=== PATIENT | female | born 1945 | race American Indian/Alaskan Native ===

== ENCOUNTER → 2017-10-12 13:51 | Outpatient (CLI) | payer OTHER, MEDICAID, SELFPAY ==
[2017-10-12 14:59] LABS: Hemoglobin A1C% w Est Avg Glu 7.5 % (4.0-6.0)
[2017-10-12 15:01] LABS: Alanine Aminotransferase 41 IU/L (9-52); Albumin 4.1 g/dL (3.5-5.0); Albumin Globulin Ratio 1.6 (1.0-2.8); Alkaline Phosphatase 74 U/L (38-126); Aspartate Aminotransferase 21 IU/L (14-36); BUN Creatinine Ratio 16.7 (6-22); Bilirubin Total 1.7 mg/dL (0.2-1.3); Blood Urea Nitrogen 15 mg/dL (7-17); Carbon Dioxide 27 mmol/L (22-32); Chloride 103 mmol/L (98-107); Cholesterol 140 mg/dL (140-199); Estimated Glomerular Filt Rate > 60.0 mL/min (>60); Globulin 2.5 g/dL (1.7-4.1); Glucose 146 mg/dL (80-110); HDL Cholesterol 29 mg/dL (40-60); HEMOLYSIS < 15 (0-50); LDL Cholesterol Calculated 69 mg/dL (<100); Potassium 4.4 mmol/L (3.4-5.1); Sodium 141 mmol/L (137-145); Total Protein 6.6 g/dL (6.3-8.2); Triglycerides 212 mg/dL (35-150)
== END ==
PROVIDERS: Family Provider Family Medicine; PCP Family Medicine; Visit Provider Family Medicine
DX: E78.5 Hyperlipidemia, unspecified (principal); E11.9 Type 2 diabetes mellitus without complications; I10 Essential (primary) hypertension
CPT/HCPCS: 36415; 80053; 80061; 83036

== ENCOUNTER → 2017-11-01 18:20 | Outpatient (CLI) | payer OTHER, MEDICAID, SELFPAY | PROVIDERS: Family Provider Family Medicine; PCP Family Medicine; Visit Provider Physician Assistant | DX: N30.00 Acute cystitis without hematuria (principal) | CPT/HCPCS: 87086 ==

== ENCOUNTER 2017-11-30 07:50 | Day surgery (SDC) | payer OTHER, SELFPAY ==
[2017-11-30] VITALS (8 sets, daily range): BP systolic 98–149; BP diastolic 55–91; PULSE 60–64; RESP 15–20; TEMP 36.1–36.4; O2SAT 90–96; BMI 30.7
--- NOTE | 2017-11-30 08:17 | PM.PREOP ---
Pre-operative Note Interval Note Pre-op Check: Yes History & Physical Reviewed by Physician Changes: No
--- NOTE | 2017-11-30 08:18 | PM.PROC.1 ---
Procedures Date/Time Date of procedure: 11/30/17 Time of procedure: 08:18
--- NOTE | 2017-11-30 08:18 | PM.OP.1 ---
Procedure & Clinicians Procedure: Date of service: December 01, 2007 Preoperative diagnoses: 1. Right nuclear sclerotic and cortical cataract. 2. Astigmatism which she corrects elects to correct with a toric intra-ocular lens. 3. Fip-anynzkk-qxzeopoux diabetes mellitus. 4. Hypertension 5. 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 Postoperative diagnoses: 1. Cataract status post cataract surgery with intraocular lens placement . Procedure: Phacoemulsification with posterior chamber intraocular lens implant Surgeon: Arleth Padgett MD Complications:none Specimen: None Implant:ZCT 600+14.5 Blood loss: None Anesthesia: Retrobulbar with monitored standby Anesthesiologist: Brenden Flower M.D. Description of procedure: Patient is a female year old with decreased vision due to cataract which is affecting activities of daily living. She wants surgery to improve vision. She was taken to the operating room and given IV sedation. Topical proparacaine drops were placed in indelible ink wilkerson were placed at the 90 and 180 degree meridian. Due to her status of one eye with useful vision only a general anesthetic was chosen. A laryngeal mask airway was was given without difficulty. The eye is manually massaged for 30 sec, prepped using Betadine solution, and draped in the usual sterile fashion. Temporal approach was made, a 1 mm side-port incision was made at the 7:30 position. Phenylephrine 1.5% mixed with 1% xylocaine 0.2 cc was placed into the anterior chamber. Viscoat followed by Healon was then placed. A 2.6 mm clear incision with a 2.6 mm blade was placed at the 170 degree meridian. A 360 degree capsulorrhexis style capsulotomy was then performed with a cystitome needle on a Healon. Hydrodelineation and hydrodissection were performed. The phacoemulsification unit is introduced, and sculpting mode was used to groove the central lens. It is then removed in chopping mode. Epi nucleus is removed with epinuclear mode and irrigation aspiration was used to remove the peripheral cortex. The posterior capsule is polished. Permanent ink wilkerson are placed at the 18 degree meridian The intraocular lens is selected, inspected, power confirmed, and placed in the posterior chamber in the desired position confirmed with multiple markers. The pupil was constricted. The wound was stromally hydrated and tested for leaks, there was none and it was left sutureless. Vigamox 0.1 cc was placed into the anterior chamber. Kenalog 0.2 cc was placed in the superior subconjunctival space. A drop of antibiotic and was placed and the eye was patched and shielded. The patient was stable and returned to the recovery room in excellent condition. Dictated by: Arleth Padgett MD Copy to: [facility]
[2017-11-30] MEDS: PROPARACAINE 0.5% OPHTH SOL 2 DROPS EYE-OP (08:22)
[2017-11-30] MEDS: CATARACT EYE COMPOUND (10 DROPS/SYRINGE) 3 DROPS EYE-OP (08:26)
[2017-11-30] MEDS: APREPITANT 40 MG CAPSULE PO (08:41)
[2017-11-30] MEDS: PROPARACAINE 0.5% OPHTH SOL 2 DROPS EYE-RIGHT (08:51)
[2017-11-30] MEDS: LACTATED RINGERS 1,000 ML 42 ML IV (08:55)
[2017-11-30] MEDS: HYALURONATE SODIUM 10 MG/ML SYRINGE INJ (09:20)
[2017-11-30] MEDS: MOXIFLOXACIN OPHTH DROPS 3 ML BOTTLE 2 DROPS INJ (09:20)
[2017-11-30] MEDS: CHONDROIDTIN/SOD HYALURONATE 1.05 ML SYRINGE INTRAOCULA (09:20)
[2017-11-30] MEDS: PHENYLEPHRINE/LIDOCAINE VIAL (OR) 0.2 ML EYE-OP (09:21)
[2017-11-30] MEDS: BALANCED SALT IRRIG SOLN NO.2 500 ML, EPINEPHrine 1 MG IRR (09:22)
[2017-11-30] MEDS: TRIAMCINOLONE 50 MG/5 ML VIAL INJ (09:22)
[2017-11-30] MEDS: OFLOXACIN 0.3% OPHTH 5 ML 2 DROPS EYE-RIGHT (09:26)
--- NOTE | 2017-11-30 11:02 | SUR.PHASEII ---
pt steady on feet, dressed ready to go, no questions
== END 2017-11-30 11:03 | disposition home or self-care (01) ==
PROVIDERS: PCP Family Medicine; Visit Provider Ophthalmology
DX: H25.11 Age-related nuclear cataract, right eye (principal); E11.9 Type 2 diabetes mellitus without complications; I10 Essential (primary) hypertension; H52.201 Unspecified astigmatism, right eye
CPT/HCPCS: J0171; J2405; J2704; J3301; J8501; V2787

== ENCOUNTER → 2017-12-31 11:51 | Outpatient (CLI) | payer OTHER, MEDICAID, SELFPAY ==
--- NOTE | 2017-12-31 11:54 | DI.RAD.S_ITS ---
PROCEDURE: XR ANKLE RT MIN 3V INDICATIONS: R leg contusion, swelling, fall TECHNIQUE: 3 views of the ankle were acquired. COMPARISON: None. FINDINGS: Bones: No fractures or dislocations. Ankle mortise is normally aligned. No suspicious bony lesions. Soft tissues: There is periarticular soft tissue swelling. No tibiotalar joint effusion. Achilles tendon appears normal. IMPRESSION: 1. No fracture or dislocation. Dictated by: Ivan Quiroz M.D. on 12/31/2017 at 12:23 Approved by: Ivan Quiroz M.D. on 12/31/2017 at 12:24
--- NOTE | 2017-12-31 11:54 | DI.RAD.S_ITS ---
PROCEDURE: XR KNEE RT 3V INDICATIONS: R leg contusion, swelling, fall TECHNIQUE: 3 views of the knee were acquired. COMPARISON: None. FINDINGS: Bones: No fractures or dislocations. No suspicious bony lesions. Soft tissues: No joint effusion. No suspicious soft tissue calcifications. IMPRESSION: 1. No fracture or dislocation. Dictated by: Ivan Quiroz M.D. on 12/31/2017 at 12:24 Approved by: Ivan Quiroz M.D. on 12/31/2017 at 12:25
--- NOTE | 2017-12-31 11:54 | DI.RAD.S_ITS ---
PROCEDURE: XR FOOT RT MIN 3V INDICATIONS: R leg contusion, swelling, fall TECHNIQUE: 3 views of the foot were acquired. COMPARISON: None. FINDINGS: Bones: No fractures or dislocations. No suspicious bony lesions. Soft tissues: No tibiotalar joint effusion. Achilles tendon appears normal. IMPRESSION: 1. No fracture or dislocation. Dictated by: Ivan Quiroz M.D. on 12/31/2017 at 12:20 Approved by: Ivan Quiroz M.D. on 12/31/2017 at 12:23
--- NOTE | 2017-12-31 11:54 | DI.RAD.S_ITS ---
PROCEDURE: XR TIBIA FUBULA RT 2V INDICATIONS: R leg contusion, swelling, fall TECHNIQUE: 2 views of the tibia and fibula were acquired. COMPARISON: None. FINDINGS: Bones: No fractures or dislocations. No suspicious bony lesions. Soft tissues: No suspicious soft tissue calcifications or masses. IMPRESSION: 1. No fracture or dislocation. Dictated by: Ivan Quiroz M.D. on 12/31/2017 at 12:24 Approved by: Ivan Quiroz M.D. on 12/31/2017 at 12:24
== END ==
PROVIDERS: PCP Family Medicine; Visit Provider Physician Assistant
DX: S80.11XA Contusion of right lower leg, initial encounter (principal); M79.89 Other specified soft tissue disorders; W19.XXXA Unspecified fall, initial encounter
CPT/HCPCS: 73562; 73590; 73610; 73630

== ENCOUNTER → 2018-03-24 13:15 | Outpatient (CLI) | payer OTHER, MEDICAID, SELFPAY ==
[2018-03-24 13:49] LABS: Add Manual Diff / Slide Review NO; Basophils Percent Auto 0.8 % (0-2); Eosinophils Percent Auto 2.2 % (2-4); Hematocrit 42.6 % (36-46); Hemoglobin 14.7 g/dL (12.0-16.0); Lymphocytes Percent Auto 14.6 % (25-40); Mean Corpuscular HGB Conc 34.6 % (30-36); Mean Corpuscular Volume 89.5 fL (80-100); Neutrophils Absolute Auto 5700 /uL (1500-7000); Neutrophils Percent Auto 75.4 % (50-75); Platelet Count 187 X10^3/uL (150-400); Red Blood Cell Count 4.76 X10^6/uL (4.0-5.2); Red Cell Distribution Width 13.2 % (11.6-14.8); White Blood Cell Count 7.5 X10^3/uL (4.5-11.0)
[2018-03-24 13:57] LABS: Alanine Aminotransferase 35 IU/L (9-52); Albumin 4.2 g/dL (3.5-5.0); Albumin Globulin Ratio 1.8 (1.0-2.8); Alkaline Phosphatase 63 U/L (38-126); Aspartate Aminotransferase 20 IU/L (14-36); BUN Creatinine Ratio 12.2 (6-22); Bilirubin Total 1.2 mg/dL (0.2-1.3); Blood Urea Nitrogen 11 mg/dL (7-17); Calcium 9.5 mg/dL (8.4-10.2); Carbon Dioxide 24 mmol/L (22-32); Chloride 105 mmol/L (98-107); Cholesterol 128 mg/dL (140-199); Estimated Glomerular Filt Rate > 60.0 mL/min (>60); Globulin 2.4 g/dL (1.7-4.1); Glucose 138 mg/dL (80-110); HDL Cholesterol 30 mg/dL (40-60); HEMOLYSIS < 15 (0-50); LDL Cholesterol Calculated 67 mg/dL (<100); Potassium 4.1 mmol/L (3.4-5.1); Sodium 144 mmol/L (137-145); Total Protein 6.6 g/dL (6.3-8.2); Triglycerides 157 mg/dL (35-150)
== END ==
PROVIDERS: PCP Family Medicine; Visit Provider Family Medicine
DX: E78.5 Hyperlipidemia, unspecified (principal); I10 Essential (primary) hypertension
CPT/HCPCS: 36415; 80053; 80061; 85025

== ENCOUNTER → 2018-04-17 12:21 | Outpatient (CLI) | payer OTHER, MEDICAID, SELFPAY ==
--- NOTE | 2018-04-17 12:24 | DI.RAD.S_ITS ---
PROCEDURE: XR LUMBAR SPINE 2-3V INDICATIONS: lumbar strain TECHNIQUE: 3 views of the lumbar spine were acquired. COMPARISON: [facility], , L-SPINE 2-3 VIEWS, 05/02/2012, 12:30. FINDINGS: Bones: 5 gys-bls-qcynafn vertebrae are present. There is mildly levoscoliotic bony alignment. No vertebral body compression fractures. No suspicious bony lesions. Note is made of interval worsening of degenerative disc disease with near ykwv-hy-vfqi articulation at L2-L3 between the adjacent disc spaces, and further worsening of degenerative disc height reduction at that level and also at L5-S1. Facet osteoarthritis is greater on the left than the right, and most prominent from L3 inferiorly. Soft tissues: Overlying bowel gas pattern is normal. No suspicious soft tissue calcifications. IMPRESSION: Degenerative disc disease and facet osteoarthritis along the lumbosacral spine has appreciably worsened from the comparison study in April 2012. Slight retrolisthesis, grade 1, of L2 on L3 has developed associated with disc height reduction and ligamentous laxity. No trauma found. Slight convex leftward scoliosis. Dictated by: Dillon Diaz M.D. on 04/17/2018 at 13:35 Approved by: Dillon Diaz M.D. on 04/17/2018 at 13:36
--- NOTE | 2018-04-17 13:00 | DI.US.S_ITS ---
PROCEDURE: US THYROID INDICATIONS: FOLLOW UP TECHNIQUE: Real-time scanning was performed of the thyroid gland, with image documentation. COMPARISON: [facility], [place], THYROID, 03/24/2017, 13:30. FINDINGS: Right: Thyroid lobe measures 4.7 x 2.1 x 1.7 cm, and is homogeneous in echotexture. Left: Thyroid lobe measures 5.0 x 2.2 x 2.0 cm, and is homogenous in echotexture. Isthmus: 3.0 mm thick. Nodule number: 1 Location: Right mid to superior Size: 1.0 0.6 x 0.9 cm. Composition: Solid Echogenicity: Hypoechoic Shape: wider than tall. Margins: Smooth Echogenic foci: None Total points: 4 ACR TI-RADS category: Moderately suspicious. Nodule number: 2 Location: Right mid medially Size: Unchanged at 0.8 x 0.6 x 0.7 cm. Composition: Solid Echogenicity: Hypoechoic Shape: wider than tall. Margins: Smooth Echogenic foci: None Total points: 4 ACR TI-RADS category: Moderately suspicious Nodule number: Moderately suspicious Location: Right mid inferior Size: Unchanged at 1.8 x 1.6 x 1.4 cm. Composition: Solid Echogenicity: Hypoechoic Shape: wider than tall. Margins: Smooth Echogenic foci: None Total points: 4 ACR TI-RADS category: Moderately suspicious Nodule number: 5 Location: Left mid Size: Enlarged at 2.8 x 1.9 x 1.6 cm. Composition: Predominantly solid Echogenicity: Hypoechoic Shape: wider than tall. Margins: Ill-defined Echogenic foci: None Total points: 5 ACR TI-RADS category: Moderately suspicious IMPRESSION: Bilateral thyroid nodules as above. Recommend sonographically directed fine needle aspiration involving the ## 4 left mid nodule and continued sonographic surveillance of the additional nodules as below. ACR TI-RADS definitions and recommendations: TI-RADS 1 (benign): 0 points. FNA not needed. TI-RADS 2 (not suspicious): 2 points. FNA not needed. TI-RADS 3 (mildly suspicious): 3 points. * FNA if 2.5 cm or larger, follow up if 1.5 cm or larger (at 1, 3, and 5 years). TI-RADS 4 (moderately suspicious): 4-6 points. * FNA if 1.5 cm or larger, follow up if 1 cm or larger (at 1, 2, 3, and 5 years). TI-RADS 5 (highly suspicious): 7 points or more. * FNA if 1 cm or larger, follow up if 0.5 cm or larger (every year for 5 years). Dictated by: Jeronimo MERCHANT Interpreted: Jerardo Bolton MD on 04/17/2018 at 13:59 Approved by: Jerardo Bolton M.D. on 04/17/2018 at 16:55
== END ==
PROVIDERS: PCP Family Medicine; Visit Provider Family Medicine
DX: E04.2 Nontoxic multinodular goiter (principal); S39.012A Strain of muscle, fascia and tendon of lower back, initial encounter; M51.36 Other intervertebral disc degeneration, lumbar region; M51.37 Other intervertebral disc degeneration, lumbosacral region; M47.816 Spondylosis without myelopathy or radiculopathy, lumbar region; M47.817 Spondylosis without myelopathy or radiculopathy, lumbosacral region
CPT/HCPCS: 72100; 76536

== ENCOUNTER → 2018-07-14 13:43 | Outpatient (CLI) | payer OTHER, MEDICAID, SELFPAY ==
--- NOTE | 2018-07-14 13:45 | DI.MRI.S_ITS ---
PROCEDURE: MR LUMBAR SPINE WO CON INDICATIONS: Lumbar disc disease TECHNIQUE: Noncontrast sagittal T1 spin echo and T2 fast echo, sagittal STIR, axial T1 and T2 fast spin echo through the lumbar spine. In cases with scoliosis, additional coronal T2 fast spin echo may be performed. COMPARISON: [facility], MR, L-SPINE W&WO CONTRAST, 06/15/2012, 11:59. [facility], CR, XR LUMBAR SPINE 2-3V, 04/17/2018, 13:00. FINDINGS: Image quality: Excellent. Alignment and Curvature: 5 lumbar type vertebral bodies are present by plain film. There is mild grade 1 retrolisthesis of L1 on L2, L2 on L3, and L3 on L4. Bone Marrow: Marrow is of normal overall signal. No acute vertebral body compression fractures. There is mild reactive signal within the endplates adjacent to the L1-L2 at L2-L3 intervertebral discs. L2 laminectomy has been performed. Spinal Cord: Conus medullaris terminates at the mid L2 level. Visualized cord demonstrates normal signal and size. Paraspinous Soft Tissues: No paravertebral masses. There is a 16mm diameter high T2 intensity focus within the right kidney, which demonstrates a low T2 intensity mural nodule measuring roughly 6 mm. L1-L2: Mild disc height loss and desiccation. Mild diffuse disc bulge. Mild facet and ligament flavum hypertrophy. Mild epidural lipomatosis. Mild canal stenosis. Mild bilateral foraminal stenosis. No change. L2-L3: Severe disc height loss and desiccation. Moderate diffuse disc bulge. Increased, mild canal stenosis. Increased, mild bilateral foraminal stenosis. L3-L4: Mild disc height loss. Moderate disc desiccation. Mild diffuse disc bulge. Mild facet and ligament flavum hypertrophy. Mild epidural lipomatosis. Increased, mild canal stenosis. Increased, mild bilateral foraminal stenosis. L4-L5: Mild disc height loss and desiccation. Mild diffuse disc bulge. Mild bilateral facet hypertrophy. Mild canal stenosis is unchanged. There is no change in moderate bilateral foraminal stenosis. L5-S1: Moderate disc height loss and desiccation. Mild diffuse disc bulge with superimposed broad-based left far lateral protrusion. Moderate bilateral facet hypertrophy. Mild canal stenosis. Severe left and moderate right foraminal stenosis. Compression of the left L5 nerve root within the neural foramen. No significant change. IMPRESSION: 1. Indeterminate right renal lesion; renal protocol CT with and without intravenous contrast is recommended to evaluate for malignancy. 2. Multilevel degenerative disc and facet disease, as well as ligamentum flavum hypertrophy and epidural lipomatosis. 3. Mild multilevel canal stenoses. 4. Multilevel foraminal stenoses, worst on the left at L5-S1, where there is associated intraforaminal nerve root compression. Recommend correlation with clinical symptoms to ascertain relevance of this finding. Dictated by: Thuan Jones M.D. on 07/14/2018 at 16:14 Approved by: Thuan Jones M.D. on 07/14/2018 at 16:20
== END ==
PROVIDERS: PCP Family Medicine; Visit Provider Family Medicine
DX: M51.36 Other intervertebral disc degeneration, lumbar region (principal); M51.37 Other intervertebral disc degeneration, lumbosacral region; M48.061 Spinal stenosis, lumbar region without neurogenic claudication; M48.07 Spinal stenosis, lumbosacral region; N28.9 Disorder of kidney and ureter, unspecified; E88.2 Lipomatosis, not elsewhere classified
CPT/HCPCS: 72148

== ENCOUNTER → 2018-08-22 12:38 | Outpatient (CLI) | payer OTHER, MEDICAID, SELFPAY ==
--- NOTE | 2018-08-22 12:40 | DI.CT.S_ITS ---
PROCEDURE: CT ABDOMEN WO/W CON INDICATIONS: Renal mass TECHNIQUE: Optional 5 mm thick noncontrast images acquired from the diaphragm to the iliac crests. After the administration of intravenous contrast, 5 mm thick images again acquired from the diaphragm to the iliac crests in the arterial and urographic phases. 5 mm thick coronal and sagittal reformats were then acquired. For radiation dose reduction, the following was used: automated exposure control, adjustment of mA and/or kV according to patient size. COMPARISON: [facility], CT, THORAX WITH CONTRAST, 01/28/2017, 10:20. [facility], CT, ABDOMEN/PELVIS WITH CONTRAST, 06/24/2008, 15:36. [facility], MR, MR LUMBAR SPINE WO CON, 07/14/2018, 14:19. FINDINGS: Image quality: Excellent. Lung bases: Lung bases are clear. Heart size is normal. Genitourinary: Prior MRI from 07/14/18 is reviewed which identified a minimally complex right mid renal cortex cystic structure. The radiodensity in that area on precontrast imaging is 3 Hounsfield units and on the arterial phase of enhancement is 11 Hounsfield units. The delayed imaging is 12 Hounsfield units. Other solid organs: Liver is normal in size and enhancement. Gallbladder appears normal. Biliary system is non dilated. Pancreas enhances normally. Spleen is normal in size and enhancement. No adrenal nodules. Peritoneum and bowel: Unenhanced bowel loops are normal in wall thickness and caliber. No free fluid or air. Nodes and vessels: No retroperitoneal or mesenteric adenopathy by size criteria. Aorta and inferior vena cava are normal in caliber. Bones: No suspicious bony lesions. No vertebral body compression fractures. Miscellaneous: No ventral hernias. IMPRESSION: No significant internal enhancement or enhancing nodule is seen associated with the water density cyst by CT criteria evaluated before, during, and after contrast enhancement optimized for renal cortical evaluation. A malignant appearing mass is not found. This structure also can be seen on a prior CT scan from 06/24/08, also without internal enhancing nodule. No followup is recommended. Dictated by: Dillon Diaz M.D. on 08/22/2018 at 15:33 Approved by: Dillon Diaz M.D. on 08/22/2018 at 15:40
[2018-08-22 13:19] LABS: Hemoglobin A1C% w Est Avg Glu 6.7 % (4.0-6.0)
[2018-08-22 13:34] LABS: Alanine Aminotransferase 24 IU/L (9-52); Albumin 4.4 g/dL (3.5-5.0); Albumin Globulin Ratio 1.6 (1.0-2.8); Alkaline Phosphatase 67 U/L (38-126); Aspartate Aminotransferase 20 IU/L (14-36); Bilirubin Total 1.3 mg/dL (0.2-1.3); Blood Urea Nitrogen 17 mg/dL (7-17); Calcium 10.1 mg/dL (8.4-10.2); Carbon Dioxide 26 mmol/L (22-32); Chloride 103 mmol/L (98-107); Estimated Glomerular Filt Rate 54.1 mL/min (>60); Globulin 2.8 g/dL (1.7-4.1); Glucose 172 mg/dL (80-110); HEMOLYSIS < 15 (0-50); Potassium 3.9 mmol/L (3.4-5.1); Sodium 139 mmol/L (137-145); Total Protein 7.2 g/dL (6.3-8.2)
== END ==
PROVIDERS: PCP Family Medicine; Visit Provider Family Medicine
DX: N28.89 Other specified disorders of kidney and ureter (principal); E11.9 Type 2 diabetes mellitus without complications; I10 Essential (primary) hypertension
CPT/HCPCS: 36415; 74170; 80053; 83036; Q9967

== ENCOUNTER → 2018-11-24 13:01 | Outpatient (CLI) | payer OTHER, MEDICAID, SELFPAY ==
[2018-11-24 13:17] LABS: Add Manual Diff / Slide Review NO; Basophils Absolute Auto 100 /uL (0-100); Basophils Percent Auto 1.1 % (0-2); Eosinophils Absolute Auto 300 /uL (0-450); Eosinophils Percent Auto 3.3 % (2-4); Hematocrit 43.5 % (36-46); Hemoglobin 14.7 g/dL (12.0-16.0); Lymphocytes Absolute Auto 1400 /uL (1100-4500); Mean Corpuscular HGB Conc 33.8 % (30-36); Mean Corpuscular Hemoglobin 30.4 PG (26-34); Mean Corpuscular Volume 89.7 fL (80-100); Monocytes Absolute Auto 600 /uL (0-900); Monocytes Percent Auto 6.8 % (3-14); Neutrophils Absolute Auto 6200 /uL (1500-7000); Neutrophils Percent Auto 72.8 % (50-75); Platelet Count 172 X10^3/uL (150-400); Red Blood Cell Count 4.85 X10^6/uL (4.0-5.2); Red Cell Distribution Width 13.3 % (11.6-14.8); White Blood Cell Count 8.5 X10^3/uL (4.5-11.0)
[2018-11-24 13:30] LABS: Alanine Aminotransferase 51 IU/L (9-52); Albumin 4.1 g/dL (3.5-5.0); Albumin Globulin Ratio 1.5 (1.0-2.8); Alkaline Phosphatase 64 U/L (38-126); Aspartate Aminotransferase 37 IU/L (14-36); BUN Creatinine Ratio 12.2 (6-22); Bilirubin Total 0.7 mg/dL (0.2-1.3); Blood Urea Nitrogen 11 mg/dL (7-17); Calcium 9.9 mg/dL (8.4-10.2); Carbon Dioxide 26 mmol/L (22-32); Chloride 107 mmol/L (98-107); Cholesterol 112 mg/dL (140-199); Estimated Glomerular Filt Rate > 60.0 mL/min (>60); Globulin 2.7 g/dL (1.7-4.1); Glucose 168 mg/dL (80-110); HDL Cholesterol 31 mg/dL (40-60); HEMOLYSIS < 15 (0-50); LDL Cholesterol Calculated 59 mg/dL (<100); Potassium 4.3 mmol/L (3.4-5.1); Sodium 142 mmol/L (137-145); Total Protein 6.8 g/dL (6.3-8.2); Triglycerides 108 mg/dL (35-150)
[2018-11-24 13:31] LABS: Hemoglobin A1C% w Est Avg Glu 6.8 % (4.0-6.0)
[2018-11-24 14:13] LABS: Thyroid Stimulating Hormone 1.18 uIU/mL (0.47-4.68)
== END ==
PROVIDERS: PCP Family Medicine; Visit Provider Family Medicine
DX: E11.9 Type 2 diabetes mellitus without complications (principal); E78.5 Hyperlipidemia, unspecified; I10 Essential (primary) hypertension
CPT/HCPCS: 36415; 80053; 80061; 83036; 84443; 85025

== ENCOUNTER → 2019-04-18 12:16 | Outpatient (CLI) | payer MEDICARE, MEDICAID, SELFPAY ==
[2019-04-18 13:41] LABS: Alanine Aminotransferase 17 IU/L (<35); Albumin Globulin Ratio 1.5 (1.0-2.8); Alkaline Phosphatase 59 U/L (38-126); Aspartate Aminotransferase 18 IU/L (14-36); BUN Creatinine Ratio 11.1 (6-22); Bilirubin Total 1.3 mg/dL (0.2-1.3); Blood Urea Nitrogen 10 mg/dL (7-17); Calcium 9.4 mg/dL (8.4-10.2); Carbon Dioxide 27 mmol/L (22-32); Chloride 105 mmol/L (98-107); Cholesterol 95 mg/dL (140-199); Estimated Glomerular Filt Rate > 60.0 mL/min (>60); Globulin 2.7 g/dL (1.7-4.1); Glucose 156 mg/dL (80-110); HDL Cholesterol 26 mg/dL (40-60); HEMOLYSIS < 15 (0-50); LDL Cholesterol Calculated 42 mg/dL (<100); Potassium 3.8 mmol/L (3.4-5.1); Sodium 141 mmol/L (137-145); Total Protein 6.7 g/dL (6.3-8.2); Triglycerides 136 mg/dL (35-150)
[2019-04-18 13:43] LABS: Hemoglobin A1C% w Est Avg Glu 6.6 % (4.0-6.0)
== END ==
PROVIDERS: PCP Family Medicine; Visit Provider Family Medicine
DX: E11.9 Type 2 diabetes mellitus without complications (principal); I10 Essential (primary) hypertension
CPT/HCPCS: 36415; 80053; 80061; 83036

== ENCOUNTER → 2019-11-05 09:27 | Outpatient (CLI) | payer MEDICARE, MEDICAID, SELFPAY ==
[2019-11-05 10:20] LABS: Add Manual Diff / Slide Review NO; Basophils Absolute Auto 100 /uL (0-100); Basophils Percent Auto 0.7 % (0-2); Eosinophils Absolute Auto 400 /uL (0-450); Eosinophils Percent Auto 3.9 % (2-4); Hematocrit 40.1 % (36-46); Hemoglobin 13.7 g/dL (12.0-16.0); Lymphocytes Absolute Auto 1700 /uL (1100-4500); Mean Corpuscular HGB Conc 34.1 % (30-36); Mean Corpuscular Hemoglobin 31.3 PG (26-34); Mean Corpuscular Volume 91.6 fL (80-100); Monocytes Absolute Auto 700 /uL (0-900); Monocytes Percent Auto 7.6 % (3-14); Neutrophils Absolute Auto 6800 /uL (1500-7000); Neutrophils Percent Auto 69.8 % (50-75); Platelet Count 175 X10^3/uL (150-400); Red Blood Cell Count 4.37 X10^6/uL (4.0-5.2); Red Cell Distribution Width 13.1 % (11.6-14.8); White Blood Cell Count 9.7 X10^3/uL (4.5-11.0)
[2019-11-05 10:33] LABS: Hemoglobin A1C% w Est Avg Glu 7.4 % (4.0-6.0)
[2019-11-05 10:42] LABS: Alanine Aminotransferase 19 IU/L (<35); Albumin Globulin Ratio 1.5 (1.0-2.8); Alkaline Phosphatase 78 U/L (38-126); Aspartate Aminotransferase 20 IU/L (14-36); BUN Creatinine Ratio 13.5 (6-22); Bilirubin Total 0.5 mg/dL (0.2-1.3); Blood Urea Nitrogen 17 mg/dL (7-17); Calcium 9.8 mg/dL (8.4-10.2); Carbon Dioxide 23 mmol/L (22-32); Chloride 107 mmol/L (98-107); Cholesterol 108 mg/dL (140-199); Estimated Glomerular Filt Rate 41.3 mL/min (>60); Globulin 2.6 g/dL (1.7-4.1); Glucose 184 mg/dL (80-110); HDL Cholesterol 26 mg/dL (40-60); HEMOLYSIS < 15 (0-50); LDL Cholesterol Calculated 51 mg/dL (<100); Potassium 4.5 mmol/L (3.4-5.1); Sodium 138 mmol/L (137-145); Total Protein 6.6 g/dL (6.3-8.2); Triglycerides 157 mg/dL (35-150)
[2019-11-05 15:00] LABS: Microalbumin Urine Random 1.7 mg/dL (0-1.6)
== END ==
PROVIDERS: PCP Family Medicine; Referring Provider Family Medicine; Visit Provider Family Medicine
DX: E11.9 Type 2 diabetes mellitus without complications (principal); E78.5 Hyperlipidemia, unspecified; I10 Essential (primary) hypertension
CPT/HCPCS: 36415; 80053; 80061; 82043; 82570; 83036; 85025

== ENCOUNTER 2019-12-27 19:41 | Emergency (ER) | payer MEDICARE, MEDICAID, SELFPAY ==
[2019-12-27 19:45] VITALS: BP 180/79; PULSE 74; RESP 18; TEMP 36.4; O2SAT 96
--- NOTE | 2019-12-27 20:06 | DI.RAD.S_ITS ---
PROCEDURE: XR HIP W PEL IF DONE RT 2V INDICATIONS: fell and has pain and swelling at hip. TECHNIQUE: AP pelvis with lateral view(s) of the right hip(s). COMPARISON: None. FINDINGS: Bones: No fractures or dislocations. Pelvic ring appears intact. No suspicious bony lesions. Mild bilateral hip osteoarthritis. Soft tissues: The visualized bowel gas pattern is normal. No suspicious soft tissue calcifications. Surgical clips project over the lower pelvis. IMPRESSION: No fracture. No acute osseous lesion. If symptoms and/or clinical suspicion for pathology persists, further assessment with repeat radiographs (7-10 days) or advanced imaging (e.g. CT, MRI or bone scan) may be helpful. Dictated by: Tisha Garcias MD, PhD on 12/27/2019 at 20:28 Approved by: Tisha Garcias MD, PhD on 12/27/2019 at 20:39
--- NOTE | 2019-12-27 20:50 | ED_ITS ---
HPI - Extremity Injury (Lower) General Chief Complaint: Extremity Injury, Lower Stated Complaint: fall, right hip lump Time Seen by Provider: 12/27/19 20:00 Source: patient Mode of arrival: Ambulatory Limitations: no limitations History of Present Illness HPI Narrative: 74F never smoker with history of HTN, DM and breast CA presents with pain and swelling of her right hip after a fall this evening. She was in her normal state of health until she misjudged her footing and she fell onto her hip. She denies prodromal symptoms such as dizziness, weakness, chest pain or shortness of breath. She has swelling, but very little pain on ambulation. She denies numbness, tingling, or weakness. She does not take blood thinners. She is otherwise well and free of complaint MD complaint: hip injury Type of Injury: blunt Place: home Severity: moderate Relieving factors: immobilization Exacerbating factors: palpation Context: fall and direct blow Associated symptoms: swelling and ambulatory Other symptoms: none Treatments prior to arrival: cold therapy Related Data Home Medications Medication Instructions Recorded Confirmed timolol maleate [Timoptic] 1 drp OPHTH DAILY #0 01/12/17 05/02/19 [calcium ] 1,200 mg PO QDAY #0 03/09/17 05/02/19 omega 4-iyb-hnn-fish oil 1,200 mg cap PO 11/23/19 11/23/19 (144 mg-216 mg) capsule Previous Rx's Medication Instructions Recorded Disabled Parking Permit #1 ea 01/04/18 clotrimazole-betamethasone 1 1 applictn TOP ONCE PRN #15 gram 12/12/18 %-0.05 % topical cream One touch Verio test strips #100 each 06/06/19 propranolol 80 mg tablet 80 mg PO BID #180 tab 09/26/19 tizanidine 4 mg tablet 4 mg PO BEDTIME #30 tab 10/09/19 atorvastatin 10 mg tablet 10 mg PO BEDTIME #90 tab 11/02/19 metformin 500 mg tablet,extended 1,000 mg PO DAILY #180 tab 12/07/19 release 24 hr spironolactone 25 mg tablet 25 mg PO DAILY #30 tab 12/07/19 duloxetine 20 mg capsule,delayed 20 mg PO BID #180 cap 12/11/19 release losartan 100 mg tablet 100 mg PO QDAY #90 tab 12/11/19 Allergies Allergy/AdvReac Type Severity Reaction Status Date / Time lisinopril [LISINOPRIL] Allergy Severe Cough, Verified 11/23/19 08:23 tremors codeine [CODEINE] Allergy Intermediate itching Verified 11/23/19 08:23 and rash Horse/Equine Containing Allergy Unknown Patient Verified 11/23/19 08:23 Products can't remember I was 1 or 2 when that happened. Review of Systems Constitutional Constitutional: Denies chills, Denies fatigue, Denies fever(s), Denies frequent falls, Denies lethargy and Denies weakness Eyes Eyes: Denies change in vision, Denies eye discharge, Denies irritation and Denies loss of vision ENT Ears, Nose, Mouth, and Throat: Denies change in voice, Denies dizziness, Denies neck pain, Denies sore throat and Denies throat swelling Cardiovascular Cardiovascular: Denies chest pain, Denies irregular heart rhythm, Denies lightheadedness, Denies palpitations, Denies dyspnea, Denies dyspnea on exertion and Denies orthopnea Respiratory Respiratory: Denies cough, Denies dyspnea, Denies dyspnea on exertion and Denies wheezing Gastrointestinal Gastrointestinal: Denies abdominal pain, Denies change in bowel habits, Denies diarrhea, Denies nausea and Denies vomiting Musculoskeletal Musculoskeletal: Reports joint swelling, Denies neck pain and Denies numbness Integumentary/Breasts Skin/Breast: Denies pruritus, Denies erythema, Denies rash and Denies wounds Neurologic Neurologic: Denies behavioral changes, Denies confusion, Denies dizziness, Denies frequent falls, Denies loss of vision, Denies numbness and Denies weakness Psychiatric Psychiatric: Denies anxiety, Denies behavioral changes, Denies confusion, Denies depression, Denies homicidal ideation and Denies suicidal ideation Endocrine Endocrine: Denies fatigue, Denies flushing and Denies palpitations Hematologic/Lymphatic Hematologic/Lymphatic: Denies easy bruising Allergic/Immunologic Allergic/Immunologic: Denies urticaria, Denies throat swelling and Denies wheezing Patient History Medical History Anxiety (Chronic Unknown) Blindness (Chronic 1949) Breast CA (Resolved 1998) Chickenpox (Resolved 1955) Chronic back pain (Chronic 1998) CKD (chronic kidney disease) (Chronic Unknown) Depression (Chronic 1965) Diabetes (Chronic Unknown) Diabetes insipidus (Resolved 1999) GERD (gastroesophageal reflux disease) (Chronic Unknown) GI bleed (Resolved 2016) Hearing loss (Chronic 2014) History of head injury (Acute) Hx of drug overdose (Resolved Unknown) Hyperlipemia (Chronic Unknown) Hypertension (Chronic Unknown) Low HDL (under 40) (Acute) Lower extremity edema (Acute) Measles (Resolved 1948) Memory loss (Acute) Mumps (Resolved 194) Obstructive sleep apnea (Chronic Unknown) Tension headache (Acute) Urinary incontinence (Chronic 2010) Surgical History History of total abdominal hysterectomy (Resolved 1998) S/P breast lumpectomy (Resolved ~1999) Family History Father Cancer Diabetes mellitus Mother Hypertension Social History Smoking Status: Never smoker second hand exposure: Yes (I was when I was young.) alcohol intake: former substance use type: does not use Smoking Status: Never smoker Substance Use Type: does not use Exam Narrative Exam Narrative: GEN: AOx3 and in mild distress EYES: Pupils are equal, round, and reactive to light and accommodation. Extraoccular muscles are intact bilaterally. There is no subconjunctival hemorrhage or exudate. CHEST: Lungs are clear to auscultation bilaterally and free of wheezes, rales, or rhonchi. Heart rate is regular rhythm, there are no murmurs, clicks, rubs, or gallops. There is no chest wall tenderness. ABD: Abdomen is soft and nontender. There is no guarding or rebound. Bowel sounds are normal in all 4 quadrants. There is no mass or organomegaly. EXT: Large hematoma on right lateral hip. Skin remains soft, no ecchymosis. Full painless ROM of all extremities with no loss of sensation or strength. No pain on axial loading, no pain with passive or active internal/external rotation. SKIN: Warm, pink, and dry. No erythema or rash Initial Vital Signs Initial Vital Signs: Vital Signs Temperature 97.5 F L 12/27/19 19:45 Pulse Rate 74 12/27/19 19:45 Respiratory Rate 18 12/27/19 19:45 Blood Pressure 180/79 H 12/27/19 19:45 Pulse Oximetry 96 12/27/19 19:45 Course Course Course Narrative: patient able to ambulate through the department without difficulty. Xray shows no fracture. No evidence of expanding hematoma. Return precautions given. questions answered to her satisfaction. Orders Ordered: ED Orders 12/27/19 20:06 XR hip w pel if done RT 2V Stat Vital Signs Vital signs: Vital Signs - 8 hr 12/27/19 19:45 Temperature 97.5 F L Pulse Rate 74 Respiratory Rate 18 Blood Pressure 180/79 H Pulse Oximetry 96 MDM - Extremity Injury (Lower) Imaging Data Extremity x-ray #1: Radiologist's Impression: [address] [id number] XRay Report Signed Patient: Pau Rivera MMR#: [id number] : 4Acct:[id number] Age/Sex: 74 / FDate of Service: 12/27/19 Loc: ED Accession Number: [id number] Procedure: XR hip w pel if done RT 2V Ordering Provider: Basil Mota D.O. PROCEDURE: XR HIP W PEL IF DONE RT 2V INDICATIONS: fell and has pain and swelling at hip. TECHNIQUE: AP pelvis with lateral view(s) of the right hip(s). COMPARISON: None. FINDINGS: Bones: No fractures or dislocations. Pelvic ring appears intact. No suspicious bony lesions. Mild bilateral hip osteoarthritis. Soft tissues: The visualized bowel gas pattern is normal. No suspicious soft tissue calcifications. Surgical clips project over the lower pelvis. IMPRESSION: No fracture. No acute osseous lesion. If symptoms and/or clinical s uspicion for pathology persists, further assessment with repeat radiographs (7-10 days) or advanced imaging (e.g. CT, MRI or bone scan) may be helpful. Dictated by: Tisha Garcias MD, PhD on 12/27/2019 at 20:28 Approved by: Tisha Garcias MD, PhD on 12/27/2019 at 20:39 Discharge Plan Departure Patient Disposition: Home Clinical Impression: Hematoma of right hip Qualifiers: Encounter type: initial encounter Qualified Code(s): S70.01XA - Contusion of right hip, initial encounter Discharge Date/Time: 12/27/19 21:28 Instructions: DI for Hematoma (Bruise) Activity Restrictions/Additional Instructions: *You have been diagnosed with [right hip hematoma, no fracture based on x-ray or your exam.] *What to do: *Take medications as directed *Follow up with your primary care provider in 2-3 days, call for an appointment. Let them know you were seen in the Emergency Department and that we ask that you be seen in follow up *Return to ER if you should have any new, worsening or concerning symptoms Prescriptions: No Action (DME) Disabled Parking Permit Qty: 1 RF: 0 timolol maleate [Timoptic] 0.25 % drops 1 drp OPHTH DAILY Qty: 0 RF: 0 [calcium ] 1,200 mg PO QDAY Qty: 0 RF: 0 (DME) One touch Verio test strips Qty: 100 RF: 5 propranolol 80 mg tablet 80 mg PO BID Qty: 180 RF: 1 tizanidine 4 mg tablet 4 mg PO BEDTIME Qty: 30 RF: 2 atorvastatin 10 mg tablet 10 mg PO BEDTIME Qty: 90 RF: 1 metformin 500 mg tablet extended release 24 hr 1,000 mg PO DAILY Qty: 180 RF: 1 spironolactone 25 mg tablet 25 mg PO DAILY Qty: 30 RF: 5 duloxetine 20 mg capsule,delayed release(DR/EC) 20 mg PO BID Qty: 180 RF: 1 losartan 100 mg tablet 100 mg PO QDAY Qty: 90 RF: 1 clotrimazole-betamethasone [Lotrisone] 1-0.05 % cream 1 applictn TOP ONCE PRN (Reason: rash) Qty: 15 RF: 2 omega 3-raj-xdr-fish oil [Fish Oil] 1,200 (144-216) mg capsule PO RF: 0 Referrals: Bebeto Pham DO [Primary Care Provider] -
--- NOTE | 2019-12-27 21:25 | PC.NURSE ---
R hip wrapped with compression dressing. Ambulating well.
== END 2019-12-27 21:28 | disposition home or self-care (01) ==
PROVIDERS: Emergency Provider Emergency Medicine; PCP Family Medicine
DX: S70.01XA Contusion of right hip, initial encounter (principal); W19.XXXA Unspecified fall, initial encounter
CPT/HCPCS: 73502; 99283

== ENCOUNTER 2020-01-07 12:09 | Observation (INO) | payer MEDICARE, MEDICAID, SELFPAY ==
[2020-01-07] VITALS (65 sets, daily range): BP systolic 68–159; BP diastolic 40–72; PULSE 52–68; RESP 16–26; TEMP 35.3–36.1; O2SAT 90–99; BMI 27.4
[2020-01-07 12:34] LABS: Add Manual Diff / Slide Review NO; Basophils Absolute Auto 100 /uL (0-100); Basophils Percent Auto 0.5 % (0-2); Eosinophils Absolute Auto 200 /uL (0-450); Eosinophils Percent Auto 2.2 % (2-4); Hematocrit 39.2 % (36-46); Hemoglobin 13.1 g/dL (12.0-16.0); Lymphocytes Absolute Auto 1000 /uL (1100-4500); Lymphocytes Percent Auto 9.9 % (25-40); Mean Corpuscular HGB Conc 33.3 % (30-36); Mean Corpuscular Hemoglobin 31.1 PG (26-34); Mean Corpuscular Volume 93.2 fL (80-100); Monocytes Absolute Auto 400 /uL (0-900); Monocytes Percent Auto 4.1 % (3-14); Neutrophils Absolute Auto 8700 /uL (1500-7000); Neutrophils Percent Auto 83.3 % (50-75); Platelet Count 207 X10^3/uL (150-400); Red Blood Cell Count 4.21 X10^6/uL (4.0-5.2); Red Cell Distribution Width 13.2 % (11.6-14.8); White Blood Cell Count 10.4 X10^3/uL (4.5-11.0)
[2020-01-07 12:41] LABS: INR 1.1 (0.9-1.3); Prothrombin Time 12.4 SECONDS (10.1-12.7)
[2020-01-07 12:43] LABS: PTT Partial Thromboplastin Tim 32 SECONDS (26.4-36.2)
[2020-01-07 12:45] LABS: Alanine Aminotransferase 22 IU/L (<35); Albumin 4.1 g/dL (3.5-5.0); Albumin Globulin Ratio 1.6 (1.0-2.8); Alkaline Phosphatase 57 U/L (38-126); Aspartate Aminotransferase 18 IU/L (14-36); BUN Creatinine Ratio 14.5 (6-22); Bilirubin Total 1.5 mg/dL (0.2-1.3); Blood Urea Nitrogen 21 mg/dL (7-17); Carbon Dioxide 22 mmol/L (22-32); Chloride 105 mmol/L (98-107); Creatine Kinase 24 U/L (30-135); Estimated Glomerular Filt Rate 35.1 mL/min (>60); Globulin 2.5 g/dL (1.7-4.1); Glucose 308 mg/dL (80-110); HEMOLYSIS < 15 (0-50); Potassium 4.8 mmol/L (3.4-5.1); Sodium 137 mmol/L (137-145); Total Protein 6.6 g/dL (6.3-8.2)
[2020-01-07] MEDS: SODIUM CHLORIDE 0.9% 1,000 ML 1000 ML IV ×3 (12:45→15:26)
--- NOTE | 2020-01-07 12:53 | DI.CT.S_ITS ---
PROCEDURE: CT HEAD/BRAIN WO CON INDICATIONS: confusion TECHNIQUE: Noncontrast 4.5 mm thick angled axial sections acquired from the foramen magnum to the vertex, with coronal and sagittal reformats. For radiation dose reduction, the following was used: automated exposure control, adjustment of mA and/or kV according to patient size. COMPARISON: [facility], RG, CT HEAD W/O CONTRAST, 01/04/2001, 8:48. [facility], MR, BRAIN WITHOUT CONTRAST, 04/12/2008, 10:30. FINDINGS: Image quality: Excellent. CSF spaces: Basal cisterns are patent. No extra-axial fluid collections. The ventricles are symmetric in size and shape. Brain: No intracranial bleeds or masses. There is mild cerebral volume loss for age, with resultant ventricular and sulcal prominence. There are mild periventricular and deep white matter chronic small vessel ischemic changes. There is intracranial internal carotid artery atherosclerosis. Skull and face: Hyperostosis frontalis. Calvarium and visualized facial bones appear intact, without suspicious lesions. Sinuses: Visualized sinuses and mastoids are clear. IMPRESSION: 1. No acute intracranial abnormalities. 2. Cerebral volume loss and chronic microvascular ischemic changes. Dictated by: Valery Vazquez M.D. on 01/07/2020 at 13:45 Approved by: Valery Vazquez M.D. on 01/07/2020 at 13:48
[2020-01-07 12:56] LABS: Troponin I < 0.012 ng/mL (0.01-0.034)
--- NOTE | 2020-01-07 12:56 | ED.WEAKNESS ---
HPI - Weakness General Chief complaint: Weakness Stated complaint: Disorientation, Dizzy, Can't Walk or Get Dressed Time Seen by Provider: 01/07/20 12:23 Source: patient Mode of arrival: Family Vehicle History of Present Illness HPI Narrative: Patient here with friend/smudger. She states they have been lifelong friends. Patient lives alone. Patient brought here for confusion weakness and dizziness. Denies any nausea vomiting diarrhea black stools blood in stools, has had changes in urination, urinating more than usual. No fever chills no cough cold or congestion. No sick contacts. No recent antibiotics. pcp dr pham. Recent office visit for wellness check within last 3 weeks. Denies any headache chest pain palpitations. Has chronic lower back pain. No abdominal pain. No changes in diet. Has been maintaining oral intake has usual. [place] weak the other day at home and fell onto her right side bruising her right hip and thigh at home, she was trying to get items from her freezer. Denies hitting her head or any loss of consciousness. Denies any neck pain. At this time patient is awake alert oriented x4. 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 Her vision in the right eye felt blurry this morning. Feels very weak generalized, no lateralized weakness numbness tingling. No slurred speech or facial droop. Care provider/friend at bedside confirms. Accu-Chek 214. No headache. No slurred speech or facial droop. MD Complaint: generalized weakness and lack of energy Related Data Home Medications Medication Instructions Recorded Confirmed timolol maleate [Timoptic] 1 drp OPHTH DAILY #0 01/12/17 01/08/20 [calcium ] 1,200 mg PO QDAY #0 03/09/17 05/02/19 omega 9-lub-vpk-fish oil 1,200 mg cap PO 11/23/19 11/23/19 (144 mg-216 mg) capsule Previous Rx's Medication Instructions Recorded Disabled Parking Permit #1 ea 01/04/18 clotrimazole-betamethasone 1 1 applictn TOP ONCE PRN #15 gram 12/12/18 %-0.05 % topical cream One touch Verio test strips #100 each 06/06/19 atorvastatin 10 mg tablet 10 mg PO BEDTIME #90 tab 11/02/19 metformin 500 mg tablet,extended 1,000 mg PO DAILY #180 tab 12/07/19 release 24 hr duloxetine 20 mg capsule,delayed 20 mg PO BID #180 cap 12/11/19 release losartan 100 mg tablet 100 mg PO QDAY #90 tab 12/11/19 tizanidine 4 mg tablet 4 mg PO BEDTIME #30 tab 01/04/20 propranolol 40 mg PO BID #60 tab 01/08/20 propranolol 40 mg PO BID #60 tab 01/08/20 Allergies Allergy/AdvReac Type Severity Reaction Status Date / Time lisinopril [LISINOPRIL] Allergy Severe Cough, Verified 11/23/19 08:23 tremors codeine [CODEINE] Allergy Intermediate itching Verified 11/23/19 08:23 and rash Horse/Equine Containing Allergy Unknown Patient Verified 11/23/19 08:23 Products can't remember I was 1 or 2 when that happened. Review of Systems Review of Systems Narrative: GENERAL: Denies chills, complains of fatigue, malaise, denies fever, sweats. HEENT: Denies sinus pain, ear pain, sore throat, difficulty swallowing RESPIRATORY: Denies dyspnea, cough CARDIOVASCULAR: Denies chest pain, palpitations, edema, GASTROINTESTINAL: Denies nausea, vomiting, abdominal pain, diarrhea, constipation, melena. : Complains dysuria, frequency, denies hematuria MUSCULOSKELETAL: denies muscle or bony pain SKIN: Denies rash, skin lesions NEUROLOGIC: Denies weakness, headache, numbness, change in speech, confusion PSYCHIATRIC: No SI or HI or hallucinations ROS Unobtainable: All systems reviewed & are unremarkable except as noted in HPI and below Patient History Medical History Anxiety (Chronic Unknown) Blindness (Chronic 1949) Breast CA (Resolved 1998) Chickenpox (Resolved 1955) Chronic back pain (Chronic 1998) CKD (chronic kidney disease) (Chronic Unknown) Depression (Chronic 1964) Diabetes (Chronic Unknown) Diabetes insipidus (Resolved 1999) GERD (gastroesophageal reflux disease) (Chronic Unknown) GI bleed (Resolved 2015) Hearing loss (Chronic 2013) History of head injury (Acute) Hx of drug overdose (Resolved Unknown) Hyperlipemia (Chronic Unknown) Hypertension (Chronic Unknown) Low HDL (under 40) (Acute) Lower extremity edema (Acute) Measles (Resolved 1947) Memory loss (Acute) Mumps (Resolved 1949) Obstructive sleep apnea (Chronic Unknown) Tension headache (Acute) Urinary incontinence (Chronic 2009) Surgical History (Updated 01/08/20 @ 03:06 by MYRNA Hairston) History of bladder suspension procedure (Acute) History of hernia repair (Acute) History of total abdominal hysterectomy (Resolved 1998) S/P breast lumpectomy (Resolved ~1999) Family History Father Cancer Diabetes mellitus Mother Hypertension Social History household members: other Smoking Status: Never smoker second hand exposure: Yes (I was when I was young.) alcohol intake: former substance use type: does not use Smoking Status: Never smoker Substance Use Type: does not use Exam Narrative Exam Narrative: GENERAL: patient appears stated age. Well-nourished, well-developed patient, in no distress, not toxic not dyspneic HEAD: Normocephalic. Atraumatic EYES: Pupils equal round and reactive. No scleral icterus. No injection no discharge, pink conjunctiva, able to identify individual fingers on my hand with her right eye. Has blindness that is chronic on the left. ENT: Mucous membranes moist. No drooling no tongue elevation no trismus no malocclusion NECK: Trachea midline. Non tender CARDIOVASCULAR: Regular rate and rhythm without murmurs, gallops, or rubs. RESPIRATORY: Clear to auscultation. Breath sounds equal bilaterally. No wheezes, rales, or rhonchi. GASTROINTESTINAL: Abdomen soft, non-tender, nondistended. EXTREMITIES: No gross deformities. Nontender bilateral shoulders elbows pelvis knees and ankles. Mild tenderness to the right hip with overlying bruise with skin intact. No shortening or rotation of the right leg. Legs are warm soft and pink BACK: Nontender without deformity or crepitance. No flank tenderness. NEURO: AOx4. Clear speech no facial droop light touch intact to bilateral face hands and legs. Strong equal truck driver rubbish collector. Negative pronator drift. SKIN: Warm and dry PSYCH: Not anxious, is cooperative Initial Vital Signs Initial Vital Signs: Vital Signs Pulse Rate 64 01/07/20 12:20 Respiratory Rate 20 01/07/20 12:20 Scores NIH Stroke Scale Level of Conciousness: Alert, keenly responsive Ask month/age: Answers both questions correctly. Open/close eyes, close hand: Performs both tasks correctly Best gaze horizontal: Normal Visual delaney: No visual loss Facial palsy: Normal symetrical movement Left arm drift: No drift for full 10 sec Right arm drift: No drift for full 10 sec Left leg drift: No drift for full 5 sec Right leg drift: No drift for full 5 sec Limb ataxia: Absent Sensory on face/arms/legs: Normal, no sensory loss Best language: No aphasia, normal Dysarthria: Normal Extinction or inattention: No abnormality Total NIH Stroke scale score: 0 Course Course Course Narrative: Patient remains awake alert oriented x4 not toxic no altered mental status during course of stay. Decision to Admit Date: 01/07/20 Decision to Admit time: 15:20 Orders Ordered: Discontinued Medications Acetaminophen (Tylenol) 650 mg PO Q4HR PRN PRN Reason: Fever/Mild Pain (1-3) Al Hydrox/Mg Hydrox/Simethicone (Maalox Plus) 30 ml PO Q6HR PRN PRN Reason: Dyspepsia Atorvastatin Calcium (Lipitor) 10 mg PO BEDTIME MARISOL Bisacodyl (Dulcolax) 10 mg RI DAILY PRN PRN Reason: Constipation Calcium Carbonate (Tums) 1,000 mg PO Q4HR PRN PRN Reason: Dyspepsia Dextrose (D50w) 25 gm IV PRN PRN; Protocol PRN Reason: Hypoglycemia Docusate Sodium (Colace) 100 mg PO BID PRN PRN Reason: Constipation Duloxetine HCl (Cymbalta) 20 mg PO BID [facility] Last Admin: 01/08/20 08:53 Dose: 20 mg Documented by: STEPAN Heparin Sodium (Porcine) (Heparin) 5,000 unit SUBCUT BID [facility] Last Admin: 01/08/20 08:53 Dose: 5,000 unit Documented by: Admin: 01/07/20 20:51 Dose: 5,000 unit Documented by: MEAGHANQUE Sodium Chloride (Normal Saline 0.9%) 1,000 mls @ 1,000 mls/hr IV BOLUS ONE Stop: 01/07/20 13:55 Last Infusion: 01/07/20 13:45 Dose: 0 mls/hr Documented by: Admin: 01/07/20 12:45 Dose: 1,000 mls/hr Documented by: JESSICA Sodium Chloride (Normal Saline 0.9%) 1,000 mls @ 1,000 mls/hr IV BOLUS ONE Stop: 01/07/20 13:55 Last Infusion: 01/07/20 14:43 Dose: 0 mls/hr Documented by: Admin: 01/07/20 13:45 Dose: 1,000 mls/hr Documented by: JESSICA Sodium Chloride (Normal Saline 0.9%) 1,000 mls @ 1,000 mls/hr IV BOLUS ONE Stop: 01/07/20 16:18 Last Infusion: 01/07/20 16:28 Dose: 0 mls/hr Documented by: Admin: 01/07/20 15:26 Dose: 1,000 mls/hr Documented by: JESSICA Sodium Chloride (Normal Saline 0.9%) 1,000 mls @ 75 mls/hr IV CONT [facility] Last Admin: 01/07/20 20:51 Dose: 75 mls/hr Documented by: DRE Insulin Aspart (Novolog Flexpen) 0 unit SUBCUT ACHS [facility]; Protocol Last Admin: 01/08/20 08:46 Dose: 1 unit Documented by: STEPAN Cosigned by: AMI Admin: 01/07/20 20:51 Dose: 1 unit Documented by: DRE Cosigned by: MELODIE Losartan Potassium (Cozaar) 100 mg PO DAILY [facility] Last Admin: 01/08/20 08:53 Dose: 100 mg Documented by: STEPAN Magnesium Oxide (Mag Ox) 400 mg PO DAILY [facility] Last Admin: 01/08/20 11:07 Dose: 400 mg Documented by: STEPAN Naloxone HCl (Narcan) 0.2 mg IV Q2MIN PRN PRN Reason: Opiate Reversal Ondansetron HCl (Zofran) 4 mg IV Q8HR PRN PRN Reason: Nausea And Vomiting Timolol Maleate (Timoptic 0.25% [facility]) 1 drops EYE-RIGHT DAILY [facility] Last Admin: 01/08/20 10:01 Dose: 1 drop Documented by: STEPAN Tizanidine HCl (Zanaflex) 4 mg PO BEDTIME [facility] Reevaluation(s) Reevaluation #1: No changes with mental status. Blood pressure stable 94/54 rate 59 Time: 15:21 Consultations Consultation #1: Spoke with hospitalist, Dr. hannah, will admit Time: 15:31 Vital Signs Vital signs: Vital Signs - 8 hr 01/07/20 12:20 01/07/20 12:25 01/07/20 12:30 Temperature 95.5 F L Pulse Rate 64 64 63 Respiratory Rate 20 22 23 Blood Pressure 84/51 L Pulse Oximetry 95 92 01/07/20 12:34 01/07/20 12:35 01/07/20 12:40 Temperature Pulse Rate 63 62 61 Respiratory Rate 23 21 21 Blood Pressure 68/49 L Pulse Oximetry 92 91 91 01/07/20 12:42 01/07/20 12:45 01/07/20 12:50 Temperature Pulse Rate 61 60 62 Respiratory Rate 20 22 20 Blood Pressure 74/45 L 77/50 L Pulse Oximetry 90 L 94 92 01/07/20 12:55 01/07/20 13:00 01/07/20 13:05 Temperature Pulse Rate 60 60 60 Respiratory Rate 21 22 20 Blood Pressure 78/50 L Pulse Oximetry 93 93 92 01/07/20 13:10 01/07/20 13:15 01/07/20 13:16 Temperature Pulse Rate 59 L 62 61 Respiratory Rate 24 24 25 H Blood Pressure 93/53 L Pulse Oximetry 01/07/20 13:20 01/07/20 13:37 01/07/20 13:38 Temperature Pulse Rate 59 L 57 L 56 L Respiratory Rate 23 19 Blood Pressure 79/46 L Pulse Oximetry 96 97 97 01/07/20 13:40 01/07/20 13:45 01/07/20 13:50 Temperature Pulse Rate 57 L 57 L 61 Respiratory Rate 21 18 23 Blood Pressure 80/47 L 80/50 L 76/40 L Pulse Oximetry 96 96 96 MDM - Weakness Differential Diagnosis Differential diagnosis: Likely acute myocardial infarction, hypoglycemia, sepsis and dehydration Medical Records Attestation: I reviewed the patient's medical records. Lab Data Attestation: I reviewed the patient's lab results. Result diagrams: 01/08/20 04:45 01/08/20 04:45 Labs: Lab Results 01/07/20 01/07/20 01/07/20 Range/Units 12:25 12:25 12:25 WBC 10.4 (4.5-11.0) X10^3/uL RBC 4.21 (4.0-5.2) X10^6/uL Hgb 13.1 (12.0-16.0) g/dL Hct 39.2 (36-46) % MCV 93.2 (80-100) fL MCH 31.1 (26-34) PG MCHC 33.3 (30-36) % RDW 13.2 (11.6-14.8) % Plt Count 207 (150-400) X10^3/uL Neut % (Auto) 83.3 H (50-75) % Lymph % (Auto) 9.9 L (25-40) % [place] % (Auto) 4.1 (3-14) % Eos % (Auto) 2.2 (2-4) % Baso % (Auto) 0.5 (0-2) % Neut # (Auto) 8700 H (9478-7400) /uL Lymph # (Auto) 1000 L (6982-1765) /uL [place] # (Auto) 400 (0-900) /uL Eos # (Auto) 200 (0-450) /uL Baso # (Auto) 100 (0-100) /uL PT 12.4 (10.1-12.7) SECONDS INR 1.1 (0.9-1.3) APTT 32 (26.4-36.2) SECONDS Sodium 137 (137-145) mmol/L Potassium 4.8 (3.4-5.1) mmol/L Chloride 105 (98-107) mmol/L Carbon Dioxide 22 (22-32) mmol/L BUN 21 H (7-17) mg/dL Creatinine 1.45 H (0.52-1.04) mg/dL Estimated GFR 35.1 L (>60) mL/min BUN/Creatinine Ratio 14.5 (6-22) Glucose 308 H (80-110) mg/dL Hemoglobin A1c (4.0-6.0) % Calcium 10.0 (8.4-10.2) mg/dL Magnesium (1.6-2.3) mg/dL Total Bilirubin 1.5 H (0.2-1.3) mg/dL AST 18 (14-36) IU/L ALT 22 (<35) IU/L Alkaline Phosphatase 57 (38-126) U/L Total Creatine Kinase 24 L (30-135) U/L CK-MB (CK-2) TNP CK-MB (CK-2) Rel Index TNP Troponin I < 0.012 (0.01-0.034) ng/mL Total Protein 6.6 (6.3-8.2) g/dL Albumin 4.1 (3.5-5.0) g/dL Globulin 2.5 (1.7-4.1) g/dL Albumin/Globulin Ratio 1.6 (1.0-2.8) Urine Color Urine Appearance Urine pH (4.5-8.0) Ur Specific [place] (1.000-1.035) Urine Protein (Negative) Urine Glucose (UA) (Negative) g/dL Urine Ketones (NEGATIVE) Urine Occult Blood (Negative) Urine Nitrate (Negative) Urine Bilirubin (NEGATIVE) Urine Urobilinogen (0.2) E.U./dL Ur Leukocyte Esterase (NEGATIVE) Urine RBC (0-5/HPF) Urine WBC (0-5/HPF) Ur Squamous Epith Cells (0-5/HPF) Urine Bacteria (None) Ur Culture Indicated? U Opiates 300ng/mL cut (Negative) Ur Oxycodone Screen (Negative) Urine Methadone Screen (Negative) Ur Barbiturates Screen (Negative) U Tricyclic Antidepress (Negative) Ur Phencyclidine Scrn (Negative) Ur Amphetamines Screen (Negative) U Methamphetamines Scrn (Negative) Ur MDMA Scrn (Ecstasy) (Negative) U Benzodiazepines Scrn (Negative) Urine Cocaine Screen (Negative) U Marijuana (THC) Screen (Negative) COVID-19 PCR (Negative) 01/07/20 01/07/20 01/07/20 Range/Units 12:25 12:25 12:53 WBC (4.5-11.0) X10^3/uL RBC (4.0-5.2) X10^6/uL Hgb (12.0-16.0) g/dL Hct (36-46) % MCV (80-100) fL MCH (26-34) PG MCHC (30-36) % RDW (11.6-14.8) % Plt Count (150-400) X10^3/uL Neut % (Auto) (50-75) % Lymph % (Auto) (25-40) % [place] % (Auto) (3-14) % Eos % (Auto) (2-4) % Baso % (Auto) (0-2) % Neut # (Auto) (5566-6080) /uL Lymph # (Auto) (8058-0838) /uL [place] # (Auto) (0-900) /uL Eos # (Auto) (0-450) /uL Baso # (Auto) (0-100) /uL PT (10.1-12.7) SECONDS INR (0.9-1.3) APTT (26.4-36.2) SECONDS Sodium (137-145) mmol/L Potassium (3.4-5.1) mmol/L Chloride (98-107) mmol/L Carbon Dioxide (22-32) mmol/L BUN (7-17) mg/dL Creatinine (0.52-1.04) mg/dL Estimated GFR (>60) mL/min BUN/Creatinine Ratio (6-22) Glucose (80-110) mg/dL Hemoglobin A1c 7.3 H (4.0-6.0) % Calcium (8.4-10.2) mg/dL Magnesium 1.5 L (1.6-2.3) mg/dL Total Bilirubin (0.2-1.3) mg/dL AST (14-36) IU/L ALT (<35) IU/L Alkaline Phosphatase (38-126) U/L Total Creatine Kinase (30-135) U/L CK-MB (CK-2) CK-MB (CK-2) Rel Index Troponin I (0.01-0.034) ng/mL Total Protein (6.3-8.2) g/dL Albumin (3.5-5.0) g/dL Globulin (1.7-4.1) g/dL Albumin/Globulin Ratio (1.0-2.8) Urine Color Urine Appearance Urine pH (4.5-8.0) Ur Specific [place] (1.000-1.035) Urine Protein (Negative) Urine Glucose (UA) (Negative) g/dL Urine Ketones (NEGATIVE) Urine Occult Blood (Negative) Urine Nitrate (Negative) Urine Bilirubin (NEGATIVE) Urine Urobilinogen (0.2) E.U./dL Ur Leukocyte Esterase (NEGATIVE) Urine RBC (0-5/HPF) Urine WBC (0-5/HPF) Ur Squamous Epith Cells (0-5/HPF) Urine Bacteria (None) Ur Culture Indicated? U Opiates 300ng/mL cut (Negative) Ur Oxycodone Screen (Negative) Urine Methadone Screen (Negative) Ur Barbiturates Screen (Negative) U Tricyclic Antidepress (Negative) Ur Phencyclidine Scrn (Negative) Ur Amphetamines Screen (Negative) U Methamphetamines Scrn (Negative) Ur MDMA Scrn (Ecstasy) (Negative) U Benzodiazepines Scrn (Negative) Urine Cocaine Screen (Negative) U Marijuana (THC) Screen (Negative) COVID-19 PCR Negative (Negative) 01/07/20 01/07/20 Range/Units 13:25 13:25 WBC (4.5-11.0) X10^3/uL RBC (4.0-5.2) X10^6/uL Hgb (12.0-16.0) g/dL Hct (36-46) % MCV (80-100) fL MCH (26-34) PG MCHC (30-36) % RDW (11.6-14.8) % Plt Count (150-400) X10^3/uL Neut % (Auto) (50-75) % Lymph % (Auto) (25-40) % [place] % (Auto) (3-14) % Eos % (Auto) (2-4) % Baso % (Auto) (0-2) % Neut # (Auto) (4134-3637) /uL Lymph # (Auto) (8389-3318) /uL [place] # (Auto) (0-900) /uL Eos # (Auto) (0-450) /uL Baso # (Auto) (0-100) /uL PT (10.1-12.7) SECONDS INR (0.9-1.3) APTT (26.4-36.2) SECONDS Sodium (137-145) mmol/L Potassium (3.4-5.1) mmol/L Chloride (98-107) mmol/L Carbon Dioxide (22-32) mmol/L BUN (7-17) mg/dL Creatinine (0.52-1.04) mg/dL Estimated GFR (>60) mL/min BUN/Creatinine Ratio (6-22) Glucose (80-110) mg/dL Hemoglobin A1c (4.0-6.0) % Calcium (8.4-10.2) mg/dL Magnesium (1.6-2.3) mg/dL Total Bilirubin (0.2-1.3) mg/dL AST (14-36) IU/L ALT (<35) IU/L Alkaline Phosphatase (38-126) U/L Total Creatine Kinase (30-135) U/L CK-MB (CK-2) CK-MB (CK-2) Rel Index Troponin I (0.01-0.034) ng/mL Total Protein (6.3-8.2) g/dL Albumin (3.5-5.0) g/dL Globulin (1.7-4.1) g/dL Albumin/Globulin Ratio (1.0-2.8) Urine Color Yellow Urine Appearance Clear Urine pH 5.5 (4.5-8.0) Ur Specific [place] 1.015 (1.000-1.035) Urine Protein Negative (Negative) Urine Glucose (UA) Negative (Negative) g/dL Urine Ketones Negative (NEGATIVE) Urine Occult Blood Negative (Negative) Urine Nitrate Negative (Negative) Urine Bilirubin Negative (NEGATIVE) Urine Urobilinogen 0.2 (0.2) E.U./dL Ur Leukocyte Esterase Negative (NEGATIVE) Urine RBC None seen (0-5/HPF) Urine WBC 0-1/hpf (0-5/HPF) Ur Squamous Epith Cells 1-5 /hpf (0-5/HPF) Urine Bacteria Occasional (0-1) (None) Ur Culture Indicated? Cult not indicated U Opiates 300ng/mL cut Negative (Negative) Ur Oxycodone Screen Negative (Negative) Urine Methadone Screen Negative (Negative) Ur Barbiturates Screen Negative (Negative) U Tricyclic Antidepress Negative (Negative) Ur Phencyclidine Scrn Negative (Negative) Ur Amphetamines Screen Negative (Negative) U Methamphetamines Scrn Negative (Negative) Ur MDMA Scrn (Ecstasy) Negative (Negative) U Benzodiazepines Scrn Negative (Negative) Urine Cocaine Screen Negative (Negative) U Marijuana (THC) Screen Negative (Negative) COVID-19 PCR (Negative) Point of Care Testing Glucose POC [address] scan - head: Radiologist Impression: [address] [address] [address] Scan Report Signed Patient: Pau Rivera [facility]#: [id number] : 4Acct:[id number] Age/Sex: 74 / FDate of Service: 01/07/20 Loc: ED Accession Number: [id number] Procedure: CT head/brain wo con Ordering Provider: Lev John MD PROCEDURE: CT HEAD/BRAIN WO CON INDICATIONS: confusion TECHNIQUE: Noncontrast 4.5 mm thick angled axial sections acquired from the foramen magnum to the vertex, with coronal and sagittal reformats. For radiation dose reduction, the following was used: automated exposure control, adjustment of mA and/or kV according to patient size. COMPARISON: [facility], RG, CT HEAD W/O CONTRAST, 01/04/2001, 8:48. [facility], MR, BRAIN WITHOUT CONTRAST, 04/12/2008, 10:30. FINDINGS: Image quality: Excellent. CSF spaces: Basal cisterns are patent. No extra-axial fluid collections. The ventricles are symmetric in size and shape. Brain: No intracranial bleeds or masses. There is mild cerebral volume loss for age, with resultant ventricular and sulcal prominence. There are mild periventricular and deep white matter chronic small vessel ischemic changes. There is intracranial internal carotid artery atherosclerosis. Skull and face: Hyperostosis frontalis. Calvarium and visualized facial bones appear intact, without suspicious lesions. Sinuses: Visualized sinuses and mastoids are clear. IMPRESSION: 1. No acute intracranial abnormalities. 2. Cerebral volume loss and chronic microvascular ischemic changes. Dictated by: Valery Vazquez M.D. on 01/07/2020 at 13:45 Approved by: Valery Vazquez M.D. on 01/07/2020 at 13:48 CT scan - abdomen/pelvis: Radiologist Impression: [place] [address] CT Scan Report Signed Patient: Pau Rivera [facility]#: [id number] : 4Acct:[id number] Age/Sex: 74 / FDate of Service: 01/07/20 Loc: ED Accession Number: [id number] Procedure: CT chest abd pel wo con Ordering Provider: Lev John MD PROCEDURE: CT CHEST ABD PEL WO CON INDICATIONS: abd pain TECHNIQUE: After the administration of oral contrast, 5 mm thick sections acquired from the lung apices to the symphysis pubis. 5 mm thick coronal and sagittal reformats acquired, with additional 7 mm coronal MIP reformats through the lungs. For radiation dose reduction, the following was used: automated exposure control, adjustment of mA and/or kV according to patient size. COMPARISON: [facility], CT, THORAX WITH CONTRAST, 01/28/2017, 10:20. [facility], MR, MR LUMBAR SPINE WO CON, 07/14/2018, 14:19. [facility], CT, CT ABDOMEN WO/W CON, 08/22/2018, 13:39. FINDINGS: Image quality: Excellent. CHEST: Lungs and pleura: There are multiple right lung nodules. Nodule 1: 8 mm nodule; RML (series 3, image 171). Nodule 2: 3 mm nodule; RML (series 3, image 171). Nodule 3: 3 mm nodule; RML (series 3, image 181). Nodule 4: 4 mm nodule; RML (series 3, image 173). Nodule 5: 6 mm nodule; RUL (series 3, image 153). The largest nodule (nodule 1) appears unchanged since 01/28/2017. The right upper lobe nodule (nodule 5) was not present on the previous CT. There is discoid atelectasis in right upper lobe. No acute pulmonary opacities. No pleural effusions or pneumothorax. Central and peripheral airways are patent are normal in caliber. Mediastinum: Heart size is normal. No pericardial effusion. Mild coronary artery atherosclerosis. No mediastinal adenopathy by CT size criteria. Thoracic aorta and central pulmonary arteries are normal in size. Esophagus is normal in caliber. No hiatal hernia. Chest wall: No axillary or supraclavicular adenopathy by size criteria. Thyroid gland is heterogeneous. ABDOMEN: Solid organs: There is a calcified subcapsular nodule in the right hepatic lobe, likely an old granuloma. Liver is normal in size. Gallbladder is normal . Pancreas is normal in contours. Spleen is normal in size. No adrenal nodules. Both kidneys are normal in size, without hydronephrosis. There are nonobstructive right renal stones. The complex cystic cortical nodule in seen on the prior MRI and CT are not well seen on this nonenhanced CT exam. Peritoneum and bowel: There are scattered colonic diverticula. No CT findings to suggest acute diverticulitis. Small and large bowel loops are normal in caliber and wall thickness. There is a moderate amount of stool in colon. No free fluid or air. Nodes and vessels: No retroperitoneal or mesenteric adenopathy by size criteria. Aorta and inferior vena cava are normal in size. Mild to moderate aortic calcifications. Miscellaneous: There is a small ventral hernia in the lower anterior abdominal wall. A tiny fat containing umbilical hernia is noted. PELVIS: Genitourinary: Bladder is contracted with a Lynn catheter. Miscellaneous: No inguinal hernias or adenopathy. Bones: No suspicious bony lesions. No vertebral body compression fractures. Moderate to severe degenerative changes in lumbar spine. IMPRESSION: 1. There are multiple right lung nodules in the right middle lobe as described. Some nodules are stable. Others are new. Nodules are most likely infectious or inflammatory etiology but a short-term follow-up CT suggested in 3 months given presence of new nodules. 2. Right upper lobe atelectasis. 3. Diverticulosis without acute diverticulitis. 4. Nonobstructive right renal calcifications. 5. A calcified granuloma in the liver. 6. Heterogeneous appearance of thyroid gland. Recommend thyroid ultrasound for follow-up evaluation. 6. A small lower anterior abdominal wall ventral hernia. Fleischner Society criteria for SOLID lung nodule followup. Nodule size (mm)Low-risk patientHigh-risk patient?4No follow-up neededFollow-up at 12 mo; if no change, no further follow-up>[id number] CT at 12 mo; if no change, no further follow-up needed.Initial follow-up CT at 6-12 mo, then 18-24 mo if no change. >6-8Initial follow-up CT at 6-12 mo, then 18-24 mo if no change. Initial follow-up CT at 3-6 mo, then 9-12 mo and 24 mo if no change. >8Follow-up CT at 3, 9, 24 mo. Or PET and/or biopsy.Same as for low-risk pts. Fleischner Society criteria for SUB-SOLID lung nodule followup. Solitary pure ground-glass nodules5 mm or lessNo followup needed. >5 mm3 mo follow-up CT to confirm persistence. Then annual CT for 3 years. Part-solid nodules3 mo follow-up CT to confirm persistence. If persistent with solid component <5 mm, annual CT for at least 3 years. If solid component is 5 mm or more, biopsy or surgical resection. Consider PET-CT for lesions > 10 mm. Multiple sub-solid nodulesPure ground glass nodules [address] at 2 and 4 years. Pure ground glass nodules >5 mm without dominant lesion. [address] to confirm persistence, then annual followup CT for at least 3 years. Dominant nodule(s) with part-solid or solid component. [address] to confirm persistence. If persistent, consider biopsy or surgical resection, vonda if lesions have >5 mm solid component. Dictated by: Valery Vazquez M.D. on 01/07/2020 at 13:48 Approved by: Valery Vazquez M.D. on 01/07/2020 at 14:25 ECG Data Attestation: I personally reviewed and interpreted this ECG as follows: Interpretation: Normal sinus rhythm, rate 62, no ST elevation or depression MDM Narrative Medical decision making narrative: Appropriate for admission. Likely not a stroke event. Possibly took too much blood pressure medication? Admitting for hypotension. Reviewed past blood pressure and patient usually is hypertensive. Discharge Plan Departure Patient Disposition: Admitted as Observation Clinical Impression: Acute hypotension Discharge Date/Time: 01/07/20 17:17 Referrals: Bebeto Pham DO [Primary Care Provider] - Admit Date/Time: 01/07/20 15:32 Admit Provider: Sophy Hannah
[2020-01-07 13:16] LABS: COVID19 -Nasal RAPID Negative (Negative)
[2020-01-07 13:42] LABS: RBC Urine None Seen (0-5/HPF)
[2020-01-07 13:45] LABS: Appearance Urine UA CLEAR; Bilirubin Urine UA NEGATIVE (NEGATIVE); Color Urine UA YELLOW; Glucose Urine UA NEGATIVE (Negative); Ketones Urine UA NEGATIVE (NEGATIVE); Leukocyte Esterase Urine UA NEGATIVE (NEGATIVE); Nitrite Urine UA NEGATIVE (Negative); Occult Blood Urine UA NEGATIVE (Negative); Protein Urine UA NEGATIVE (Negative); Specific Gravity Urine UA 1.015 (1.000-1.035); Urobilinogen Urine UA 0.2 E.U./dL (0.2)
[2020-01-07 13:49] LABS: UR Morphine/Opiate cutoff 300 Negative (Negative); Ur Creatinine Normal (Normal); Ur Specific Gravity Normal (Normal); Urine Amphetamines Negative (Negative); Urine Barbiturates Negative (Negative); Urine Benzodiazepines Negative (Negative); Urine Cocaine Negative (Negative); Urine MDMA Negative (Negative); Urine Methadone Negative (Negative); Urine Methamphetamines Negative (Negative); Urine Oxycodone Negative (Negative); Urine Phencyclidine Negative (Negative); Urine Tetrahydrocannabinol Negative (Negative); Urine Tricyclic Antidepressant Negative (Negative); Urine pH Normal (Normal)
[2020-01-07 13:55] LABS: Bacteria Urine Occasional (0-1); Culture Indicated Urine Cult Not Indicated; Squamous Epithelial Cell Urine 1-5 /HPF (0-5/HPF); WBC Urine 0-1/HPF (0-5/HPF); pH Urine UA 5.5 (4.5-8.0)
--- NOTE | 2020-01-07 13:58 | PC.NURSE ---
Pt arrived POV in . 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 NIH 0. Temp 95.5 temporal on arrival, hypotensive with BP in 70's, SPO2 91-92%. Placed on cardiac monitoring, EKG obtained. Placed on 2L O2. IV placed x 2 with BC and type and screen. Temp gooden placed with Urometer with minimal initial output. Specimen obtained and sent to lab. Temp reading 97.7. Pt AAOx3 drowsy, blood sugar 280's, NSR 58-60, Lungs clear, large purple yellow bruising noted on R lateral thigh. Pt states she fell last week and was evaluated at that time. Warmed fluids infusing x 2 into each IV site. Warm blankets given. Boyfriend at bedside. VS q5. Pt taken to and from CT with RN. Dr John made aware of continued hypotension despite the completion of 1.5L fluid bolus. BP currently 88/47 with MAP 65. No new orders at this time.
--- NOTE | 2020-01-07 15:32 | PC.NURSE ---
Pt noted to have 150ml output s/p 2L NS. Dr John made aware. order for additional liter bolus of NS. infusing at this time. repeat BP 102/58. Mentation normal for patient. awaiting on bed for admission.
--- NOTE | 2020-01-07 16:31 | PC.NURSE ---
pt received 3L NS total. total output 170mL. aware. pt BP improved and currently 116/80, HR 61 NSR. Friend Patricia at bedside. NAD. Made aware awaiting acute care admission.
[2020-01-07] MEDS: INSULIN ASPART 100 UNIT/ML INSULN PEN SUBCUT (20:51)
[2020-01-07] MEDS: SODIUM CHLORIDE 0.9% 1,000 ML 75 ML IV (20:51)
[2020-01-07] MEDS: HEPARIN 5,000 UNIT/ML VIAL 5000 UNIT SUBCUT (20:51)
[2020-01-07 20:54] LABS: Magnesium 1.5 mg/dL (1.6-2.3)
[2020-01-07 20:55] LABS: Hemoglobin A1C% w Est Avg Glu 7.3 % (4.0-6.0)
--- NOTE | 2020-01-07 22:16 | PM.HP.1 ---
History of Present Illness History of Present Illness Date Patient Seen: 01/07/20 Time Patient Seen: 21:10 Chief complaint: Disorientation, Dizzy, Can't Walk or Get Dressed Narrative: Ms. Nanette Rivera is a 74-year-old female with a past medical history significant for non insulin-dependent diabetes mellitus, diabetes insipidus, hypertension, chronic kidney disease, bilateral lower extremity edema, chronic low back pain, breast cancer, depression and anxiety who presents to the emergency room brought in by a syrup mixer friend for confusion, weakness and dizziness. The patient reports that at 10:30 a.m. the world dropped out with her becoming suddenly weak and dizzy and difficulty concentrating. She states the same thing happened to her 4 weeks ago and lasted for about 6 hours but did not seek attention at that time. She was also seen in the ER for a fall on 12/27/2019 for she is stained large hematoma on the right hip related to a mechanical ground level fall. At that time she had no prodrome will symptoms of dizziness, weakness, chest pain or shortness of breath. The patient has associated symptoms increased frequency of urination but describes her urine flow as slower. She reports no nausea vomiting and has had no hematochezia or melena. this morning she woke in her usual state health and had no complaints of fevers or chills, has had no recent cold or flu symptoms. She denies nasal congestion or sore throat. She has had no chest pain or palpitations and denies shortness of breath cough or wheezing. She reports no abdominal pain and has had no nausea vomiting. She denies changes in bowel habits. Upon arrival to the ER the patient is hypothermic with a temperature of 95.5?, heart rate of 62, blood pressure 84/51, respirations 16 saturating 90 D 7% on room air. CT of the head is obtained finding no acute pathology, cerebral volume loss with chronic microvascular ischemic changes. CT of the chest abdomen and pelvis finds multiple lung nodules the largest of which is not changed since 2017 with finding of new nodules., discoid atelectasis, heart size is normal, scattered colonic diverticula without diverticulitis, small ventral hernia. Twelve lead EKG reveals sinus rhythm with a ventricular rate of 62, left axis shift and inferior infarct. On laboratory analysis the patient has a white count of 10.4 with increased neutrophils at 83.3%, hemoglobin of 13.1, hematocrit 39.2 and platelets of 207. She has a PT of 12.4, INR 1.1 and PTT of 32. Her electrolytes are all within normal range ever has a BUN of 21 and a creatinine of 1.45. Her EGFR is 35.1. Her nonfasting glucose is 308. She has an elevated bilirubin at 1.5 with AST of 18, ALT 22 and alkaline phosphatase of 57. Her albumin is 4.1. Total CK is 24 and troponin is less than 0.012. Covered screening is negative. Urinalysis reveals a specific gravity of 1.015 and no infection, urine tox screen is negative. In the ER the patient received 3 L of IV fluid with improvement of blood pressure. The patient is admitted to the medicine service for weakness and dizziness of unclear etiology. Patient History Medical History Anxiety (Chronic Unknown) Blindness (Chronic 1949) Breast CA (Resolved 1998) Chickenpox (Resolved 1955) Chronic back pain (Chronic 1998) CKD (chronic kidney disease) (Chronic Unknown) Depression (Chronic 1965) Diabetes (Chronic Unknown) Diabetes insipidus (Resolved 1999) GERD (gastroesophageal reflux disease) (Chronic Unknown) GI bleed (Resolved 2015) Hearing loss (Chronic 2013) History of head injury (Acute) Hx of drug overdose (Resolved Unknown) Hyperlipemia (Chronic Unknown) Hypertension (Chronic Unknown) Low HDL (under 40) (Acute) Lower extremity edema (Acute) Measles (Resolved 194) Memory loss (Acute) Mumps (Resolved 194) Obstructive sleep apnea (Chronic Unknown) Tension headache (Acute) Urinary incontinence (Chronic 2009) Surgical History (Updated 01/08/20 @ 03:06 by MYRNA Hairston) History of bladder suspension procedure (Acute) History of hernia repair (Acute) History of total abdominal hysterectomy (Resolved 1998) S/P breast lumpectomy (Resolved ~1999) Family & Social History Family History Father Cancer Diabetes mellitus Mother Hypertension Social History: household members other Prior Living Arrangements House Safety & Behavioral: Feels Safe in Current Yes Environment Been Physically Hurt or No Threatened By a Person Suicidal Ideation Description None Suicide Plan Description No Plan Tobacco & Substance use: Smoking Status Never smoker alcohol intake former Substance Use Type does not use Meds Home Medications and Allergies Home Medications Medication Instructions Recorded Confirmed Type timolol maleate [Timoptic] 1 drp OPHTH DAILY #0 01/12/17 01/08/20 History [calcium ] 1,200 mg PO QDAY #0 03/09/17 05/02/19 History Disabled Parking Permit #1 ea 01/04/18 05/02/19 Rx clotrimazole-betamethasone 1 1 applictn TOP ONCE PRN #15 gram 12/12/18 05/02/19 Rx %-0.05 % topical cream One touch Verio test strips #100 each 06/06/19 Rx propranolol 80 mg tablet 80 mg PO BID #180 tab 09/26/19 01/08/20 Rx atorvastatin 10 mg tablet 10 mg PO BEDTIME #90 tab 11/02/19 01/08/20 Rx omega 0-cda-dcw-fish oil 1,200 mg cap PO 11/23/19 11/23/19 History (144 mg-216 mg) capsule metformin 500 mg tablet,extended 1,000 mg PO DAILY #180 tab 12/07/19 01/08/20 Rx release 24 hr spironolactone 25 mg tablet 25 mg PO DAILY #30 tab 12/07/19 01/08/20 Rx duloxetine 20 mg capsule,delayed 20 mg PO BID #180 cap 12/11/19 01/08/20 Rx release losartan 100 mg tablet 100 mg PO QDAY #90 tab 12/11/19 01/08/20 Rx tizanidine 4 mg tablet 4 mg PO BEDTIME #30 tab 01/04/20 01/08/20 Rx Allergies Allergy/AdvReac Type Severity Reaction Status Date / Time lisinopril [LISINOPRIL] Allergy Severe Cough, Verified 11/23/19 08:23 tremors codeine [CODEINE] Allergy Intermediate itching Verified 11/23/19 08:23 and rash Horse/Equine Containing Allergy Unknown Patient Verified 11/23/19 08:23 Products can't remember I was 1 or 2 when that happened. Review of Systems Review of Systems ROS: Yes All systems reviewed with the patient and are negative except as otherwise documented Exam Vital Signs (past 8 hours): - 01/07/20 17:25 01/07/20 20:10 01/08/20 00:00 Temperature 96.7 F L 97.0 F L 97.9 F Pulse Rate 58 L 52 L 60 Respiratory Rate 18 20 18 Blood Pressure 130/69 159/72 H 138/70 Pulse Oximetry 96 97 96 Oxygen Delivery Method Room Air Oxygen Flow Rate 0 Narrative Exam Narrative: GENERAL APPEARANCE: well developed, well nourished, in no acute distress. HEENT: Normocephalic, right eye is reactive to light, blind left eye with irregular pupil, nonreactive, conjunctiva clear, EOMs intact without nystagmus, no sinus tenderness to percussion, no rhinorrhea, mucous membranes are pink and moist. NECK/THYROID: neck supple, no JVD, no carotid bruit, no thyromegaly, trachea midline. LYMPH NODES: no cervical or supraclavicular lymphadenopathy. SKIN: Arma, warm and dry, no visible lesions, rashes, ulcerations or petechiae. HEART: regular rate and rhythm, S1-S2, no murmur, no rubs or gallops, brisk capillary refill, no peripheral edema LUNGS: clear to auscultation bilaterally, no coarseness crackles or wheezing, no cough present CHEST: Symmetrical movement, no accessory muscle use, good tidal volume. ABDOMEN: Soft, no distention, no abdominal tenderness, no guarding or peritoneal signs, no organomegaly, no flank or suprapubic tenderness, active bowel tones. BACK: Normal curvature, nontender to palpation, no CVA tenderness on percussion EXTREMITIES: moves all extremities, strength is 5/5 and symmetrical, no deformities or joint effusions. NEUROLOGIC: AAO x4, no focal or lateralizing neurologic deficits, cranial nerves II-XII grossly intact, sensation intact to light touch, hearing grossly normal to speech. PSYCH: Good eye contact, flat affect, cooperative, stable behavior. Objective Labs Result Diagrams: 01/07/20 12:25 01/07/20 12:25 Labs: Laboratory Results - last 24 hr 01/07/20 01/07/20 01/07/20 12:25 12:25 12:25 WBC 10.4 RBC 4.21 Hgb 13.1 Hct 39.2 MCV 93.2 MCH 31.1 MCHC 33.3 RDW 13.2 Plt Count 207 Neut % (Auto) 83.3 H Lymph % (Auto) 9.9 L [place] % (Auto) 4.1 Eos % (Auto) 2.2 Baso % (Auto) 0.5 Neut # (Auto) 8700 H Lymph # (Auto) 1000 L [place] # (Auto) 400 Eos # (Auto) 200 Baso # (Auto) 100 PT 12.4 INR 1.1 APTT 32 Sodium 137 Potassium 4.8 Chloride 105 Carbon Dioxide 22 BUN 21 H Creatinine 1.45 H Estimated GFR 35.1 L BUN/Creatinine Ratio 14.5 Glucose 308 H Hemoglobin A1c Calcium 10.0 Magnesium Total Bilirubin 1.5 H AST 18 ALT 22 Alkaline Phosphatase 57 Total Creatine Kinase 24 L CK-MB (CK-2) TNP CK-MB (CK-2) Rel Index TNP Troponin I < 0.012 Total Protein 6.6 Albumin 4.1 Globulin 2.5 Albumin/Globulin Ratio 1.6 Urine Color Urine Appearance Urine pH Ur Specific [place] Urine Protein Urine Glucose (UA) Urine Ketones Urine Occult Blood Urine Nitrate Urine Bilirubin Urine Urobilinogen Ur Leukocyte Esterase Urine RBC Urine WBC Ur Squamous Epith Cells Urine Bacteria Ur Culture Indicated? Ur Random Sodium U Opiates 300ng/mL cut Ur Oxycodone Screen Urine Methadone Screen Ur Barbiturates Screen U Tricyclic Antidepress Ur Phencyclidine Scrn Ur Amphetamines Screen U Methamphetamines Scrn Ur MDMA Scrn (Ecstasy) U Benzodiazepines Scrn Urine Cocaine Screen U Marijuana (THC) Screen COVID-19 PCR 01/07/20 01/07/20 01/07/20 12:25 12:25 12:53 WBC RBC Hgb Hct MCV MCH MCHC RDW Plt Count Neut % (Auto) Lymph % (Auto) [place] % (Auto) Eos % (Auto) Baso % (Auto) Neut # (Auto) Lymph # (Auto) [place] # (Auto) Eos # (Auto) Baso # (Auto) PT INR APTT Sodium Potassium Chloride Carbon Dioxide BUN Creatinine Estimated GFR BUN/Creatinine Ratio Glucose Hemoglobin A1c 7.3 H Calcium Magnesium 1.5 L Total Bilirubin AST ALT Alkaline Phosphatase Total Creatine Kinase CK-MB (CK-2) CK-MB (CK-2) Rel Index Troponin I Total Protein Albumin Globulin Albumin/Globulin Ratio Urine Color Urine Appearance Urine pH Ur Specific [place] Urine Protein Urine Glucose (UA) Urine Ketones Urine Occult Blood Urine Nitrate Urine Bilirubin Urine Urobilinogen Ur Leukocyte Esterase Urine RBC Urine WBC Ur Squamous Epith Cells Urine Bacteria Ur Culture Indicated? Ur Random Sodium U Opiates 300ng/mL cut Ur Oxycodone Screen Urine Methadone Screen Ur Barbiturates Screen U Tricyclic Antidepress Ur Phencyclidine Scrn Ur Amphetamines Screen U Methamphetamines Scrn Ur MDMA Scrn (Ecstasy) U Benzodiazepines Scrn Urine Cocaine Screen U Marijuana (THC) Screen COVID-19 PCR Negative 01/07/20 01/07/20 01/07/20 13:25 13:25 21:35 WBC RBC Hgb Hct MCV MCH MCHC RDW Plt Count Neut % (Auto) Lymph % (Auto) [place] % (Auto) Eos % (Auto) Baso % (Auto) Neut # (Auto) Lymph # (Auto) [place] # (Auto) Eos # (Auto) Baso # (Auto) PT INR APTT Sodium Potassium Chloride Carbon Dioxide BUN Creatinine Estimated GFR BUN/Creatinine Ratio Glucose Hemoglobin A1c Calcium Magnesium Total Bilirubin AST ALT Alkaline Phosphatase Total Creatine Kinase CK-MB (CK-2) CK-MB (CK-2) Rel Index Troponin I Total Protein Albumin Globulin Albumin/Globulin Ratio Urine Color Yellow Urine Appearance Clear Urine pH 5.5 Ur Specific [place] 1.015 Urine Protein Negative Urine Glucose (UA) Negative Urine Ketones Negative Urine Occult Blood Negative Urine Nitrate Negative Urine Bilirubin Negative Urine Urobilinogen 0.2 Ur Leukocyte Esterase Negative Urine RBC None seen Urine WBC 0-1/hpf Ur Squamous Epith Cells 1-5 /hpf Urine Bacteria Occasional (0-1) Ur Culture Indicated? Cult not indicated Ur Random Sodium 69 U Opiates 300ng/mL cut Negative Ur Oxycodone Screen Negative Urine Methadone Screen Negative Ur Barbiturates Screen Negative U Tricyclic Antidepress Negative Ur Phencyclidine Scrn Negative Ur Amphetamines Screen Negative U Methamphetamines Scrn Negative Ur MDMA Scrn (Ecstasy) Negative U Benzodiazepines Scrn Negative Urine Cocaine Screen Negative U Marijuana (THC) Screen Negative COVID-19 PCR Assessment & Plan Assessment & Plan narrative: Tis a 74-year-old female with a past medical history significant for non insulin-dependent diabetes mellitus, diabetes insipidus, hypertension, chronic kidney disease, bilateral lower extremity edema, chronic low back pain, breast cancer, depression and anxiety who presents to the ER for acute onset weakness dizziness and confusion. 1. Dehydration with hypotension, present on admission, active -the patient's symptoms do not appear to be postural in nature, on review of medications the patient had a recent addition of spironolactone 25 mg daily 1 month ago. -the patient reports weakness confusion and dizziness all attributable to significant dehydration. She has also had increasing frequency urination with slower flow as well as describes her vision becoming more blurry. -the patient received 3 L of normal saline with normalization of blood pressure, will continue normal saline 75 cc/hour for continued rehydration. -the patient's symptoms have resolved, will check orthostatic vital signs. -will recheck electrolytes. 2. Hypertension, chronic, stable -patient routinely takes losartan 100 mg daily and propranolol 80 mg twice daily. She had spirolactone 25 mg added on 12/07/2019. -patient presents hypotensive to the ER with initial pressure of 84/51. -she received IV fluid resuscitation with 3 L of normal saline with normalization of pressure in the 110s to 120s. -will continue losartan 100 mg daily but will hold propranolol to allow for compensatory increase in heart rate. 3. Type 2 Diabetes, non-insulin dependent with hyperglycemia, chronic, stable -blood sugar on admission was 308. Patient states she has been taking her metformin extended release 1000 mg once daily. She is making dietary modifications to try and reduce her blood sugar. -her last hemoglobin A1c was 7.4. -ordered fingerstick blood sugars AC & HS, coverage with correctional insulin low range. -request dietitian consult. 4. Chronic kidney disease stage III, chronic. -patient has elevated serum creatinine at 1.45, her present her creatinine clearance level is 37.81. Two months ago her creatinine is 1.26 however prior to that she had a baseline creatinine 0.9. -the patient had been started on spirolactone 25 mg daily on December 07, 2019. -elevated creatinine bleed related to over dehydration and renal stress. -discontinue spirolactone, avoid renal toxic agents and renally dose medications indicated. 5. Bilateral lower extremity edema, chronic, stable -no edema evident however the patient is significantly dehydrated but no emergence of edema following rehydration. 6. Depression and anxiety, chronic, stable -will continue duloxetine 20 mg twice daily. 7. Thyroid nodule, chronic, stable -finding of heterogeneous appearing thyroid nodule on CT scan. -thyroid ultrasound completed on 04/17/2018. Further diagnostics can be followed up on outpatient basis. -will obtain TSH with reflex to T4. VTE prophylaxis: Heparin IV fluid: Normal saline 75 cc/hour. Diet: Heart healthy low-sodium. Code status: Full code, the patient designates her daughter Caitlyn to be her surrogate decision maker. The patient is admitted to the hospital for further evaluation monitoring and evaluation and the risk for complications ordered adverse events. The patient is admitted as observation with expected length of stay to be less than 2 midnights. COVID-19 COVID-19 status: Negative Result date/Date tested (Pos, Neg/Pending): 01/07/20
[2020-01-07 22:33] LABS: Sodium Urine Random 69 mmol/L (30-90)
[2020-01-08] VITALS: BP 138/70; PULSE 60; RESP 18; TEMP 36.6; O2SAT 96
--- NOTE | 2020-01-08 03:31 | PC.NURSE ---
Pt completely alert and oriented on this shift. No c/o of dizziness or pain. Up several times to toilet after Lynn DC'ed.
[2020-01-08 03:47] VITALS: BP 134/65; PULSE 56; RESP 18; TEMP 36.7; O2SAT 94
[2020-01-08 05:27] LABS: Add Manual Diff / Slide Review NO; Basophils Absolute Auto 100 /uL (0-100); Basophils Percent Auto 0.6 % (0-2); Eosinophils Absolute Auto 400 /uL (0-450); Eosinophils Percent Auto 3.7 % (2-4); Hematocrit 37.1 % (36-46); Hemoglobin 12.3 g/dL (12.0-16.0); Lymphocytes Absolute Auto 1600 /uL (1100-4500); Lymphocytes Percent Auto 16.9 % (25-40); Mean Corpuscular HGB Conc 33.3 % (30-36); Mean Corpuscular Hemoglobin 30.9 PG (26-34); Monocytes Absolute Auto 800 /uL (0-900); Monocytes Percent Auto 8.3 % (3-14); Neutrophils Absolute Auto 6800 /uL (1500-7000); Neutrophils Percent Auto 70.5 % (50-75); Platelet Count 161 X10^3/uL (150-400); Red Blood Cell Count 3.99 X10^6/uL (4.0-5.2); Red Cell Distribution Width 13.2 % (11.6-14.8); White Blood Cell Count 9.7 X10^3/uL (4.5-11.0)
[2020-01-08 05:28] LABS: BUN Creatinine Ratio 13.1 (6-22); Blood Urea Nitrogen 13 mg/dL (7-17); Carbon Dioxide 23 mmol/L (22-32); Chloride 114 mmol/L (98-107); Estimated Glomerular Filt Rate 54.5 mL/min (>60); Glucose 115 mg/dL (80-110); HEMOLYSIS < 15 (0-50); Potassium 4.4 mmol/L (3.4-5.1); Sodium 140 mmol/L (137-145)
[2020-01-08 05:45] LABS: Procalcitonin < 0.05 ng/mL (<0.5)
[2020-01-08 06:16] VITALS: BP 139/82; BP 139/92; BP 152/81
[2020-01-08 07:00] VITALS: BP 137/78; BP 177/94; BP 178/86; PULSE 55; PULSE 61; PULSE 62
[2020-01-08 08:00] VITALS: BP 177/94; PULSE 61; RESP 15; TEMP 36.4; O2SAT 97
[2020-01-08 08:37] VITALS: PULSE 61; RESP 16; O2SAT 95
[2020-01-08] MEDS: INSULIN ASPART 100 UNIT/ML INSULN PEN SUBCUT (08:46)
[2020-01-08] MEDS: HEPARIN 5,000 UNIT/ML VIAL 5000 UNIT SUBCUT (08:53)
[2020-01-08] MEDS: DULOXETINE 20 MG CAPSULE PO (08:53)
[2020-01-08] MEDS: LOSARTAN 50 MG TABLET 100 MG PO (08:53)
--- NOTE | 2020-01-08 09:13 | P.DS_ITS ---
History of Present Illness History of Present Illness Date Patient Seen: 01/08/20 Chief complaint: Disorientation, Dizzy, Can't Walk or Get Dressed Narrative: Ms. Nanette Rivera is a 74-year-old female with a past medical history significant for non insulin-dependent diabetes mellitus, diabetes insipidus, hypertension, chronic kidney disease, bilateral lower extremity edema, chronic low back pain, breast cancer, depression and anxiety who presents to the emergency room brought in by a dba manager friend for confusion, weakness and dizziness. The patient reports that at 10:30 a.m. the world dropped out with her becoming suddenly weak and dizzy and difficulty concentrating. She states the same thing happened to her 4 weeks ago and lasted for about 6 hours but did not seek attention at that time. She was also seen in the ER for a fall on 12/27/2019 for she is stained large hematoma on the right hip related to a mechanical ground level fall. At that time she had no prodrome will symptoms of dizziness, weakness, chest pain or shortness of breath. The patient has associated symptoms increased frequency of urination but describes her urine flow as slower. She reports no nausea vomiting and has had no hematochezia or melena. this morning she woke in her usual state health and had no complaints of fevers or chills, has had no recent cold or flu symptoms. She denies nasal congestion or sore throat. She has had no chest pain or palpitations and denies shortness of breath cough or wheezing. She reports no abdominal pain and has had no nausea vomiting. She denies changes in bowel habits. Upon arrival to the ER the patient is hypothermic with a temperature of 95.5?, heart rate of 62, blood pressure 84/51, respirations 16 saturating 90 D 7% on room air. CT of the head is obtained finding no acute pathology, cerebral volume loss with chronic microvascular ischemic changes. CT of the chest abdomen and pelvis finds multiple lung nodules the largest of which is not changed since 2017 with finding of new nodules., discoid atelectasis, heart size is normal, scattered colonic diverticula without diverticulitis, small ventral hernia. Twelve lead EKG reveals sinus rhythm with a ventricular rate of 62, left axis shift and inferior infarct. On laboratory analysis the patient has a white count of 10.4 with increased neutrophils at 83.3%, hemoglobin of 13.1, hematocrit 39.2 and platelets of 207. She has a PT of 12.4, INR 1.1 and PTT of 32. Her electrolytes are all within normal range ever has a BUN of 21 and a creatinine of 1.45. Her EGFR is 35.1. Her nonfasting glucose is 308. She has an elevated bilirubin at 1.5 with AST of 18, ALT 22 and alkaline phosphatase of 57. Her albumin is 4.1. Total CK is 24 and troponin is less than 0.012. Cover ed screening is negative. Urinalysis reveals a specific gravity of 1.015 and no infection, urine tox screen is negative. In the ER the patient received 3 L of IV fluid with improvement of blood pressure. The patient is admitted to the medicine service for weakness and dizziness of unclear etiology. Discharge Providers Provider Date of admission: 01/07/20 15:32 Discharge Date: 01/08/20 Primary care physician: Bebeto Pham DO Consults: 01/07/20 20:18 Consult to Occupational Therapy Evaluate & Treat Comment: Falls, weakness Physician Instructions: Evaluate and treat Consult to Physical Therapy Evaluate & Treat Comment: Fall, Physician Instructions: Evaluate and Treat Discharge provider: Sophy Hannah MD Summary Hospital Course Discharge Diagnosis: 1. Hypotension likely secondary to medication 2. Hypertension 3. Type 2 diabetes 4. Hyperlipidemia 5. Chronic kidney disease Hospital Course: Patient was admitted to the hospital for weakness dizziness and hypotension. Review of her medical records review reveals that her blood pressure medications have been adjusted. She had had a month. Of feeling ?lightheaded. During her hospital stay her propanolol was held. She had improvement of her blood pressure. She had no further weakness or dizziness. Patient was deemed appropriate for discharge and arrangements were made to discharge her home. Status at Discharge Cognitive/behavioral status at discharge: at baseline, oriented Functional status at discharge: independent ambulation Overall status at discharge: patient is back to baseline Time Spent with Patient Time spent: Less than 30 minutes Exam Vital Signs (past 8 hours): - 01/08/20 03:47 01/08/20 06:16 01/08/20 07:00 Temperature 98.0 F Pulse Rate 56 L Pulse Rate [Orthostatic Lying] 55 L Pulse Rate [Orthostatic Sitting] 61 Pulse Rate [Orthostatic Standing] 62 Respiratory Rate 18 Blood Pressure 134/65 Blood Pressure [Orthostatic Lying] 152/81 H 178/86 H Blood Pressure [Orthostatic Sitting] 139/92 H 177/94 H Blood Pressure [Orthostatic Standing] 139/82 137/78 Pulse Oximetry 94 01/08/20 08:00 01/08/20 08:37 Temperature 97.6 F Pulse Rate 61 61 Pulse Rate [Orthostatic Lying] Pulse Rate [Orthostatic Sitting] Pulse Rate [Orthostatic Standing] Respiratory Rate 15 16 Blood Pressure 177/94 H Blood Pressure [Orthostatic Lying] Blood Pressure [Orthostatic Sitting] Blood Pressure [Orthostatic Standing] Pulse Oximetry 97 95 Oxygen Delivery Method Room Air Oxygen Flow Rate 0 Narrative Exam Narrative: Pleasant female in no acute distress Lungs: Clear to auscultation Cardiac exam: Regular rate rhythm normal S1-S2 Abdomen: Soft and nontender Extremities: No edema Objective Labs Result Diagrams: 01/08/20 04:45 01/08/20 04:45 Labs: Laboratory Results - last 24 hr 01/07/20 01/07/20 01/07/20 12:25 12:25 12:25 WBC 10.4 RBC 4.21 Hgb 13.1 Hct 39.2 MCV 93.2 MCH 31.1 MCHC 33.3 RDW 13.2 Plt Count 207 Neut % (Auto) 83.3 H Lymph % (Auto) 9.9 L [place] % (Auto) 4.1 Eos % (Auto) 2.2 Baso % (Auto) 0.5 Neut # (Auto) 8700 H Lymph # (Auto) 1000 L [place] # (Auto) 400 Eos # (Auto) 200 Baso # (Auto) 100 PT 12.4 INR 1.1 APTT 32 Sodium 137 Potassium 4.8 Chloride 105 Carbon Dioxide 22 BUN 21 H Creatinine 1.45 H Estimated GFR 35.1 L BUN/Creatinine Ratio 14.5 Glucose 308 H Hemoglobin A1c Calcium 10.0 Magnesium Total Bilirubin 1.5 H AST 18 ALT 22 Alkaline Phosphatase 57 Total Creatine Kinase 24 L CK-MB (CK-2) TNP CK-MB (CK-2) Rel Index TNP Troponin I < 0.012 Total Protein 6.6 Albumin 4.1 Globulin 2.5 Albumin/Globulin Ratio 1.6 Procalcitonin TSH Urine Color Urine Appearance Urine pH Ur Specific [place] Urine Protein Urine Glucose (UA) Urine Ketones Urine Occult Blood Urine Nitrate Urine Bilirubin Urine Urobilinogen Ur Leukocyte Esterase Urine RBC Urine WBC Ur Squamous Epith Cells Urine Bacteria Ur Culture Indicated? Ur Random Sodium U Opiates 300ng/mL cut Ur Oxycodone Screen Urine Methadone Screen Ur Barbiturates Screen U Tricyclic Antidepress Ur Phencyclidine Scrn Ur Amphetamines Screen U Methamphetamines Scrn Ur MDMA Scrn (Ecstasy) U Benzodiazepines Scrn Urine Cocaine Screen U Marijuana (THC) Screen COVID-19 PCR 01/07/20 01/07/20 01/07/20 12:25 12:25 12:53 WBC RBC Hgb Hct MCV MCH MCHC RDW Plt Count Neut % (Auto) Lymph % (Auto) [place] % (Auto) Eos % (Auto) Baso % (Auto) Neut # (Auto) Lymph # (Auto) [place] # (Auto) Eos # (Auto) Baso # (Auto) PT INR APTT Sodium Potassium Chloride Carbon Dioxide BUN Creatinine Estimated GFR BUN/Creatinine Ratio Glucose Hemoglobin A1c 7.3 H Calcium Magnesium 1.5 L Total Bilirubin AST ALT Alkaline Phosphatase Total Creatine Kinase CK-MB (CK-2) CK-MB (CK-2) Rel Index Troponin I Total Protein Albumin Globulin Albumin/Globulin Ratio Procalcitonin TSH Urine Color Urine Appearance Urine pH Ur Specific [place] Urine Protein Urine Glucose (UA) Urine Ketones Urine Occult Blood Urine Nitrate Urine Bilirubin Urine Urobilinogen Ur Leukocyte Esterase Urine RBC Urine WBC Ur Squamous Epith Cells Urine Bacteria Ur Culture Indicated? Ur Random Sodium U Opiates 300ng/mL cut Ur Oxycodone Screen Urine Methadone Screen Ur Barbiturates Screen U Tricyclic Antidepress Ur Phencyclidine Scrn Ur Amphetamines Screen U Methamphetamines Scrn Ur MDMA Scrn (Ecstasy) U Benzodiazepines Scrn Urine Cocaine Screen U Marijuana (THC) Screen COVID-19 PCR Negative 01/07/20 01/07/20 01/07/20 13:25 13:25 21:35 WBC RBC Hgb Hct MCV MCH MCHC RDW Plt Count Neut % (Auto) Lymph % (Auto) [place] % (Auto) Eos % (Auto) Baso % (Auto) Neut # (Auto) Lymph # (Auto) [place] # (Auto) Eos # (Auto) Baso # (Auto) PT INR APTT Sodium Potassium Chloride Carbon Dioxide BUN Creatinine Estimated GFR BUN/Creatinine Ratio Glucose Hemoglobin A1c Calcium Magnesium Total Bilirubin AST ALT Alkaline Phosphatase Total Creatine Kinase CK-MB (CK-2) CK-MB (CK-2) Rel Index Troponin I Total Protein Albumin Globulin Albumin/Globulin Ratio Procalcitonin TSH Urine Color Yellow Urine Appearance Clear Urine pH 5.5 Ur Specific [place] 1.015 Urine Protein Negative Urine Glucose (UA) Negative Urine Ketones Negative Urine Occult Blood Negative Urine Nitrate Negative Urine Bilirubin Negative Urine Urobilinogen 0.2 Ur Leukocyte Esterase Negative Urine RBC None seen Urine WBC 0-1/hpf Ur Squamous Epith Cells 1-5 /hpf Urine Bacteria Occasional (0-1) Ur Culture Indicated? Cult not indicated Ur Random Sodium 69 U Opiates 300ng/mL cut Negative Ur Oxycodone Screen Negative Urine Methadone Screen Negative Ur Barbiturates Screen Negative U Tricyclic Antidepress Negative Ur Phencyclidine Scrn Negative Ur Amphetamines Screen Negative U Methamphetamines Scrn Negative Ur MDMA Scrn (Ecstasy) Negative U Benzodiazepines Scrn Negative Urine Cocaine Screen Negative U Marijuana (THC) Screen Negative COVID-19 PCR 01/08/20 01/08/20 01/08/20 04:45 04:45 04:45 WBC 9.7 RBC 3.99 L Hgb 12.3 Hct 37.1 MCV 93.0 MCH 30.9 MCHC 33.3 RDW 13.2 Plt Count 161 Neut % (Auto) 70.5 Lymph % (Auto) 16.9 L [place] % (Auto) 8.3 Eos % (Auto) 3.7 Baso % (Auto) 0.6 Neut # (Auto) 6800 Lymph # (Auto) 1600 [place] # (Auto) 800 Eos # (Auto) 400 Baso # (Auto) 100 PT INR APTT Sodium 140 Potassium 4.4 Chloride 114 H Carbon Dioxide 23 BUN 13 Creatinine 0.99 Estimated GFR 54.5 L BUN/Creatinine Ratio 13.1 Glucose 115 H D Hemoglobin A1c Calcium 9.0 Magnesium Total Bilirubin AST ALT Alkaline Phosphatase Total Creatine Kinase CK-MB (CK-2) CK-MB (CK-2) Rel Index Troponin I Total Protein Albumin Globulin Albumin/Globulin Ratio Procalcitonin TSH 2.40 Urine Color Urine Appearance Urine pH Ur Specific [place] Urine Protein Urine Glucose (UA) Urine Ketones Urine Occult Blood Urine Nitrate Urine Bilirubin Urine Urobilinogen Ur Leukocyte Esterase Urine RBC Urine WBC Ur Squamous Epith Cells Urine Bacteria Ur Culture Indicated? Ur Random Sodium U Opiates 300ng/mL cut Ur Oxycodone Screen Urine Methadone Screen Ur Barbiturates Screen U Tricyclic Antidepress Ur Phencyclidine Scrn Ur Amphetamines Screen U Methamphetamines Scrn Ur MDMA Scrn (Ecstasy) U Benzodiazepines Scrn Urine Cocaine Screen U Marijuana (THC) Screen COVID-19 PCR 01/08/20 04:45 WBC RBC Hgb Hct MCV MCH MCHC RDW Plt Count Neut % (Auto) Lymph % (Auto) [place] % (Auto) Eos % (Auto) Baso % (Auto) Neut # (Auto) Lymph # (Auto) [place] # (Auto) Eos # (Auto) Baso # (Auto) PT INR APTT Sodium Potassium Chloride Carbon Dioxide BUN Creatinine Estimated GFR BUN/Creatinine Ratio Glucose Hemoglobin A1c Calcium Magnesium Total Bilirubin AST ALT Alkaline Phosphatase Total Creatine Kinase CK-MB (CK-2) CK-MB (CK-2) Rel Index Troponin I Total Protein Albumin Globulin Albumin/Globulin Ratio Procalcitonin < 0.05 TSH Urine Color Urine Appearance Urine pH Ur Specific [place] Urine Protein Urine Glucose (UA) Urine Ketones Urine Occult Blood Urine Nitrate Urine Bilirubin Urine Urobilinogen Ur Leukocyte Esterase Urine RBC Urine WBC Ur Squamous Epith Cells Urine Bacteria Ur Culture Indicated? Ur Random Sodium U Opiates 300ng/mL cut Ur Oxycodone Screen Urine Methadone Screen Ur Barbiturates Screen U Tricyclic Antidepress Ur Phencyclidine Scrn Ur Amphetamines Screen U Methamphetamines Scrn Ur MDMA Scrn (Ecstasy) U Benzodiazepines Scrn Urine Cocaine Screen U Marijuana (THC) Screen COVID-19 PCR Discharge Assessment & Plan Assessment and Plan Assessment: 1. Hypotension, likely secondary to medications 2. Type 2 diabetes 3. Hyperlipidemia 4. Chronic kidney disease Plan of Treatment: Medications as prescribed Follow-up with Dr. Sheriff next Discharge Plan Discharge Plan Discharge Problem: Acute hypotension Patient Disposition: Home Discharge orders & Medications Prescriptions: New propranolol 40 mg tablet 40 mg PO BID Qty: 60 RF: 0 Continued timolol maleate [Timoptic] 0.25 % drops 1 drp OPHTH DAILY Qty: 0 RF: 0 [calcium ] 1,200 mg PO QDAY Qty: 0 RF: 0 atorvastatin 10 mg tablet 10 mg PO BEDTIME Qty: 90 RF: 1 metformin 500 mg tablet extended release 24 hr 1,000 mg PO DAILY Qty: 180 RF: 1 duloxetine 20 mg capsule,delayed release(DR/EC) 20 mg PO BID Qty: 180 RF: 1 losartan 100 mg tablet 100 mg PO QDAY Qty: 90 RF: 1 tizanidine 4 mg tablet 4 mg PO BEDTIME Qty: 30 RF: 2 clotrimazole-betamethasone [Lotrisone] 1-0.05 % cream 1 applictn TOP ONCE PRN (Reason: rash) Qty: 15 RF: 2 omega 4-cav-mpk-fish oil [Fish Oil] 1,200 (144-216) mg capsule PO RF: 0 Discontinued propranolol 80 mg tablet 80 mg PO BID Qty: 180 RF: 1 spironolactone 25 mg tablet 25 mg PO DAILY Qty: 30 RF: 5 No Action (DME) Disabled Parking Permit Qty: 1 RF: 0 (DME) One touch Verio test strips Qty: 100 RF: 5 Follow up/Referrals: Bebeto Pham DO [Primary Care Provider] - Discharge Health Status Multidrug resistant organism: No MDRO Diet/Activity/Treatments Diet: Carb-consistent/Diabetic, Low-fat and Low-sodium Activity: as tolerated Discharge Data Primary Care Provider: Bebeto Pham Attending Provider: Sophy Hannah Admsandi Date/Time: 01/07/20 15:32
--- NOTE | 2020-01-08 09:23 | CM.DANOTE ---
Addendum entered by Flakita Arteaga LPN 01/08/20 11:36: Met with pt during Team Rounds as planned. Dr. Hannah explained that she was ok for d/c today. Several medication changes were made. Pt confirmed that she does live aone but is on the [facility] program with caregiver Joellen Bradshaw at 3x week. Care if primarily buffet server as pt is functional within her home. She does not drive. Friend Adarsh will be taking her home and he is today at bedside. OT/PT saw pt and recommend HH OT/PT. RN will be added. Pt agreeable to same. Has HH many years ago, vendor unknown. Agency list discussed: [facility] now has the referral base on vendor list: pt's preference. [facility] accepts referral. Dr. Hannah has signed the Face/Face. DC information is faxed to him now as well as orders and F/F. Home today, HH. Original Note: Discharge Planning/Care Management DCP: assessment: case received, EMR reviewed. Pt is a 74 yaere old femalel who admitted yesterday late afternoon to care of hospitalist team. PCP: Dr. Pham/[facility] Payer: [employer] Medicare and Medicaid Per night hospitalist SHIELD CLEANER pt is admitted for mental status changes and dizziness impeding functional abilities in setting of non insulin dependent diabetes. Etiology unknown. P: will check in with pt during Team Bedside Rounds and follow accordingly. CM Discharge Assessment Start: 01/08/20 09:21 Freq: Status: Active Protocol: Document 01/08/20 09:22 ITV (Rec: 01/08/20 09:23 ITV [id number]) Discharge Planning Assessment Advance Directives? Yes History Provided By Medical Record Has Patient been admitted in last 30 No days? Prior Living Arrangements House Household Members other Is patient alert and oriented? Yes Whiteboard Updated in Patient Room with Yes name and ext. # of Personnel Coordinator Review Status In Process
[2020-01-08] MEDS: TIMOLOL 0.25% OPHTH 1 DROPS EYE-RIGHT (10:01)
--- NOTE | 2020-01-08 10:26 | OT.IP.EVAL ---
Past Medical History (Last Reviewed 01/08/20 @ 03:06 by MYRNA Hairston) Anxiety (Chronic Unknown) Blindness (Chronic 1949) Breast CA (Resolved 1998) Chickenpox (Resolved 1955) Chronic back pain (Chronic 1998) CKD (chronic kidney disease) (Chronic Unknown) Depression (Chronic 1965) Diabetes (Chronic Unknown) Diabetes insipidus (Resolved 1999) GERD (gastroesophageal reflux disease) (Chronic Unknown) GI bleed (Resolved 2016) Hearing loss (Chronic 2014) History of head injury (Acute) Hx of drug overdose (Resolved Unknown) Hyperlipemia (Chronic Unknown) Hypertension (Chronic Unknown) Low HDL (under 40) (Acute) Lower extremity edema (Acute) Measles (Resolved 1947) Memory loss (Acute) Mumps (Resolved 1948) Obstructive sleep apnea (Chronic Unknown) Tension headache (Acute) Urinary incontinence (Chronic 2009) Surgical History (Last Updated 01/08/20 @ 03:06 by MYRNA Hairston) History of bladder suspension procedure (Acute) History of hernia repair (Acute) History of total abdominal hysterectomy (Resolved 1998) S/P breast lumpectomy (Resolved ~1999) Occupational Therapy Inpatient Evaluation/Re-Eval M1 PT/OT-IP Prior Functional Status Start: 01/08/20 10:28 Freq: NEEDED Status: Active Protocol: Document 01/08/20 10:56 [facility] (Rec: 01/08/20 10:57 [facility] [id number]) Medical Review Prior Functional Status Medical History Reviewed Yes Communication Indendent. Mobility and Gait Pt states does not use a device for needs. Activities of Daily Living and IADL's Pt states has [employer] caregiver to assist for needs for IADl needs. Pt states able to do all ADl needs on her own. Prior Functional Level (Other details) Pt states that her nephew lives in the on her property and able to assist as needed. Social History Household Members other Living Arrangements House Number of Floors (Floors) One Floor Number of Stairs To Enter/Railing? One step to enter. Home Environment Standard Height Toilet,Walk in Shower Home Equipment Grab Bars Near Toilet,Grab Bars In Shower Additional Social History Comment Pt gets out on the right side of the bed. M2 OT-IP Current Condition Start: 01/08/20 10:28 Freq: Status: Active Protocol: Document 01/08/20 10:28 [facility] (Rec: 01/08/20 10:40 [facility] [id number]) Occupational Therapy Current Condition Current Condition Evaluation Date 01/08/20 Treatment Diagnosis Dehydration with hypotension Diagnosis Onset Date 01/07/20 M3 OT- IP Subjective and Pain Start: 01/08/20 10:28 Freq: Status: Active Protocol: Document 01/08/20 10:28 [facility] (Rec: 01/08/20 10:40 [facility] [id number]) OT- Subjective Occupational Therapy Visit Type Type Initial Evaluation Visit Start Time 10:05 Visit Stop Time 10:26 Total Visit Minutes 21 Occupational Therapy Visit Comments Patient Comments Pt's friend present as brought pt clothing. Pt agreed to do OT eval, pt already having discharge orders this morning. Patient/Caregiver Goals To go home. OT Pain Assessment Pain When Pain Assessed At Rest Pain Present Pain Present Denied Pain M4 OT- IP ADL's Start: 01/08/20 10:28 Freq: Status: Active Protocol: Document 01/08/20 10:28 [facility] (Rec: 01/08/20 10:40 [facility] [id number]) OT [id number] Comments OT Self-Feeding Comments NOt at meal time. OT ADL-Grooming Comments OT Grooming Comments Pt states already performed on her own this morning. OT ADL-Dressing General Eval Upper Body Dressing Ability Independent Lower Body Dressing Ability Independent Comments OT Dressing Comments Completely independent for all dressing needs. OT ADL-Toileting Comments OT Toileting Comments Pt states already used the bathroom. OT ADL-Bathing Comments OT Bathing Comments Pt states already cleaned off this morning. M5 OT- IP IADL's Start: 01/08/20 10:28 Freq: Status: Active Protocol: Document 01/08/20 10:28 [facility] (Rec: 01/08/20 10:40 [facility] [id number]) OT-Instrumental Activities of Daily Living Home Safety Awareness Ability to Problem Solve Emergency Able to Problem Solve Situations Home Safety Comments Pt able to states home safety but needing increased time to states to call 911 in case of emergency, able to identify to turn off the water in case of toilet flooding after time passed, and actually had a phone call come in asking her to sign up for more services for her TV and pt able to states not interested. Medication Management Medication Management Comments Pt states use of pill organizer. Money Management Money Management Comments Pt states pays her own bills. Hydraulic Riveter Hydraulic Riveter Caregiver Provides Assist M6 OT- IP Functional Cognition Start: 01/08/20 10:28 Freq: Status: Active Protocol: Document 01/08/20 10:28 [facility] (Rec: 01/08/20 10:40 [facility] [id number]) Cognitive Factors Limiting Selfcare Function Cognitive Ability Level of Alertness Alert Patient Orientation Name,Place,Situation Attention Span Ability Capable of Focused Attention, Capable of Sustained Attention Ability to Follow Commands Able to Follow One Step Commands Cognitive Comments Cognitive Assessment Comments Pt able to follow commands for getting dressing this morning . Pt a little slow to respond to safety questions. OT- Vision and Hearing OT- Hearing Assessment OT- Hearing Assessment WFL OT- Vision Assessment Vision History Blindness Visual Acuity Glasses All The Time Vision Assessment Comments Left eye blind since age 2. M7 OT- IP Mobility and Balance Start: 01/08/20 10:28 Freq: Status: Active Protocol: Document 01/08/20 10:28 [facility] (Rec: 01/08/20 10:40 [facility] [id number]) OT- Bed Mobility Assessment Rolling Type of Rolling Roll to Right Level of Assistance Independent Supine to Sit Supine to Sit Assist Independent Scooting Scooting to Edge of Bed Independent OT-Transfer Assessment Sit to and From Stand Sit to and from Stand Independent Transfers Transfer Ability Standby Assistance Technique Transfer Destination Bed Devices Transfer Assistive Devices None Comments Mobility Comments Pt distant SBA in the room for mobility. OT- Balance Assessment Sitting Balance and Reactions Static Sitting Balance Ability Normal Dynamic Sitting Balance Ability Normal Standing Balance and Reactions Static Standing Balance Ability Good Comments Other Balance Tests/Deviations/Treatment Due to pt's history of falls : able to give pt information regarding factors that may influences a fall, things to look out for in her environment and how to make smart decisions. M8 OT- IP Objective Assessments Start: 01/08/20 10:28 Freq: Status: Active Protocol: Document 01/08/20 10:28 [facility] (Rec: 01/08/20 10:40 [facility] [id number]) OT Gross Range of Motion Upper Extremity Range of Motion Assessment Within Functional Limits OT Strength Comments Strength Comments Right shoulder not tested do to arthritis but able to give suggestions of trying not to sleep directly on her right shoulder would be helpful. OT- Coordination Assessment Upper Extremity Finger to Nose Test Within Functional Limits OT-Muscle Tone Assessment Muscle Tone WNL Yes M9 OT- IP Assessment and Plan Start: 01/08/20 10:28 Freq: Status: Active Protocol: Document 01/08/20 10:28 [facility] (Rec: 01/08/20 10:40 [facility] [id number]) OT Summary Assessment and Plan Potential Rehabilitation Potential Good Analytic Complexity at Evaluation Low Summary OT Impairments Functional Mobility,Bathing, Activity Tolerance Progress Towards Goals Progressing Toward Goals Assessment Summary Pt here due to dehydration with hypotension who can to the ER due to dizzy, weakness, and difficulty to concentrate . Pt feels that she is close to baseline, however may benefit from home health to take a closer look at her environment as pt has had multiple falls in the past. Pt looking to go home today. Pt has a nephew who lives on the property to assist as needed , in addition pt has [employer] to assist with IADl needs. Goals Self-Feeding Goal Independent Grooming Goal Independent Dressing Goal Independent Toileting Goal Independent Bathing Goal Independent Toilet Transfer Goal Independent Shower Transfer Goal Independent Days to Meet Goals 2 Frequency of Treatment Frequency Of Treatment Once a Day Treatment Plan OT Treatment Plan Patient/Family Education, Discharge Planning Discharge Recommendations OT Discharge Recommendations Home with Assistance,Home Health Transportation Needs at Discharge Private Vehicle
--- NOTE | 2020-01-08 10:35 | PT.IIE ---
Surgical History (Last Updated 01/08/20 @ 03:06 by MYRNA Hairston) History of bladder suspension procedure (Acute) History of hernia repair (Acute) History of total abdominal hysterectomy (Resolved 1998) S/P breast lumpectomy (Resolved ~1999) Medical History (Last Reviewed 01/08/20 @ 03:06 by MYRNA Hairston) Anxiety (Chronic Unknown) Blindness (Chronic 1949) Breast CA (Resolved 1998) Chickenpox (Resolved 1955) Chronic back pain (Chronic 1998) CKD (chronic kidney disease) (Chronic Unknown) Depression (Chronic 1965) Diabetes (Chronic Unknown) Diabetes insipidus (Resolved 1999) GERD (gastroesophageal reflux disease) (Chronic Unknown) GI bleed (Resolved 2015) Hearing loss (Chronic 2013) History of head injury (Acute) Hx of drug overdose (Resolved Unknown) Hyperlipemia (Chronic Unknown) Hypertension (Chronic Unknown) Low HDL (under 40) (Acute) Lower extremity edema (Acute) Measles (Resolved 1947) Memory loss (Acute) Mumps (Resolved 1948) Obstructive sleep apnea (Chronic Unknown) Tension headache (Acute) Urinary incontinence (Chronic 2009) Physical Therapy Inpatient Evaluation/Re-Eval M1 PT/OT-IP Prior Functional Status Start: 01/08/20 08:42 Freq: NEEDED Status: Active Protocol: Document 01/08/20 10:35 AB (Rec: 01/08/20 12:48 [id number]) Medical Review Prior Functional Status Medical History Reviewed Yes Communication able to make needs known Mobility and Gait pt stated that she is independent with all mobilities and ambulation without AD Activities of Daily Living and IADL's per OT's note: Pt states has IMMANUEL caregiver to assist for needs for IADl needs. Pt states able to do all ADl needs on her own. Social History Household Members spouse Living Arrangements House Number of Floors (Floors) One Floor Number of Stairs To Enter/Railing? One step to enter Home Environment Standard Height Toilet,Walk in Shower Home Equipment Front Wheel Walker,Straight Cane,Shower Seat with Backrest ,Shower Seat without Backrest, Grab Bars Near Toilet,Grab Bars In Shower M1 PT/OT-IP Prior Functional Status Start: 01/08/20 10:28 Freq: NEEDED Status: Active Protocol: Document 01/08/20 10:56 CCC (Rec: 01/08/20 10:57 [facility] [id number]) Medical Review Prior Functional Status Medical History Reviewed Yes Communication Indendent. Mobility and Gait Pt states does not use a device for needs. Activities of Daily Living and IADL's Pt states has IMMANUEL caregiver to assist for needs for IADl needs. Pt states able to do all ADl needs on her own. Prior Functional Level (Other details) Pt states that her nephew lives in the on her property and able to assist as needed. Social History Household Members other Living Arrangements House Number of Floors (Floors) One Floor Number of Stairs To Enter/Railing? One step to enter. Home Environment Standard Height Toilet,Walk in Shower Home Equipment Grab Bars Near Toilet,Grab Bars In Shower Additional Social History Comment Pt gets out on the rigth side of the bed. M2 PT-IP Current Condition Start: 01/08/20 08:42 Freq: NEEDED Status: Active Protocol: Document 01/08/20 10:35 AB (Rec: 01/08/20 12:48 AB [email or web address]) Physical Therapy Current Condition Current Condition Evaluation Date 01/08/20 Treatment Diagnosis hypotension; difficulty in walking Onset Date 01/07/20 M3 PT-IP Subjective Start: 01/08/20 08:42 Freq: NEEDED Status: Active Protocol: Document 01/08/20 10:35 AB (Rec: 01/08/20 12:48 AB [email or web address]) Subjective Physical Therapy Visit Type Type Initial Evaluation Visit Start Time 10:35 Visit Stop Time 11:03 Total Visit Minutes 33 Number of SOFTWARE QUALITY TEST ENGINEER Visits 0 Physical Therapy Visit Comments Patient Comments pt is agreeable to do PT Therapy Pain Assessment Pain Present Pain Present Denied Pain M4 PT-IP Mobility and Gait Start: 01/08/20 08:42 Freq: NEEDED Status: Active Protocol: Document 01/08/20 10:35 AB (Rec: 01/08/20 12:48 AB [email or web address]) PT-Bed Mobility Assessment Supine to Sit Supine to Sit Standby Assistance Sit to Supine Sit to Supine Standby Assistance PT-Transfer Assessment Sit to and From Stand Sit to and from Stand Standby Assistance Equipment Transfer Assistive Device None,Gait Belt Orthotic/Prosthetic Devices or Brace: No Comments Mobility Comments pt completed supine to sit SBA . completed sit to stand SBA and ambulated in room without AD . pt with (+) LOB with recovery. increase lateral R sided LOB. pt stated that she has balance issues and has fallen 3 x for the last 3 months. educated pt on increasing COG awareness, weight shifting and balance control during ambulation. also taking deep breaths with tasks due to 93% O2 sat at rest. pt ambulated more in room without AD ~ 40 ft. cued for increase balance awareness and pt seems steadier and not LOB afterwards. completed tinetti balance assessment. educated pt on safety and use of FWW for outdoor/long distance ambulation and pt agreed. pt agreed to has homehealth PT as well. pt completed up/down step stool holding on edge of door for support simulating home environment requiring SBA to CGA. pt requested to go back to bed. completed sit to supine SBA. call light and table placed within reach. informed housing case manager and Dr. youssef regarding homehealth PT needs on d/c. Gait Assessment Gait Gait Assistance Required: Standby Assistance Distance (Feet) 40 Able to Maintain Weight Bearing Status Yes During Gait Assistive Devices Assistive Device None,Gait Belt Orthotic/Prosthetic Devices or Brace: No Gait Deviations General Gait Pattern Antalgic Factors Limiting Gait Function Factors Limiting Gait Function Decreased Activity Tolerance, Decreased Strength,Poor Balance,Poor Safety Awareness Stair Climbing Assessment Evaluation Level of Assist On Stairs Standby Assistance,Contact Guard Assistance Technique/Endurance Stair Climbing Direction Ascend and Descend Stair Climbing Technique Step to Step Number of Steps Climbed 1 Query Text: Stair Climbing Set # Repetitions (reps) 2 Comments Stair Climbing Comments pt hold on to L side door/wall for support PT-Balance Assessment Sitting Balance and Reactions Static Sitting Balance Ability Good Dynamic Sitting Balance Ability Good Standing Balance and Reactions Static Standing Balance Ability Good Dynamic Standing Balance Ability Fair Device Used without AD Functional Assessments Functional Tests Tinetti Balance and Gait Assessment bal score 14/16 gait score 11 /12 total score : 28 Other Functional Tests Performed tinetti balance assessment: which relates to low fall risk. M5 PT-IP Objective Assessments Start: 01/08/20 08:42 Freq: NEEDED Status: Active Protocol: Document 01/08/20 10:35 AB (Rec: 01/08/20 12:48 AB [email or web address]) Orientation Orientation/Cognition Level of Alertness Alert Orientation Name,Place,Situation Language Function Ability Hard of Hearing Safety Awareness Decreased Safety Awareness Gross Range of Motion Lower Extremity ROM Assessment Within Functional Limits Strength Lower Extremity Strength Assessment Right Impaired Hip 3+/5 Knee 3+/5 Coordination Assessment Gross Coordination Gross Coordination WNL Muscle Tone Muscle Tone WNL Yes M6 PT-IP Treatment Start: 01/08/20 08:42 Freq: NEEDED Status: Active Protocol: Document 01/08/20 10:35 AB (Rec: 01/08/20 12:48 AB [email or web address]) Physical Therapy Treatment Education Education Provided Safety M7 PT-IP Assessment and Plan Start: 01/08/20 08:42 Freq: NEEDED Status: Active Protocol: Document 01/08/20 10:35 AB (Rec: 01/08/20 12:48 AB [email or web address]) PT Summary Assessment and Plan Potential Rehabilitation Potential Good Status of Condition at Evaluation Stable Summary Impairments Pain,ROM,Strength,Balance,Bed Mobility,Transfers,Gait, Activity Tolerance Assessment Summary pt requiring SBA with mobility but with balance issues and has a few LOB during PT session but with recovery. pt stated that she had balance problems and had fallen 3x for the last 3 month already. pt plans to go home and spouse to assist her as needed. pt will benefit from homehealth PT. Goals Bed Mobility Goal Independent Transfer Goal Independent Gait Goal Independent Gait Distance 200 Other Goals up/down 1 step mod I Days to Meet Goals 3 Frequency of Treatment Frequency Of Treatment Once a Day Treatment Plan Physical Therapy Treatment Plan Bed Mobility Training,Transfer Training,Gait Training, Therapeutic Exercise,Balance Retraining,Discharge Planning, Hot or Cold Pack,Neuromuscular Re-ed,Coordination Retraining Recommendations To Nursing Amount of Assist Needed 1 Person Assist Discharge Recommendations PT Discharge Recommendations Home with Assistance,Home Health Transportation Needs at Discharge Private Vehicle
[2020-01-08] MEDS: MAGNESIUM OXIDE 400 MG TABLET PO (11:07)
--- NOTE | 2020-01-08 11:39 | PC.NURSE ---
Pt denies dizziness while standing; ambulates to bathroom with SBA; PT referred patient to home health for further gait/balance work; VSS; tele Sinus Kirill Pt's , Tamy present in room for d/c instructions; instructions include extensive review of fall risk reduction; changes in dose for Rx medications, and d/c of spironolactone; f/u appt to be scheduled by patient with Dr Pham; pt escorted via wheelchair @ 1140 to private vehicle with personal belongings in hand
[2020-01-09 16:12] LABS: Osmolality Urine 261 mOsmol/kg (.)
--- NOTE | 2020-01-14 19:08 | PC.NURSE ---
Late Entry: NS infusion initiated 01/06 at 20:51, stopped per d/c order, 01/07 at 0550.
== END 2020-01-08 11:42 | disposition home or self-care (01) ==
LOC: ED 15:05 → AC 15:33
PROVIDERS: Nurse Practitioner Adult Health; Admitting Provider Internal Medicine; Emergency Provider Emergency Medicine; PCP Family Medicine; Referring Provider Emergency Medicine; Visit Provider Internal Medicine
DX: I95.9 Hypotension, unspecified (principal); R53.1 Weakness; E86.0 Dehydration; E11.9 Type 2 diabetes mellitus without complications; E78.5 Hyperlipidemia, unspecified; Z79.84 Long term (current) use of oral hypoglycemic drugs; N18.30 Chronic kidney disease, stage 3 unspecified; F32.9 Major depressive disorder, single episode, unspecified; F41.9 Anxiety disorder, unspecified; R60.0 Localized edema; E04.1 Nontoxic single thyroid nodule; Z11.59 Encounter for screening for other viral diseases
CPT/HCPCS: 36415; 51701; 70450; 71250; 74176; 80048; 80053; 80305; 81001; 82550; 82962; 83036; 83735; 83935; 84145; 84300; 84443; 84484; 85025; 85610; 85730; 87635; 93005; 94762; 96360; 96361; 96372; 97161; 97165; 99285; G0378; J1644

== ENCOUNTER → 2020-02-23 09:53 | Outpatient (CLI) | payer MEDICARE, MEDICAID, SELFPAY ==
[2020-01-07 17:10] VITALS: BMI 27.4
[2020-02-23 10:44] LABS: Hemoglobin A1C% w Est Avg Glu 7.2 % (4.0-6.0)
[2020-02-23 11:02] LABS: Alanine Aminotransferase 38 IU/L (<35); Albumin 4.1 g/dL (3.5-5.0); Albumin Globulin Ratio 1.5 (1.0-2.8); Alkaline Phosphatase 64 U/L (38-126); Aspartate Aminotransferase 23 IU/L (14-36); BUN Creatinine Ratio 15.8 (6-22); Bilirubin Total 0.9 mg/dL (0.2-1.3); Blood Urea Nitrogen 16 mg/dL (7-17); Calcium 10.3 mg/dL (8.4-10.2); Carbon Dioxide 30 mmol/L (22-32); Chloride 105 mmol/L (98-107); Cholesterol 119 mg/dL (140-199); Estimated Glomerular Filt Rate 53.3 mL/min (>60); Globulin 2.8 g/dL (1.7-4.1); Glucose 149 mg/dL (80-110); HDL Cholesterol 32 mg/dL (40-60); HEMOLYSIS < 15 (0-50); LDL Cholesterol Calculated 56 mg/dL (<100); Potassium 4.4 mmol/L (3.4-5.1); Sodium 138 mmol/L (137-145); Total Protein 6.9 g/dL (6.3-8.2); Triglycerides 156 mg/dL (35-150)
== END ==
PROVIDERS: PCP Family Medicine; Referring Provider Family Medicine; Visit Provider Family Medicine
DX: E11.9 Type 2 diabetes mellitus without complications (principal); E78.5 Hyperlipidemia, unspecified; I10 Essential (primary) hypertension
CPT/HCPCS: 36415; 80053; 80061; 83036

== ENCOUNTER → 2020-04-29 14:25 | Outpatient (CLI) | payer MEDICARE, MEDICAID, SELFPAY ==
[2020-01-07 17:10] VITALS: BMI 27.4
[2020-04-29 15:21] LABS: Hemoglobin A1C% w Est Avg Glu 7.3 % (4.0-6.0)
[2020-04-29 15:32] LABS: Alanine Aminotransferase 37 IU/L (<35); Albumin Globulin Ratio 1.7 (1.0-2.8); Alkaline Phosphatase 76 U/L (38-126); Aspartate Aminotransferase 25 IU/L (14-36); BUN Creatinine Ratio 14.3 (6-22); Bilirubin Total 0.7 mg/dL (0.2-1.3); Blood Urea Nitrogen 13 mg/dL (7-17); Calcium 9.9 mg/dL (8.4-10.2); Carbon Dioxide 29 mmol/L (22-32); Chloride 104 mmol/L (98-107); Estimated Glomerular Filt Rate > 60.0 mL/min (>60); Globulin 2.3 g/dL (1.7-4.1); Glucose 239 mg/dL (80-110); HEMOLYSIS < 15 (0-50); Potassium 3.9 mmol/L (3.4-5.1); Sodium 139 mmol/L (137-145); Total Protein 6.3 g/dL (6.3-8.2)
== END ==
PROVIDERS: PCP Family Medicine; Referring Provider Family Medicine; Visit Provider Family Medicine
DX: E11.9 Type 2 diabetes mellitus without complications (principal)
CPT/HCPCS: 36415; 80053; 83036

== ENCOUNTER 2020-07-12 19:23 | Emergency (ER) | payer MEDICARE, MEDICAID, SELFPAY ==
[2020-04-29 16:03] VITALS: BMI 27.4
[2020-07-12 19:40] VITALS: BP 230/109; PULSE 63; RESP 18; TEMP 36.9; O2SAT 95; BMI 28.3
[2020-07-12 19:47] VITALS: BP 199/100; PULSE 60; RESP 18; O2SAT 95
--- NOTE | 2020-07-12 19:54 | ED.ABDPAIN ---
HPI - Abdominal Pain General Chief Complaint: Abdominal Pain Stated Complaint: lower right abdominal pain x3 hours Time Seen by Provider: 07/12/20 19:25 Source: patient Mode of arrival: Ambulatory Limitations: no limitations History of Present Illness HPI narrative: 75F nonsmoker with history of diabetes, hypertension and breast cancer presents with her in the chief complaint of a sudden onset right lower quadrant pain 3 hours ago. She denies any obvious provocation, palliation or radiation. She states it is a stabbing and aching pain unlike anything she has ever experienced. She denies any nausea, vomiting or diarrhea. She denies any fever, chills. She has had no dysuria, frequency or urgency and denies any vaginal bleeding or discharge. She had been in her normal state of health prior to the onset of her pain MD complaint: abdominal pain Onset (ago): hour(s) Pain Consistency: constant Location: RLQ Severity: moderate Quality: cramping, stabbing and aching Radiation: none Relieving factors: nothing Exacerbating factors: nothing Associated symptoms: denies other symptoms Related Data Home Medications Medication Instructions Recorded Confirmed timolol maleate [Timoptic] 1 drp OPHTH DAILY #0 01/12/17 04/29/20 [calcium ] 1,200 mg PO QDAY #0 03/09/17 04/29/20 omega 7-axs-xpm-fish oil 1,200 mg cap PO 11/23/19 04/29/20 (144 mg-216 mg) capsule Previous Rx's Medication Instructions Recorded Disabled Parking Permit #1 ea 01/04/18 clotrimazole-betamethasone 1 1 applictn TOP ONCE PRN #15 gram 12/12/18 %-0.05 % topical cream One touch Verio test strips #100 each 06/06/19 losartan 100 mg tablet 100 mg PO QDAY #90 tab 12/11/19 tizanidine 4 mg tablet 4 mg PO BEDTIME #30 tab 04/11/20 atorvastatin 10 mg tablet 5 mg PO DAILY #45 tab 04/29/20 empagliflozin 25 mg tablet 25 mg PO DAILY #90 tab 06/07/20 duloxetine 20 mg capsule,delayed 20 mg PO BID #180 cap 06/09/20 release metformin 500 mg tablet,extended 1,000 mg PO DAILY #180 tab 06/09/20 release 24 hr propranolol 40 mg tablet 40 mg PO BID #60 tab 06/09/20 hydrocodone-acetaminophen 1 tab PO Q4-6H PRN #10 tab 07/12/20 ketorolac 10 mg PO Q6H PRN #10 tab 07/12/20 ondansetron 4 mg PO TID-QID PRN #10 tab 07/12/20 Allergies Allergy/AdvReac Type Severity Reaction Status Date / Time lisinopril [LISINOPRIL] Allergy Severe Cough, Verified 07/12/20 19:40 tremors codeine [CODEINE] Allergy Intermediate itching Verified 07/12/20 19:40 and rash Horse/Equine Containing Allergy Unknown Patient Verified 07/12/20 19:40 Products can't remember I was 1 or 2 when that happened. Review of Systems Constitutional Constitutional: Denies chills, Denies fatigue, Denies fever(s), Denies frequent falls, Denies lethargy and Denies weakness Eyes Eyes: Denies change in vision, Denies eye discharge, Denies irritation and Denies loss of vision ENT Ears, Nose, Mouth, and Throat: Denies change in voice, Denies dizziness, Denies neck pain, Denies sore throat and Denies throat swelling Cardiovascular Cardiovascular: Denies chest pain, Denies irregular heart rhythm, Denies lightheadedness, Denies palpitations, Denies dyspnea, Denies dyspnea on exertion and Denies orthopnea Respiratory Respiratory: Denies cough, Denies dyspnea, Denies dyspnea on exertion and Denies wheezing Gastrointestinal Gastrointestinal: Reports abdominal pain, Denies change in bowel habits, Denies diarrhea, Denies nausea and Denies vomiting Musculoskeletal Musculoskeletal: Denies neck pain and Denies numbness Integumentary/Breasts Skin/Breast: Denies pruritus, Denies erythema, Denies rash and Denies wounds Neurologic Neurologic: Denies behavioral changes, Denies confusion, Denies dizziness, Denies frequent falls, Denies loss of vision, Denies numbness and Denies weakness Psychiatric Psychiatric: Denies anxiety, Denies behavioral changes, Denies confusion, Denies depression, Denies homicidal ideation and Denies suicidal ideation Endocrine Endocrine: Denies fatigue, Denies flushing and Denies palpitations Hematologic/Lymphatic Hematologic/Lymphatic: Denies easy bruising Allergic/Immunologic Allergic/Immunologic: Denies urticaria, Denies throat swelling and Denies wheezing Patient History Medical History Anxiety (Unknown) Blindness (1950) Breast CA (1998) Chickenpox (1956) Chronic back pain (1998) CKD (chronic kidney disease) (Unknown) Depression (1965) Diabetes (Unknown) Diabetes insipidus (2000) GERD (gastroesophageal reflux disease) (Unknown) GI bleed (2016) Hearing loss (2014) History of head injury Hx of drug overdose (Unknown) Hyperlipemia (Unknown) Hypertension (Unknown) Low HDL (under 40) Lower extremity edema Measles (1948) Memory loss Mumps (194) Obstructive sleep apnea (Unknown) Primary osteoarthritis, left shoulder Tension headache Urinary incontinence (2009) Surgical History History of bladder suspension procedure History of hernia repair History of total abdominal hysterectomy (1998) S/P breast lumpectomy (~1999) Family History Father Cancer Diabetes mellitus Mother Hypertension Social History household members: other Smoking Status: Never smoker second hand exposure: Yes (I was when I was young.) alcohol intake: former substance use type: does not use Smoking Status: Never smoker Substance Use Type: does not use Exam Narrative Exam Narrative: GENERAL: [75] year old patient appears stated age. Well-nourished, well-developed patient, in mild distress. Rubbing her lower abdomen HEAD: Atraumatic. Normocephalic. EYES: Pupils equal round and reactive. Extraocular motions intact. No scleral icterus. No injection or drainage. ENT: Nose without bleeding, purulent drainage. Throat without erythema, tonsillar hypertrophy or exudate. Airway patent. NECK: Trachea midline. Non tender CARDIOVASCULAR: Regular rate and rhythm without murmurs, gallops, or rubs. RESPIRATORY: Clear to auscultation. Breath sounds equal bilaterally. No wheezes, rales, or rhonchi. GASTROINTESTINAL: Abdomen soft, tender to palpate right lower quadrant, nondistended. Bowel sounds present in all 4 quadrants EXTREMITIES: No edema or joint tenderness. BACK: Nontender without deformity or crepitance. No flank tenderness. NEURO: AOx3. SKIN: No rash or erythema of visible areas Initial Vital Signs Initial Vital Signs: Vital Signs Temperature 98.4 F 07/12/20 19:40 Pulse Rate 63 07/12/20 19:40 Respiratory Rate 18 07/12/20 19:40 Blood Pressure 230/109 H 07/12/20 19:40 Pulse Oximetry 95 07/12/20 19:40 Course Orders Ordered: ED Orders 07/12/20 19:49 Complete Blood Count AUTO DIFF Stat Comprehensive Metabolic Panel Stat 07/12/20 20:21 CT abdomen pelvis w con Stat Discontinued Medications Hydrocodone Bitart/Acetaminophen (Hydrocodone/Acet 5/325 Prepack) 1 bottle MISC SEEINSTR ONE Stop: 07/12/20 21:22 Last Admin: 07/12/20 21:26 Dose: 1 bottle Documented by: ISSA Sodium Chloride (Normal Saline 0.9%) 1,000 mls @ 125 mls/hr IV CONT MARISOL Last Infusion: 07/12/20 21:36 Dose: 0 mls/hr Documented by: Admin: 07/12/20 19:58 Dose: 125 mls/hr Documented by: ISSA Lidocaine HCl 5.4 ml/ Sodium (Chloride) 55.4 mls @ 332.4 mls/hr IV NOW ONE Stop: 07/12/20 21:02 Last Admin: 07/12/20 21:29 Dose: Not Given Documented by: ISSA Ketorolac Tromethamine (Ketorolac 60 Mg/2 Ml Vial) 10 mg IV NOW ONE Stop: 07/12/20 21:02 Last Admin: 07/12/20 21:04 Dose: 10 mg Documented by: ISSA Ondansetron HCl (Ondansetron 4 Mg Odt Prepack) 1 bottle MISC SEEINSTR ONE Stop: 07/12/20 21:22 Last Admin: 07/12/20 21:26 Dose: 1 bottle Documented by: ISSA Reevaluation(s) Reevaluation #1: Patient has a near complete resolution of symptoms after above-stated therapies, particularly the ketorolac Vital Signs Vital signs: Vital Signs - 8 hr 07/12/20 19:40 07/12/20 19:47 07/12/20 20:00 Temperature 98.4 F Pulse Rate 63 60 61 Respiratory Rate 18 18 16 Blood Pressure 230/109 H 199/100 H 198/107 H Pulse Oximetry 95 95 93 07/12/20 20:09 07/12/20 20:41 07/12/20 21:30 Temperature Pulse Rate 60 68 63 Respiratory Rate 18 18 16 Blood Pressure 218/95 H 220/97 H 179/92 H Pulse Oximetry 94 94 92 MDM - Abdominal Pain Lab Data Result diagrams: 07/12/20 19:49 07/12/20 19:49 Labs: Lab Results 07/12/20 07/12/20 Range/Units 19:49 19:49 WBC 11.8 H (4.5-11.0) X10^3/uL RBC 5.34 H (4.0-5.2) X10^6/uL Hgb 16.0 (12.0-16.0) g/dL Hct 48.6 H (36-46) % MCV 91.0 (80-100) fL MCH 30.0 (26-34) PG MCHC 33.0 (30-36) % RDW 13.7 (11.6-14.8) % Plt Count 177 (150-400) X10^3/uL Neut % (Auto) 80.3 H (50-75) % Lymph % (Auto) 8.6 L (25-40) % [place] % (Auto) 7.5 (3-14) % Eos % (Auto) 2.9 (2-4) % Baso % (Auto) 0.7 (0-2) % Neut # (Auto) 9500 H (7908-9018) /uL Lymph # (Auto) 1000 L (0379-9770) /uL [place] # (Auto) 900 (0-900) /uL Eos # (Auto) 300 (0-450) /uL Baso # (Auto) 100 (0-100) /uL Sodium 141 (137-145) mmol/L Potassium 3.9 (3.4-5.1) mmol/L Chloride 108 H (98-107) mmol/L Carbon Dioxide 20 L (22-32) mmol/L BUN 11 (7-17) mg/dL Creatinine 0.89 (0.52-1.04) mg/dL Estimated GFR > 60.0 (>60) mL/min BUN/Creatinine Ratio 12.4 (6-22) Glucose 193 H (80-110) mg/dL Calcium 10.2 (8.4-10.2) mg/dL Total Bilirubin 0.6 (0.2-1.3) mg/dL AST 33 (14-36) IU/L ALT 44 H (<35) IU/L Alkaline Phosphatase 72 (38-126) U/L Total Protein 7.3 (6.3-8.2) g/dL Albumin 4.6 (3.5-5.0) g/dL Globulin 2.7 (1.7-4.1) g/dL Albumin/Globulin Ratio 1.7 (1.0-2.8) Point of care testing: Urine Dip Bedside Urine Glucose 1000 mg/dl Bedside Urine Bilirubin - Negative Bedside Urine Ketone - Negative Urine Specific [place] 1.015 Bedside Urine Occult Blood - Negative Bedside Urine pH 6.5 Bedside Urine Protein - Negative Bedside Urine Urobilinogen - Negative Bedside Urine Nitrite - Negative Bedside Urine Leukocytes - Negative Esterase Imaging Data CT scan - abdomen/pelvis: Radiologist's Impression: Pau Rivera 75 F [address] Scan ReportSigned Patient: Pau Rivera MMR#: [id number]: [id number]:[id number]/Sex: 75 / FDate of Service: 07/12/20Loc: EDAccession Number: [id number] Procedure: CT abdomen pelvis w con Ordering Provider: Basil Mota D.O. PROCEDURE: CT ABDOMEN PELVIS W CON INDICATIONS: severe RLQ pain TECHNIQUE: After the administration of intravenous contrast, 5 mm thick sections acquired from the diaphragm to the symphysis. 5 mm coronal and sagittal reformats were acquired. For radiation dose reduction, the following was used: automated exposure control, adjustment of mA and/or kV according to patient size. COMPARISON: [facility], CT, CT CHEST ABD PEL WO CON, 01/07/2020, 13:23. FINDINGS: Image quality: Excellent. ABDOMEN: Lung bases: Lung bases are clear. Nodules in the right middle lobe are stable compared to January 07, 2020. Heart is enlarged. Surgical clips in the right breast/axilla are stable where visualized. Solid organs: Liver is normal in size and enhancement. 7 millimeter calcification in the posterior subcapsular right lobe of the liver is stable. Gallbladder is within normal limits. Biliary system is non dilated. Pancreas enhances normally. Spleen is normal in size and enhancement. No adrenal nodules. Kidneys demonstrate normal size and enhancement. 3 millimeter stone noted in the distal right ureter causing moderate right-sided hydronephrosis. Peritoneum and bowel: Bowel loops demonstrate normal wall thickness and caliber. Scattered colonic diverticuli without evidence of diverticulitis. No free fluid or air. Nodes and vessels: No retroperitoneal or mesenteric adenopathy by size criteria. Aorta and inferior vena cava are normal in size. Scattered atherosclerotic calcifications involving the abdominal and pelvic vasculature. Miscellaneous: Small hernia in the anterior lower pelvic wall is stable. Tiny fat containing umbilical hernia is stable. PELVIS: Genitourinary: Bladder wall thickness is normal. Miscellaneous: No inguinal hernias or adenopathy. Bones: No suspicious bony lesions. No vertebral body compression fractures. Spine degenerative disc disease and facet arthropathy. IMPRESSION: 1. 3 millimeter distal right ureteral stone causing moderate right-sided hydronephrosis. 2. Cardiomegaly. 3. Colonic diverticulosis without evidence of diverticulitis. 4. No free fluid or free air. 5. No dilated loops of bowel. 6. Small lower pelvic ventral hernia stable compared to January 07, 2020. Dictated by: Tisha aGrcias MD, PhD on 07/12/2020 at 20:49 Approved by: Tisha Garcias MD, PhD on 07/12/2020 at 20:56 MDM Narrative Medical decision making narrative: Multiple etiologies for patient's symptoms considered including: [Bowel obstruction versus diverticulitis versus kidney stone versus other] Patient's symptoms improved over duration of stay with above-stated therapies. No renal failure for or signs of UTI Findings and discharge diagnosis discussed with patient/family followed by verbalization of understanding Return precautions discussed with patient/family whom verbalize understanding. Discharge Plan Departure Patient Disposition: Home Clinical Impression: Kidney stone on right side Instructions: DI for Kidney Stones Activity Restrictions/Additional Instructions: *You have been diagnosed with [kidney stone in your right lower quadrant] *What to do: *Take medications as directed: prescriptions sent to [facility] at your request *Follow up with your primary care provider in 2-3 days, call for an appointment. Let them know you were seen in the Emergency Department and that we ask that you be seen in follow up *Return to ER if you should have any new, worsening or concerning symptoms, such as [fever, shaking chills, worsening pain, persistent vomiting or other bothersome symptoms] Prescriptions: New hydrocodone-acetaminophen 5-325 mg tablet 1 tab PO Q4-6H PRN (Reason: pain) Qty: 10 RF: 0 ketorolac 10 mg tablet 10 mg PO Q6H PRN (Reason: pain) Qty: 10 RF: 0 ondansetron 4 mg tablet,disintegrating 4 mg PO TID-QID PRN (Reason: nausea and vomiting) Qty: 10 RF: 0 No Action (DME) Disabled Parking Permit Qty: 1 RF: 0 timolol maleate [Timoptic] 0.25 % drops 1 drp OPHTH DAILY Qty: 0 RF: 0 [calcium ] 1,200 mg PO QDAY Qty: 0 RF: 0 (DME) One touch Verio test strips Qty: 100 RF: 5 losartan 100 mg tablet 100 mg PO QDAY Qty: 90 RF: 1 tizanidine 4 mg tablet 4 mg PO BEDTIME Qty: 30 RF: 2 empagliflozin 25 mg tablet 25 mg PO DAILY Qty: 90 RF: 1 propranolol 40 mg tablet 40 mg PO BID Qty: 60 RF: 0 metformin 500 mg tablet extended release 24 hr 1,000 mg PO DAILY Qty: 180 RF: 1 duloxetine 20 mg capsule,delayed release(DR/EC) 20 mg PO BID Qty: 180 RF: 1 atorvastatin 10 mg tablet 5 mg PO DAILY Qty: 45 RF: 1 clotrimazole-betamethasone [Lotrisone] 1-0.05 % cream 1 applictn TOP ONCE PRN (Reason: rash) Qty: 15 RF: 2 omega 8-trj-jra-fish oil [Fish Oil] 1,200 (144-216) mg capsule PO RF: 0 Referrals: Bebeto Pham DO [Primary Care Provider] -
[2020-07-12 19:57] LABS: Add Manual Diff / Slide Review NO; Basophils Absolute Auto 100 /uL (0-100); Basophils Percent Auto 0.7 % (0-2); Eosinophils Absolute Auto 300 /uL (0-450); Eosinophils Percent Auto 2.9 % (2-4); Hematocrit 48.6 % (36-46); Lymphocytes Absolute Auto 1000 /uL (1100-4500); Lymphocytes Percent Auto 8.6 % (25-40); Monocytes Absolute Auto 900 /uL (0-900); Monocytes Percent Auto 7.5 % (3-14); Neutrophils Absolute Auto 9500 /uL (1500-7000); Neutrophils Percent Auto 80.3 % (50-75); Platelet Count 177 X10^3/uL (150-400); Red Blood Cell Count 5.34 X10^6/uL (4.0-5.2); Red Cell Distribution Width 13.7 % (11.6-14.8); White Blood Cell Count 11.8 X10^3/uL (4.5-11.0)
[2020-07-12] MEDS: SODIUM CHLORIDE 0.9% 1,000 ML 125 ML IV (19:58)
[2020-07-12 20:00] VITALS: BP 198/107; PULSE 61; RESP 16; O2SAT 93
[2020-07-12 20:08] LABS: Alanine Aminotransferase 44 IU/L (<35); Albumin 4.6 g/dL (3.5-5.0); Albumin Globulin Ratio 1.7 (1.0-2.8); Alkaline Phosphatase 72 U/L (38-126); Aspartate Aminotransferase 33 IU/L (14-36); BUN Creatinine Ratio 12.4 (6-22); Bilirubin Total 0.6 mg/dL (0.2-1.3); Blood Urea Nitrogen 11 mg/dL (7-17); Calcium 10.2 mg/dL (8.4-10.2); Carbon Dioxide 20 mmol/L (22-32); Chloride 108 mmol/L (98-107); Estimated Glomerular Filt Rate > 60.0 mL/min (>60); Globulin 2.7 g/dL (1.7-4.1); Glucose 193 mg/dL (80-110); HEMOLYSIS < 15 (0-50); Potassium 3.9 mmol/L (3.4-5.1); Sodium 141 mmol/L (137-145); Total Protein 7.3 g/dL (6.3-8.2)
[2020-07-12 20:09] VITALS: BP 218/95; PULSE 60; RESP 18; O2SAT 94
--- NOTE | 2020-07-12 20:21 | DI.CT.S_ITS ---
PROCEDURE: CT ABDOMEN PELVIS W CON INDICATIONS: severe RLQ pain TECHNIQUE: After the administration of intravenous contrast, 5 mm thick sections acquired from the diaphragm to the symphysis. 5 mm coronal and sagittal reformats were acquired. For radiation dose reduction, the following was used: automated exposure control, adjustment of mA and/or kV according to patient size. COMPARISON: [facility], CT, CT CHEST ABD PEL WO CON, 01/07/2020, 13:23. FINDINGS: Image quality: Excellent. ABDOMEN: Lung bases: Lung bases are clear. Nodules in the right middle lobe are stable compared to January 07, 2020. Heart is enlarged. Surgical clips in the right breast/axilla are stable where visualized. Solid organs: Liver is normal in size and enhancement. 7 millimeter calcification in the posterior subcapsular right lobe of the liver is stable. Gallbladder is within normal limits. Biliary system is non dilated. Pancreas enhances normally. Spleen is normal in size and enhancement. No adrenal nodules. Kidneys demonstrate normal size and enhancement. 3 millimeter stone noted in the distal right ureter causing moderate right-sided hydronephrosis. Peritoneum and bowel: Bowel loops demonstrate normal wall thickness and caliber. Scattered colonic diverticuli without evidence of diverticulitis. No free fluid or air. Nodes and vessels: No retroperitoneal or mesenteric adenopathy by size criteria. Aorta and inferior vena cava are normal in size. Scattered atherosclerotic calcifications involving the abdominal and pelvic vasculature. Miscellaneous: Small hernia in the anterior lower pelvic wall is stable. Tiny fat containing umbilical hernia is stable. PELVIS: Genitourinary: Bladder wall thickness is normal. Miscellaneous: No inguinal hernias or adenopathy. Bones: No suspicious bony lesions. No vertebral body compression fractures. Spine degenerative disc disease and facet arthropathy. IMPRESSION: 1. 3 millimeter distal right ureteral stone causing moderate right-sided hydronephrosis. 2. Cardiomegaly. 3. Colonic diverticulosis without evidence of diverticulitis. 4. No free fluid or free air. 5. No dilated loops of bowel. 6. Small lower pelvic ventral hernia stable compared to January 07, 2020. Dictated by: Tisha Garcias MD, PhD on 07/12/2020 at 20:49 Approved by: Tisha Garcias MD, PhD on 07/12/2020 at 20:56
[2020-07-12 20:41] VITALS: BP 220/97; PULSE 68; RESP 18; O2SAT 94
[2020-07-12] MEDS: KETOROLAC 60 MG/2 ML VIAL 10 MG IV (21:04)
[2020-07-12] MEDS: HYDROCODONE/ACET 5/325 PREPACK 1 BOTTLE MISC (21:26)
[2020-07-12] MEDS: ONDANSETRON 4 MG ODT PREPACK 1 BOTTLE MISC (21:26)
[2020-07-12 21:30] VITALS: BP 179/92; PULSE 63; RESP 16; O2SAT 92
== END 2020-07-12 21:38 | disposition home or self-care (01) ==
PROVIDERS: Emergency Provider Emergency Medicine; PCP Family Medicine
DX: N20.0 Calculus of kidney (principal)
CPT/HCPCS: 36415; 74177; 80053; 81003; 85025; 96361; 96374; 99284; J1885; Q9967

== ENCOUNTER → 2020-07-25 11:07 | Outpatient (CLI) | payer MEDICARE, MEDICAID, SELFPAY ==
[2020-04-29 16:03] VITALS: BMI 27.4
[2020-07-25 12:03] LABS: Add Manual Diff / Slide Review NO; Basophils Absolute Auto 0 /uL (0-100); Basophils Percent Auto 0.4 % (0-2); Eosinophils Absolute Auto 200 /uL (0-450); Eosinophils Percent Auto 2.6 % (2-4); Hematocrit 47.9 % (36-46); Hemoglobin 15.7 g/dL (12.0-16.0); Lymphocytes Absolute Auto 900 /uL (1100-4500); Mean Corpuscular HGB Conc 32.7 % (30-36); Mean Corpuscular Hemoglobin 29.7 PG (26-34); Mean Corpuscular Volume 90.7 fL (80-100); Monocytes Absolute Auto 700 /uL (0-900); Monocytes Percent Auto 7.7 % (3-14); Neutrophils Absolute Auto 7500 /uL (1500-7000); Neutrophils Percent Auto 79.3 % (50-75); Platelet Count 239 X10^3/uL (150-400); Red Blood Cell Count 5.28 X10^6/uL (4.0-5.2); Red Cell Distribution Width 13.3 % (11.6-14.8); White Blood Cell Count 9.5 X10^3/uL (4.5-11.0)
[2020-07-25 12:09] LABS: Hemoglobin A1C% w Est Avg Glu 7.5 % (4.0-6.0)
[2020-07-25 12:31] LABS: Alanine Aminotransferase 24 IU/L (<35); Albumin 4.2 g/dL (3.5-5.0); Albumin Globulin Ratio 1.7 (1.0-2.8); Alkaline Phosphatase 70 U/L (38-126); Aspartate Aminotransferase 21 IU/L (14-36); BUN Creatinine Ratio 11.6 (6-22); Bilirubin Total 1.1 mg/dL (0.2-1.3); Blood Urea Nitrogen 11 mg/dL (7-17); Calcium 10.1 mg/dL (8.4-10.2); Carbon Dioxide 26 mmol/L (22-32); Chloride 106 mmol/L (98-107); Cholesterol 149 mg/dL (140-199); Globulin 2.5 g/dL (1.7-4.1); Glucose 150 mg/dL (80-110); HDL Cholesterol 26 mg/dL (40-60); HEMOLYSIS < 15 (0-50); LDL Cholesterol Calculated 79 mg/dL (<100); Potassium 3.9 mmol/L (3.4-5.1); Sodium 141 mmol/L (137-145); Total Protein 6.7 g/dL (6.3-8.2); Triglycerides 222 mg/dL (35-150)
== END ==
PROVIDERS: PCP Family Medicine; Referring Provider Family Medicine; Visit Provider Family Medicine
DX: E11.9 Type 2 diabetes mellitus without complications (principal); E78.5 Hyperlipidemia, unspecified; E78.6 Lipoprotein deficiency
CPT/HCPCS: 36415; 80053; 80061; 83036; 85025

== ENCOUNTER → 2020-10-19 12:35 | Outpatient (CLI) | payer MEDICARE, MEDICAID, SELFPAY ==
[2020-04-29 16:03] VITALS: BMI 27.4
== END ==
PROVIDERS: PCP Family Medicine; Visit Provider Physician Assistant
DX: R30.9 Painful micturition, unspecified (principal)
CPT/HCPCS: 87086

== ENCOUNTER → 2020-11-14 13:57 | Outpatient (CLI) | payer MEDICARE, MEDICAID, SELFPAY ==
[2020-04-29 16:03] VITALS: BMI 27.4
[2020-11-14 14:42] LABS: Hemoglobin A1C% w Est Avg Glu 6.4 % (4.0-6.0)
[2020-11-14 15:32] LABS: Alanine Aminotransferase 31 IU/L (<35); Albumin 4.2 g/dL (3.5-5.0); Albumin Globulin Ratio 1.8 (1.0-2.8); Alkaline Phosphatase 56 U/L (38-126); Aspartate Aminotransferase 28 IU/L (14-36); BUN Creatinine Ratio 13.6 (6-22); Bilirubin Total 1.1 mg/dL (0.2-1.3); Blood Urea Nitrogen 12 mg/dL (7-17); Calcium 10.3 mg/dL (8.4-10.2); Carbon Dioxide 26 mmol/L (22-32); Chloride 109 mmol/L (98-107); Estimated Glomerular Filt Rate > 60.0 mL/min (>60); Globulin 2.4 g/dL (1.7-4.1); Glucose 111 mg/dL (80-110); HEMOLYSIS < 15 (0-50); Sodium 142 mmol/L (137-145); Total Protein 6.6 g/dL (6.3-8.2)
== END ==
PROVIDERS: PCP Family Medicine; Referring Provider Family Medicine; Visit Provider Family Medicine
DX: E11.21 Type 2 diabetes mellitus with diabetic nephropathy (principal)
CPT/HCPCS: 36415; 80053; 83036

== ENCOUNTER → 2021-04-16 12:47 | Outpatient (CLI) | payer MEDICARE, MEDICAID, SELFPAY ==
[2020-04-29 16:03] VITALS: BMI 27.4
[2021-04-16 13:37] LABS: Hemoglobin A1C% w Est Avg Glu 6.6 % (4.0-6.0)
[2021-04-16 13:42] LABS: Alanine Aminotransferase 23 IU/L (<35); Albumin 4.3 g/dL (3.5-5.0); Albumin Globulin Ratio 1.7 (1.0-2.8); Alkaline Phosphatase 68 U/L (38-126); Aspartate Aminotransferase 23 IU/L (14-36); BUN Creatinine Ratio 16.2 (6-22); Bilirubin Total 0.8 mg/dL (0.2-1.3); Blood Urea Nitrogen 12 mg/dL (7-17); Calcium 9.5 mg/dL (8.4-10.2); Carbon Dioxide 26 mmol/L (22-32); Chloride 110 mmol/L (98-107); Cholesterol 150 mg/dL (140-199); Estimated Glomerular Filt Rate > 60.0 mL/min (>60); Globulin 2.6 g/dL (1.7-4.1); Glucose 129 mg/dL (80-110); HDL Cholesterol 27 mg/dL (40-60); HEMOLYSIS < 15 (0-50); LDL Cholesterol Calculated 91 mg/dL (<100); Potassium 3.9 mmol/L (3.4-5.1); Sodium 143 mmol/L (137-145); Total Protein 6.9 g/dL (6.3-8.2); Triglycerides 158 mg/dL (35-150)
== END ==
PROVIDERS: PCP Family Medicine; Referring Provider Family Medicine; Visit Provider Family Medicine
DX: E11.21 Type 2 diabetes mellitus with diabetic nephropathy (principal); E78.6 Lipoprotein deficiency; I10 Essential (primary) hypertension
CPT/HCPCS: 36415; 80053; 80061; 83036

== ENCOUNTER → 2021-06-15 13:23 | Outpatient (CLI) | payer MEDICARE, MEDICAID, SELFPAY ==
[2020-04-29 16:03] VITALS: BMI 27.4
--- NOTE | 2021-06-15 13:33 | DI.MG.S_ITS ---
BILATERAL DIGITAL DIAGNOSTIC MAMMOGRAM 3D/2D: 06/15/2021 CLINICAL: Baseline by default. Breast cancer. Bilateral lumps. Comparison: 05/15/2009, 11/11/2006. There are scattered fibroglandular elements in both breasts. The right breast has post-operative findings. There is a new 1.3 cm irregular high density mass in the right breast at 4 o'clock posterior depth. This correlates as palpated, with area of clinical concern, and skin marker. No other significant masses, calcifications, or other findings are seen in either breast. No focal abnormalities seen in the left breast at area of palpable concern denoted by triangle skin marker in the anterior lower inner left breast. IMPRESSION: INCOMPLETE: NEEDS ADDITIONAL IMAGING EVALUATION The new 1.3 cm irregular high density mass in the right breast is indeterminate. An ultrasound is recommended for further evaluation and is scheduled to immediately follow this examination. There is no abnormality seen in the left breast to correspond with the area of clinical concern and palpable abnormality indicated by triangular marker in the anterior depth in the lower inner quadrant, however, an ultrasound is recommended for further evaluation and is scheduled to immediately follow this examination. This exam was interpreted at Station ID: [id number]. NOTE: For mammograms, a report in lay terms will be sent to the patient. Approximately 15% of breast malignancies will not be visualized mammographically. In the management of a palpable breast mass, a negative mammogram must not discourage biopsy of a clinically suspicious lesion. Electronically Signed By: Franklin Arriaga M.D. aty/:06/15/2021 16:03:58 ACR BI-RADS Category 0: Incomplete [id number]
--- NOTE | 2021-06-15 13:33 | DI.US.S_ITS ---
ULTRASOUND OF LEFT BREAST AND AXILLA: 06/15/2021 CLINICAL: Palpable left breast lump. Comparison is made to exam dated: 06/15/2021 mammogram - [facility]. Color flow and real-time ultrasound of the left breast axilla were performed. Toussaint scale images of the real-time examination were reviewed. No significant abnormalities were seen sonographically in the left breast. IMPRESSION: NEGATIVE There is no sonographic evidence of malignancy. There is no abnormality seen in the left breast to correspond with the area of clinical concern and palpable abnormality in the lower aspect, however, recommend clinical follow up for persistent or worsening symptoms, or development of any clinically suspicious findings. A mammogram in 12 months is recommended. Further imaging recommendations pending pathology results of right breast biopsy that is to be scheduled. Findings and recommendations were conveyed to the patient during today's evaluation. This exam was interpreted at Station ID: [id number]. Electronically Signed By: Franklin Arriaga M.D. aty/:06/15/2021 16:53:41 Entry: [facility] 06/16/2021 09:32:53 Ultrasound BI-RADS: 1 Negative
--- NOTE | 2021-06-15 13:33 | DI.US.S_ITS ---
ULTRASOUND OF RIGHT BREAST AND AXILLA: 06/15/2021 CLINICAL: Palpable right breast lump. Comparison is made to exam dated: 06/15/2021 mammogram - [facility]. Color flow and real-time ultrasound of the right breast axilla were performed. Toussaint scale images of the real-time examination were reviewed. The right breast has post-operative findings. There is a 1.4 cm x 0.7 cm x 1.3 cm irregular mass in the right breast at 4 o'clock posterior depth 6 cm from the nipple. This correlates as palpated, with mammography findings, and area of clinical concern. Color flow imaging demonstrates that there is vascularity present. No significant abnormalities were seen sonographically in the right axilla. IMPRESSION: HIGHLY SUGGESTIVE OF MALIGNANCY The 1.4 cm x 0.7 cm x 1.3 cm irregular mass in the right breast is highly suggestive of malignancy. An ultrasound guided biopsy is recommended. Findings and recommendations were discussed with the patient by Dr. Garcias during today's examination. This exam was interpreted at Station ID: [id number]. Electronically Signed By: Franklin Arriaga M.D. aty/:06/15/2021 16:50:22 letter sent: Biopsy Required Ultrasound BI-RADS: 5 Highly suggestive of malignancy
== END ==
PROVIDERS: PCP Family Medicine; Referring Provider Family Medicine; Visit Provider Family Medicine
DX: R92.8 Other abnormal and inconclusive findings on diagnostic imaging of breast (principal); N63.14 Unspecified lump in the right breast, lower inner quadrant; N63.24 Unspecified lump in the left breast, lower inner quadrant; Z85.3 Personal history of malignant neoplasm of breast; E11.21 Type 2 diabetes mellitus with diabetic nephropathy; E78.6 Lipoprotein deficiency; E78.5 Hyperlipidemia, unspecified; I10 Essential (primary) hypertension
CPT/HCPCS: 76642; 77066; G0279

== ENCOUNTER → 2021-07-21 12:59 | Outpatient (CLI) | payer MEDICARE, MEDICAID, SELFPAY ==
[2020-04-29 16:03] VITALS: BMI 27.4
[2021-07-21 14:28] LABS: COVID19 -Nasal RAPID Negative (Negative)
== END ==
PROVIDERS: PCP Family Medicine; Visit Provider Surgery
DX: Z01.812 Encounter for preprocedural laboratory examination (principal); Z20.822 Contact with and (suspected) exposure to COVID-19
CPT/HCPCS: 87635; C9803

== ENCOUNTER 2021-07-22 07:00 | Day surgery (SDC) | payer MEDICARE, MEDICAID, SELFPAY ==
[2020-04-29 16:03] VITALS: BMI 27.4
[2021-07-22] VITALS (19 sets, daily range): BP systolic 90–161; BP diastolic 57–88; PULSE 60–69; RESP 14–94; TEMP 35.8–36.4; O2SAT 93–95; BMI 28.8
--- NOTE | 2021-07-22 | PATH_ITS ---
[facility] Accession Number: [id number] . 01 Material submitted: . PART A: breast - RIGHT BREAST PART B: lymph node - RIGHT SENTINEL NODE . 01 Clinical history: . A: SHORT STITCH SUPERIOR, LONG STITCH LATERAL . 02 Diagnosis: A. Right Breast, Mastectomy: Invasive ductal carcinoma. Inferior margin involved by invasive carcinoma. Please see CAP Summary Data below. . B. Right Assonet Node, Excision: One sentinel lymph node negative for metastatic carcinoma. Please see CAP Summary Data below. . CAP SUMMARY DATA: Procedure: Total mastectomy. Specimen laterality: Right. Tumor site: 4 o'clock. Histologic type: Invasive carcinoma of no special type (ductal). Histologic grade (Guille histologic score): Glandular/tubular differentiation: Score 3. Nuclear pleomorphism: Score 2. Mitotic rate: Score 1. Overall grade: Grade 2. Tumor Size: 1.7 cm in greatest dimension. Tumor focality: Single focus of invasive carcinoma. Ductal carcinoma in situ: Absent. Lobular carcinoma in situ: Not identified. Tumor extent: Skin and nipple are uninvolved. Lymphovascular invasion: Not identified. Dermal lymphovascular invasion: Not identified. Microcalcifications: Present in non-neoplastic tissue. Treatment effect in the breast: See comment. Treatment effect in the lymph nodes: Not applicable. Additional findings: -Rare scattered foci of atypical ductal hyperplasia. -Biopsy site changes. . Margin status for invasive carcinoma: Inferior margin involved, 2 mm extent. Remaining margins are uninvolved by invasive carcinoma. Regional lymph node status: Present All regional nodes negative for tumor. Total number of lymph nodes examined: 1. Number of sentinel nodes examined: 1. . Pathologic stage classification (AJCC 8th edition): pT1c pN0(sn). . Breast Biomarker Testing: Estrogen receptor status: Positive, 100% Progesterone receptor status: Positive 51-60% HER2 by immunohistochemistry: Equivocal (Score 2+) HER2 (by in situ hybridization): Pending, results to be reported as an addendum. [facility] 07/29/2021 1713 Local . 02 Comment: The remote history of breast carcinoma treatment is noted. There is no evidence of treatment effects in the current specimen. . As part of routine quality control tester, Dr. Fitzgerald also reviewed this case and agrees with the interpretation. . 02 Electronically signed: . Farhana Cool MD, Pathologist NPI- [id number] . 01 Gross description: . A. The specimen is received in formalin, labeled right breast, and consists of an oriented right mastectomy weighing 178 grams, measuring 16.6 cm from medial to lateral, 7.2 cm from superior to inferior, and 4.2 cm from anterior to posterior, with overlying skin measuring 9.1 x 4.5 cm, nipple areolar complex measuring 3.0 x 3.0 cm, and nipple measuring 1.2 x 1.0 cm. The specimen is sectioned into eleven slices, with slice 1 being the most medial. There is a huffman firm ill-defined mass measuring 1.7 x 1.1 x 1.1 cm, located in slice 3 and 4, at approximately 5 o'clock, and is greater than 3.0 cm from the nipple. The mass is located in the lower inner quadrant. A biopsy clip is identified centrally embedded within the mass in slice 3. The mass abuts the inferior margin and is greater than 1.0 cm from all remaining margins and the skin surface. The cut surfaces adjacent to the mass are hemorrhagic. All remaining cut surfaces are grossly unremarkable with a fat to fibrous tissue ratio of approximately 90 to 10. No other lesions or masses are identified grossly. The specimen is inked as follows: Superior is inked blue, inferior is inked green, and posterior is inked black. No other lesions or masses are identified. The specimen is representatively submitted as follows: . A1-A2: Previous biopsy site, bisected (slice 3). A3: Mass to inferior margin, slice 3. A4-A5: Full thickness rep of mass, bisected (slice 4). A6: Upper inner quadrant, slice 2. A7: Upper inner quadrant, slice 5. A8: Lower outer quadrant, slice 8. A9: Upper outer quadrant, slice 9. A10: Nipple, bisected and entirely submitted. . B. The specimen is received in formalin, labeled right sentinel lymph node, and consists of an aggregate of hemorrhagic adipose tissue measuring 3.3 x 3.0 x 1.2 cm in aggregate. The specimen is extensively palpated and a single possible lymph node is identified, measuring 0.7 x 0.3 x 0.2 cm. Sectioning reveals unremarkable cut surfaces. The lymph node is bisected and entirely submitted in one cassette. ([id number]) /[facility] 07/23/2021 1717 Local . 02 Microscopic: . A. Immunohistochemical stains were performed to characterize the cells of interest. All control stains showed appropriate reactivity. . RESULTS (Block A1): CAP BREAST BIOMARKER REPORTING TEMPLATE: . Estrogen Receptor (ER) Status: Positive, 100% Average intensity of staining: Strong Primary antibody: SP1 Progesterone Receptor (PgR) Status: Positive, 51-60% Average intensity of staining: Moderate Primary antibody: 1E2 HER2 (by immunohistochemistry): Equivocal, Score 2+ Percentage of cells with uniform intense complete membrane stainin% Primary antibody: 4B5 E-Cadherin: Uniformly Positive . Cold Ischemia and Fixation Times: Meets requirements in the latest version of the ASCO/CAP guidelines. Testing performed on Block Number: A1 . B. An immunohistochemical stain for cytokeratin DARYL was performed to evaluate for cells of interest and is negative. The control stain showed appropriate reactivity. . TECHNICAL NOTE: The scoring criteria for breast biomarkers by immunohistochemistry is based on the current ASCO/CAP guidelines (Dariusz et al, Arch Pathol Lab Med 2010: 134(6): 907-922 / Marleni WILKES et al, Arch Pathol Lab Med 2014: 138(2): 241-256). Deparaffinized sections of formalin fixed tissue (along with appropriate positive controls) are incubated with the above antibody(s). Using the automated Mackay stainer, tissue is incubated with the designated antibody* which is then localized by a non-biotin, dual polymer detection system. The external controls are reviewed for appropriate reactivity and found to be adequate. Results on the target cell population are indicated above. These tests have not been validated on decalcified tissue. * This test was developed and its performance characteristics determined by [employer]. It has not been cleared or approved by the U.S. Food and Drug Administration. The FDA has determined that such clearance or approval is not necessary. This test is used for clinical purposes. It should not be regarded as investigational or for research. . 02 Pathologist provided ICD-10: C50.911 . 02 CPT . 806541, 008619, K47343, 959405, 329297, 186699 Specimen Comment: A courtesy copy of this report has been sent to [phone] Performed at: 01 [facility] [address] [place] [address] [id number] MD Ivan Vizcarra MD Phone: [phone] Performed at: 02 [facility] [id number] [place] [address] [id number] MD Farhana Cool MD Phone: [phone]
--- NOTE | 2021-07-22 07:03 | DI.NM.S_ITS ---
PROCEDURE: NM SENTINEL NODE INJECT ONLY RADIOPHARMACEUTICAL: 0.97 mCi Millipore filtered Tc-99m sulfur colloid. INDICATIONS: Lumpectomy with sentinel lymph node biopsy COMPARISON: None. PROCEDURE: The area around the nipple was prepped and draped in a sterile fashion. Tc-99m sulfur colloid was injected intra-dermally around the outer edge of the areola in the right breast. No image was obtained. IMPRESSION: Administration of radiotracer into the right breast periareolar region for intra-operative sentinel lymph node localization. Dictated by: Tisha Garcias MD, PhD on 07/22/2021 at 8:51 Approved by: Tisha Garcias MD, PhD on 07/22/2021 at 9:00
[2021-07-22] MEDS: LACTATED RINGERS 1,000 ML 100 ML IV (07:27)
--- NOTE | 2021-07-22 09:31 | PM.PREOP ---
Pre-operative Note Interval Note History & Physical reviewed/Exam performed by Physician: Yes Changes to H&P: No
[2021-07-22] MEDS: METHYLENE BLUE 50 MG/10 ML VIAL 10 MG INJ (10:15)
[2021-07-22] MEDS: CEFAZOLIN 2 GM/20 ML SYRINGE IV (10:18)
--- NOTE | 2021-07-22 10:27 | SUR.OPER ---
Supine on padded OR bed, head on pillow, arms secured on padded arm boards at <90 degrees abduction, legs uncrossed, safety belt at thigh, tape over blanket over lower legs.
[2021-07-22] MEDS: BUPIVACAINE 0.5% (PF) VIAL 30 ML INJ (10:32)
[2021-07-22] MEDS: LACTATED RINGERS 1,000 ML 42 ML IV (11:29)
[2021-07-22] MEDS: ACETAMINOPHEN IV 1,000 MG/100 ML VIAL 400 MG IV (12:08)
--- NOTE | 2021-07-22 13:57 | SUR.PHASEII ---
Assumed care of pt, placed on continuous 02 sat machine. Sats 94% on room air. Pt given snack of duane david and crackers. Son updated.
--- NOTE | 2021-07-22 14:06 | PM.OP.1 ---
Operative Date/Time/Diagnoses Date of procedure: 07/22/21 Time of procedure: 14:07 Pre-op diagnosis: Right breast cancer Post-op diagnosis: same Procedure & Clinicians Procedure: Right mastectomy with sentinel lymph node biopsy Same procedure as scheduled: Yes Indications: 76-year-old woman who had previous right breast cancer treated with lumpectomy and radiation to over 10 years ago who presents with a new diagnosis of right breast cancer. Surgeon: Haim Groves Click Yes if Unassisted: Yes Anesthesia Type: General Operative Notes Findings: No radioactive activity was noted within the axilla there were no blue lymph nodes identified. Specimen(s): other (Mastectomy and sentinel lymph node) Estimated Blood Loss (mL): 50 Procedure in detail: Patient was brought to the operating room placed supine on the table. Bilateral lower extremity compression devices were applied. She received 2 g of Ancef prior to skin incision. She was intubated with an endotracheal tube. She was then prepped and draped in sterile fashion. Time-out was performed ensure the correct patient procedure necessary equipment within the operating room. I injected 1 mL of methylene blue diluted with 4 ml saline into the periareolar tissue and massaged it into the breast for 5 minutes An elliptical incision around the nipple areola complex was made with the knife. The subcutaneous tissue was divided with electrocautery. Skin flaps were raised to separate the breast tissue from the skin along the subdermal plexus. The dissection was extended superior to the clavicle, medial to the sternum, inferior the the inframamary fold and lateral to the anterior border of the latisimus dorsi. Next the breast tissue was from the underlying pectoralis fascia. The breast was passed off the field marked short stitch superior long stitch lateral. A 19 Vietnamese Antoni drain was placed into the cavity and secured. The wound was copiously irrigated and homeostasis was ensured. The right axilla was easily reached via the mastectomy incision. There were no palpable lymph nodes. There was no significant gamma probe activity. Careful dissection between the axillary vein the pectoralis and latissimus demonstrated no blue lymph nodes and again no radioactive activity. I suspect that her lymphatic were disrupted from her prior lumpectomy with sentinel lymph node biopsy and subsequent radiation. I did remove some lymphatic appearing tissue within the axillia dividing the lymphatics between clips. The tissue was passed of the field as sentinel lymph node. The axilla was inspected for hemostasis and then the subcutaneous tissue was closed with the 3 0 Vicryl suture and skin closed with 4 Monocryl followed by Demand Patient tolerated procedure well she emerged from anesthesia was extubated and transferred to recovery room in stable condition. Complications: none Post-operative Condition: stable Disposition: same day surgery
--- NOTE | 2021-07-22 16:09 | SUR.PHASEII ---
Pt slowly awake, weaned off 02. Up to BR, steady when up. Assisted pt to dress, CARLI drain emptied. Dressing remained c/d/i. d/c instructions given and discussed with daughter. Daughter voiced an understanding. Pt left in stable condition.
== END 2021-07-22 15:30 | disposition home or self-care (01) ==
LOC: OR 07:02 → AC 09:43
PROVIDERS: PCP Family Medicine; Referring Provider Surgery; Visit Provider Surgery
PROC: 0HTT0ZZ Resection of Right Breast, Open Approach (ICD-10-PCS; CPT 19303; principal; 2021-07-22 09:15)
DX: C50.911 Malignant neoplasm of unspecified site of right female breast (principal); E11.9 Type 2 diabetes mellitus without complications; N18.9 Chronic kidney disease, unspecified; I12.9 Hypertensive chronic kidney disease with stage 1 through stage 4 chronic kidney disease, or unspecified chronic kidney disease; Z79.84 Long term (current) use of oral hypoglycemic drugs; K21.9 Gastro-esophageal reflux disease without esophagitis; Z17.0 Estrogen receptor positive status [ER+]
CPT/HCPCS: 19303; 38500; 38792; 64450; 82962; A9541; J0131; J0690; J1100; J2250; J2405; J2704; J3010; Q9968

== ENCOUNTER → 2021-10-06 12:28 | Outpatient (CLI) | payer MEDICARE, MEDICAID, SELFPAY ==
[2021-09-10 16:24] VITALS: BMI 27.4
[2021-10-06 13:10] LABS: Add Manual Diff / Slide Review NO; Basophils Absolute Auto 100 /uL (0-100); Basophils Percent Auto 0.8 % (0-2); Eosinophils Absolute Auto 300 /uL (0-450); Eosinophils Percent Auto 3.4 % (2-4); Hematocrit 39.5 % (36-46); Hemoglobin 13.5 g/dL (12.0-16.0); Lymphocytes Absolute Auto 1100 /uL (1100-4500); Lymphocytes Percent Auto 12.4 % (25-40); Mean Corpuscular HGB Conc 34.3 % (30-36); Mean Corpuscular Hemoglobin 30.1 PG (26-34); Mean Corpuscular Volume 87.8 fL (80-100); Monocytes Absolute Auto 700 /uL (0-900); Monocytes Percent Auto 8.1 % (3-14); Neutrophils Absolute Auto 6900 /uL (1500-7000); Neutrophils Percent Auto 75.3 % (50-75); Platelet Count 199 X10^3/uL (150-400); Red Blood Cell Count 4.49 X10^6/uL (4.0-5.2); Red Cell Distribution Width 12.8 % (11.6-14.8); White Blood Cell Count 9.2 X10^3/uL (4.5-11.0)
[2021-10-06 13:28] LABS: Alanine Aminotransferase 17 IU/L (<35); Albumin 4.3 g/dL (3.5-5.0); Albumin Globulin Ratio 1.5 (1.0-2.8); Alkaline Phosphatase 95 U/L (38-126); Aspartate Aminotransferase 27 IU/L (14-36); BUN Creatinine Ratio 17.9 (6-22); Bilirubin Total 0.6 mg/dL (0.2-1.3); Blood Urea Nitrogen 14 mg/dL (7-17); Calcium 9.2 mg/dL (8.4-10.2); Carbon Dioxide 25 mmol/L (22-32); Chloride 107 mmol/L (98-107); Estimated Glomerular Filt Rate > 60 mL/min (>60); Globulin 2.8 g/dL (1.7-4.1); Glucose 137 mg/dL (80-110); HEMOLYSIS < 15 (0-50); Potassium 4.3 mmol/L (3.4-5.1); Sodium 141 mmol/L (137-145); Total Protein 7.1 g/dL (6.3-8.2)
== END ==
PROVIDERS: PCP Family Medicine; Referring Provider Internal Medicine Hematology & Oncology; Visit Provider Internal Medicine Hematology & Oncology
DX: C50.911 Malignant neoplasm of unspecified site of right female breast (principal)
CPT/HCPCS: 36415; 80053; 85025

== ENCOUNTER → 2021-10-15 09:44 | Outpatient (CLI) | payer MEDICARE, MEDICAID, SELFPAY ==
[2021-09-10 16:24] VITALS: BMI 27.4
== END ==
PROVIDERS: PCP Family Medicine; Referring Provider Internal Medicine Hematology & Oncology; Visit Provider Internal Medicine Hematology & Oncology
DX: Z13.820 Encounter for screening for osteoporosis (principal); C50.911 Malignant neoplasm of unspecified site of right female breast; Z78.0 Asymptomatic menopausal state; M85.851 Other specified disorders of bone density and structure, right thigh; M85.852 Other specified disorders of bone density and structure, left thigh
CPT/HCPCS: 77080

== ENCOUNTER 2021-12-21 14:08 | Emergency (ER) | payer MEDICARE, MEDICAID, SELFPAY ==
[2021-09-10 16:24] VITALS: BMI 27.4
[2021-12-21] VITALS (7 sets, daily range): BP systolic 182–245; BP diastolic 91–115; PULSE 58–69; RESP 12–18; TEMP 36.2; O2SAT 95–98; BMI 28.3
--- NOTE | 2021-12-21 14:40 | PC.NURSE ---
Pt c/o neck pain, left side at base, pain on palpation. Pt placed in c collar.
--- NOTE | 2021-12-21 14:44 | DI.RAD.S_ITS ---
PROCEDURE: XR CHEST 1V INDICATIONS: chest pain TECHNIQUE: One view of the chest was acquired. COMPARISON: [facility], CHEST 2 VIEW, 07/02/2008, 12:40. [facility], CHEST 2 VIEW, 08/14/2006, 23:28. FINDINGS: Surgical changes and devices: Right axillary clips. Right mastectomy or lumpectomy. Lungs and pleura: Lungs are clear. No pleural effusions or pneumothorax. Mediastinum: Mediastinal contours appear normal. Heart size is normal. Bones and chest wall: No suspicious bony lesions. Overlying soft tissues appear unremarkable. IMPRESSION: No acute cardiopulmonary abnormality. Dictated by: Andrea Newberry M.D. on 12/21/2021 at 15:36 Approved by: Andrea Newberry M.D. on 12/21/2021 at 15:37
--- NOTE | 2021-12-21 15:02 | DI.CT.S_ITS ---
PROCEDURE: CT HEAD/BRAIN WO CON INDICATIONS: fall TECHNIQUE: Noncontrast 4.5 mm thick angled axial sections acquired from the foramen magnum to the vertex, with coronal and sagittal reformats. For radiation dose reduction, the following was used: automated exposure control, adjustment of mA and/or kV according to patient size. COMPARISON: [facility], MR, BRAIN WITHOUT CONTRAST, 04/12/2008, 10:30. [facility], CT, CT CERVICAL SPINE WO CON, 12/21/2021, 15:15. [facility], CT, CT HEAD/BRAIN WO CON, 01/07/2020, 13:23. FINDINGS: Image quality: Excellent. CSF spaces: Basal cisterns are patent. No extra-axial fluid collections. The ventricles are symmetric in size and shape. Brain: No intracranial bleeds or masses. There is cerebral volume loss for age, with resultant ventricular and sulcal prominence. There are periventricular and deep white matter chronic small vessel ischemic changes. There is intracranial internal carotid artery atherosclerosis. Skull and face: Calvarium and visualized facial bones appear intact, without suspicious lesions. Incidental note is made of hyperostosis frontalis. This is not considered to be pathologic in a woman of this age. The left globe is again noted to be enlarged. Sinuses: Visualized sinuses and mastoids are clear. IMPRESSION: No acute intracranial hemorrhage is seen. No acute intracranial process is seen. Enlargement of the left globe again noted. Dictated by: Shyam Ward M.D. on 12/21/2021 at 14:32 Approved by: Shyam Ward M.D. on 12/21/2021 at 14:33
--- NOTE | 2021-12-21 15:04 | DI.CT.S_ITS ---
PROCEDURE: CT CERVICAL SPINE WO CON INDICATIONS: fall TECHNIQUE: Noncontrast 3 mm thick sections acquired from the skull base to the T4 level. Sagittal and coronal reformats were then constructed. For radiation dose reduction, the following was used: automated exposure control, adjustment of mA and/or kV according to patient size. COMPARISON: None. FINDINGS: Image quality: Excellent. Bones: No fractures or dislocations. Visualized superior ribs are intact. Focal degenerative change is seen at C5-C6, with moderate disc space narrowing. Partially bridging anterior osteophytes are seen at C5-C6 and C6-C7. Post erected endplate osteophytes are seen at C5-C6. Soft tissues: Prevertebral soft tissues are normal in thickness. No paravertebral hematomas. No apical pneumothoraces. IMPRESSION: No acute fracture is identified. Cervical spine degenerative changes are seen which are worst at C5-C6. Dictated by: Shyam Ward M.D. on 12/21/2021 at 14:34 Approved by: Shyam Ward M.D. on 12/21/2021 at 14:35
[2021-12-21 15:33] LABS: Add Manual Diff / Slide Review NO; Basophils Absolute Auto 100 /uL (0-100); Basophils Percent Auto 0.9 % (0-2); Eosinophils Absolute Auto 300 /uL (0-450); Eosinophils Percent Auto 3.2 % (2-4); Hematocrit 40.6 % (36-46); Hemoglobin 13.8 g/dL (12.0-16.0); Lymphocytes Absolute Auto 900 /uL (1100-4500); Lymphocytes Percent Auto 9.7 % (25-40); Mean Corpuscular HGB Conc 34.1 % (30-36); Mean Corpuscular Hemoglobin 29.2 PG (26-34); Mean Corpuscular Volume 85.6 fL (80-100); Monocytes Absolute Auto 600 /uL (0-900); Monocytes Percent Auto 6.6 % (3-14); Neutrophils Absolute Auto 7800 /uL (1500-7000); Neutrophils Percent Auto 79.6 % (50-75); Platelet Count 176 X10^3/uL (150-400); Red Blood Cell Count 4.74 X10^6/uL (4.0-5.2); Red Cell Distribution Width 14.4 % (11.6-14.8); White Blood Cell Count 9.8 X10^3/uL (4.5-11.0)
[2021-12-21 15:38] LABS: Alanine Aminotransferase 23 IU/L (<35); Albumin Globulin Ratio 1.3 (1.0-2.8); Alkaline Phosphatase 77 U/L (38-126); Aspartate Aminotransferase 27 IU/L (14-36); BUN Creatinine Ratio 18.5 (6-22); Bilirubin Total 0.7 mg/dL (0.2-1.3); Blood Urea Nitrogen 12 mg/dL (7-17); Carbon Dioxide 24 mmol/L (22-32); Chloride 107 mmol/L (98-107); Creatine Kinase 37 U/L (30-135); Estimated Glomerular Filt Rate > 60 mL/min (>60); Glucose 138 mg/dL (80-110); Lipase 121 U/L (23-300); Magnesium 1.7 mg/dL (1.6-2.3); Potassium 4.1 mmol/L (3.4-5.1); Sodium 140 mmol/L (137-145)
[2021-12-21 15:39] LABS: HEMOLYSIS 77 (0-50)
[2021-12-21 15:50] LABS: Troponin I < 0.012 ng/mL (0.01-0.034)
--- NOTE | 2021-12-21 16:22 | ED_ITS ---
HPI - Fall General Chief Complaint: Fall Stated Complaint: glf hit head, painfull lump Time Seen by Provider: 12/21/21 16:16 Source: patient Mode of arrival: Ambulatory History of Present Illness HPI Narrative: Patient is a 76 year female history of right-sided breast cancer, peripheral neuropathy, type 2 diabetes, depression, PTSD, presents today after sitting in a chair clipping her toenails into the toilet when she fell off hitting her head. She did not lose consciousness she has no nausea vomiting no numbness tingling or weakness. He denies any chest pain or palpitations. She is having some minor right-sided back pain. She has a large hematoma on the right side. No facial droop. Came in to get checked out. She is noted to be extremely hypertensive. He says that sure to took her blood pressure medication this morning. Related Data Home Medications Medication Instructions Recorded Confirmed timolol maleate 0.25 % eye drops 1 drp OPHTH DAILY ##0 01/12/17 10/26/21 (Timoptic) [calcium ] 1,200 mg PO QDAY ##0 03/09/17 10/26/21 omega 2-pom-zca-fish oil 1,200 mg 1 cap PO DAILY 11/23/19 10/26/21 (144 mg-216 mg) capsule (Fish Oil) vit C 250 mg-vit E 90 mg-zinc 40 1 tab PO QAM AND QHS 07/27/21 10/26/21 mg-copper 1 ht-klcqod-nbemzc capsule (PreserVision AREDS-2) cholecalciferol (vitamin D3) 50 50 mcg PO DAILY 10/26/21 10/26/21 mcg (2,000 unit) capsule (Vitamin D3) Previous Rx's Medication Instructions Recorded Disabled Parking Permit #1 ea 01/04/18 blood sugar diagnostic (OneTouch #100 strips 03/31/21 Verio test strips) tizanidine 4 mg tablet See Rx Instructions .Route 06/29/21 .COMPLEX #30 tabs acetaminophen 325 mg capsule 650 mg PO QID PRN pain #60 caps 07/22/21 (Tylenol) anastrozole 1 mg tablet 1 mg PO DAILY breast cancer #90 08/31/21 tabs duloxetine 20 mg capsule,delayed See Rx Instructions .Route 09/07/21 release .COMPLEX #180 caps glipizide 5 mg tablet See Rx Instructions .Route 10/23/21 .COMPLEX #90 tabs atorvastatin 10 mg tablet 5 mg PO DAILY #45 tabs 11/19/21 propranolol 40 mg tablet See Rx Instructions .Route 11/24/21 .COMPLEX #180 tabs losartan 100 mg tablet See Rx Instructions .Route 12/01/21 .COMPLEX #90 tabs metformin 1,000 mg tablet,extended 1,000 mg PO DAILY #90 tabs 12/11/21 release 24hr Allergies Allergy/AdvReac Type Severity Reaction Status Date / Time lisinopril [LISINOPRIL] Allergy Severe Cough, Verified 12/21/21 14:34 tremors codeine [CODEINE] Allergy Intermediate itching Verified 12/21/21 14:34 and rash Horse/Equine Containing Allergy Unknown Patient Verified 12/21/21 14:34 Products can't remember I was 1 or 2 when that happened. Review of Systems Review of Systems Narrative: GENERAL: Denies chills, fatigue, malaise, fever, sweats, travel HEENT: See HPI RESPIRATORY: Denies dyspnea, cough, wheezing, hemoptysis, sputum. CARDIOVASCULAR: Denies chest pain, palpitations, orthopnea, edema GASTROINTESTINAL: Denies nausea, vomiting, abdominal pain, diarrhea, constipation, melena. : Denies dysuria, frequency, incontinence, hematuria, urinary retention, flank pain. MUSCULOSKELETAL: Denies weakness, joint pain, or bony pain SKIN: No rash, no erythema, no pruritus NEUROLOGIC: Denies weakness, dizziness, headache, numbness, change in speech, confusion PSYCHIATRIC: No concerning psychosocial issues. 12 point review of systems is negative except for those stated above and HPI Patient History Medical History Anxiety (Unknown) Blindness (1949) Breast CA (1998) Chickenpox (1955) Chronic back pain (1998) CKD (chronic kidney disease) (Unknown) Depression (1965) Diabetes (Unknown) Diabetes insipidus (1999) GERD (gastroesophageal reflux disease) (Unknown) GI bleed (2016) Hearing loss (2013) History of head injury Hx of drug overdose (Unknown) Hyperlipemia (Unknown) Hypertension (Unknown) Invasive ductal carcinoma of breast Low HDL (under 40) Lower extremity edema Masses of both breasts Measles (1948) Memory loss Mumps (1949) Obstructive sleep apnea (Unknown) Primary osteoarthritis, left shoulder Tension headache Type 2 diabetes with nephropathy Urinary incontinence (2009) Surgical History History of bladder suspension procedure History of hernia repair History of total abdominal hysterectomy (1998) S/P breast lumpectomy (~1999) Family History Father Diabetes mellitus Liver cancer Mother Hypertension Breast cancer Social History household members: other Smoking Status: Never smoker second hand exposure: Yes (I was when I was young.) alcohol intake: former substance use type: does not use Smoking Status: Never smoker Substance Use Type: does not use Exam Initial Vital Signs Initial Vital Signs: Vital Signs Temperature 97.2 F L 12/21/21 14:28 Pulse Rate 60 12/21/21 14:28 Respiratory Rate 18 12/21/21 14:28 Blood Pressure 211/104 H 12/21/21 14:28 Pulse Oximetry 95 12/21/21 14:28 Oxygen Delivery Method 12/21/21 14:28 GENERAL: Patient is a 76-year-old female appears HEENT: Head right posterior hematoma no laceration,EOMI, pupils reactive, face symmetric, moist mucous membranes NECK: Mild right-sided vertebral tender CARDIOVASCULAR: Regular rate and rhythm without murmurs, rubs or gallops. RESPIRATORY: Breath sounds equal bilaterally, no wheezes rales or rhonchi. ABDOMEN: Soft, nontender. Normoactive bowel sounds all 4 quadrants. No guarding or rebound. EXTREMITIES: Normal range of motion, no clubbing or edema. Neurovascularly intact NEUROLOGICAL: Alert and oriented x4.Normal gait and speech. Java Web [employer] strength equal bilateral SKIN: Warm, dry, no laceration, no petechiae, no rashes or lesions. Course Orders Ordered: Discontinued Medications Labetalol HCl (Labetalol 20 Mg/4 Ml Syringe) 10 mg IV NOW ONE Stop: 12/21/21 17:25 Last Admin: 12/21/21 17:38 Dose: 5 mg Documented By: GINI Labetalol HCl (Labetalol 20 Mg/4 Ml Syringe) 5 mg IV NOW ONE Stop: 12/21/21 17:54 Last Admin: 12/21/21 17:55 Dose: 5 mg Documented By: GINI Vital Signs Vital signs: Vital Signs - 8 hr 12/21/21 14:28 Temperature 97.2 F L Pulse Rate 60 Respiratory Rate 18 Blood Pressure 211/104 H Pulse Oximetry 95 Oxygen Delivery Method Room Air MDM - Fall Lab Data Result diagrams: 12/21/21 15:20 12/21/21 15:20 Labs: Lab Results 12/21/21 12/21/21 Range/Units 15:20 15:20 WBC 9.8 (4.5-11.0) X10^3/uL RBC 4.74 (4.0-5.2) X10^6/uL Hgb 13.8 (12.0-16.0) g/dL Hct 40.6 (36-46) % MCV 85.6 (80-100) fL MCH 29.2 (26-34) PG MCHC 34.1 (30-36) % RDW 14.4 (11.6-14.8) % Plt Count 176 (150-400) X10^3/uL Neut % (Auto) 79.6 H (50-75) % Lymph % (Auto) 9.7 L (25-40) % [place] % (Auto) 6.6 (3-14) % Eos % (Auto) 3.2 (2-4) % Baso % (Auto) 0.9 (0-2) % Neut # (Auto) 7800 H (5926-0504) /uL Lymph # (Auto) 900 L (9662-8253) /uL [place] # (Auto) 600 (0-900) /uL Eos # (Auto) 300 (0-450) /uL Baso # (Auto) 100 (0-100) /uL Sodium 140 (137-145) mmol/L Potassium 4.1 (3.4-5.1) mmol/L Chloride 107 (98-107) mmol/L Carbon Dioxide 24 (22-32) mmol/L BUN 12 (7-17) mg/dL Creatinine 0.65 (0.52-1.04) mg/dL Estimated GFR > 60 (>60) mL/min BUN/Creatinine Ratio 18.5 (6-22) Glucose 138 H (80-110) mg/dL Calcium 9.0 (8.4-10.2) mg/dL Magnesium 1.7 (1.6-2.3) mg/dL Total Bilirubin 0.7 (0.2-1.3) mg/dL AST 27 (14-36) IU/L ALT 23 (<35) IU/L Alkaline Phosphatase 77 (38-126) U/L Total Creatine Kinase 37 (30-135) U/L CK-MB (CK-2) TNP CK-MB (CK-2) Rel Index TNP Troponin I < 0.012 (0.01-0.034) ng/mL Total Protein 7.0 (6.3-8.2) g/dL Albumin 4.0 (3.5-5.0) g/dL Globulin 3.0 (1.7-4.1) g/dL Albumin/Globulin Ratio 1.3 (1.0-2.8) Lipase 121 (23-300) U/L Imaging Data CT scan - head: Radiologist's Impression: PROCEDURE:? CT HEAD/BRAIN WO CON ? INDICATIONS:? fall ? TECHNIQUE:? Noncontrast 4.5 mm thick angled axial sections acquired from the foramen magnum to the vertex, with coronal and sagittal reformats.? For radiation dose reduction, the following was used:? automated exposure control, adjustment of mA and/or kV according to patient size.? ? COMPARISON:? [facility], MR, BRAIN WITHOUT CONTRAST, 04/12/2008, 10:30.? [facility], CT, CT CERVICAL SPINE WO CON, 12/21/2021, 15:15.? [facility], CT, CT HEAD/BRAIN WO CON, 01/07/2020, 13:23. ? FINDINGS:? Image quality:? Excellent.? ? CSF spaces:? Basal cisterns are patent.? No extra-axial fluid collections.? The ventricles are symmetric in size and shape.? ? Brain:? No intracranial bleeds or masses.? There is cerebral volume loss for age, with resultant ventricular and sulcal prominence.? There are periventricular and deep white matter chronic small vessel ischemic changes.? There is intracranial internal carotid artery atherosclerosis.? ? Skull and face:? Calvarium and visualized facial bones appear intact, without suspicious lesions.? Incidental note is made of hyperostosis frontalis. This is not considered to be pathologic in a woman of this age.? The left globe is again noted to be enlarged. ? Sinuses:? Visualized sinuses and mastoids are clear.? ? ? IMPRESSION:? No acute intracranial hemorrhage is seen.? ? No acute intracranial process is seen.? ? Enlargement of the left globe again noted.? ? Dictated by: Shyam Ward M.D. on 12/21/2021 at 14:32 ? ? CT - cervical spine: Radiologist's Impression: PROCEDURE:? CT CERVICAL SPINE WO CON ? INDICATIONS:? fall ? TECHNIQUE:? Noncontrast 3 mm thick sections acquired from the skull base to the T4 level.? Sagittal and coronal reformats were then constructed.? For radiation dose reduction, the following was used:? automated exposure control, adjustment of mA and/or kV according to patient size.? ? COMPARISON:? None. ? FINDINGS:? Image quality:? Excellent.? ? Bones:? No fractures or dislocations.? Visualized superior ribs are intact.? ? Focal degenerative change is seen at C5-C6, with moderate disc space narrowing.? Partially bridging anterior osteophytes are seen at C5-C6 and C6-C7.? Post erected endplate osteophytes are seen at C5-C6. ? Soft tissues:? Prevertebral soft tissues are normal in thickness.? No paravertebral hematomas.? No apical pneumothoraces.? ? ? IMPRESSION:? No acute fracture is identified. ? Cervical spine degenerative changes are seen which are worst at C5-C6. ? ? ? Dictated by: Shyam Ward M.D. on 12/21/2021 at 14:34 ? ? Chest x-ray: Radiologist's Impression: ient: Pau Rivera MR#: [id number] : 1945 Acct:[id number] Age/Sex: 76 / F Date of Service: 12/21/21 Loc: ED Accession Number: [id number] ?? Procedure: XR chest 1V Ordering Provider: Shama Hu D.O. PROCEDURE:? XR CHEST 1V ? INDICATIONS:? chest pain ? TECHNIQUE:? One view of the chest was acquired.? ? COMPARISON:? [facility], CHEST 2 VIEW, 07/02/2008, 12:40.? [facility], CHEST 2 VIEW, 08/14/2006, 23:28. ? FINDINGS:? ? Surgical changes and devices:? Right axillary clips.? Right mastectomy or lumpectomy. ? Lungs and pleura:? Lungs are clear.? No pleural effusions or pneumothorax.? ? Mediastinum:? Mediastinal contours appear normal.? Heart size is normal.? ? Bones and chest wall:? No suspicious bony lesions.? Overlying soft tissues appear unremarkable.? ? IMPRESSION:? No acute cardiopulmonary abnormality. ? ? ? Dictated by: Andrea Newberry M.D. on 12/21/2021 at 15:36 ? ? CTA - brain/neck: Radiologist's Impression: Signed Patient: Pau Rivera MR#: [id number] : 1945 Acct:[id number] Age/Sex: 76 / F Date of Service: 12/21/21 Loc: ED Accession Number: [id number] ?? Procedure: CT angio head and neck Ordering Provider: Shama Hu D.O. PROCEDURE:? CT ANGIO HEAD AND NECK ? INDICATIONS:? HTN neck ? TECHNIQUE:? ? After the administration of intravenous contrast, 1 mm thick sections acquired from the aortic arch through the [place].? Post-contrast 4.5 mm thick sections then re-acquired from the foramen magnum to the vertex.? 3-dimensional yahtfql-hptiukxha-vfdvhxmdyr (MIP) and/or volume rendering reformats were acquired of the central intracranial vasculature and neck separately. For radiation dose reduction, the following was used:? automated exposure control, adjustment of mA and/or kV according to patient size.? ? COMPARISON:? [facility], CT, CT CHEST ABD PEL WO CON, 01/07/2020, 13:23.? [facility], CR, XR CHEST 1V, 12/21/2021, 15:13. ? FINDINGS:? Image quality:? Excellent.? ? HEAD CT ANGIOGRAPHY:? Anterior circulation:? Intracranial internal carotid arteries are normal in size and flow.? The flow within the paired anterior cerebral arteries is normal and symm etric.? The flow within the middle cerebral arteries is normal and symmetric.? The anterior communicating artery is seen.? No aneurysms are seen.? ? Posterior circulation:? Visualized portions of the vertebral arteries demonstrate normal caliber, and join to form a normal appearing basilar artery.? Flow within the posterior cerebral arteries is normal and symmetric.? No aneurysms are seen.? ? NECK CT ANGIOGRAPHY:? Carotid system:? The great vessels demonstrate a conventional anatomy as they arise from the aortic arch.? The origins of the common carotid arteries appear patent.? The common carotid arteries demonstrate normal caliber and courses.? The bifurcation regions are both widely patent.? The internal carotid arteries demonstrate normal calibers and courses.? ? Posterior circulation:? The origins of the vertebral arteries both appear widely patent.? The more superior extracranial portions of both vertebral arteries also demonstrate normal courses and calibers.? They join to form a normal appearing basilar artery.? ? Soft tissues:? Bilateral thyroid nodules. Cardiomegaly. Coronary and aortic 4atherosclerosis. Edema surround the central airways and vessels. Patchy airspace ground glass opacity. Solid 1 cm RML nodule is unchanged from comparison. Additional right lung nodules are smaller to unchanged. Bones:? No suspicious bony lesions.? Visualized cervical spine appears normally aligned.? IMPRESSION:? ? No hemodynamically significant vascular finding in the head or neck. ? Partially visualized findings in the chest; consider a CT of the chest. ? Any quantitative measurements of stenosis were performed using NASCET criteria.? ? ? Dictated by: Rodney Valentine M.D. on 12/21/2021 at 17:07 ? ? Approved by: Rodney Valentine M.D. on 12/21/2021 at 17:1 ECG Data Interpretation: Normal sinus rhythm rate 60 p.r. interval 138 QRS [address] changes T- wave inversion noted in the V2 more pronounced than previous EKG 01/07/2020 however was present MDM Narrative Medical decision making narrative: Is the patient had a mechanical fall hit her head and has a large hematoma. She is having neck pain with severely elevated blood pressure which continues to rise well in the emergency department concern for possible dissection. CT angio is negative. Blood pressures have been reviewed she did have an elevated blood pressure while in a clinic visit. Anastrozole is known to cause hypertension. This may be causing some of her hypertension. I recommended she talk to her oncology and PCP about this. She was given labetalol here in the ED. Her heart was a little low in the 60s but she seemed to tolerate that medication okay and did bring it down. At this time there is no evidence of end-organ damage. No evidence of dissection. She overall appears well uncomfortable. She has a hematoma on the side of her head but no other injuries. Discharge Plan Departure Patient Disposition: Home Clinical Impression: Closed head injury, Hypertension Instructions: High Blood Pressure, Closed Head Injury Activity Restrictions/Additional Instructions: *You have been diagnosed with high blood pressure, closed head injury *What to do: Discuss your blood pressure with Oncology and her PCP. Your cancer medication can cause elevated blood pressure. Your blood pressure is noted to be a very high and worrisome. Please monitor your blood pressure at home once the *Continue to take medications as directed Do not take her propranolol 10 night fever given medication in the ED *Follow up with your primary care provider in 2-3 days or call [phone] *Return to ER if you should have persistent vomiting headache persistently elevated blood pressure greater than 200/100 or any new, worsening or concerning symptoms Prescriptions: No Action (DME) Disabled Parking Permit Qty: 1 0RF Dose Instruction: As directed Rx Instructions: I certify that patient qualifies for the disabled parking privileges. timolol maleate [Timoptic] 0.25 % drops 1 drp OPHTH DAILY Qty: 0 [calcium ] 1,200 mg PO QDAY Qty: 0 (DME) OneTouch Verio test strips Strip See Rx Instructions .ROUTE .COMPLEX Qty: 100 11RF Dose Instruction: Use to test blood sugars once daily. One touch verio test strips Rx Instructions: Use to test blood sugars once daily. One touch verio test strips tizanidine 4 mg tablet See Rx Instructions .ROUTE .COMPLEX Qty: 30 5RF Dose Instruction: take 1 tablet by mouth at bedtime Rx Instructions: take 1 tablet by mouth at bedtime duloxetine 20 mg capsule,delayed release(DR/EC) See Rx Instructions .ROUTE .COMPLEX Qty: 180 1RF Dose Instruction: take 1 capsule by mouth twice a day Rx Instructions: take 1 capsule by mouth twice a day glipizide 5 mg tablet See Rx Instructions .ROUTE .COMPLEX Qty: 90 3RF Dose Instruction: take 1 tablet by mouth once daily Rx Instructions: take 1 tablet by mouth once daily atorvastatin 10 mg tablet 5 mg PO DAILY Qty: 45 3RF propranolol 40 mg tablet See Rx Instructions .ROUTE .COMPLEX Qty: 180 0RF Dose Instruction: take 1 tablet by mouth twice a day Rx Instructions: take 1 tablet by mouth twice a day losartan 100 mg tablet See Rx Instructions .ROUTE .COMPLEX Qty: 90 2RF Dose Instruction: take 1 tablet by mouth once daily Rx Instructions: take 1 tablet by mouth once daily metformin 1,000 mg tablet extended release 24hr 1,000 mg PO DAILY Qty: 90 3RF omega 4-xay-xpa-fish oil [Fish Oil] 1,200 (144-216) mg capsule 1 cap PO DAILY PreserVision AREDS-2 250-90-40-1 mg Capsule 1 tab PO QAM AND QHS anastrozole 1 mg Tablet 1 mg PO DAILY Qty: 90 3RF cholecalciferol (vitamin D3) [Vitamin D3] 50 mcg (2,000 unit) Capsule 50 mcg PO DAILY acetaminophen [Tylenol] 325 mg capsule 650 mg PO QID PRN (Reason: pain) Qty: 60 0RF Referrals: Anish Pham DO [Primary Care Provider] - Visit Report Forms: Patient Portal/API
--- NOTE | 2021-12-21 16:23 | DI.CT.S_ITS ---
PROCEDURE: CT ANGIO HEAD AND NECK INDICATIONS: HTN neck TECHNIQUE: After the administration of intravenous contrast, 1 mm thick sections acquired from the aortic arch through the [place]. Post-contrast 4.5 mm thick sections then re-acquired from the foramen magnum to the vertex. 3-dimensional afktkxd-jnohqejqm-njgxgkkvno (MIP) and/or volume rendering reformats were acquired of the central intracranial vasculature and neck separately. For radiation dose reduction, the following was used: automated exposure control, adjustment of mA and/or kV according to patient size. COMPARISON: [facility], CT, CT CHEST ABD PEL WO CON, 01/07/2020, 13:23. [facility], CR, XR CHEST 1V, 12/21/2021, 15:13. FINDINGS: Image quality: Excellent. HEAD CT ANGIOGRAPHY: Anterior circulation: Intracranial internal carotid arteries are normal in size and flow. The flow within the paired anterior cerebral arteries is normal and symmetric. The flow within the middle cerebral arteries is normal and symmetric. The anterior communicating artery is seen. No aneurysms are seen. Posterior circulation: Visualized portions of the vertebral arteries demonstrate normal caliber, and join to form a normal appearing basilar artery. Flow within the posterior cerebral arteries is normal and symmetric. No aneurysms are seen. NECK CT ANGIOGRAPHY: Carotid system: The great vessels demonstrate a conventional anatomy as they arise from the aortic arch. The origins of the common carotid arteries appear patent. The common carotid arteries demonstrate normal caliber and courses. The bifurcation regions are both widely patent. The internal carotid arteries demonstrate normal calibers and courses. Posterior circulation: The origins of the vertebral arteries both appear widely patent. The more superior extracranial portions of both vertebral arteries also demonstrate normal courses and calibers. They join to form a normal appearing basilar artery. Soft tissues: Bilateral thyroid nodules. Cardiomegaly. Coronary and aortic 4atherosclerosis. Edema surround the central airways and vessels. Patchy airspace ground glass opacity. Solid 1 cm RML nodule is unchanged from comparison. Additional right lung nodules are smaller to unchanged. Bones: No suspicious bony lesions. Visualized cervical spine appears normally aligned. IMPRESSION: No hemodynamically significant vascular finding in the head or neck. Partially visualized findings in the chest; consider a CT of the chest. Any quantitative measurements of stenosis were performed using NASCET criteria. Dictated by: Rodney Valentine M.D. on 12/21/2021 at 17:07 Approved by: Rodney Valentine M.D. on 12/21/2021 at 17:19
[2021-12-21] MEDS: LABETALOL 20 MG/4 ML SYRINGE 10 MG IV (17:38)
[2021-12-21] MEDS: LABETALOL 20 MG/4 ML SYRINGE 5 MG IV (17:55)
== END 2021-12-21 18:34 | disposition home or self-care (01) ==
PROVIDERS: Emergency Provider Emergency Medicine; PCP Family Medicine
DX: S00.03XA Contusion of scalp, initial encounter (principal); M54.2 Cervicalgia; I10 Essential (primary) hypertension; R07.9 Chest pain, unspecified; W19.XXXA Unspecified fall, initial encounter
CPT/HCPCS: 36415; 70450; 70496; 70498; 71045; 72125; 80053; 82550; 83690; 83735; 84484; 85025; 93005; 96374; 99284

== ENCOUNTER → 2022-01-14 13:32 | Outpatient (CLI) | payer MEDICARE, MEDICAID, SELFPAY ==
[2021-09-10 16:24] VITALS: BMI 27.4
[2022-01-14 14:05] LABS: Add Manual Diff / Slide Review NO; Basophils Absolute Auto 100 /uL (0-100); Basophils Percent Auto 0.7 % (0-2); Eosinophils Absolute Auto 200 /uL (0-450); Eosinophils Percent Auto 2.9 % (2-4); Hematocrit 41.6 % (36-46); Lymphocytes Absolute Auto 1100 /uL (1100-4500); Lymphocytes Percent Auto 13.3 % (25-40); Mean Corpuscular HGB Conc 33.8 % (30-36); Mean Corpuscular Hemoglobin 29.2 PG (26-34); Mean Corpuscular Volume 86.6 fL (80-100); Monocytes Absolute Auto 600 /uL (0-900); Monocytes Percent Auto 7.1 % (3-14); Neutrophils Absolute Auto 6500 /uL (1500-7000); Platelet Count 185 X10^3/uL (150-400); Red Cell Distribution Width 14.7 % (11.6-14.8); White Blood Cell Count 8.6 X10^3/uL (4.5-11.0)
[2022-01-14 14:12] LABS: Hemoglobin A1C% w Est Avg Glu 6.7 % (4.0-6.0)
[2022-01-14 14:24] LABS: Alanine Aminotransferase 23 IU/L (<35); Albumin 4.2 g/dL (3.5-5.0); Albumin Globulin Ratio 1.4 (1.0-2.8); Alkaline Phosphatase 94 U/L (38-126); Aspartate Aminotransferase 21 IU/L (14-36); BUN Creatinine Ratio 13.5 (6-22); Blood Urea Nitrogen 10 mg/dL (7-17); Calcium 9.6 mg/dL (8.4-10.2); Carbon Dioxide 28 mmol/L (22-32); Chloride 103 mmol/L (98-107); Cholesterol 143 mg/dL (140-199); Estimated Glomerular Filt Rate > 60 mL/min (>60); Globulin 2.9 g/dL (1.7-4.1); Glucose 132 mg/dL (80-110); HDL Cholesterol 24 mg/dL (40-60); HEMOLYSIS < 15 (0-50); LDL Cholesterol Calculated 78 mg/dL (<100); Potassium 4.1 mmol/L (3.4-5.1); Sodium 141 mmol/L (137-145); Total Protein 7.1 g/dL (6.3-8.2); Triglycerides 204 mg/dL (35-150)
== END ==
PROVIDERS: PCP Family Medicine; Referring Provider Family Medicine; Visit Provider Family Medicine
DX: E11.21 Type 2 diabetes mellitus with diabetic nephropathy (principal); E78.5 Hyperlipidemia, unspecified; E78.6 Lipoprotein deficiency; I10 Essential (primary) hypertension
CPT/HCPCS: 36415; 80053; 80061; 83036; 85025

== ENCOUNTER → 2022-04-14 13:48 | Outpatient (CLI) | payer MEDICARE, MEDICAID, SELFPAY ==
[2021-09-10 16:24] VITALS: BMI 27.4
--- NOTE | 2022-04-14 13:49 | DI.US.S_ITS ---
ULTRASOUND OF RIGHT BREAST: 04/14/2022 CLINICAL: Right axilla pain. Comparison is made to exams dated: 06/29/2021 ultrasound biopsy, 06/29/2021 mammogram - [facility], 06/15/2021 ultrasound, 06/15/2021 mammogram, 05/15/2009 mammogram, and 11/11/2006 mammogram - [facility]. Ultrasound of the right breast was performed on the area of interest. Toussaint scale images of the real-time examination were reviewed. IMPRESSION: NEGATIVE There is no sonographic evidence of malignancy. There is no sonographic abnormality seen in the right axilla to correspond with the pain in the right axilla, however, clinical followup is recommended. This exam was interpreted at Station ID: [id number]. Electronically Signed By: Sury gunderson/:04/14/2022 14:40:02 letter sent: Clinical Evaluation Ultrasound BI-RADS: 1 Negative
== END ==
PROVIDERS: PCP Family Medicine; Referring Provider Surgery; Visit Provider Surgery
DX: R22.31 Localized swelling, mass and lump, right upper limb (principal); Z85.3 Personal history of malignant neoplasm of breast; N64.4 Mastodynia
CPT/HCPCS: 76882

== ENCOUNTER → 2022-04-19 12:23 | Outpatient (CLI) | payer MEDICARE, MEDICAID, SELFPAY ==
[2021-09-10 16:24] VITALS: BMI 27.4
[2022-04-19 13:53] LABS: Add Manual Diff / Slide Review NO; Basophils Absolute Auto 100 /uL (0-100); Eosinophils Absolute Auto 300 /uL (0-450); Eosinophils Percent Auto 3.2 % (2-4); Hematocrit 43.4 % (36-46); Hemoglobin 14.7 g/dL (12.0-16.0); Lymphocytes Absolute Auto 1200 /uL (1100-4500); Lymphocytes Percent Auto 14.3 % (25-40); Mean Corpuscular HGB Conc 33.9 % (30-36); Mean Corpuscular Hemoglobin 30.1 PG (26-34); Mean Corpuscular Volume 88.7 fL (80-100); Monocytes Absolute Auto 700 /uL (0-900); Monocytes Percent Auto 7.8 % (3-14); Neutrophils Absolute Auto 6300 /uL (1500-7000); Neutrophils Percent Auto 73.7 % (50-75); Platelet Count 171 X10^3/uL (150-400); Red Cell Distribution Width 13.4 % (11.6-14.8); White Blood Cell Count 8.5 X10^3/uL (4.5-11.0)
[2022-04-19 14:07] LABS: Alanine Aminotransferase 24 IU/L (<35); Albumin 4.3 g/dL (3.5-5.0); Albumin Globulin Ratio 1.6 (1.0-2.8); Alkaline Phosphatase 85 U/L (38-126); Aspartate Aminotransferase 19 IU/L (14-36); BUN Creatinine Ratio 14.5 (6-22); Bilirubin Total 1.3 mg/dL (0.2-1.3); Blood Urea Nitrogen 10 mg/dL (7-17); Calcium 9.6 mg/dL (8.4-10.2); Carbon Dioxide 27 mmol/L (22-32); Chloride 105 mmol/L (98-107); Estimated Glomerular Filt Rate > 60 mL/min (>60); Globulin 2.7 g/dL (1.7-4.1); Glucose 121 mg/dL (80-110); HEMOLYSIS < 15 (0-50); Potassium 4.4 mmol/L (3.4-5.1); Sodium 141 mmol/L (137-145)
== END ==
PROVIDERS: Internal Medicine Hematology & Oncology; PCP Family Medicine; Referring Provider Family Medicine; Visit Provider Family Medicine
DX: C50.911 Malignant neoplasm of unspecified site of right female breast (principal)
CPT/HCPCS: 36415; 80053; 85025

== ENCOUNTER → 2022-06-16 10:49 | Outpatient (CLI) | payer MEDICARE, MEDICAID, SELFPAY ==
[2021-09-10 16:24] VITALS: BMI 27.4
--- NOTE | 2022-06-16 10:50 | DI.MG.S_ITS ---
UNILATERAL LEFT DIGITAL SCREENING MAMMOGRAM 3D/2D WITH CAD POST MASTECTOMY: 06/16/2022 CLINICAL: Routine screening. Personal history of right breast cancer. Comparison is made to exams dated: 04/14/2022 ultrasound - , 06/29/2021 mammogram - [facility], 06/15/2021 mammogram, and 05/15/2009 mammogram - . There are scattered areas of fibroglandular density in the left breast (category b / 25%-50% glandular tissue). Current study was also evaluated with a Computer Aided Detection (CAD) system. No significant masses, calcifications, or other findings are seen in the breast. There has been no significant interval change. IMPRESSION: NEGATIVE There is no mammographic evidence of malignancy. A 1 year screening mammogram is recommended. This exam was interpreted at Station ID: [id number]. NOTE: For mammograms, a report in lay terms will be sent to the patient. Approximately 15% of breast malignancies will not be visualized mammographically. In the management of a palpable breast mass, a negative mammogram must not discourage biopsy of a clinically suspicious lesion. Electronically Signed By: Que bradshaw/tonja:06/17/2022 11:53:24 letter sent: Normal Exam ACR BI-RADS Category 1: Negative [id number]
== END ==
PROVIDERS: PCP Family Medicine; Referring Provider Internal Medicine Hematology & Oncology; Visit Provider Internal Medicine Hematology & Oncology
DX: Z12.31 Encounter for screening mammogram for malignant neoplasm of breast (principal); Z85.3 Personal history of malignant neoplasm of breast
CPT/HCPCS: 77063; 77067

== ENCOUNTER → 2022-09-08 10:03 | Outpatient (CLI) | payer MEDICARE, MEDICAID, SELFPAY ==
[2021-09-10 16:24] VITALS: BMI 27.4
--- NOTE | 2022-09-08 10:04 | DI.RAD.S_ITS ---
PROCEDURE: XR CHEST 2V INDICATIONS: cough, hx of breast ca TECHNIQUE: 2 views of the chest were acquired. COMPARISON: [facility], CR, XR CHEST 1V, 12/21/2021, 15:13. FINDINGS: Surgical changes and devices: Right breast clips. Lungs and pleura: No consolidation. Right lower lung field pulmonary nodule is unchanged since at least 2021. No pleural effusions or pneumothorax. Mediastinum: Mediastinal contours are unchanged. Heart size is normal. Bones and chest wall: No suspicious bony abnormalities. Soft tissues appear unremarkable. IMPRESSION: No acute cardiopulmonary abnormality identified. Dictated by: Andrea Newberry M.D. on 09/08/2022 at 11:15 Approved by: Andrea Newberry M.D. on 09/08/2022 at 11:19
[2022-09-09 05:53] LABS: RPR Screen Non Reactive (Non Reactive)
[2022-09-10 03:00] LABS: C.trachomatis RNA Negative (Negative); N.gonorrhoeae RNA Negative (Negative)
== END ==
PROVIDERS: PCP Family Medicine; Referring Provider Nurse Practitioner Family; Visit Provider Nurse Practitioner Family
DX: C50.911 Malignant neoplasm of unspecified site of right female breast (principal); C50.919 Malignant neoplasm of unspecified site of unspecified female breast; R05.9 Cough, unspecified; Z20.2 Contact with and (suspected) exposure to infections with a predominantly sexual mode of transmission
CPT/HCPCS: 36415; 71046; 86592; 87491; 87591

== ENCOUNTER 2022-09-13 06:38 | Emergency (ER) | payer MEDICARE, MEDICAID, SELFPAY ==
[2021-09-10 16:24] VITALS: BMI 27.4
[2022-09-13] VITALS (21 sets, daily range): BP systolic 144–181; BP diastolic 70–90; PULSE 55–78; RESP 18; TEMP 36.3–36.7; O2SAT 91–97; BMI 29.5
--- NOTE | 2022-09-13 07:20 | DI.CT.S_ITS ---
PROCEDURE: CT CHEST WO CON INDICATIONS: cough/breast ca hx TECHNIQUE: Noncontrast 5 mm thick sections acquired from the pulmonary apices to the posterior costophrenic angles. 1 mm lung window, 5 mm thick coronal and sagittal and 7 mm axial MIP reformats were then acquired. For radiation dose reduction, the following was used: automated exposure control, adjustment of mA and/or kV according to patient size. COMPARISON: [facility], CR, XR CHEST 2V, 09/08/2022, 10:45. [facility], CT, CT CHEST ABD PEL WO CON, 01/07/2020, 13:23. FINDINGS: Image quality: Excellent. Lungs and pleura: Streaky opacities in the right upper lobe. Previously identified pulmonary nodules are stable in size. There has been interval development of a spiculated consolidative opacity measuring 1.7 x 2.1 cm in the anterior aspect the right lower lobe. No effusions. Mediastinum: Heart size is normal. No pericardial effusion. No mediastinal adenopathy by size criteria. Thoracic aorta and central pulmonary arteries are normal in size. Esophagus is normal in caliber. No hiatal hernia. Bones and chest wall: No suspicious bony lesions. No vertebral body compression fractures. No axillary or supraclavicular adenopathy by size criteria. Thyroid gland demonstrates areas of low attenuation calcification, unchanged. . Abdomen: Calcification is present within the liver, unchanged. Otherwise,visualized upper abdominal solid organs and bowel loops appear normal in the absence of contrast. IMPRESSION: Interval spiculated consolidative opacity within the right lower lobe measuring 1.7 x 2.1 cm. Overall appearance is concerning for malignancy. Further evaluation with biopsy and/or PET scan is recommended. Stable bilateral pulmonary nodules. Streaky right upper lobe opacities possibly representing atelectasis. Dictated by: Jill Agustin M.D. on 09/13/2022 at 8:02 Approved by: Jill Agustin M.D. on 09/13/2022 at 8:07
[2022-09-13 07:40] LABS: Add Manual Diff / Slide Review NO; Basophils Absolute Auto 100 /uL (0-100); Basophils Percent Auto 0.7 % (0-2); Eosinophils Absolute Auto 600 /uL (0-450); Eosinophils Percent Auto 4.7 % (2-4); Hematocrit 38.4 % (36-46); Hemoglobin 13.2 g/dL (12.0-16.0); Lymphocytes Absolute Auto 1400 /uL (1100-4500); Mean Corpuscular HGB Conc 34.3 % (30-36); Mean Corpuscular Hemoglobin 30.6 PG (26-34); Mean Corpuscular Volume 89.2 fL (80-100); Monocytes Absolute Auto 1000 /uL (0-900); Monocytes Percent Auto 8.3 % (3-14); Neutrophils Absolute Auto 8800 /uL (1500-7000); Neutrophils Percent Auto 74.3 % (50-75); Platelet Count 148 X10^3/uL (150-400); Red Cell Distribution Width 12.9 % (11.6-14.8); White Blood Cell Count 11.9 X10^3/uL (4.5-11.0)
--- NOTE | 2022-09-13 07:46 | ED_ITS ---
HPI - Wound/Laceration General Chief Complaint: Wound/Laceration Stated Complaint: lump on left side of face, bad cough Time Seen by Provider: 09/13/22 07:02 Source: patient Mode of arrival: Ambulatory History of Present Illness HPI narrative: Patient here with boyfriend complains of right eye redness and right temporal pain that radiates to the jaw. Increased pain with opening her mouth and eating. This started 2 days ago. No rash. She does have some ecchymosis to the medial canthus area of the right eye. And does have a medial subconjunctival hemorrhage. She states she has been coughing a lot in the past 2 months. She did see primary care September 08, 2022 for the cough. She also receive STI workup which were negative when I did review the laboratory studies. Chest x-ray was negative as well. Patient does have history of breast cancer. She also has history of vision loss left eye from traumatic event when she was 2 years of age. She does not have any metallic foreign body in the left eye. The right temporal area is tender to touch. Again, no rash. Patient was not seen for her eye complaints September 08 in the office. No prescriptions were prescribed. Gonorrhea chlamydia syphilis laboratory studies done on that day were negative. Related Data Home Medications Medication Instructions Recorded Confirmed timolol maleate 0.25 % eye drops 1 drp OPHTH DAILY ##0 01/12/17 09/08/22 (Timoptic) [calcium ] 1,200 mg PO QDAY ##0 03/09/17 09/08/22 omega 4-gqj-hil-fish oil 1,200 mg 1 cap PO DAILY 11/23/19 09/08/22 (144 mg-216 mg) capsule (Fish Oil) vit C 250 mg-vit E 90 mg-zinc 40 1 tab PO QAM AND QHS 07/27/21 09/08/22 mg-copper 1 [id number] capsule (PreserVision AREDS-2) cholecalciferol (vitamin D3) 50 50 mcg PO DAILY 10/26/21 09/08/22 mcg (2,000 unit) capsule (Vitamin D3) letrozole 2.5 mg tablet 2.5 mg PO Q24H 09/08/22 09/08/22 Previous Rx's Medication Instructions Recorded Disabled Parking Permit #1 ea 01/04/18 acetaminophen 325 mg capsule 650 mg PO QID PRN pain #60 caps 07/22/21 (Tylenol) glipizide 5 mg tablet See Rx Instructions .Route 10/23/21 .COMPLEX #90 tabs atorvastatin 10 mg tablet 5 mg PO DAILY #45 tabs 11/19/21 tizanidine 4 mg tablet See Rx Instructions .Route 12/29/21 .COMPLEX #90 tabs metformin 500 mg tablet,extended 500 mg PO BID #180 tabs 03/24/22 release 24 hr blood sugar diagnostic (OneTouch #100 strips 05/11/22 Verio test strips) chlorthalidone 25 mg tablet See Rx Instructions .Route 06/30/22 .COMPLEX #30 tabs propranolol 40 mg tablet See Rx Instructions .Route 08/10/22 .COMPLEX #180 tabs duloxetine 20 mg capsule,delayed See Rx Instructions .Route 09/01/22 release .COMPLEX #180 caps losartan 100 mg tablet See Rx Instructions .Route 09/01/22 .COMPLEX #90 tabs benzonatate 100 mg capsule 100 mg PO TID PRN cough #20 caps 09/13/22 Allergies Allergy/AdvReac Type Severity Reaction Status Date / Time lisinopril [LISINOPRIL] Allergy Severe Cough, Verified 09/08/22 09:31 tremors codeine [CODEINE] Allergy Intermediate itching Verified 09/08/22 09:31 and rash Horse/Equine Containing Allergy Unknown Patient Verified 09/08/22 09:31 Products can't remember I was 1 or 2 when that happened. Review of Systems Review of Systems Narrative: GENERAL: negative chills, fatigue, malaise, fever, sweats. HEENT: negative sinus pain, ear pain, sore throat, positive eye redness RESPIRATORY: negative dyspnea, positive cough CARDIOVASCULAR: negative chest pain, palpitations GASTROINTESTINAL: negative nausea, vomiting, abdominal pain : negative dysuria, frequency, hematuria MUSCULOSKELETAL: negative muscle or bony pain SKIN: negative rash, skin lesions NEUROLOGIC: negative weakness, numbness ROS Unobtainable: All systems reviewed & are unremarkable except as noted in HPI and below Patient History Medical History Anxiety (Unknown) Balance problem Blindness (1949) Breast CA (1998) Chickenpox (1955) Chronic back pain (1998) CKD (chronic kidney disease) (Unknown) Depression (1965) Diabetes (Unknown) Diabetes insipidus (2000) Elevated BUN GERD (gastroesophageal reflux disease) (Unknown) GI bleed (2016) Hearing loss (2014) History of head injury Hx of drug overdose (Unknown) Hyperlipemia (Unknown) Hypertension (Unknown) Invasive ductal carcinoma of breast Low HDL (under 40) Lower extremity edema Masses of both breasts Measles (1948) Medication adverse effect Memory loss Mild cognitive impairment with memory loss Mumps (1949) Obstructive sleep apnea (Unknown) Physical deconditioning Primary osteoarthritis, left shoulder Tension headache Type 2 diabetes with nephropathy Urinary incontinence (2009) Surgical History History of bladder suspension procedure History of hernia repair History of total abdominal hysterectomy (1998) S/P breast lumpectomy (~1999) Family History Father Diabetes mellitus Liver cancer Mother Hypertension Breast cancer Social History household members: other Smoking Status: Former smoker second hand exposure: Yes (I was when I was young.) alcohol intake: former substance use type: does not use Smoking Status: Former smoker Substance Use Type: does not use Exam Narrative Exam Narrative: GENERAL: in no distress, not toxic not dyspneic HEAD: Normocephalic. Mild tenderness to the right temporal area but no rash. EYES: Pupils equal round, there is small amount of subconjunctival hemorrhage medial aspect of the right eye. Medial canthus healing ecchymosis. ENT: Mucous membranes moist. No intraoral lesions vesicles. No malocclusion or trismus. Able to open mouth fully. No tongue elevation. NECK: Trachea midline. CARDIOVASCULAR: Regular rate and rhythm without murmurs RESPIRATORY: Clear to auscultation. Breath sounds equal bilaterally. No wheezes, rales, or rhonchi. Speaking full sentences, no respiratory distress. No repetitive coughing GASTROINTESTINAL: Abdomen soft, non-tender EXTREMITIES: No gross deformities. BACK: No flank tenderness. NEURO: AOx4. SKIN: Warm and dry PSYCH: Not anxious, is cooperative Initial Vital Signs Initial Vital Signs: Vital Signs Temperature 97.3 F L 09/13/22 06:50 Pulse Rate 57 L 09/13/22 06:50 Respiratory Rate 18 09/13/22 06:50 Blood Pressure 181/86 H 09/13/22 06:50 Pulse Oximetry 97 09/13/22 06:50 Oxygen Delivery Method Room Air 09/13/22 06:50 Course Orders Ordered: Discontinued Medications Methylprednisolone (Methylprednisolone 125 Mg/2 Ml Vial) 125 mg IV NOW ONE Stop: 09/13/22 07:23 Last Admin: 09/13/22 08:11 Dose: 125 mg Documented By: AT Vital Signs Vital signs: Vital Signs - 8 hr 09/13/22 06:50 09/13/22 07:00 09/13/22 07:01 Temperature 97.3 F L Pulse Rate 57 L 56 L Respiratory Rate 18 Blood Pressure 181/86 H 156/70 H Pulse Oximetry 97 95 Oxygen Delivery Method Room Air Room Air Oxygen Flow Rate 09/13/22 07:01 09/13/22 07:30 09/13/22 08:00 Temperature Pulse Rate 56 L 56 L 55 L Respiratory Rate 18 Blood Pressure Pulse Oximetry 95 91 93 Oxygen Delivery Method Room Air Oxygen Flow Rate 09/13/22 08:30 09/13/22 08:31 09/13/22 08:31 Temperature Pulse Rate 56 L 58 L Respiratory Rate Blood Pressure 159/72 H Pulse Oximetry 94 92 Oxygen Delivery Method Oxygen Flow Rate 09/13/22 09:00 09/13/22 09:01 09/13/22 09:01 Temperature Pulse Rate 62 61 Respiratory Rate Blood Pressure 151/72 H Pulse Oximetry 93 93 Oxygen Delivery Method Oxygen Flow Rate 09/13/22 09:30 09/13/22 09:30 09/13/22 10:00 Temperature Pulse Rate 64 64 Respiratory Rate 18 Blood Pressure 171/76 H Pulse Oximetry 97 96 Oxygen Delivery Method Room Air Nasal Cannula Oxygen Flow Rate 2 09/13/22 10:01 09/13/22 10:01 09/13/22 11:01 Temperature Pulse Rate 64 70 Respiratory Rate 18 Blood Pressure 165/77 H Pulse Oximetry 95 92 Oxygen Delivery Method Nasal Cannula Oxygen Flow Rate 2 09/13/22 11:04 09/13/22 11:04 09/13/22 11:30 Temperature Pulse Rate 71 66 Respiratory Rate Blood Pressure 174/81 H Pulse Oximetry 94 95 Oxygen Delivery Method Oxygen Flow Rate 09/13/22 11:31 09/13/22 11:31 09/13/22 12:00 Temperature Pulse Rate 67 71 Respiratory Rate Blood Pressure 154/72 H Pulse Oximetry 95 94 Oxygen Delivery Method Oxygen Flow Rate 09/13/22 12:01 09/13/22 12:01 Temperature Pulse Rate 72 Respiratory Rate Blood Pressure 144/90 H Pulse Oximetry 94 Oxygen Delivery Method Oxygen Flow Rate MDM - Wound/Laceration Lab Data 09/13/22 07:30 09/13/22 07:30 Labs: Lab Results 09/13/22 09/13/22 09/13/22 Range/Units 07:23 07:30 07:30 WBC 11.9 H (4.5-11.0) X10^3/uL RBC 4.30 (4.0-5.2) X10^6/uL Hgb 13.2 (12.0-16.0) g/dL Hct 38.4 (36-46) % MCV 89.2 (80-100) fL MCH 30.6 (26-34) PG MCHC 34.3 (30-36) % RDW 12.9 (11.6-14.8) % Plt Count 148 L (150-400) X10^3/uL Neut % (Auto) 74.3 (50-75) % Lymph % (Auto) 12.0 L (25-40) % [place] % (Auto) 8.3 (3-14) % Eos % (Auto) 4.7 H (2-4) % Baso % (Auto) 0.7 (0-2) % Neut # (Auto) 8800 H (3645-5616) /uL Lymph # (Auto) 1400 (8720-8239) /uL [place] # (Auto) 1000 H (0-900) /uL Eos # (Auto) 600 H (0-450) /uL Baso # (Auto) 100 (0-100) /uL ESR 17 (0-20) MM/HR Sodium 140 (137-145) mmol/L Potassium 3.9 (3.4-5.1) mmol/L Chloride 102 (98-107) mmol/L Carbon Dioxide 29 (22-32) mmol/L BUN 24 H (7-17) mg/dL Creatinine 1.00 (0.52-1.04) mg/dL Estimated GFR 57 L (>60) mL/min BUN/Creatinine Ratio 24.0 H (6-22) Glucose 125 H (80-110) mg/dL Calcium 10.9 H (8.4-10.2) mg/dL Total Bilirubin 0.9 (0.2-1.3) mg/dL AST 27 (14-36) IU/L ALT 33 (<35) IU/L Alkaline Phosphatase 70 (38-126) U/L C-Reactive Protein < 0.5 (<1.0) mg/dL Total Protein 6.8 (6.3-8.2) g/dL Albumin 4.1 (3.5-5.0) g/dL Globulin 2.7 (1.7-4.1) g/dL Albumin/Globulin Ratio 1.5 (1.0-2.8) Chlamy pneumoniae PCR Not detected (Not Detect) Adenovirus (PCR) Not detected (Not Detect) B. pertussis DNA (PCR) Not detected (Not Detecte) B.parapertussis DNA PCR Not detected (Not Detecte) Coronavirus OC43 (PCR) Not detected (Not Detect) Coronavirus HKU1 (PCR) Not detected (Not Detect) Coronavirus 229E (PCR) Not detected (Not Detect) SARS-CoV-2 (PCR) Not detected (Not Detecte) Coronavirus NL63 (PCR) Not detected (Not Detect) Human Metapneumovir PCR Not detected (Not Detect) Influenza Type A (PCR) Not detected (Not Detect) Influenza Type B (PCR) Not detected (Not Detect) M. pneumoniae (PCR) Not detected (Not Detect) Parainfluenza 1 (PCR) Not detected (Not Detect) Parainfluenza 2 (PCR) Not detected (Not Detect) Parainfluenza 3 (PCR) Not detected (Not Detect) Parainfluenza 4 (PCR) Not detected (Not Detect) RSV (PCR) Not detected (Not Detect) Entero/Rhino (PCR) Not detected (Not Detect) Imaging Data CT scan - chest: Radiologist's Impression: [address] [address] [address] Scan Report Signed Patient: Pau Rivera MR#: [id number] : 1945 Acct:[id number] Age/Sex: 77 / F Date of Service: 09/13/22 Loc: ED Accession Number: [id number] ?? Procedure: CT chest wo con Ordering Provider: Lev oJhn MD PROCEDURE:? CT CHEST WO CON ? INDICATIONS:? cough/breast ca hx ? TECHNIQUE: Noncontrast 5 mm thick sections acquired from the pulmonary apices to the posterior costophrenic angles.? 1 mm lung window, 5 mm thick coronal and sagittal and 7 mm axial MIP reformats were then acquired.? For radiation dose reduction, the following was used:? automated exposure control, adjustment of mA and/or kV according to patient size.? ? COMPARISON:? [facility], CR, XR CHEST 2V, 09/08/2022, 10:45.? [facility], CT, CT CHEST ABD PEL WO CON, 01/07/2020, 13:23. ? FINDINGS:? Image quality:? Excellent.? ? Lungs and pleura:? Streaky opacities in the right upper lobe.? Previously identified pulmonary nodules are stable in size.? There has been interval development of a spiculated consolidative opacity measuring 1.7 x 2.1 cm in the anterior aspect the right lower lobe.? No effusions. ? Mediastinum:? Heart size is normal.? No pericardial effusion.? No mediastinal adenopathy by size criteria.? Thoracic aorta and central pulmonary arteries are normal in size.? Esophagus is normal in caliber.? No hiatal hernia.? ? Bones and chest wall:? No suspicious bony lesions.? No vertebral body compression fractures.? No axillary or supraclavicular adenopathy by size criteria.? Thyroid gland demonstrates areas of low attenuation calcification, unchanged. .? ? Abdomen:? Calcification is present within the liver, unchanged.? Otherwise,visualized upper abdominal solid organs and bowel loops appear normal in the absence of contrast.? ? IMPRESSION:? Interval spiculated consolidative opacity within the right lower lobe measuring 1.7 x 2.1 cm.? Overall appearance is concerning for malignancy.? Further evaluation with biopsy and/or PET scan is recommended. ? Stable bilateral pulmonary nodules. ? Streaky right upper lobe opacities possibly representing atelectasis. ? ? ? Dictated by: Jill Agustin M.D. on 09/13/2022 at 8:02 ? ? Approved by: Jill Agustin M.D. on 09/13/2022 at 8:07 ? MRI orbit: Radiologist's Impression: [address] [address] Magnetic Resonance Report Signed Patient: Pau Rivera MR#: [id number] : 1945 Acct:[id number] Age/Sex: 77 / F Date of Service: 09/13/22 Loc: ED Accession Number: [id number] ?? Procedure: MR orbit wo/w con Ordering Provider: Lev John MD PROCEDURE: MR ORBIT WO/W CON ? COMPARISON: [facility], CT, CT ANGIO HEAD AND NECK, 12/21/2021, 16:30.? CT, CT CERVICAL SPINE WO CON, 12/21/2021, 15:15. ? INDICATIONS: rt eye pain/temporal arteritis ? FINDINGS: The ventricular system and cortical sulci demonstrate atrophy, consistent for the patient's stated age. There are areas of increased T2/FLAIR signal intensity within the periventricular and subcortical white matter.? There is no acute intra-or extra axial fluid collection. No acute hemorrhage, mass lesion or midline shift. Brainstem is unremarkable. There are no areas of restricted diffusion. Globes are symmetrical. Sinuses are aerated. Osseous structures are intact.? Hyperostosis frontalis is present.? Visualized cerebellopontine angles are unremarkable.? Visualized cranial nerves demonstrate no abnormal signal or enhancement.? Previous lacunar ischemia is identified within the internal capsules bilaterally. ? IMPRESSION: 1. No acute intracranial process. ? 2. Moderate atrophy and chronic microvascular ischemic changes. ? 3. No visualized temporal arteritis on the basis of this exam.? ? Dictated by: Jill Agustin M.D. on 09/13/2022 at 11:40 ? ? Approved by: Jill Agustin M.D. on 09/13/2022 at 11:43 ? [facility] Narrative Medical decision making narrative: Patient here with boyfriend complains of right eye redness and right temporal pain that radiates to the jaw. Increased pain with opening her mouth and eating. This started 2 days ago. No rash. She does have some ecchymosis to the medial canthus area of the right eye. And does have a medial subconjunctival hemorrhage. She states she has been coughing a lot in the past 2 months. She did see primary care September 08, 2022 for the cough. She also receive STI workup which were negative when I did review the laboratory studies. Chest x-ray was negative as well. Patient does have history of breast cancer. She also has history of vision loss left eye from traumatic event when she was 2 years of age. She does not have any metallic foreign body in the left eye. The right temporal area is tender to touch. Again, no rash. Patient was not seen for her eye complaints September 08 in the office. No prescriptions were prescribed. Gonorrhea chlamydia syphilis laboratory studies done on that day were negative. After history and exam CBC CMP ESR CRP respiratory panel CT chest MRI brain with and without contrast Solu-Medrol MDM CC: Right eye pain/cough Complicating co-morbidities: History of left eye blindness/diabetes Data collected from: Patient Medical records reviewed: September 08, 2022 office visit with primary care Differential considered: Includes but not limited to giant cell arteritis/bronchitis/lung malignancy/shingles Exam documented above, pertinent findings include: Tender right muslim Lab Test results independently reviewed as above. Pertinent findings: WBC 11.9 ESR 17 sodium 140 potassium 3.9 GFR 57 CRP less than 0.5 Imaging studies independently reviewed: CT chest spiculated consolidative opacity right lower lobe 1.7 x 2.1 cm. Concerning for malignancy. Need follow up biopsy and or PET scan MRI orbits no acute findings. No visualized temporal arteritis on the basis of this exam Consultations: 12:05 p.m.. I spoke with primary care Dr pham, he will follow up with patient regarding the right facial pain, differential includes but not limited to shingles/giant cell arteritis. However at this time laboratory studies and MRI of the orbits is reassuring. No prescriptions indicated at this time 12:[address] Walker, patient's oncologist. His office will call patient to set up for biopsy. No further instructions needed at this time. No medications. Treatments: Solu-Medrol Re-evaluations: 12:15 p.m.. Reviewed with patient results and my discussion with providers. The petechiae bruising to the right eye may be due to the repetitive coughing she is been having. 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 Temporal arteritis at this time was considered but laboratory studies and MRI are reassuring. Return precautions reviewed with her. She is comfortable with follow up with her primary care and oncologist Discussion: Appropriate for discharge home. Laboratory studies and imaging otherwise reassuring. She does have continuity of care for Oncology regarding CT scan findings in the lungs. She does have family doctor to follow up with regarding the facial pain for any changes. No prescriptions indicated this time. She desires discharge home. Return precautions reviewed Diagnosis: Facial pain/lung mass Discharge Plan Departure Patient Disposition: Home Clinical Impression: Mass of lung, Acute facial pain Instructions: DI for [place] Palsy, DI for Shingles, DI for Lung Cancer Activity Restrictions/Additional Instructions: Your family doctor has been contacted today and will follow up with you this week regarding the facial pain. Although uncertain source of the pain, some possibilities and literature has been provided for you to review regarding Hannah's palsy and shingles. No prescriptions at this time. Regarding the tumor in your lung, your oncology provider will reach out to contact you this week and follow up for further testing. This is likely the source of your cough. No prescriptions indicated this time. Prescriptions: New benzonatate 100 mg capsule 100 mg PO TID PRN (Reason: cough) Qty: 20 0RF No Action (DME) Disabled Parking Permit Qty: 1 0RF Dose Instruction: As directed Rx Instructions: I certify that patient qualifies for the disabled parking privileges. timolol maleate [Timoptic] 0.25 % drops 1 drp OPHTH DAILY Qty: 0 [calcium ] 1,200 mg PO QDAY Qty: 0 glipizide 5 mg tablet See Rx Instructions .ROUTE .COMPLEX Qty: 90 3RF Dose Instruction: take 1 tablet by mouth once daily Rx Instructions: take 1 tablet by mouth once daily atorvastatin 10 mg tablet 5 mg PO DAILY Qty: 45 3RF tizanidine 4 mg tablet See Rx Instructions .ROUTE .COMPLEX Qty: 90 3RF Dose Instruction: take 1 tablet by mouth at bedtime Rx Instructions: take 1 tablet by mouth at bedtime metformin 500 mg tablet extended release 24 hr 500 mg PO BID Qty: 180 1RF (DME) OneTouch Verio test strips Strip See Rx Instructions .ROUTE .COMPLEX Qty: 100 11RF Dose Instruction: Use to test blood sugars once daily. One touch verio test strips Rx Instructions: Use to test blood sugars once daily. One touch verio test strips chlorthalidone 25 mg tablet See Rx Instructions .ROUTE .COMPLEX Qty: 30 4RF Dose Instruction: take 1 tablet by mouth once daily Rx Instructions: take 1 tablet by mouth once daily propranolol 40 mg tablet See Rx Instructions .ROUTE .COMPLEX Qty: 180 1RF Dose Instruction: take 1 tablet by mouth twice a day Rx Instructions: take 1 tablet by mouth twice a day duloxetine 20 mg capsule,delayed release(DR/EC) See Rx Instructions .ROUTE .COMPLEX Qty: 180 1RF Dose Instruction: take 1 capsule by mouth twice a day Rx Instructions: take 1 capsule by mouth twice a day losartan 100 mg tablet See Rx Instructions .ROUTE .COMPLEX Qty: 90 2RF Dose Instruction: take 1 tablet by mouth once daily Rx Instructions: take 1 tablet by mouth once daily letrozole 2.5 mg tablet 2.5 mg PO Q24H omega 6-mjj-geo-fish oil [Fish Oil] 1,200 (144-216) mg capsule 1 cap PO DAILY PreserVision AREDS-2 250-90-40-1 mg Capsule 1 tab PO QAM AND QHS cholecalciferol (vitamin D3) [Vitamin D3] 50 mcg (2,000 unit) Capsule 50 mcg PO DAILY acetaminophen [Tylenol] 325 mg capsule 650 mg PO QID PRN (Reason: pain) Qty: 60 0RF Referrals: Anish Pham DO [Primary Care Provider] - Stand Alone Forms: Patient Portal/API
--- NOTE | 2022-09-13 07:52 | PC.NURSE ---
MRI arrived to take pt, DEPLOYMENT MANAGER and RN attempted to remove pt left earring, pt not sure how to remove it states they have been on for a long time. Pt MRI pushed to later time.
[2022-09-13 07:58] LABS: Alanine Aminotransferase 33 IU/L (<35); Albumin 4.1 g/dL (3.5-5.0); Albumin Globulin Ratio 1.5 (1.0-2.8); Alkaline Phosphatase 70 U/L (38-126); Aspartate Aminotransferase 27 IU/L (14-36); Bilirubin Total 0.9 mg/dL (0.2-1.3); Blood Urea Nitrogen 24 mg/dL (7-17); C-Reactive Protein Quant < 0.5 mg/dL (<1.0); Calcium 10.9 mg/dL (8.4-10.2); Carbon Dioxide 29 mmol/L (22-32); Chloride 102 mmol/L (98-107); Estimated Glomerular Filt Rate 57 mL/min (>60); Globulin 2.7 g/dL (1.7-4.1); Glucose 125 mg/dL (80-110); HEMOLYSIS < 15 (0-50); Potassium 3.9 mmol/L (3.4-5.1); Sodium 140 mmol/L (137-145); Total Protein 6.8 g/dL (6.3-8.2)
[2022-09-13] MEDS: methylPREDNISolone 125 MG/2 ML VIAL IV (08:11)
--- NOTE | 2022-09-13 08:18 | PC.NURSE ---
Left earring removed and both given to partner at bedside.
[2022-09-13 08:35] LABS: Erythrocyte Sedimentation Rate 17 MM/HR (0-20)
[2022-09-13 09:50] LABS: Adenovirus Not Detected (Not Detect); B. parapertussis Not Detected (Not Detecte); Bordetella pertussis Not Detected (Not Detecte); Chlamydophila pneumoniae Not Detected (Not Detect); Coronavirus 229E Not Detected (Not Detect); Coronavirus HKU1 Not Detected (Not Detect); Coronavirus NL 63 Not Detected (Not Detect); Coronavirus OC43 Not Detected (Not Detect); Human Metapneumovirus Not Detected (Not Detect); Human Rhinovirus/Enterovirus Not Detected (Not Detect); Influenza A Not Detected (Not Detect); Influenza B Not Detected (Not Detect); Mycoplasma pneumoniae Not Detected (Not Detect); Parainfluenza Virus 1 Not Detected (Not Detect); Parainfluenza Virus 2 Not Detected (Not Detect); Parainfluenza Virus 3 Not Detected (Not Detect); Parainfluenza Virus 4 Not Detected (Not Detect); Respiratory Syncytial Virus Not Detected (Not Detect); SARS- CoV-2 Not Detected (Not Detecte)
--- NOTE | 2022-09-13 10:29 | DI.MRI.S_ITS ---
PROCEDURE: MR ORBIT WO/W CON COMPARISON: [facility], CT, CT ANGIO HEAD AND NECK, 12/21/2021, 16:30. CT, CT CERVICAL SPINE WO CON, 12/21/2021, 15:15. INDICATIONS: rt eye pain/temporal arteritis FINDINGS: The ventricular system and cortical sulci demonstrate atrophy, consistent for the patient's stated age. There are areas of increased T2/FLAIR signal intensity within the periventricular and subcortical white matter. There is no acute intra-or extra axial fluid collection. No acute hemorrhage, mass lesion or midline shift. Brainstem is unremarkable. There are no areas of restricted diffusion. Globes are symmetrical. Sinuses are aerated. Osseous structures are intact. Hyperostosis frontalis is present. Visualized cerebellopontine angles are unremarkable. Visualized cranial nerves demonstrate no abnormal signal or enhancement. Previous lacunar ischemia is identified within the internal capsules bilaterally. IMPRESSION: 1. No acute intracranial process. 2. Moderate atrophy and chronic microvascular ischemic changes. 3. No visualized temporal arteritis on the basis of this exam. Dictated by: Jill Agustin M.D. on 09/13/2022 at 11:40 Approved by: Jill Agustin M.D. on 09/13/2022 at 11:43
--- NOTE | 2022-09-13 11:30 | PC.NURSE ---
1105: Received report from CHAO Jimenes. Pt A&Ox4, resting comfortably, SO at bedside.
== END 2022-09-13 13:20 | disposition home or self-care (01) ==
PROVIDERS: Emergency Provider Emergency Medicine; PCP Family Medicine
DX: R91.8 Other nonspecific abnormal finding of lung field (principal); R51.9 Headache, unspecified; H57.11 Ocular pain, right eye; Z20.822 Contact with and (suspected) exposure to COVID-19
CPT/HCPCS: 36415; 70543; 71250; 80053; 85025; 85651; 86140; 87633; 96374; 99284; 99285; A9579; J2930

== ENCOUNTER → 2022-12-07 09:25 | Outpatient (CLI) | payer MEDICARE, MEDICAID, SELFPAY ==
[2021-09-10 16:24] VITALS: BMI 27.4
[2022-12-07 10:24] LABS: Hemoglobin A1C% w Est Avg Glu 6.9 % (4.0-6.0)
[2022-12-07 10:43] LABS: Cholesterol 135 mg/dL (140-199); HDL Cholesterol 27 mg/dL (40-60); LDL Cholesterol Calculated 73 mg/dL (<100); Triglycerides 176 mg/dL (35-150)
[2022-12-07 14:59] LABS: Creatinine Urine Random 126.8 mg/dL
[2022-12-07 15:05] LABS: Microalbumi Creatinin Ratio Ur 8.6 ug/mg CR (<30); Microalbumin Urine Random 1.1 mg/dL (0-1.6)
== END ==
PROVIDERS: PCP Family Medicine; Referring Provider Family Medicine; Visit Provider Family Medicine
DX: E11.21 Type 2 diabetes mellitus with diabetic nephropathy (principal); E78.6 Lipoprotein deficiency; I10 Essential (primary) hypertension
CPT/HCPCS: 36415; 80061; 82043; 82570; 83036

== ENCOUNTER → 2023-05-29 12:42 | Outpatient (CLI) | payer MEDICARE, MEDICAID, SELFPAY ==
[2021-09-10 16:24] VITALS: BMI 27.4
== END ==
PROVIDERS: Family Provider Family Medicine; PCP Family Medicine; Visit Provider Nurse Practitioner Family
DX: R10.9 Unspecified abdominal pain (principal)
CPT/HCPCS: 87077; 87086; 87186

== ENCOUNTER → 2023-05-31 11:15 | Outpatient (CLI) | payer MEDICARE, MEDICAID, SELFPAY ==
[2021-09-10 16:24] VITALS: BMI 27.4
[2023-05-31 13:13] LABS: Blood Urea Nitrogen 20 mg/dL (7-17); Calcium 9.6 mg/dL (8.4-10.2); Carbon Dioxide 29 mmol/L (22-32); Chloride 97 mmol/L (98-107); Estimated Glomerular Filt Rate 51 mL/min (>60); Glucose 147 mg/dL (80-110); HEMOLYSIS < 15 (0-50); Potassium 3.6 mmol/L (3.4-5.1); Sodium 134 mmol/L (137-145)
[2023-05-31 16:28] LABS: Creatinine Urine Random 71.3 mg/dL
[2023-05-31 16:32] LABS: Microalbumi Creatinin Ratio Ur 19.6 ug/mg CR (<30); Microalbumin Urine Random 1.4 mg/dL (0-1.6)
== END ==
PROVIDERS: Family Provider Family Medicine; PCP Family Medicine; Referring Provider Family Medicine; Visit Provider Family Medicine
DX: E11.21 Type 2 diabetes mellitus with diabetic nephropathy (principal); R79.9 Abnormal finding of blood chemistry, unspecified; I10 Essential (primary) hypertension
CPT/HCPCS: 36415; 80048; 82043; 82570; 83036

== ENCOUNTER → 2023-06-15 09:34 | Outpatient (CLI) | payer MEDICARE, MEDICAID, SELFPAY ==
[2021-09-10 16:24] VITALS: BMI 27.4
== END ==
PROVIDERS: Family Provider Family Medicine; PCP Family Medicine; Visit Provider Nurse Practitioner Family
DX: R30.0 Dysuria (principal); N94.9 Unspecified condition associated with female genital organs and menstrual cycle
CPT/HCPCS: 87077; 87086; 87186; 87210

== ENCOUNTER → 2023-06-28 16:23 | Outpatient (CLI) | payer MEDICARE, MEDICAID, SELFPAY ==
[2021-09-10 16:24] VITALS: BMI 27.4
== END ==
LOC: LAB 16:24
PROVIDERS: Family Provider Family Medicine; PCP Family Medicine; Visit Provider Nurse Practitioner Family
DX: R35.0 Frequency of micturition (principal)
CPT/HCPCS: 87077; 87086; 87186

== ENCOUNTER → 2023-07-14 14:07 | Outpatient (CLI) | payer MEDICARE, MEDICAID, SELFPAY ==
[2021-09-10 16:24] VITALS: BMI 27.4
== END ==
PROVIDERS: Family Provider Family Medicine; PCP Family Medicine; Visit Provider Family Medicine
DX: N39.0 Urinary tract infection, site not specified (principal)
CPT/HCPCS: 87077; 87086; 87186

== ENCOUNTER 2023-07-25 10:30 | Outpatient (RCR) | payer MEDICARE, MEDICAID, SELFPAY ==
[2021-09-10 16:24] VITALS: BMI 27.4
[2023-04-21 10:26] VITALS: BP 142/87
--- NOTE | 2023-04-21 11:44 | PT.OIE ---
Current Diagnoses Difficulty in walking, not elsewhere classified (04/21/23) Other abnormalities of gait and mobility (04/21/23) Repeated falls (04/21/23) Other malaise (04/21/23) Past Medical History (Last Updated 03/16/23 @ 13:32 by Brittany Mcfarlane DO) Anxiety (Unknown) Balance problem Blindness (1950) Breast CA (1998) Chickenpox (195) Chronic back pain (1998) CKD (chronic kidney disease) (Unknown) Depression (1965) Diabetes (Unknown) Diabetes insipidus (1999) Dry cough Elevated BUN Fall GERD (gastroesophageal reflux disease) (Unknown) GI bleed (2016) Hearing loss (2014) History of head injury Hx of drug overdose (Unknown) Hyperlipemia (Unknown) Hypertension (Unknown) Invasive ductal carcinoma of breast Low HDL (under 40) Lower extremity edema Masses of both breasts Measles (194) Medication adverse effect Memory loss Mild cognitive impairment with memory loss Mumps (194) Obstructive sleep apnea (Unknown) Physical deconditioning Primary osteoarthritis, left shoulder Tension headache Traumatic ecchymosis of face Type 2 diabetes with nephropathy Urinary incontinence (2009) Past Surgical History (Last Reviewed 09/13/22 @ 07:50 by Lev John MD) History of bladder suspension procedure History of hernia repair History of total abdominal hysterectomy (1998) S/P breast lumpectomy (~1999) Visit Care Team Role Provider Type Anish Pham DO Attending Provider Physician Family Provider Primary Care Provider Referring Provider Specialty: [facility] Practice Address: [address] [place] [address], [facility] Email: Physical Therapy Initial Evaluation PT-OP-A Visit Information Start: 04/20/23 17:58 Freq: Status: Active Protocol: Document 04/21/23 10:26 SAK (Rec: 04/21/23 11:43 SAK [id number]) Out-Patient Physical Therapy Visit Information Visit Information Visit Type Initial Evaluation Visit Start Time 10:31 Visit Stop Time 11:14 Visit Number 1 Evaluation Information Evaluation Date 04/21/23 Precautions Precautions DM, peripheral neuropathy, hyperlipidemia, hypertension, anxiety and depression, blind in left eye (since 2 y/o) PT-OP-B Current Condition Start: 04/20/23 17:58 Freq: Status: Active Protocol: Document 04/21/23 10:26 [facility] (Rec: 04/21/23 11:43 [facility] [id number]) Current Condition History of Current Condition Onset Date 9 months Current Complaints falls History of Current Condition HIstory of falls; has fallen when stepping off curb, stubbing toe, fell on beach and doesn't know what happened . Gets dizzy at times when bends over. No giving way of legs. Denies N/T LE's. Reports hurting her right leg, and got a black eye once, has fallen all directions. Doesn 't use assistive device. Prior Treatments and Tests balance exercises in past but has stopped doing because I'm tired., not sure if helpful. Treatment Goals Patient/Caregiver Goals improve balance, decrease falls Prior Functional Status Baseline Function- ADL's Modified Independent Baseline Function- Mobility Modified Independent Baseline Function- Gait no falls Current Functional Impairments (Reported) Functional Limitations- ADL's slow, careful, history of falls Functional Limitations- Mobility/Gait doesn't use device but has had multiple falls Functional Limitations- Work/School retired, has caregiver assit with epic ambulatory specialists due to back pain Functional Limitations- Recreation/ sedentary, watches TB and Hobbies plays solitaire on phone PT-OP-C Subjective Start: 04/20/23 17:58 Freq: Status: Active Protocol: Document 04/21/23 10:26 [facility] (Rec: 04/21/23 11:43 [facility] [id number]) Patient Questionnaires ABC- Activity Specific Balance Confidence Scale ABC Score 44% Upper Extremity Functional Scale Upper Extremity Functional Scale 1 to 19% Impaired (Score 63-79 Impairment ) Other Questionnaire Name and Score Falls efficacy scale: 33/64 ( fear of falling with activities) OP-PT Pain Assessment Location right LE Intensity 2 bob low back Intensity 5 PT-OP-D Balance Start: 04/20/23 17:58 Freq: Status: Active Protocol: Document 04/21/23 10:26 SAK (Rec: 04/21/23 11:43 [facility] [id number]) Balance Tests Briseno Balance Test Briseno Balance Test Score 35/56 PT-OP-E Functional Tests Start: 04/20/23 17:58 Freq: Status: Active Protocol: Document 04/21/23 10:26 JOANN (Rec: 04/21/23 11:43 [facility] [id number]) Functional Tests Dynamic Gait Index (DGI) Score 11/24 PT-OP-G Mobility & Gait Start: 04/20/23 17:58 Freq: Status: Active Protocol: Document 04/21/23 10:26 JOANN (Rec: 04/21/23 11:43 [facility] [id number]) OP Gait Assessment Gait Gait Assistance Required: Independent Assistive Devices Assistive Device None Gait Deviations General Gait Pattern Decreased Stride Length, Decreased Feet Clearance Factors Limiting Gait Function Factors Limiting Gait Function Poor Balance Stair Climbing Evaluation Evaluation Level of Assist On Stairs Standby Assistance Devices Stair Climbing Assistive Devices Left Railing,Right Railing Technique/Endurance Stair Climbing Technique Step Over Step Comments Stair Climbing Comments hesitates, slow PT-OP-H Neuro Start: 04/20/23 17:58 Freq: Status: Active Protocol: Document 04/21/23 10:26 JOANN (Rec: 04/21/23 11:43 [facility] [id number]) Sensation Evaluation Gross Sensation Gross Sensation Left LE Impaired,Right LE Impaired Comments Summary Comments denies N/T but dec LT and proprio noted bob LE's Vital Signs Blood Pressure Sitting Blood Pressure (90/60-120/80 mmHg) 142/87 H Blood Pressure Source Manual Cuff,Left Upper Extremity PT-OP-K Range of Motion Start: 04/20/23 17:58 Freq: Status: Active Protocol: Document 04/21/23 10:26 JOANN (Rec: 04/21/23 11:43 [facility] [id number]) Hip Goniometric Range of Motion Hip bob Hip ROM WFL Yes Knee Goniometric Range of Motion Knee bob Knee ROM WFL Yes Ankle and Foot Goniometric Range of Motion Ankle and Foot bob Ankle/Foot ROM WFL No Dorsiflexion with Knee Flexed 5 Dorsiflexion with Knee Extended 0 Plantarflexion 50 PT-OP-M Strength Start: 04/20/23 17:58 Freq: Status: Active Protocol: Document 04/21/23 10:26 JOANN (Rec: 04/21/23 11:43 [facility] [id number]) Hip Strength Hip Manual Muscle Testing bob Flexion (L2) 4 Good Extension (S1) 4 Good Abduction 4 Good Adduction 4 Good External Rotation 4- Good- Internal Rotation 4+ Good+ Knee Strength Knee Manual Muscle Testing bob Flexion (S2) 4+ Good+ Extension (L3) 4+ Good+ Ankle/Foot Strength Ankle and Foot Manual Muscle Testing bob Dorsiflexion (L4) 4 Good Plantarflexion (S1) 4 Good Inversion 4 Good Eversion (S1) 4 Good PT-OP-Q Treatments Start: 04/20/23 17:58 Freq: Status: Active Protocol: Document 04/21/23 10:26 [facility] (Rec: 04/21/23 11:43 [facility] [id number]) Gait Training Gait Activity cane Comments use of cane on level, stepping over hurdles, and up 4 box with no UE support;SBA on level, CG to min assist on uneven/stepping over Self-Care/Home Management Treatment Education Patient Education Home Exercise Program,Safety Other Education issued written HO instructed in use of cane for gait safety outdoors, on uneven ground PT-OP-T Assessment and Plan Start: 04/20/23 17:58 Freq: Status: Active Protocol: Document 04/21/23 10:26 [facility] (Rec: 04/21/23 11:43 [facility] [id number]) Physical Therapy Assessment Rehab Potential Rehabilitation Potential Good Evaluation Complexity Number of Personal Factors/Comorbidities 1-2 Number of Body Systems Impaired 3 Clinical Presentation at Evaluation Evolving Impairments Impairments Balance,Gait,Strength Other Concerns Fall Risk high Barriers to Rehabilitation LBP, Right LE pain, sedentary lifestyle Goals Four Impairment unsafe gait outdoors or on uneven surfaces Impairment no use of assistive device Short Term Goal (STG) instruct patient in safe use of cane STG Duration 05/22/23 Retirement Goal (LTG) Patient to consistently and safely use cane outdoors and on uneven ground for gait safety LTG Duration 06/20/23 Three Impairment no current exercise program Impairment dec balance and LE strength especially ankles Short Term Goal (STG) Instruct patient in HEP for purposes of strengthening and balance STG Duration 05/22/23 Manager Retirement Goal (LTG) Patient to be independent and compliant with HEP and demonstrate at least 1/2 grade improvement in LE strength LTG Duration 06/20/23 Two Impairment fear of falling and history of falls Impairment Falls efficacy scale 33/64 Short Term Goal (STG) Improve falls efficacy scale to no greater than 23/64 as measure of patient's improved balance confidence STG Duration 05/22/23 Retirement Goal (LTG) No falls over at least 1 month period and improve falls efficacy scale to no greater than 15/64 as measure of patient's improved balance confidence. LTG Duration 06/20/23 One Impairment balance impairment Impairment Briseno balance score: 35/56 Dynamic gait index 02/18: both indicating high fall risk Short Term Goal (STG) IMprove Briseno to at least 42/ 56 and DGI to at least 15/24 as measure of improved balance and safety STG Duration 05/22/23 Manager Retirement Goal (LTG) Improve Briseno to at least 48/56 and DGI to at least 20/24 as measure of improved balance and safety LTG Duration 06/20/23 Assessment Summary Assessment Patient presents to PT with balance dysfunction and LE weakness, worsening over approximately 9 months. Comorbidities contributing appear to be peripheral neuropathy, blindness in left eye (since 2 y/o), as well as patient's sedentary lifestyle. Feel she would benefit from PT to improve her LE strength, gait, and balance to improve her mobility and decrease her fall risk. POC was discussed and patient was in agreement. Physical Therapy Plan Frequency and Duration Frequency of Treatment 2x/Week Duration of treatment (weeks) 8 Plan of Care Start Date 04/21/23 Therapeutic Interventions Therapeutic Interventions Balance Training,Gait Training ,Home Exercise Program, Neuromuscular Re-education, Patient/Caregiver Education, Self-Care/Home Management, Therapeutic Activities, Therapeutic Exercises Next Visit Focus/Plan Next Note Type Treatment Note Next Visit Plan REview HEP, gentle progression of balance and LE strengthening exercises. Updage HEP HO as needed.
--- NOTE | 2023-04-21 11:45 | PT.OPPOC ---
Physical, Occupational & Speech Therapy At [facility] Current Diagnoses Difficulty in walking, not elsewhere classified (04/21/23) Other abnormalities of gait and mobility (04/21/23) Repeated falls (04/21/23) Other malaise (04/21/23) Visit Care Team Role Provider Type Anish Pham DO Attending Provider Physician Family Provider Primary Care Provider Referring Provider Specialty: Family Practice Address: [address] [place] [address], [facility] Email: Plan Of Care PT-OP-T Assessment and Plan Start: 04/20/23 17:58 Freq: Status: Active Protocol: Document 04/21/23 10:26 SAK (Rec: 04/21/23 11:43 SAK [id number]) Physical Therapy Assessment Rehab Potential Rehabilitation Potential Good Evaluation Complexity Number of Personal Factors/Comorbidities 1-2 Number of Body Systems Impaired 3 Clinical Presentation at Evaluation Evolving Impairments Impairments Balance,Gait,Strength Other Concerns Fall Risk high Barriers to Rehabilitation LBP, Right LE pain, sedentary lifestyle Goals Four Impairment unsafe gait outdoors or on uneven surfaces Impairment no use of assistive device Short Term Goal (STG) instruct patient in safe use of cane STG Duration 05/22/23 Usp Goal (LTG) Patient to consistently and safely use cane outdoors and on uneven ground for gait safety LTG Duration 06/20/23 Three Impairment no current exercise program Impairment dec balance and LE strength especially ankles Short Term Goal (STG) Instruct patient in HEP for purposes of strengthening and balance STG Duration 05/22/23 Tail Dogger Goal (LTG) Patient to be independent and compliant with HEP and demonstrate at least 1/2 grade improvement in LE strength LTG Duration 06/20/23 Two Impairment fear of falling and history of falls Impairment Falls efficacy scale 33/64 Short Term Goal (STG) Improve falls efficacy scale to no greater than 23/64 as measure of patient's improved balance confidence STG Duration 05/22/23 Tail Dogger Goal (LTG) No falls over at least 1 month period and improve falls efficacy scale to no greater than 15/64 as measure of patient's improved balance confidence. LTG Duration 06/20/23 One Impairment balance impairment Impairment Briseno balance score: 35/56 Dynamic gait index 02/18: both indicating high fall risk Short Term Goal (STG) IMprove Briseno to at least 42/ 56 and DGI to at least 15/24 as measure of improved balance and safety STG Duration 05/22/23 Tail Dogger Goal (LTG) Improve Briseno to at least 48/56 and DGI to at least 20/24 as measure of improved balance and safety LTG Duration 06/20/23 Assessment Summary Assessment Patient presents to PT with balance dysfunction and LE weakness, worsening over approximately 9 months. Comorbidities contributing appear to be peripheral neuropathy, blindness in left eye (since 2 y/o), as well as patient's sedentary lifestyle. Feel she would benefit from PT to improve her LE strength, gait, and balance to improve her mobility and decrease her fall risk. POC was discussed and patient was in agreement. Physical Therapy Plan Frequency and Duration Frequency of Treatment 2x/Week Duration of treatment (weeks) 8 Plan of Care Start Date 04/21/23 Therapeutic Interventions Therapeutic Interventions Balance Training,Gait Training ,Home Exercise Program, Neuromuscular Re-education, Patient/Caregiver Education, Self-Care/Home Management, Therapeutic Activities, Therapeutic Exercises Next Visit Focus/Plan Next Note Type Treatment Note Next Visit Plan REview HEP, gentle progression of balance and LE strengthening exercises. Updage HEP HO as needed. Plan of Care Dates Plan of Care Start Date 04/21/23 Electronically Signed by: Ilda Pedroza, PT 04/21/23 5483 If you are in agreement with this Plan of Care, please return a signed and dated copy. I have reviewed this Plan of Care and certify that the skilled therapy services above are required to meet the patient?s needs. Physician Signature Date Printed Name and Credentials Clinical Instructor Signature Printed Name and Credentials
--- NOTE | 2023-04-28 09:01 | PT.OTN ---
Current Diagnoses Difficulty in walking, not elsewhere classified (04/28/23) Other abnormalities of gait and mobility (04/28/23) Repeated falls (04/28/23) Other malaise (04/28/23) Physical Therapy Treatment Note PT-OP-A Visit Information Start: 04/20/23 17:58 Freq: Status: Active Protocol: Document 04/28/23 08:15 SAK (Rec: 04/28/23 09:01 SAK [id number]) Out-Patient Physical Therapy Visit Information Visit Information Visit Type Treatment Note Visit Start Time 08:15 Visit Stop Time 08:58 Visit Number 2 Evaluation Information Evaluation Date 04/21/23 Precautions Precautions DM, peripheral neuropathy, hyperlipidemia, hypertension, anxiety and depression, blind in left eye (since 2 y/o) PT-OP-B Current Condition Start: 04/20/23 17:58 Freq: Status: Active Protocol: Document 04/28/23 08:15 SAK (Rec: 04/28/23 09:01 SAK [id number]) Current Condition History of Current Condition Onset Date 9 months Current Complaints falls History of Current Condition HIstory of falls; has fallen when stepping off curb, stubbing toe, fell on [place] and doesn't know what happened . Gets dizzy at times when bends over. No giving way of legs. Denies N/T LE's. Reports hurting her right leg, and got a black eye once, has fallen all directions. Doesn 't use assistive device. Prior Treatments and Tests balance exercises in past but has stopped doing because I'm tired., not sure if helpful. Treatment Goals Patient/Caregiver Goals improve balance, decrease falls PT-OP-C Subjective Start: 04/20/23 17:58 Freq: Status: Active Protocol: Document 04/28/23 08:15 SAK (Rec: 04/28/23 09:01 SAK [id number]) OP-PT Subjective Patient Comments Patient Comments No new c/o, reports exercises were ok. PT-OP-D Balance Start: 04/20/23 17:58 Freq: Status: Active Protocol: Document 04/21/23 10:26 SAK (Rec: 04/21/23 11:43 SAK [id number]) Balance Tests Briseno Balance Test Briseno Balance Test Score 35/56 PT-OP-E Functional Tests Start: 04/20/23 17:58 Freq: Status: Active Protocol: Document 04/21/23 10:26 SAK (Rec: 04/21/23 11:43 [facility] [id number]) Functional Tests Dynamic Gait Index (DGI) Score 02/18 PT-OP-G Mobility & Gait Start: 04/20/23 17:58 Freq: Status: Active Protocol: Document 04/21/23 10:26 SAK (Rec: 04/21/23 11:43 [facility] [id number]) OP Gait Assessment Gait Gait Assistance Required: Independent Assistive Devices Assistive Device None Gait Deviations General Gait Pattern Decreased Stride Length, Decreased Feet Clearance Factors Limiting Gait Function Factors Limiting Gait Function Poor Balance Stair Climbing Evaluation Evaluation Level of Assist On Stairs Standby Assistance Devices Stair Climbing Assistive Devices Left Railing,Right Railing Technique/Endurance Stair Climbing Technique Step Over Step Comments Stair Climbing Comments hesitates, slow PT-OP-H Neuro Start: 04/20/23 17:58 Freq: Status: Active Protocol: Document 04/21/23 10:26 [facility] (Rec: 04/21/23 11:43 [facility] [id number]) Sensation Evaluation Gross Sensation Gross Sensation Left LE Impaired,Right LE Impaired Comments Summary Comments denies N/T but dec LT and proprio noted bob LE's Vital Signs Blood Pressure Sitting Blood Pressure (90/60-120/80 mmHg) 142/87 H Blood Pressure Source Manual Cuff,Left Upper Extremity PT-OP-K Range of Motion Start: 04/20/23 17:58 Freq: Status: Active Protocol: Document 04/21/23 10:26 [facility] (Rec: 04/21/23 11:43 [facility] [id number]) Hip Goniometric Range of Motion Hip bob Hip ROM WFL Yes Knee Goniometric Range of Motion Knee bob Knee ROM WFL Yes Ankle and Foot Goniometric Range of Motion Ankle and Foot bob Ankle/Foot ROM WFL No Dorsiflexion with Knee Flexed 5 Dorsiflexion with Knee Extended 0 Plantarflexion 50 PT-OP-M Strength Start: 04/20/23 17:58 Freq: Status: Active Protocol: Document 04/21/23 10:26 SAK (Rec: 04/21/23 11:43 [facility] [id number]) Hip Strength Hip Manual Muscle Testing bob Flexion (L2) 4 Good Extension (S1) 4 Good Abduction 4 Good Adduction 4 Good External Rotation 4- Good- Internal Rotation 4+ Good+ Knee Strength Knee Manual Muscle Testing bob Flexion (S2) 4+ Good+ Extension (L3) 4+ Good+ Ankle/Foot Strength Ankle and Foot Manual Muscle Testing bob Dorsiflexion (L4) 4 Good Plantarflexion (S1) 4 Good Inversion 4 Good Eversion (S1) 4 Good PT-OP-Q Treatments Start: 04/20/23 17:58 Freq: Status: Active Protocol: Document 04/28/23 08:15 [facility] (Rec: 04/28/23 09:01 [facility] [id number]) Cardio Equipment Recumbent Elliptical (Biodex) Duration (Minutes) 5 Resistance 1 Seat Position 7 Gait Training Gait Activity no device Device Used none Level of Assistance CGA Surface firm Distance/Duration 120' cane Level of Assistance SBa, CUES Surface FIRM Distance/Duration 120' Treatment Focus sequencing with cane Neuro Re-Education Treatment Balance Activities cone pickup Surface firm Equipment 8 cones Comments cones upright first time, on sides second CGA by PT obstacle course Surface cannon, blue, black foam, 4 box Equipment parallel bars Reps/Duration 8 min tandem stand Reps/Duration 30 x 4 heel/toe raise Equipment parallel bars Reps/Duration 10x Self-Care/Home Management Treatment Education Patient Education Home Exercise Program,Safety PT-OP-T Assessment and Plan Start: 04/20/23 17:58 Freq: Status: Active Protocol: Document 04/28/23 08:15 [facility] (Rec: 04/28/23 09:01 [facility] [id number]) Physical Therapy Assessment Impairments Impairments Balance,Gait,Strength Other Concerns Fall Risk high Barriers to Rehabilitation LBP, Right LE pain, sedentary lifestyle Goals Four Impairment unsafe gait outdoors or on uneven surfaces Impairment no use of assistive device Short Term Goal (STG) instruct patient in safe use of cane STG Duration 05/22/23 Senior Care Goal (LTG) Patient to consistently and safely use cane outdoors and on uneven ground for gait safety LTG Duration 06/20/23 Three Impairment no current exercise program Impairment dec balance and LE strength especially ankles Short Term Goal (STG) Instruct patient in HEP for purposes of strengthening and balance STG Duration 05/22/23 Senior Care Goal (LTG) Patient to be independent and compliant with HEP and demonstrate at least 1/2 grade improvement in LE strength LTG Duration 06/20/23 Two Impairment fear of falling and history of falls Impairment Falls efficacy scale 33/64 Short Term Goal (STG) Improve falls efficacy scale to no greater than 23/64 as measure of patient's improved balance confidence STG Duration 05/22/23 Senior Care Goal (LTG) No falls over at least 1 month period and improve falls efficacy scale to no greater than 15/64 as measure of patient's improved balance confidence. LTG Duration 06/20/23 One Impairment balance impairment Impairment Briseno balance score: 35/56 Dynamic gait index 02/18: both indicating high fall risk Short Term Goal (STG) IMprove Briseno to at least 42/ 56 and DGI to at least 15/24 as measure of improved balance and safety STG Duration 05/22/23 Foreign Banknote Teller Goal (LTG) Improve Briseno to at least 48/56 and DGI to at least 20/24 as measure of improved balance and safety LTG Duration 06/20/23 Assessment Summary Assessment Patient comes to PT using SPC, compliant to using outside and in community; reports improved steadiness. Challenged balance and gait activities as above after Biodex warm up. Good maxim with 2 sitting breaks, most difficulty with stepping up and down on different density surfaces. Physical Therapy Plan Frequency and Duration Frequency of Treatment 2x/Week Duration of treatment (weeks) 8 Plan of Care Start Date 04/21/23 Therapeutic Interventions Therapeutic Interventions Balance Training,Gait Training ,Home Exercise Program, Neuromuscular Re-education, Patient/Caregiver Education, Self-Care/Home Management, Therapeutic Activities, Therapeutic Exercises Next Visit Focus/Plan Next Note Type Treatment Note Next Visit Plan Continue progression of challenged balance and gait activities, consider shuttle balance machine, balloon vb standing on foam.
--- NOTE | 2023-05-02 09:00 | PT.OTN ---
Current Diagnoses Difficulty in walking, not elsewhere classified (05/02/23) Other abnormalities of gait and mobility (05/02/23) Repeated falls (05/02/23) Other malaise (05/02/23) Physical Therapy Treatment Note PT-OP-A Visit Information Start: 04/20/23 17:58 Freq: Status: Active Protocol: Document 05/02/23 08:19 SAK (Rec: 05/02/23 09:00 SAK [id number]) Out-Patient Physical Therapy Visit Information Visit Information Visit Type Treatment Note Visit Start Time 08:16 Visit Stop Time 08:59 Visit Number 3 Evaluation Information Evaluation Date 04/21/23 PT-OP-B Current Condition Start: 04/20/23 17:58 Freq: Status: Active Protocol: Document 05/02/23 08:19 SAK (Rec: 05/02/23 09:00 SAK [id number]) Current Condition History of Current Condition Onset Date 9 months Current Complaints falls History of Current Condition HIstory of falls; has fallen when stepping off curb, stubbing toe, fell on beach and doesn't know what happened . Gets dizzy at times when bends over. No giving way of legs. Denies N/T LE's. Reports hurting her right leg, and got a black eye once, has fallen all directions. Doesn 't use assistive device. Prior Treatments and Tests balance exercises in past but has stopped doing because I'm tired., not sure if helpful. Treatment Goals Patient/Caregiver Goals improve balance, decrease falls PT-OP-C Subjective Start: 04/20/23 17:58 Freq: Status: Active Protocol: Document 05/02/23 08:19 SAK (Rec: 05/02/23 09:00 [facility] [id number]) OP-PT Subjective Patient Comments Patient Comments States she is doing exercises at home. Reports she was stepping over something with her hands full cleaning her sons place, and tipped forward , landed on her side. Denies injury PT-OP-D Balance Start: 04/20/23 17:58 Freq: Status: Active Protocol: Document 04/21/23 10:26 SAK (Rec: 04/21/23 11:43 SAK [id number]) Balance Tests Briseno Balance Test Briseno Balance Test Score 35/56 PT-OP-E Functional Tests Start: 04/20/23 17:58 Freq: Status: Active Protocol: Document 04/21/23 10:26 SAK (Rec: 04/21/23 11:43 [facility] [id number]) Functional Tests Dynamic Gait Index (DGI) Score 02/18 PT-OP-G Mobility & Gait Start: 04/20/23 17:58 Freq: Status: Active Protocol: Document 04/21/23 10:26 SAK (Rec: 04/21/23 11:43 [facility] [id number]) OP Gait Assessment Gait Gait Assistance Required: Independent Assistive Devices Assistive Device None Gait Deviations General Gait Pattern Decreased Stride Length, Decreased Feet Clearance Factors Limiting Gait Function Factors Limiting Gait Function Poor Balance Stair Climbing Evaluation Evaluation Level of Assist On Stairs Standby Assistance Devices Stair Climbing Assistive Devices Left Railing,Right Railing Technique/Endurance Stair Climbing Technique Step Over Step Comments Stair Climbing Comments hesitates, slow PT-OP-H Neuro Start: 04/20/23 17:58 Freq: Status: Active Protocol: Document 04/21/23 10:26 [facility] (Rec: 04/21/23 11:43 [facility] [id number]) Sensation Evaluation Gross Sensation Gross Sensation Left LE Impaired,Right LE Impaired Comments Summary Comments denies N/T but dec LT and proprio noted bob LE's Vital Signs Blood Pressure Sitting Blood Pressure (90/60-120/80 mmHg) 142/87 H Blood Pressure Source Manual Cuff,Left Upper Extremity PT-OP-K Range of Motion Start: 04/20/23 17:58 Freq: Status: Active Protocol: Document 04/21/23 10:26 [facility] (Rec: 04/21/23 11:43 [facility] [id number]) Hip Goniometric Range of Motion Hip bob Hip ROM WFL Yes Knee Goniometric Range of Motion Knee bob Knee ROM WFL Yes Ankle and Foot Goniometric Range of Motion Ankle and Foot bob Ankle/Foot ROM WFL No Dorsiflexion with Knee Flexed 5 Dorsiflexion with Knee Extended 0 Plantarflexion 50 PT-OP-M Strength Start: 04/20/23 17:58 Freq: Status: Active Protocol: Document 04/21/23 10:26 SAK (Rec: 04/21/23 11:43 [facility] [id number]) Hip Strength Hip Manual Muscle Testing bob Flexion (L2) 4 Good Extension (S1) 4 Good Abduction 4 Good Adduction 4 Good External Rotation 4- Good- Internal Rotation 4+ Good+ Knee Strength Knee Manual Muscle Testing bob Flexion (S2) 4+ Good+ Extension (L3) 4+ Good+ Ankle/Foot Strength Ankle and Foot Manual Muscle Testing bob Dorsiflexion (L4) 4 Good Plantarflexion (S1) 4 Good Inversion 4 Good Eversion (S1) 4 Good PT-OP-Q Treatments Start: 04/20/23 17:58 Freq: Status: Active Protocol: Document 05/02/23 08:19 [facility] (Rec: 05/02/23 09:00 [facility] [id number]) Cardio Equipment Recumbent Stepper (Sci-Fit) Duration (Minutes) 8 Resistance 1.5 Seat Position 9 Other cues for RPM 50,.83 miles Gym Equipment Shuttle Balance chains red Details bal and weight shift fwd/bck, side Reps/Duration 10 Gait Training Gait Activity no device Device Used none Level of Assistance CGA Surface firm Distance/Duration 120' Neuro Re-Education Treatment Balance Activities hurdles Details fwd, side, fwd with cones in hands Reps/Duration 6 min obstacle course Surface cannon, blue, black foam, 4 box Equipment parallel bars Reps/Duration 8 min PT-OP-T Assessment and Plan Start: 04/20/23 17:58 Freq: Status: Active Protocol: Document 05/02/23 08:19 [facility] (Rec: 05/02/23 09:00 [facility] [id number]) Physical Therapy Assessment Impairments Impairments Balance,Gait,Strength Other Concerns Fall Risk high Barriers to Rehabilitation LBP, Right LE pain, sedentary lifestyle Goals Four Impairment unsafe gait outdoors or on uneven surfaces Impairment no use of assistive device Short Term Goal (STG) instruct patient in safe use of cane STG Duration 05/22/23 Correction Goal (LTG) Patient to consistently and safely use cane outdoors and on uneven ground for gait safety LTG Duration 06/20/23 Three Impairment no current exercise program Impairment dec balance and LE strength especially ankles Short Term Goal (STG) Instruct patient in HEP for purposes of strengthening and balance STG Duration 05/22/23 Correction Goal (LTG) Patient to be independent and compliant with HEP and demonstrate at least 1/2 grade improvement in LE strength LTG Duration 06/20/23 Two Impairment fear of falling and history of falls Impairment Falls efficacy scale 33/64 Short Term Goal (STG) Improve falls efficacy scale to no greater than 23/64 as measure of patient's improved balance confidence STG Duration 05/22/23 Watershed Engineer Goal (LTG) No falls over at least 1 month period and improve falls efficacy scale to no greater than 15/64 as measure of patient's improved balance confidence. LTG Duration 06/20/23 One Impairment balance impairment Impairment Briseno balance score: 35/56 Dynamic gait index 02/18: both indicating high fall risk Short Term Goal (STG) IMprove Briseno to at least 42/ 56 and DGI to at least 15/24 as measure of improved balance and safety STG Duration 05/22/23 Watershed Engineer Goal (LTG) Improve Briseno to at least 48/56 and DGI to at least 20/24 as measure of improved balance and safety LTG Duration 06/20/23 Assessment Summary Assessment Patient initially required mod UE spport with shuttle balance, but gradually decreased to CG to min front/ back,and CG to mod side to side. Good HEP compliance Physical Therapy Plan Frequency and Duration Frequency of Treatment 2x/Week Duration of treatment (weeks) 8 Plan of Care Start Date 04/21/23 Plan of Care End Date 06/20/23 Therapeutic Interventions Therapeutic Interventions Balance Training,Gait Training ,Home Exercise Program, Neuromuscular Re-education, Patient/Caregiver Education, Self-Care/Home Management, Therapeutic Activities, Therapeutic Exercises Next Visit Focus/Plan Next Note Type Treatment Note Next Visit Plan Continue PT per POC
--- NOTE | 2023-05-05 14:50 | PT.OTN ---
Current Diagnoses Difficulty in walking, not elsewhere classified (05/05/23) Other abnormalities of gait and mobility (05/05/23) Repeated falls (05/05/23) Other malaise (05/05/23) Physical Therapy Treatment Note PT-OP-A Visit Information Start: 04/20/23 17:58 Freq: Status: Active Protocol: Document 05/05/23 13:44 SAK (Rec: 05/05/23 14:45 SAK [id number]) Out-Patient Physical Therapy Visit Information Visit Information Visit Type Treatment Note Visit Start Time 13:45 Visit Stop Time 14:30 Visit Number 4 Evaluation Information Evaluation Date 04/21/23 Precautions Precautions DM, peripheral neuropathy, hyperlipidemia, hypertension, anxiety and depression, blind in left eye (since 2 y/o) PT-OP-B Current Condition Start: 04/20/23 17:58 Freq: Status: Active Protocol: Document 05/05/23 13:44 SAK (Rec: 05/05/23 14:45 SAK [id number]) Current Condition History of Current Condition Onset Date 9 months Current Complaints falls History of Current Condition HIstory of falls; has fallen when stepping off curb, stubbing toe, fell [place] and doesn't know what happened . Gets dizzy at times when bends over. No giving way of legs. Denies N/T LE's. Reports hurting her right leg, and got a black eye once, has fallen all directions. Doesn 't use assistive device. Prior Treatments and Tests balance exercises in past but has stopped doing because I'm tired., not sure if helpful. Treatment Goals Patient/Caregiver Goals improve balance, decrease falls PT-OP-C Subjective Start: 04/20/23 17:58 Freq: Status: Active Protocol: Document 05/05/23 13:44 SAK (Rec: 05/05/23 14:45 SAK [id number]) OP-PT Subjective Patient Comments Patient Comments Feels her balance is getting better. Doing HEP PT-OP-D Balance Start: 04/20/23 17:58 Freq: Status: Active Protocol: Document 04/21/23 10:26 SAK (Rec: 04/21/23 11:43 SAK [id number]) Balance Tests Briseno Balance Test Briseno Balance Test Score 35/56 PT-OP-E Functional Tests Start: 04/20/23 17:58 Freq: Status: Active Protocol: Document 04/21/23 10:26 SAK (Rec: 04/21/23 11:43 [facility] [id number]) Functional Tests Dynamic Gait Index (DGI) Score 02/18 PT-OP-G Mobility & Gait Start: 04/20/23 17:58 Freq: Status: Active Protocol: Document 04/21/23 10:26 SAK (Rec: 04/21/23 11:43 [facility] [id number]) OP Gait Assessment Gait Gait Assistance Required: Independent Assistive Devices Assistive Device None Gait Deviations General Gait Pattern Decreased Stride Length, Decreased Feet Clearance Factors Limiting Gait Function Factors Limiting Gait Function Poor Balance Stair Climbing Evaluation Evaluation Level of Assist On Stairs Standby Assistance Devices Stair Climbing Assistive Devices Left Railing,Right Railing Technique/Endurance Stair Climbing Technique Step Over Step Comments Stair Climbing Comments hesitates, slow PT-OP-H Neuro Start: 04/20/23 17:58 Freq: Status: Active Protocol: Document 04/21/23 10:26 [facility] (Rec: 04/21/23 11:43 [facility] [id number]) Sensation Evaluation Gross Sensation Gross Sensation Left LE Impaired,Right LE Impaired Comments Summary Comments denies N/T but dec LT and proprio noted bob LE's Vital Signs Blood Pressure Sitting Blood Pressure (90/60-120/80 mmHg) 142/87 H Blood Pressure Source Manual Cuff,Left Upper Extremity PT-OP-K Range of Motion Start: 04/20/23 17:58 Freq: Status: Active Protocol: Document 04/21/23 10:26 [facility] (Rec: 04/21/23 11:43 [facility] [id number]) Hip Goniometric Range of Motion Hip bob Hip ROM WFL Yes Knee Goniometric Range of Motion Knee bob Knee ROM WFL Yes Ankle and Foot Goniometric Range of Motion Ankle and Foot bob Ankle/Foot ROM WFL No Dorsiflexion with Knee Flexed 5 Dorsiflexion with Knee Extended 0 Plantarflexion 50 PT-OP-M Strength Start: 04/20/23 17:58 Freq: Status: Active Protocol: Document 04/21/23 10:26 SAK (Rec: 04/21/23 11:43 [facility] [id number]) Hip Strength Hip Manual Muscle Testing bob Flexion (L2) 4 Good Extension (S1) 4 Good Abduction 4 Good Adduction 4 Good External Rotation 4- Good- Internal Rotation 4+ Good+ Knee Strength Knee Manual Muscle Testing bob Flexion (S2) 4+ Good+ Extension (L3) 4+ Good+ Ankle/Foot Strength Ankle and Foot Manual Muscle Testing bob Dorsiflexion (L4) 4 Good Plantarflexion (S1) 4 Good Inversion 4 Good Eversion (S1) 4 Good PT-OP-Q Treatments Start: 04/20/23 17:58 Freq: Status: Active Protocol: Document 05/05/23 13:44 [facility] (Rec: 05/05/23 14:45 [facility] [id number]) Cardio Equipment Recumbent Stepper (Sci-Fit) Duration (Minutes) 10 Resistance 2 Seat Position 9 Other cues for RPM Gym Equipment Shuttle Balance chains red Details bal and weight shift fwd/bck, side Reps/Duration 10 Therapeutic Exercises Standing Exercises corner balance Standing Exercise Name wt shifts AP, [place] sway Gait Training Gait Activity no device Device Used none Level of Assistance CGA Surface firm Distance/Duration 120' Neuro Re-Education Treatment Balance Activities hurdles Details fwd, side, fwd with cones in hands Reps/Duration 6 min Comments CG to mod assist for balance obstacle course Surface cannon, blue, black foam, 4 box , green foam Reps/Duration 8 min Comments CG to mod assist for balance. PT-OP-T Assessment and Plan Start: 04/20/23 17:58 Freq: Status: Active Protocol: Document 05/05/23 13:44 [facility] (Rec: 05/05/23 14:45 [facility] [id number]) Physical Therapy Assessment Impairments Impairments Balance,Gait,Strength Other Concerns Fall Risk high Barriers to Rehabilitation LBP, Right LE pain, sedentary lifestyle Goals Four Impairment unsafe gait outdoors or on uneven surfaces Impairment no use of assistive device Short Term Goal (STG) instruct patient in safe use of cane STG Duration 05/22/23 Senior Living Goal (LTG) Patient to consistently and safely use cane outdoors and on uneven ground for gait safety LTG Duration 06/20/23 Three Impairment no current exercise program Impairment dec balance and LE strength especially ankles Short Term Goal (STG) Instruct patient in HEP for purposes of strengthening and balance STG Duration 05/22/23 Senior Living Goal (LTG) Patient to be independent and compliant with HEP and demonstrate at least 1/2 grade improvement in LE strength LTG Duration 06/20/23 Two Impairment fear of falling and history of falls Impairment Falls efficacy scale 33/64 Short Term Goal (STG) Improve falls efficacy scale to no greater than 23/64 as measure of patient's improved balance confidence STG Duration 05/22/23 Gate Tender Goal (LTG) No falls over at least 1 month period and improve falls efficacy scale to no greater than 15/64 as measure of patient's improved balance confidence. LTG Duration 06/20/23 One Impairment balance impairment Impairment Briseno balance score: 35/56 Dynamic gait index 02/18: both indicating high fall risk Short Term Goal (STG) IMprove Briseno to at least 42/ 56 and DGI to at least 15/24 as measure of improved balance and safety STG Duration 05/22/23 Gate Tender Goal (LTG) Improve Briseno to at least 48/56 and DGI to at least 20/24 as measure of improved balance and safety LTG Duration 06/20/23 Assessment Summary Assessment Improved SLS shown start of treatment 3 sec without UE support. Patient fatigued more rapidly today, hasn't eaten yet and at times needed more assistance for balance with hurdles and foam walk. Did not bring cane to PT today, encouraged use for safety. Physical Therapy Plan Frequency and Duration Frequency of Treatment 2x/Week Duration of treatment (weeks) 8 Plan of Care Start Date 04/21/23 Plan of Care End Date 06/20/23 Therapeutic Interventions Therapeutic Interventions Balance Training,Gait Training ,Home Exercise Program, Neuromuscular Re-education, Patient/Caregiver Education, Self-Care/Home Management, Therapeutic Activities, Therapeutic Exercises Next Visit Focus/Plan Next Note Type Treatment Note Next Visit Plan Continue progression of challenged balance and gait activities. Add balloon volleyball standing on foam.
--- NOTE | 2023-05-09 13:25 | PT-OP ANOTE ---
Spoke with pt regarding missed appt today. She states she left voicemail to cancel due to illness. Rescheduled w/ pt and Mri Technologist to PT [place] 05/11 at 15:15, and confirmed following appt 05/13 w/ this SURFACING MACHINE OPERATOR. After phone call w/ pt Scheduling advised a voicemail was left by pt about 5 min prior to appointment and appointment is considered No Show status due to <24hrs notice.
--- NOTE | 2023-05-11 15:48 | PT-OP ANOTE ---
DNS; called patient, she reports she forgot appt. Reminded her that she will be charged a no show fee.
--- NOTE | 2023-05-16 16:27 | PT.OTN ---
Current Diagnoses Difficulty in walking, not elsewhere classified (05/16/23) Other abnormalities of gait and mobility (05/16/23) Repeated falls (05/16/23) Other malaise (05/16/23) Physical Therapy Treatment Note PT-OP-A Visit Information Start: 04/20/23 17:58 Freq: Status: Active Protocol: Document 05/16/23 13:49 AB (Rec: 05/16/23 16:26 AB [id number]) Out-Patient Physical Therapy Visit Information Visit Information Visit Type Treatment Note Visit Note Access Code: [email or web address] Visit Start Time 15:18 Visit Stop Time 16:01 Visit Number 5 Number of INSTRUMENTATION AND CONTROLS DESIGNER Visits 1 Evaluation Information Evaluation Date 04/21/23 Precautions Precautions DM, peripheral neuropathy, hyperlipidemia, hypertension, anxiety and depression, blind in left eye (since 2 y/o) PT-OP-B Current Condition Start: 04/20/23 17:58 Freq: Status: Active Protocol: Document 05/05/23 13:44 SAK (Rec: 05/05/23 14:45 SAK [id number]) Current Condition History of Current Condition Onset Date 9 months Current Complaints falls History of Current Condition HIstory of falls; has fallen when stepping off curb, stubbing toe, fell on beach and doesn't know what happened . Gets dizzy at times when bends over. No giving way of legs. Denies N/T LE's. Reports hurting her right leg, and got a black eye once, has fallen all directions. Doesn 't use assistive device. Prior Treatments and Tests balance exercises in past but has stopped doing because I'm tired., not sure if helpful. Treatment Goals Patient/Caregiver Goals improve balance, decrease falls PT-OP-C Subjective Start: 04/20/23 17:58 Freq: Status: Active Protocol: Document 05/16/23 13:49 AB (Rec: 05/16/23 16:26 AB [id number]) OP-PT Subjective Patient Comments Patient Comments Patient reports she is the same since previous session. Patient reports MD suggested that she use a walker. * Patient into session with SPC. Patient reports she doesn't think she has had any falls since previous session. Patient reports she does the exercises once a day sometimes twice a day. PT-OP-D Balance Start: 04/20/23 17:58 Freq: Status: Active Protocol: Document 04/21/23 10:26 SAK (Rec: 04/21/23 11:43 [facility] [id number]) Balance Tests Briseno Balance Test Briseno Balance Test Score 35/56 PT-OP-E Functional Tests Start: 04/20/23 17:58 Freq: Status: Active Protocol: Document 04/21/23 10:26 SAK (Rec: 04/21/23 11:43 [facility] [id number]) Functional Tests Dynamic Gait Index (DGI) Score 02/18 PT-OP-G Mobility & Gait Start: 04/20/23 17:58 Freq: Status: Active Protocol: Document 04/21/23 10:26 SAK (Rec: 04/21/23 11:43 [facility] [id number]) OP Gait Assessment Gait Gait Assistance Required: Independent Assistive Devices Assistive Device None Gait Deviations General Gait Pattern Decreased Stride Length, Decreased Feet Clearance Factors Limiting Gait Function Factors Limiting Gait Function Poor Balance Stair Climbing Evaluation Evaluation Level of Assist On Stairs Standby Assistance Devices Stair Climbing Assistive Devices Left Railing,Right Railing Technique/Endurance Stair Climbing Technique Step Over Step Comments Stair Climbing Comments hesitates, slow PT-OP-H Neuro Start: 04/20/23 17:58 Freq: Status: Active Protocol: Document 04/21/23 10:26 SAK (Rec: 04/21/23 11:43 [facility] [id number]) Sensation Evaluation Gross Sensation Gross Sensation Left LE Impaired,Right LE Impaired Comments Summary Comments denies N/T but dec LT and proprio noted bob LE's Vital Signs Blood Pressure Sitting Blood Pressure (90/60-120/80 mmHg) 142/87 H Blood Pressure Source Manual Cuff,Left Upper Extremity PT-OP-K Range of Motion Start: 04/20/23 17:58 Freq: Status: Active Protocol: Document 04/21/23 10:26 SAK (Rec: 04/21/23 11:43 [facility] [id number]) Hip Goniometric Range of Motion Hip bob Hip ROM WFL Yes Knee Goniometric Range of Motion Knee bob Knee ROM WFL Yes Ankle and Foot Goniometric Range of Motion Ankle and Foot bob Ankle/Foot ROM WFL No Dorsiflexion with Knee Flexed 5 Dorsiflexion with Knee Extended 0 Plantarflexion 50 PT-OP-M Strength Start: 04/20/23 17:58 Freq: Status: Active Protocol: Document 04/21/23 10:26 SAK (Rec: 04/21/23 11:43 SAK [id number]) Hip Strength Hip Manual Muscle Testing bob Flexion (L2) 4 Good Extension (S1) 4 Good Abduction 4 Good Adduction 4 Good External Rotation 4- Good- Internal Rotation 4+ Good+ Knee Strength Knee Manual Muscle Testing bob Flexion (S2) 4+ Good+ Extension (L3) 4+ Good+ Ankle/Foot Strength Ankle and Foot Manual Muscle Testing bob Dorsiflexion (L4) 4 Good Plantarflexion (S1) 4 Good Inversion 4 Good Eversion (S1) 4 Good PT-OP-Q Treatments Start: 04/20/23 17:58 Freq: Status: Active Protocol: Document 05/16/23 13:49 AB (Rec: 05/16/23 16:26 AB [id number]) Gym Equipment Shuttle Balance stagger stance Details with visual scanning Reps/Duration 30 sec left fwd 30 sec right fwd Comments CGA Shuttle on 4's Details with visual scanning and head turns Reps/Duration 1 min Comments CGA chains red Details bal and weight shift fwd/bck, side Reps/Duration 10 Comments CGA Therapeutic Exercises Sitting Exercises seated hip abduction Side bilateral Resistance level one light blue band Reps/Minutes 2X10 Comments verbal cues Standing Exercises heel raise Side bilateral Reps/Minutes 3X10 Comments VC to lower heels to floor slowly for carryover to control fwd momentum Therapeutic Activity Therapeutic Activity sit to stand Reps/Minutes 5X3 Comments Patient ed self tactile cues for hip hinge, VC for knees just past 90 deg and to sit down slowly Neuro Re-Education Treatment Balance Activities step up taps Equipment 6 inch step Reps/Duration X10 each LE Comments CGA tandem stepping Surface floor Reps/Duration 10 feet X 6 Comments CGA Volleyball balloon toss Details CGA Surface floor then foam, then Romberg on foam Reps/Duration 3 min hurdles Details fwd Reps/Duration 10 feetX 6 Comments CGA to minimal assist Other Activities seated hip abduction with band Reps/Duration one minute X 1 Comments for glute med activation light blue band Self-Care/Home Management Treatment Education Other Education Patient ed importance of using assistive device given into session with SLS 1,3,1 second on left and right LE. Activities Self-Care/Home Management Activities sit to stand, seated hip abduction with band for strenth and activaion and bilateral heel raise to HEP PT-OP-T Assessment and Plan Start: 04/20/23 17:58 Freq: Status: Active Protocol: Document 05/16/23 13:49 AB (Rec: 05/16/23 16:26 AB [id number]) Physical Therapy Assessment Goals Four Impairment unsafe gait outdoors or on uneven surfaces Impairment no use of assistive device Short Term Goal (STG) instruct patient in safe use of cane STG Duration 05/22/23 Hyperbaric Nurse Goal (LTG) Patient to consistently and safely use cane outdoors and on uneven ground for gait safety LTG Duration 06/20/23 Three Impairment no current exercise program Impairment dec balance and LE strength especially ankles Short Term Goal (STG) Instruct patient in HEP for purposes of strengthening and balance STG Duration 05/22/23 Hyperbaric Nurse Goal (LTG) Patient to be independent and compliant with HEP and demonstrate at least 1/2 grade improvement in LE strength LTG Duration 06/20/23 Two Impairment fear of falling and history of falls Impairment Falls efficacy scale 33/64 Short Term Goal (STG) Improve falls efficacy scale to no greater than 23/64 as measure of patient's improved balance confidence STG Duration 05/22/23 Hyperbaric Nurse Goal (LTG) No falls over at least 1 month period and improve falls efficacy scale to no greater than 15/64 as measure of patient's improved balance confidence. LTG Duration 06/20/23 One Impairment balance impairment Impairment Briseno balance score: 35/56 Dynamic gait index 02/18: both indicating high fall risk Short Term Goal (STG) IMprove Briseno to at least 42/ 56 and DGI to at least 15/24 as measure of improved balance and safety STG Duration 05/22/23 Hyperbaric Nurse Goal (LTG) Improve Briseno to at least 48/56 and DGI to at least 20/24 as measure of improved balance and safety LTG Duration 06/20/23 Assessment Summary Assessment SLS, 3,1,1 left and right LE without UE use start of session 8 left 9 sec right end of session CGA with gait belt . Physical Therapy Plan Frequency and Duration Frequency of Treatment 2x/Week Duration of treatment (weeks) 8 Plan of Care Start Date 04/21/23 Plan of Care End Date 06/20/23 Next Visit Focus/Plan Next Note Type Treatment Note Next Visit Plan Possibly progress sit to stand to 3X10, continue with balloon Volleyball on foam.
--- NOTE | 2023-05-24 12:17 | PT.OTN ---
Current Diagnoses Difficulty in walking, not elsewhere classified (05/24/23) Other abnormalities of gait and mobility (05/24/23) Repeated falls (05/24/23) Other malaise (05/24/23) Physical Therapy Treatment Note PT-OP-A Visit Information Start: 04/20/23 17:58 Freq: Status: Active Protocol: Document 05/24/23 08:15 AB (Rec: 05/24/23 12:16 AB [id number]) Out-Patient Physical Therapy Visit Information Visit Information Visit Type Treatment Note Visit Note Access Code: [email or web address] Visit Start Time 11:16 Visit Stop Time 12:01 Visit Number 6 Number of DEPARTMENT COORDINATOR Visits 2 Evaluation Information Evaluation Date 04/21/23 Precautions Precautions DM, peripheral neuropathy, hyperlipidemia, hypertension, anxiety and depression, blind in left eye (since 2 y/o) PT-OP-B Current Condition Start: 04/20/23 17:58 Freq: Status: Active Protocol: Document 05/05/23 13:44 SAK (Rec: 05/05/23 14:45 SAK [id number]) Current Condition History of Current Condition Onset Date 9 months Current Complaints falls History of Current Condition HIstory of falls; has fallen when stepping off curb, stubbing toe, fell [place] and doesn't know what happened . Gets dizzy at times when bends over. No giving way of legs. Denies N/T LE's. Reports hurting her right leg, and got a black eye once, has fallen all directions. Doesn 't use assistive device. Prior Treatments and Tests balance exercises in past but has stopped doing because I'm tired., not sure if helpful. Treatment Goals Patient/Caregiver Goals improve balance, decrease falls PT-OP-C Subjective Start: 04/20/23 17:58 Freq: Status: Active Protocol: Document 05/24/23 08:15 AB (Rec: 05/24/23 12:16 AB [id number]) OP-PT Subjective Patient Comments Patient Comments Patient reports she is a little better, reports the exericses are going OK at home . R SLS 4,3,3 seconds left 4,4 , 3 sec without UE use PT-OP-D Balance Start: 04/20/23 17:58 Freq: Status: Active Protocol: Document 04/21/23 10:26 SAK (Rec: 04/21/23 11:43 SAK [id number]) Balance Tests Briseno Balance Test Briseno Balance Test Score 35/56 PT-OP-E Functional Tests Start: 04/20/23 17:58 Freq: Status: Active Protocol: Document 04/21/23 10:26 SAK (Rec: 04/21/23 11:43 [facility] [id number]) Functional Tests Dynamic Gait Index (DGI) Score 02/18 PT-OP-G Mobility & Gait Start: 04/20/23 17:58 Freq: Status: Active Protocol: Document 04/21/23 10:26 SAK (Rec: 04/21/23 11:43 [facility] [id number]) OP Gait Assessment Gait Gait Assistance Required: Independent Assistive Devices Assistive Device None Gait Deviations General Gait Pattern Decreased Stride Length, Decreased Feet Clearance Factors Limiting Gait Function Factors Limiting Gait Function Poor Balance Stair Climbing Evaluation Evaluation Level of Assist On Stairs Standby Assistance Devices Stair Climbing Assistive Devices Left Railing,Right Railing Technique/Endurance Stair Climbing Technique Step Over Step Comments Stair Climbing Comments hesitates, slow PT-OP-H Neuro Start: 04/20/23 17:58 Freq: Status: Active Protocol: Document 04/21/23 10:26 [facility] (Rec: 04/21/23 11:43 [facility] [id number]) Sensation Evaluation Gross Sensation Gross Sensation Left LE Impaired,Right LE Impaired Comments Summary Comments denies N/T but dec LT and proprio noted bob LE's Vital Signs Blood Pressure Sitting Blood Pressure (90/60-120/80 mmHg) 142/87 H Blood Pressure Source Manual Cuff,Left Upper Extremity PT-OP-K Range of Motion Start: 04/20/23 17:58 Freq: Status: Active Protocol: Document 04/21/23 10:26 [facility] (Rec: 04/21/23 11:43 [facility] [id number]) Hip Goniometric Range of Motion Hip bob Hip ROM WFL Yes Knee Goniometric Range of Motion Knee bob Knee ROM WFL Yes Ankle and Foot Goniometric Range of Motion Ankle and Foot bob Ankle/Foot ROM WFL No Dorsiflexion with Knee Flexed 5 Dorsiflexion with Knee Extended 0 Plantarflexion 50 PT-OP-M Strength Start: 04/20/23 17:58 Freq: Status: Active Protocol: Document 04/21/23 10:26 [facility] (Rec: 04/21/23 11:43 SAK [id number]) Hip Strength Hip Manual Muscle Testing bob Flexion (L2) 4 Good Extension (S1) 4 Good Abduction 4 Good Adduction 4 Good External Rotation 4- Good- Internal Rotation 4+ Good+ Knee Strength Knee Manual Muscle Testing bob Flexion (S2) 4+ Good+ Extension (L3) 4+ Good+ Ankle/Foot Strength Ankle and Foot Manual Muscle Testing bob Dorsiflexion (L4) 4 Good Plantarflexion (S1) 4 Good Inversion 4 Good Eversion (S1) 4 Good PT-OP-Q Treatments Start: 04/20/23 17:58 Freq: Status: Active Protocol: Document 05/24/23 08:15 AB (Rec: 05/24/23 12:16 AB [id number]) Gym Equipment Shuttle Balance stagger stance Details with visual scanning Comments CGA to minimal assist Shuttle on 4's Details and Romberg Reps/Duration 3 minutes Comments visual scanning, head turns, and eyes closed Therapeutic Exercises Sitting Exercises seated hip abduction Side bilateral Resistance level one light blue band Reps/Minutes 2X10 Comments verbal cues Standing Exercises heel raise Standing Exercise Name single leg HR Side bilateral Reps/Minutes 2X10 Comments Vc to lower heels to floor slowly Therapeutic Activity Therapeutic Activity sit to stand Reps/Minutes X10 X 2 from mesh chair Comments Review of self tactile cues for hip hinge and VC to sit down slowly Neuro Re-Education Treatment Balance Activities [place] Details with and without UE use Surface floor Reps/Duration 10 feet left and right X 2 Comments CGA marching in place Surface large blue cushion Reps/Duration X15 Comments CGA step up taps Equipment 6 inch step Reps/Duration X10 each LE Comments CGA tandem stepping Surface floor Reps/Duration 10 feet X 6 Comments CGA Volleyball balloon toss Details CGA Surface floor then foam, then Romberg on foam Reps/Duration 3 min hurdles Details fwd Reps/Duration 10 feetX 6 Comments CGA to minimal assist Self-Care/Home Management Treatment Activities Self-Care/Home Management Activities sit to stand increased to 2X10 , also progressed to Single leg HR for HEP PT-OP-T Assessment and Plan Start: 04/20/23 17:58 Freq: Status: Active Protocol: Document 05/24/23 08:15 AB (Rec: 05/24/23 12:16 AB [id number]) Physical Therapy Assessment Goals Four Impairment unsafe gait outdoors or on uneven surfaces Impairment no use of assistive device Short Term Goal (STG) instruct patient in safe use of cane STG Duration 05/22/23 Prison Goal (LTG) Patient to consistently and safely use cane outdoors and on uneven ground for gait safety LTG Duration 06/20/23 Three Impairment no current exercise program Impairment dec balance and LE strength especially ankles Short Term Goal (STG) Instruct patient in HEP for purposes of strengthening and balance STG Duration 05/22/23 Prison Goal (LTG) Patient to be independent and compliant with HEP and demonstrate at least 1/2 grade improvement in LE strength LTG Duration 06/20/23 Two Impairment fear of falling and history of falls Impairment Falls efficacy scale 33/64 Short Term Goal (STG) Improve falls efficacy scale to no greater than 23/64 as measure of patient's improved balance confidence STG Duration 05/22/23 Prison Goal (LTG) No falls over at least 1 month period and improve falls efficacy scale to no greater than 15/64 as measure of patient's improved balance confidence. LTG Duration 06/20/23 One Impairment balance impairment Impairment Briseno balance score: 35/56 Dynamic gait index 02/18: both indicating high fall risk Short Term Goal (STG) IMprove Briseno to at least 42/ 56 and DGI to at least 15/24 as measure of improved balance and safety STG Duration 05/22/23 Prison Goal (LTG) Improve Briseno to at least 48/56 and DGI to at least 20/24 as measure of improved balance and safety LTG Duration 06/20/23 Assessment Summary Assessment 6,5,7 sec left LE and 15+ seconds right LE end of session without UE use, able to progress to single leg heel raise and increased repetitions for sit to stand this session. Patient reports having no increased pain end ofs ession. Physical Therapy Plan Frequency and Duration Frequency of Treatment 2x/Week Duration of treatment (weeks) 8 Plan of Care Start Date 04/21/23 Plan of Care End Date 06/20/23 Next Visit Focus/Plan Next Note Type Treatment Note Next Visit Plan Possibly progress sit to stand to 3X10, continue with balloon Volleyball on foam. Increase to level 2 band.
--- NOTE | 2023-06-02 16:12 | PT.OTN ---
Current Diagnoses Difficulty in walking, not elsewhere classified (06/02/23) Other abnormalities of gait and mobility (06/02/23) Repeated falls (06/02/23) Other malaise (06/02/23) Physical Therapy Treatment Note PT-OP-A Visit Information Start: 04/20/23 17:58 Freq: Status: Active Protocol: Document 06/02/23 15:17 SAK (Rec: 06/02/23 16:12 SAK [id number]) Out-Patient Physical Therapy Visit Information Visit Information Visit Type Treatment Note Visit Start Time 15:17 Visit Stop Time 15:59 Visit Number 7 Number of MEDIUM CYCLE SALESPERSON Visits 0 Evaluation Information Evaluation Date 04/21/23 Precautions Precautions DM, peripheral neuropathy, hyperlipidemia, hypertension, anxiety and depression, blind in left eye (since 2 y/o) PT-OP-B Current Condition Start: 04/20/23 17:58 Freq: Status: Active Protocol: Document 05/05/23 13:44 SAK (Rec: 05/05/23 14:45 SAK [id number]) Current Condition History of Current Condition Onset Date 9 months Current Complaints falls History of Current Condition HIstory of falls; has fallen when stepping off curb, stubbing toe, fell on beach and doesn't know what happened . Gets dizzy at times when bends over. No giving way of legs. Denies N/T LE's. Reports hurting her right leg, and got a black eye once, has fallen all directions. Doesn 't use assistive device. Prior Treatments and Tests balance exercises in past but has stopped doing because I'm tired., not sure if helpful. Treatment Goals Patient/Caregiver Goals improve balance, decrease falls PT-OP-C Subjective Start: 04/20/23 17:58 Freq: Status: Active Protocol: Document 06/02/23 15:17 SAK (Rec: 06/02/23 16:12 SAK [id number]) OP-PT Subjective Patient Comments Patient Comments Reports feeling her balance is improving, doing her HEP. PT-OP-D Balance Start: 04/20/23 17:58 Freq: Status: Active Protocol: Document 04/21/23 10:26 SAK (Rec: 04/21/23 11:43 SAK [id number]) Balance Tests Briseno Balance Test Briseno Balance Test Score 35/56 PT-OP-E Functional Tests Start: 04/20/23 17:58 Freq: Status: Active Protocol: Document 04/21/23 10:26 SAK (Rec: 04/21/23 11:43 [facility] [id number]) Functional Tests Dynamic Gait Index (DGI) Score 02/18 PT-OP-G Mobility & Gait Start: 04/20/23 17:58 Freq: Status: Active Protocol: Document 04/21/23 10:26 [facility] (Rec: 04/21/23 11:43 [facility] [id number]) OP Gait Assessment Gait Gait Assistance Required: Independent Assistive Devices Assistive Device None Gait Deviations General Gait Pattern Decreased Stride Length, Decreased Feet Clearance Factors Limiting Gait Function Factors Limiting Gait Function Poor Balance Stair Climbing Evaluation Evaluation Level of Assist On Stairs Standby Assistance Devices Stair Climbing Assistive Devices Left Railing,Right Railing Technique/Endurance Stair Climbing Technique Step Over Step Comments Stair Climbing Comments hesitates, slow PT-OP-H Neuro Start: 04/20/23 17:58 Freq: Status: Active Protocol: Document 04/21/23 10:26 [facility] (Rec: 04/21/23 11:43 [facility] [id number]) Sensation Evaluation Gross Sensation Gross Sensation Left LE Impaired,Right LE Impaired Comments Summary Comments denies N/T but dec LT and proprio noted bob LE's Vital Signs Blood Pressure Sitting Blood Pressure (90/60-120/80 mmHg) 142/87 H Blood Pressure Source Manual Cuff,Left Upper Extremity PT-OP-K Range of Motion Start: 04/20/23 17:58 Freq: Status: Active Protocol: Document 04/21/23 10:26 [facility] (Rec: 04/21/23 11:43 [facility] [id number]) Hip Goniometric Range of Motion Hip bob Hip ROM WFL Yes Knee Goniometric Range of Motion Knee bob Knee ROM WFL Yes Ankle and Foot Goniometric Range of Motion Ankle and Foot bob Ankle/Foot ROM WFL No Dorsiflexion with Knee Flexed 5 Dorsiflexion with Knee Extended 0 Plantarflexion 50 PT-OP-M Strength Start: 04/20/23 17:58 Freq: Status: Active Protocol: Document 04/21/23 10:26 SAK (Rec: 04/21/23 11:43 [facility] [id number]) Hip Strength Hip Manual Muscle Testing bob Flexion (L2) 4 Good Extension (S1) 4 Good Abduction 4 Good Adduction 4 Good External Rotation 4- Good- Internal Rotation 4+ Good+ Knee Strength Knee Manual Muscle Testing bob Flexion (S2) 4+ Good+ Extension (L3) 4+ Good+ Ankle/Foot Strength Ankle and Foot Manual Muscle Testing bob Dorsiflexion (L4) 4 Good Plantarflexion (S1) 4 Good Inversion 4 Good Eversion (S1) 4 Good PT-OP-Q Treatments Start: 04/20/23 17:58 Freq: Status: Active Protocol: Document 06/02/23 15:17 [facility] (Rec: 06/02/23 16:12 [facility] [id number]) Gym Equipment Shuttle Balance chains red Details bal and weight shift fwd/bck, side, stagger stance Reps/Duration 10 Comments CGA Therapeutic Exercises Sitting Exercises seated hip abduction Sitting Exercise Name HEP Standing Exercises chair squats Equipment Used chair Reps/Minutes 10x2 Comments CGA heel raise Standing Exercise Name bob and single Side bilateral Reps/Minutes 2X10 Comments Vc to lower heels to floor slowly Neuro Re-Education Treatment Balance Activities SLS Surface floor, black foam Equipment parallel bars Reps/Duration 2x floor, 5x foam [place] Details with and without UE use Surface floor Reps/Duration 10 feet left and right X 2 Comments CGA marching in place Surface large blue cushion Reps/Duration X15 Comments CGA step up taps Equipment 6 inch step Reps/Duration X10 each LE Comments CGA tandem stepping Surface floor Reps/Duration 10 feet X 6 Comments CGA Volleyball balloon toss Details CGA Surface large blue foam WBOS, NBOS Reps/Duration 5 min PT-OP-T Assessment and Plan Start: 04/20/23 17:58 Freq: Status: Active Protocol: Document 06/02/23 15:17 [facility] (Rec: 06/02/23 16:12 [facility] [id number]) Physical Therapy Assessment Goals Four Impairment unsafe gait outdoors or on uneven surfaces Impairment no use of assistive device Short Term Goal (STG) instruct patient in safe use of cane 06/02/23: goal met STG Duration goal met Senior Living Goal (LTG) Patient to consistently and safely use cane outdoors and on uneven ground for gait safety LTG Duration 06/20/23 Three Impairment no current exercise program Impairment dec balance and LE strength especially ankles Short Term Goal (STG) Instruct patient in HEP for purposes of strengthening and balance 06/02/23: goal met, continued progression STG Duration goal met Senior Living Goal (LTG) Patient to be independent and compliant with HEP and demonstrate at least 1/2 grade improvement in LE strength LTG Duration 06/20/23 Two Impairment fear of falling and history of falls Impairment Falls efficacy scale 33/64 Short Term Goal (STG) Improve falls efficacy scale to no greater than 23/64 as measure of patient's improved balance confidence 06/02/23: goal progress STG Duration 06/06/23 Senior Living Goal (LTG) No falls over at least 1 month period and improve falls efficacy scale to no greater than 15/64 as measure of patient's improved balance confidence. LTG Duration 06/20/23 One Impairment balance impairment Impairment Briseno balance score: 35/56 Dynamic gait index 02/18: both indicating high fall risk Short Term Goal (STG) IMprove Briseno to at least 42/ 56 and DGI to at least 15/24 as measure of improved balance and safety 06/02/23: goal progress STG Duration 05/22/23 Senior Living Goal (LTG) Improve Briseno to at least 48/56 and DGI to at least 20/24 as measure of improved balance and safety LTG Duration 06/20/23 Progress Towards Goals Progress Towards Goals Progressing Toward Goals Assessment Summary Assessment Noting improved functional balance, able to progress to staggered stance on shuttle balance with chains red, added 2# weights to ankles with step touches. Compliant to HEP. No recent falls. Denied pain. Physical Therapy Plan Frequency and Duration Frequency of Treatment 2x/Week Duration of treatment (weeks) 8 Plan of Care Start Date 04/21/23 Plan of Care End Date 06/20/23 Next Visit Focus/Plan Next Note Type Treatment Note Next Visit Plan Continue progression of ther ex as tolerated for balance and LE strengthening. Briseno balance test. Obstacle course .
--- NOTE | 2023-06-07 14:12 | PT.OTN ---
Current Diagnoses Difficulty in walking, not elsewhere classified (06/07/23) Other abnormalities of gait and mobility (06/07/23) Repeated falls (06/07/23) Other malaise (06/07/23) Physical Therapy Treatment Note PT-OP-A Visit Information Start: 04/20/23 17:58 Freq: Status: Active Protocol: Document 06/07/23 10:46 AB (Rec: 06/07/23 14:11 AB [id number]) Out-Patient Physical Therapy Visit Information Visit Information Visit Type Treatment Note Visit Note Access Code: [email or web address] Visit Start Time 13:09 Visit Stop Time 13:53 Visit Number 8 Number of MANAGER ENTERPRISE Visits 1 Evaluation Information Evaluation Date 04/21/23 Precautions Precautions DM, peripheral neuropathy, hyperlipidemia, hypertension, anxiety and depression, blind in left eye (since 2 y/o) PT-OP-B Current Condition Start: 04/20/23 17:58 Freq: Status: Active Protocol: Document 05/05/23 13:44 SAK (Rec: 05/05/23 14:45 SAK [id number]) Current Condition History of Current Condition Onset Date 9 months Current Complaints falls History of Current Condition HIstory of falls; has fallen when stepping off curb, stubbing toe, [place] and doesn't know what happened . Gets dizzy at times when bends over. No giving way of legs. Denies N/T LE's. Reports hurting her right leg, and got a black eye once, has fallen all directions. Doesn 't use assistive device. Prior Treatments and Tests balance exercises in past but has stopped doing because I'm tired., not sure if helpful. Treatment Goals Patient/Caregiver Goals improve balance, decrease falls PT-OP-C Subjective Start: 04/20/23 17:58 Freq: Status: Active Protocol: Document 06/07/23 10:46 AB (Rec: 06/07/23 14:11 AB [id number]) OP-PT Subjective Patient Comments Patient Comments Patient reports she has not had any falls since previous session. Patient reports balance is a little better. PT-OP-D Balance Start: 04/20/23 17:58 Freq: Status: Active Protocol: Document 06/07/23 10:46 AB (Rec: 06/07/23 14:11 AB [id number]) Briseno Balance Assessment Total Score Briseno Impairment Rating 1 to 19% Impaired (Score 45-55 ) PT-OP-E Functional Tests Start: 04/20/23 17:58 Freq: Status: Active Protocol: Document 04/21/23 10:26 SAK (Rec: 04/21/23 11:43 [facility] [id number]) Functional Tests Dynamic Gait Index (DGI) Score 02/18 PT-OP-G Mobility & Gait Start: 04/20/23 17:58 Freq: Status: Active Protocol: Document 04/21/23 10:26 [facility] (Rec: 04/21/23 11:43 [facility] [id number]) OP Gait Assessment Gait Gait Assistance Required: Independent Assistive Devices Assistive Device None Gait Deviations General Gait Pattern Decreased Stride Length, Decreased Feet Clearance Factors Limiting Gait Function Factors Limiting Gait Function Poor Balance Stair Climbing Evaluation Evaluation Level of Assist On Stairs Standby Assistance Devices Stair Climbing Assistive Devices Left Railing,Right Railing Technique/Endurance Stair Climbing Technique Step Over Step Comments Stair Climbing Comments hesitates, slow PT-OP-H Neuro Start: 04/20/23 17:58 Freq: Status: Active Protocol: Document 04/21/23 10:26 [facility] (Rec: 04/21/23 11:43 [facility] [id number]) Sensation Evaluation Gross Sensation Gross Sensation Left LE Impaired,Right LE Impaired Comments Summary Comments denies N/T but dec LT and proprio noted bob LE's Vital Signs Blood Pressure Sitting Blood Pressure (90/60-120/80 mmHg) 142/87 H Blood Pressure Source Manual Cuff,Left Upper Extremity PT-OP-K Range of Motion Start: 04/20/23 17:58 Freq: Status: Active Protocol: Document 04/21/23 10:26 [facility] (Rec: 04/21/23 11:43 [facility] [id number]) Hip Goniometric Range of Motion Hip bob Hip ROM WFL Yes Knee Goniometric Range of Motion Knee bob Knee ROM WFL Yes Ankle and Foot Goniometric Range of Motion Ankle and Foot bob Ankle/Foot ROM WFL No Dorsiflexion with Knee Flexed 5 Dorsiflexion with Knee Extended 0 Plantarflexion 50 PT-OP-M Strength Start: 04/20/23 17:58 Freq: Status: Active Protocol: Document 04/21/23 10:26 JOANN (Rec: 04/21/23 11:43 [facility] [id number]) Hip Strength Hip Manual Muscle Testing bob Flexion (L2) 4 Good Extension (S1) 4 Good Abduction 4 Good Adduction 4 Good External Rotation 4- Good- Internal Rotation 4+ Good+ Knee Strength Knee Manual Muscle Testing bob Flexion (S2) 4+ Good+ Extension (L3) 4+ Good+ Ankle/Foot Strength Ankle and Foot Manual Muscle Testing bob Dorsiflexion (L4) 4 Good Plantarflexion (S1) 4 Good Inversion 4 Good Eversion (S1) 4 Good PT-OP-Q Treatments Start: 04/20/23 17:58 Freq: Status: Active Protocol: Document 06/07/23 10:46 AB (Rec: 06/07/23 14:11 AB [id number]) Gym Equipment Shuttle Balance stagger stance Details with eyes open Comments CGA to minimal assist. Red Shuttle on 4's Details feet on 4's mini squats Reps/Duration 2X5 Comments CGA to minimal assist Red Therapeutic Exercises Sitting Exercises seated hip abduction Side bilateral Resistance level one light blue band Reps/Minutes 2X10 Comments verbal cues Standing Exercises heel raise Standing Exercise Name on step with UE support Side bilateral Reps/Minutes 2X10 Comments Vc to lower heels to floor slowly Neuro Re-Education Treatment Balance Activities marching in place Surface large blue cushion Reps/Duration X15 Comments CGA tandem stepping Surface floor Reps/Duration 10 feet X 6 Comments CGA obstacle course Surface hurdles, step over box, mat with balls under, cone slalom, cone pharmacy picking tech Reps/Duration 6 min Comments CG to min assist for balance. (varying heights for cones tandem stand Reps/Duration with eyes closed Comments CGA to mod assist Other Activities seated hip abduction with band Reps/Duration one minute X 1 Comments for glute med activation light blue band PT-OP-T Assessment and Plan Start: 04/20/23 17:58 Freq: Status: Active Protocol: Document 06/07/23 10:46 AB (Rec: 06/07/23 14:11 AB [id number]) Physical Therapy Assessment Goals Four Impairment unsafe gait outdoors or on uneven surfaces Impairment no use of assistive device Short Term Goal (STG) instruct patient in safe use of cane 06/02/23: goal met STG Duration goal met Skilled Nursing Goal (LTG) Patient to consistently and safely use cane outdoors and on uneven ground for gait safety LTG Duration 06/20/23 Three Impairment no current exercise program Impairment dec balance and LE strength especially ankles Short Term Goal (STG) Instruct patient in HEP for purposes of strengthening and balance 06/02/23: goal met, continued progression STG Duration goal met Skilled Nursing Goal (LTG) Patient to be independent and compliant with HEP and demonstrate at least 1/2 grade improvement in LE strength LTG Duration 06/20/23 Two Impairment fear of falling and history of falls Impairment Falls efficacy scale 33/64 Short Term Goal (STG) Improve falls efficacy scale to no greater than 23/64 as measure of patient's improved balance confidence 06/02/23: goal progress STG Duration 06/06/23 Language Arts Teacher Goal (LTG) No falls over at least 1 month period and improve falls efficacy scale to no greater than 15/64 as measure of patient's improved balance confidence. LTG Duration 06/20/23 One Impairment balance impairment Impairment Briseno balance score: 35/56 Dynamic gait index 02/18: both indicating high fall risk Short Term Goal (STG) IMprove Briseno to at least 42/ 56 and DGI to at least 15/24 as measure of improved balance and safety 06/02/23: goal progress 06/07/23 Briseno 45/56 this session. STG Duration 05/22/23 Language Arts Teacher Goal (LTG) Improve Briseno to at least 48/56 and DGI to at least 20/24 as measure of improved balance and safety LTG Duration 06/20/23 Assessment Summary Assessment Improved Briseno balance scale test this session compared to evaluation date. Tandem stance and stepping continues to be difficult. Physical Therapy Plan Frequency and Duration Frequency of Treatment 2x/Week Duration of treatment (weeks) 8 Plan of Care Start Date 04/21/23 Plan of Care End Date 06/20/23 Next Visit Focus/Plan Next Note Type Treatment Note Next Visit Plan Continue progression of ther ex as tolerated for balance and LE strengthening. Briseno balance test (completed ). Possibly DGI next session . Obstacle course.
--- NOTE | 2023-06-13 12:13 | PT.OTN ---
Current Diagnoses Difficulty in walking, not elsewhere classified (06/13/23) Other abnormalities of gait and mobility (06/13/23) Repeated falls (06/13/23) Other malaise (06/13/23) Physical Therapy Treatment Note PT-OP-A Visit Information Start: 04/20/23 17:58 Freq: Status: Active Protocol: Document 06/13/23 11:19 SAK (Rec: 06/13/23 12:11 SAK [id number]) Out-Patient Physical Therapy Visit Information Visit Information Visit Type Treatment Note Visit Start Time 11:15 Visit Stop Time 11:55 Visit Number 9 Evaluation Information Evaluation Date 04/21/23 Precautions Precautions DM, peripheral neuropathy, hyperlipidemia, hypertension, anxiety and depression, blind in left eye (since 2 y/o) PT-OP-B Current Condition Start: 04/20/23 17:58 Freq: Status: Active Protocol: Document 06/13/23 11:19 SAK (Rec: 06/13/23 12:11 SAK [id number]) Current Condition History of Current Condition Onset Date 9 months Current Complaints falls History of Current Condition HIstory of falls; has fallen when stepping off curb, stubbing toe, fell on beach and doesn't know what happened . Gets dizzy at times when bends over. No giving way of legs. Denies N/T LE's. Reports hurting her right leg, and got a black eye once, has fallen all directions. Doesn 't use assistive device. Prior Treatments and Tests balance exercises in past but has stopped doing because I'm tired., not sure if helpful. PT-OP-C Subjective Start: 04/20/23 17:58 Freq: Status: Active Protocol: Document 06/13/23 11:19 SAK (Rec: 06/13/23 12:11 SAK [id number]) OP-PT Subjective Patient Comments Patient Comments Harder time doing HEP this week, reports tired, legs feel tired. PT-OP-D Balance Start: 04/20/23 17:58 Freq: Status: Active Protocol: Document 06/07/23 10:46 AB (Rec: 06/07/23 14:11 AB [id number]) Briseno Balance Assessment Total Score Briseno Impairment Rating 1 to 19% Impaired (Score 45-55 ) PT-OP-E Functional Tests Start: 04/20/23 17:58 Freq: Status: Active Protocol: Document 04/21/23 10:26 [facility] (Rec: 04/21/23 11:43 [facility] [id number]) Functional Tests Dynamic Gait Index (DGI) Score 02/18 PT-OP-G Mobility & Gait Start: 04/20/23 17:58 Freq: Status: Active Protocol: Document 04/21/23 10:26 [facility] (Rec: 04/21/23 11:43 [facility] [id number]) OP Gait Assessment Gait Gait Assistance Required: Independent Assistive Devices Assistive Device None Gait Deviations General Gait Pattern Decreased Stride Length, Decreased Feet Clearance Factors Limiting Gait Function Factors Limiting Gait Function Poor Balance Stair Climbing Evaluation Evaluation Level of Assist On Stairs Standby Assistance Devices Stair Climbing Assistive Devices Left Railing,Right Railing Technique/Endurance Stair Climbing Technique Step Over Step Comments Stair Climbing Comments hesitates, slow PT-OP-H Neuro Start: 04/20/23 17:58 Freq: Status: Active Protocol: Document 04/21/23 10:26 [facility] (Rec: 04/21/23 11:43 [facility] [id number]) Sensation Evaluation Gross Sensation Gross Sensation Left LE Impaired,Right LE Impaired Comments Summary Comments denies N/T but dec LT and proprio noted bob LE's Vital Signs Blood Pressure Sitting Blood Pressure (90/60-120/80 mmHg) 142/87 H Blood Pressure Source Manual Cuff,Left Upper Extremity PT-OP-K Range of Motion Start: 04/20/23 17:58 Freq: Status: Active Protocol: Document 04/21/23 10:26 [facility] (Rec: 04/21/23 11:43 [facility] [id number]) Hip Goniometric Range of Motion Hip bob Hip ROM WFL Yes Knee Goniometric Range of Motion Knee bob Knee ROM WFL Yes Ankle and Foot Goniometric Range of Motion Ankle and Foot bob Ankle/Foot ROM WFL No Dorsiflexion with Knee Flexed 5 Dorsiflexion with Knee Extended 0 Plantarflexion 50 PT-OP-M Strength Start: 04/20/23 17:58 Freq: Status: Active Protocol: Document 04/21/23 10:26 SAK (Rec: 04/21/23 11:43 [facility] [id number]) Hip Strength Hip Manual Muscle Testing bob Flexion (L2) 4 Good Extension (S1) 4 Good Abduction 4 Good Adduction 4 Good External Rotation 4- Good- Internal Rotation 4+ Good+ Knee Strength Knee Manual Muscle Testing bob Flexion (S2) 4+ Good+ Extension (L3) 4+ Good+ Ankle/Foot Strength Ankle and Foot Manual Muscle Testing bob Dorsiflexion (L4) 4 Good Plantarflexion (S1) 4 Good Inversion 4 Good Eversion (S1) 4 Good PT-OP-Q Treatments Start: 04/20/23 17:58 Freq: Status: Active Protocol: Document 06/13/23 11:19 [facility] (Rec: 06/13/23 12:11 [facility] [id number]) Cardio Equipment Recumbent Stepper (Sci-Fit) Duration (Minutes) 10 Resistance 2 Seat Position 9 Other cues for RPM >40 Gym Equipment Shuttle Balance stagger stance Comments not feeling up to it today Shuttle on 4's Comments not feeling up to it today. chains red Details bal and weight shift fwd/bck, side, stagger stance Reps/Duration 10 Comments CGA Therapeutic Exercises Standing Exercises hip ab Standing Exercise Name next session chair squats Equipment Used chair Reps/Minutes 10x2 Comments CGA heel raise Standing Exercise Name on step with UE support Side bilateral Reps/Minutes 2X10 Comments Vc to lower heels to floor slowly Therapeutic Activity Therapeutic Activity DGI Comments Neuro Re-Education Treatment Balance Activities marching in place Surface large blue cushion Reps/Duration X15 Comments CGA step up taps Equipment 6 inch step Reps/Duration X10 each LE Comments CGA tandem stepping Surface floor Reps/Duration 10 feet X 6 Comments CGA, LOB x 1 requing mod assist obstacle course Surface hurdles, step over box, mat with balls under, cone slalom, cone pharmacy picking tech Reps/Duration 6 min Comments CG to min assist for balance. (varying heights for cones tandem stand Reps/Duration with eyes closed Comments CGA to mod assist PT-OP-T Assessment and Plan Start: 04/20/23 17:58 Freq: Status: Active Protocol: Document 06/13/23 11:19 [facility] (Rec: 06/13/23 12:11 [facility] [id number]) Physical Therapy Assessment Goals Four Impairment unsafe gait outdoors or on uneven surfaces Impairment no use of assistive device Short Term Goal (STG) instruct patient in safe use of cane 06/02/23: goal met STG Duration goal met Embossing Clerk Goal (LTG) Patient to consistently and safely use cane outdoors and on uneven ground for gait safety LTG Duration 06/20/23 Three Impairment no current exercise program Impairment dec balance and LE strength especially ankles Short Term Goal (STG) Instruct patient in HEP for purposes of strengthening and balance 06/02/23: goal met, continued progression STG Duration goal met Embossing Clerk Goal (LTG) Patient to be independent and compliant with HEP and demonstrate at least 1/2 grade improvement in LE strength LTG Duration 06/20/23 Two Impairment fear of falling and history of falls Impairment Falls efficacy scale 33/64 Short Term Goal (STG) Improve falls efficacy scale to no greater than 23/64 as measure of patient's improved balance confidence 06/02/23: goal progress STG Duration 06/06/23 Group Home Goal (LTG) No falls over at least 1 month period and improve falls efficacy scale to no greater than 15/64 as measure of patient's improved balance confidence. LTG Duration 06/20/23 One Impairment balance impairment Impairment Briseno balance score: 35/56 Dynamic gait index 02/18: both indicating high fall risk Short Term Goal (STG) IMprove Briseno to at least 42/ 56 and DGI to at least 15/24 as measure of improved balance and safety 06/02/23: goal progress 06/07/23 Briseno 45/56 this session. STG Duration 05/22/23 Embossing Clerk Goal (LTG) Improve Briseno to at least 48/56 and DGI to at least 20/24 as measure of improved balance and safety LTG Duration 06/20/23 Assessment Summary Assessment DGI: BP 146/83. Patient c/o feeling fatigue, legs feeling tired, decreased balance today with inc need for physical assistance or use of parallel bars Hasn't done HEP past week due to feeling tired. Physical Therapy Plan Frequency and Duration Frequency of Treatment 2x/Week Duration of treatment (weeks) 8 Plan of Care Start Date 04/21/23 Plan of Care End Date 06/20/23 Therapeutic Interventions Therapeutic Interventions Balance Training,Gait Training ,Home Exercise Program, Neuromuscular Re-education, Patient/Caregiver Education, Self-Care/Home Management, Therapeutic Activities, Therapeutic Exercises Next Visit Focus/Plan Next Note Type Re-Evaluation Next Visit Plan Discuss POC, consider scheduling further visits to continue to work on high level balance and sfaety.
--- NOTE | 2023-06-13 16:00 | PT.OTRE ---
Current Diagnoses Difficulty in walking, not elsewhere classified (06/13/23) Other abnormalities of gait and mobility (06/13/23) Repeated falls (06/13/23) Other malaise (06/13/23) Past Medical History (Last Updated 06/09/23 @ 14:20 by Anish Pham DO) Anxiety (Unknown) Balance problem Blindness (1950) Breast CA (1998) Breast cancer metastasized to lung Chickenpox (1955) Chronic back pain (1998) CKD (chronic kidney disease) (Unknown) Depression (1965) Diabetes (Unknown) Diabetes insipidus (1999) Dry cough Elevated BUN Fall Frequent falls GERD (gastroesophageal reflux disease) (Unknown) GI bleed (2016) Hearing loss (2013) History of head injury Hx of drug overdose (Unknown) Hyperlipemia (Unknown) Hypertension (Unknown) Insomnia Invasive ductal carcinoma of breast Itching Low HDL (under 40) Lower extremity edema Lung mass Masses of both breasts Measles (1948) Medication adverse effect Memory loss Mild cognitive impairment with memory loss Mumps (194) Obstructive sleep apnea (Unknown) Physical deconditioning Primary osteoarthritis, left shoulder Tension headache Traumatic ecchymosis of face Type 2 diabetes with nephropathy Urinary incontinence (2009) Surgical History (Last Reviewed 09/13/22 @ 07:50 by Lev John MD) History of bladder suspension procedure History of hernia repair History of total abdominal hysterectomy (1998) S/P breast lumpectomy (~1999) Visit Care Team Role Provider Type Anish Pham DO Attending Provider Physician Family Provider Primary Care Provider Referring Provider Specialty: Family Practice Address: [address] [place] [address], [facility] Email: Physical Therapy Re-Evaluation PT-OP-A Visit Information Start: 04/20/23 17:58 Freq: Status: Active Protocol: Document 06/13/23 11:19 JOANN (Rec: 06/13/23 12:11 JOANN [id number]) Out-Patient Physical Therapy Visit Information Visit Information Visit Type Treatment Note Visit Start Time 11:15 Visit Stop Time 11:55 Visit Number 9 Evaluation Information Evaluation Date 04/21/23 Precautions Precautions DM, peripheral neuropathy, hyperlipidemia, hypertension, anxiety and depression, blind in left eye (since 2 y/o) PT-OP-B Current Condition Start: 04/20/23 17:58 Freq: Status: Active Protocol: Document 06/13/23 11:19 SAK (Rec: 06/13/23 12:11 SAK [id number]) Current Condition History of Current Condition Onset Date 9 months Current Complaints falls History of Current Condition HIstory of falls; has fallen when stepping off curb, stubbing toe, fell [place] and doesn't know what happened . Gets dizzy at times when bends over. No giving way of legs. Denies N/T LE's. Reports hurting her right leg, and got a black eye once, has fallen all directions. Doesn 't use assistive device. Prior Treatments and Tests balance exercises in past but has stopped doing because I'm tired., not sure if helpful. PT-OP-C Subjective Start: 04/20/23 17:58 Freq: Status: Active Protocol: Document 06/13/23 11:19 SAK (Rec: 06/13/23 12:11 SAK [id number]) OP-PT Subjective Patient Comments Patient Comments Harder time doing HEP this week, reports tired, legs feel tired. PT-OP-D Balance Start: 04/20/23 17:58 Freq: Status: Active Protocol: Document 06/07/23 10:46 AB (Rec: 06/07/23 14:11 AB [id number]) Briseno Balance Assessment Total Score Briseno Impairment Rating 1 to 19% Impaired (Score 45-55 ) PT-OP-E Functional Tests Start: 04/20/23 17:58 Freq: Status: Active Protocol: Document 04/21/23 10:26 SAK (Rec: 04/21/23 11:43 SAK [id number]) Functional Tests Dynamic Gait Index (DGI) Score 02/18 PT-OP-G Mobility & Gait Start: 04/20/23 17:58 Freq: Status: Active Protocol: Document 04/21/23 10:26 SAK (Rec: 04/21/23 11:43 SAK [id number]) OP Gait Assessment Gait Gait Assistance Required: Independent Assistive Devices Assistive Device None Gait Deviations General Gait Pattern Decreased Stride Length, Decreased Feet Clearance Factors Limiting Gait Function Factors Limiting Gait Function Poor Balance Stair Climbing Evaluation Evaluation Level of Assist On Stairs Standby Assistance Devices Stair Climbing Assistive Devices Left Railing,Right Railing Technique/Endurance Stair Climbing Technique Step Over Step Comments Stair Climbing Comments hesitates, slow PT-OP-H Neuro Start: 04/20/23 17:58 Freq: Status: Active Protocol: Document 04/21/23 10:26 [facility] (Rec: 04/21/23 11:43 [facility] [id number]) Sensation Evaluation Gross Sensation Gross Sensation Left LE Impaired,Right LE Impaired Comments Summary Comments denies N/T but dec LT and proprio noted bob LE's Vital Signs Blood Pressure Sitting Blood Pressure (90/60-120/80 mmHg) 142/87 H Blood Pressure Source Manual Cuff,Left Upper Extremity PT-OP-K Range of Motion Start: 04/20/23 17:58 Freq: Status: Active Protocol: Document 04/21/23 10:26 [facility] (Rec: 04/21/23 11:43 [facility] [id number]) Hip Goniometric Range of Motion Hip Measured in Degrees bob Hip ROM WFL Yes Knee Goniometric Range of Motion Knee Measured in Degrees bob Knee ROM WFL Yes Ankle and Foot Goniometric Range of Motion Ankle and Foot Measured in Degrees bob Ankle/Foot ROM WFL No Dorsiflexion with Knee Flexed 5 Dorsiflexion with Knee Extended 0 Plantarflexion 50 PT-OP-M Strength Start: 04/20/23 17:58 Freq: Status: Active Protocol: Document 04/21/23 10:26 [facility] (Rec: 04/21/23 11:43 [facility] [id number]) Hip Strength Hip Manual Muscle Testing bob Flexion (L2) 4 Good Extension (S1) 4 Good Abduction 4 Good Adduction 4 Good External Rotation 4- Good- Internal Rotation 4+ Good+ Knee Strength Knee Manual Muscle Testing bob Flexion (S2) 4+ Good+ Extension (L3) 4+ Good+ Ankle/Foot Strength Ankle and Foot Manual Muscle Testing bob Dorsiflexion (L4) 4 Good Plantarflexion (S1) 4 Good Inversion 4 Good Eversion (S1) 4 Good PT-OP-Q Treatments Start: 04/20/23 17:58 Freq: Status: Active Protocol: Document 06/13/23 11:19 [facility] (Rec: 06/13/23 12:11 [facility] [id number]) Cardio Equipment Recumbent Stepper (Sci-Fit) Duration (Minutes) 10 Resistance 2 Seat Position 9 Other cues for RPM >40 Gym Equipment Shuttle Balance stagger stance Comments not feeling up to it today Shuttle on 4's Comments not feeling up to it today. chains red Details bal and weight shift fwd/bck, side, stagger stance Reps/Duration 10 Comments CGA Therapeutic Exercises Standing Exercises hip ab Standing Exercise Name next session chair squats Equipment Used chair Reps/Minutes 10x2 Comments CGA heel raise Standing Exercise Name on step with UE support Side bilateral Reps/Minutes 2X10 Comments Vc to lower heels to floor slowly Therapeutic Activity Therapeutic Activity DGI Comments Neuro Re-Education Treatment Balance Activities marching in place Surface large blue cushion Reps/Duration X15 Comments CGA step up taps Equipment 6 inch step Reps/Duration X10 each LE Comments CGA tandem stepping Surface floor Reps/Duration 10 feet X 6 Comments CGA, LOB x 1 requing mod assist obstacle course Surface hurdles, step over box, mat with balls under, cone slalom, cone flower buncher or picker Reps/Duration 6 min Comments CG to min assist for balance. (varying heights for cones tandem stand Reps/Duration with eyes closed Comments CGA to mod assist PT-OP-T Assessment and Plan Start: 04/20/23 17:58 Freq: Status: Active Protocol: Document 06/13/23 11:19 [facility] (Rec: 06/13/23 12:11 [facility] [id number]) Physical Therapy Assessment Goals Four Impairment unsafe gait outdoors or on uneven surfaces Impairment no use of assistive device Short Term Goal (STG) instruct patient in safe use of cane 06/02/23: goal met STG Duration goal met Reading Teacher Goal (LTG) Patient to consistently and safely use cane outdoors and on uneven ground for gait safety LTG Duration 07/31/23 Three Impairment no current exercise program Impairment dec balance and LE strength especially ankles Short Term Goal (STG) Instruct patient in HEP for purposes of strengthening and balance 06/02/23: goal met, continued progression STG Duration goal met Reading Teacher Goal (LTG) Patient to be independent and compliant with HEP and demonstrate at least 1/2 grade improvement in LE strength LTG Duration 07/31/23 Two Impairment fear of falling and history of falls Impairment Falls efficacy scale 33/64 Short Term Goal (STG) Improve falls efficacy scale to no greater than 23/64 as measure of patient's improved balance confidence 06/02/23: goal progress STG Duration 07/10/23 Reading Teacher Goal (LTG) No falls over at least 1 month period and improve falls efficacy scale to no greater than 15/64 as measure of patient's improved balance confidence. LTG Duration 07/31/23 One Impairment balance impairment Impairment Briseno balance score: 35/56 Dynamic gait index 02/18: both indicating high fall risk Short Term Goal (STG) IMprove Briseno to at least 42/ 56 and DGI to at least 15/24 as measure of improved balance and safety 06/02/23: goal progress 06/07/23 Briseno 45/56 this session. STG Duration 07/10/23 Reading Teacher Goal (LTG) Improve Briseno to at least 48/56 and DGI to at least 20/24 as measure of improved balance and safety LTG Duration 07/31/23 Assessment Summary Assessment DGI: BP 146/83. Patient c/o feeling fatigue, legs feeling tired, decreased balance today with inc need for physical assistance or use of parallel bars Hasn't done HEP past week due to feeling tired. Had previously been noting improved functional balance and strength but patient having difficult day with increased fatigue and more challenges with balance today. Feel she would benefit from continued PT to help her fully meet her PT goals. Physical Therapy Plan Frequency and Duration Frequency of Treatment 2x/Week Duration of treatment (weeks) 6 Plan of Care Start Date 06/13/23 Plan of Care End Date 07/31/23 Therapeutic Interventions Therapeutic Interventions Balance Training,Gait Training ,Home Exercise Program, Neuromuscular Re-education, Patient/Caregiver Education, Self-Care/Home Management, Therapeutic Activities, Therapeutic Exercises Next Visit Focus/Plan Next Note Type Treatment Note Next Visit Plan Discuss POC, schedule further visits to continue to work on high level balance and sfaety.
--- NOTE | 2023-06-13 16:00 | PT.OPPOC ---
Physical, Occupational & Speech Therapy At [facility] Current Diagnoses Difficulty in walking, not elsewhere classified (06/13/23) Other abnormalities of gait and mobility (06/13/23) Repeated falls (06/13/23) Other malaise (06/13/23) Visit Care Team Role Provider Type Anish Pham DO Attending Provider Physician Family Provider Primary Care Provider Referring Provider Specialty: Family Practice Address: [address] [place] [address], [facility] Email: Plan Of Care PT-OP-T Assessment and Plan Start: 04/20/23 17:58 Freq: Status: Active Protocol: Document 06/13/23 11:19 JOANN (Rec: 06/13/23 12:11 SAK [id number]) Physical Therapy Assessment Goals Four Impairment unsafe gait outdoors or on uneven surfaces Impairment no use of assistive device Short Term Goal (STG) instruct patient in safe use of cane 06/02/23: goal met STG Duration goal met Halfway Goal (LTG) Patient to consistently and safely use cane outdoors and on uneven ground for gait safety LTG Duration 07/31/23 Three Impairment no current exercise program Impairment dec balance and LE strength especially ankles Short Term Goal (STG) Instruct patient in HEP for purposes of strengthening and balance 06/02/23: goal met, continued progression STG Duration goal met Halfway Goal (LTG) Patient to be independent and compliant with HEP and demonstrate at least 1/2 grade improvement in LE strength LTG Duration 07/31/23 Two Impairment fear of falling and history of falls Impairment Falls efficacy scale 33/64 Short Term Goal (STG) Improve falls efficacy scale to no greater than 23/64 as measure of patient's improved balance confidence 06/02/23: goal progress STG Duration 07/10/23 Halfway Goal (LTG) No falls over at least 1 month period and improve falls efficacy scale to no greater than 15/64 as measure of patient's improved balance confidence. LTG Duration 07/31/23 One Impairment balance impairment Impairment Briseno balance score: 35/56 Dynamic gait index 02/18: both indicating high fall risk Short Term Goal (STG) IMprove Briseno to at least 42/ 56 and DGI to at least 15/24 as measure of improved balance and safety 06/02/23: goal progress 06/07/23 Briseno 45/56 this session. STG Duration 07/10/23 Halfway Goal (LTG) Improve Briseno to at least 48/56 and DGI to at least / as measure of improved balance and safety LTG Duration 07/31/23 Assessment Summary Assessment DGI: BP 146/83. Patient c/o feeling fatigue, legs feeling tired, decreased balance today with inc need for physical assistance or use of parallel bars Hasn't done HEP past week due to feeling tired. Had previously been noting improved functional balance and strength but patient having difficult day with increased fatigue and more challenges with balance today. Feel she would benefit from continued PT to help her fully meet her PT goals. Physical Therapy Plan Frequency and Duration Frequency of Treatment 2x/Week Duration of treatment (weeks) 6 Plan of Care Start Date 06/13/23 Plan of Care End Date 07/31/23 Therapeutic Interventions Therapeutic Interventions Balance Training,Gait Training ,Home Exercise Program, Neuromuscular Re-education, Patient/Caregiver Education, Self-Care/Home Management, Therapeutic Activities, Therapeutic Exercises Next Visit Focus/Plan Next Note Type Treatment Note Next Visit Plan Discuss POC, schedule further visits to continue to work on high level balance and sfaety. Plan of Care Dates Plan of Care Start Date 06/13/23 Plan of Care End Date 07/31/23 Electronically Signed by: Ilda Pedroza, PT 06/16/23 0807 If you are in agreement with this Plan of Care, please return a signed and dated copy. I have reviewed this Plan of Care and certify that the skilled therapy services above are required to meet the patient?s needs. Physician Signature Date Printed Name and Credentials Clinical Instructor Signature Printed Name and Credentials
--- NOTE | 2023-06-13 16:00 | PT.OPPOC ---
Physical, Occupational & Speech Therapy At [facility] Current Diagnoses Difficulty in walking, not elsewhere classified (06/13/23) Other abnormalities of gait and mobility (06/13/23) Repeated falls (06/13/23) Other malaise (06/13/23) Visit Care Team Role Provider Type Anish Pham DO Attending Provider Physician Family Provider Primary Care Provider Referring Provider Specialty: Family Practice Address: [address] [place] [address], [facility] Email: Plan Of Care PT-OP-T Assessment and Plan Start: 04/20/23 17:58 Freq: Status: Active Protocol: Document 06/13/23 11:19 JOANN (Rec: 06/13/23 12:11 SAK [id number]) Physical Therapy Assessment Goals Four Impairment unsafe gait outdoors or on uneven surfaces Impairment no use of assistive device Short Term Goal (STG) instruct patient in safe use of cane 06/02/23: goal met STG Duration goal met Penitentiary Goal (LTG) Patient to consistently and safely use cane outdoors and on uneven ground for gait safety LTG Duration 07/31/23 Three Impairment no current exercise program Impairment dec balance and LE strength especially ankles Short Term Goal (STG) Instruct patient in HEP for purposes of strengthening and balance 06/02/23: goal met, continued progression STG Duration goal met Penitentiary Goal (LTG) Patient to be independent and compliant with HEP and demonstrate at least 1/2 grade improvement in LE strength LTG Duration 07/31/23 Two Impairment fear of falling and history of falls Impairment Falls efficacy scale 33/64 Short Term Goal (STG) Improve falls efficacy scale to no greater than 23/64 as measure of patient's improved balance confidence 06/02/23: goal progress STG Duration 07/10/23 Penitentiary Goal (LTG) No falls over at least 1 month period and improve falls efficacy scale to no greater than 15/64 as measure of patient's improved balance confidence. LTG Duration 07/31/23 One Impairment balance impairment Impairment Briseno balance score: 35/56 Dynamic gait index 02/18: both indicating high fall risk Short Term Goal (STG) IMprove Briseno to at least 42/ 56 and DGI to at least 15/24 as measure of improved balance and safety 06/02/23: goal progress 06/07/23 Briseno 45/56 this session. STG Duration 07/10/23 Penitentiary Goal (LTG) Improve Briseno to at least 48/56 and DGI to at least / as measure of improved balance and safety LTG Duration 07/31/23 Assessment Summary Assessment DGI: BP 146/83. Patient c/o feeling fatigue, legs feeling tired, decreased balance today with inc need for physical assistance or use of parallel bars Hasn't done HEP past week due to feeling tired. Had previously been noting improved functional balance and strength but patient having difficult day with increased fatigue and more challenges with balance today. Feel she would benefit from continued PT to help her fully meet her PT goals. Physical Therapy Plan Frequency and Duration Frequency of Treatment 2x/Week Duration of treatment (weeks) 6 Plan of Care Start Date 06/13/23 Plan of Care End Date 07/31/23 Therapeutic Interventions Therapeutic Interventions Balance Training,Gait Training ,Home Exercise Program, Neuromuscular Re-education, Patient/Caregiver Education, Self-Care/Home Management, Therapeutic Activities, Therapeutic Exercises Next Visit Focus/Plan Next Note Type Treatment Note Next Visit Plan Discuss POC, schedule further visits to continue to work on high level balance and sfaety. Plan of Care Dates Plan of Care Start Date 06/13/23 Plan of Care End Date 07/31/23 Electronically Signed by: Ilda Pedroza, PT 06/16/23 0808 If you are in agreement with this Plan of Care, please return a signed and dated copy. I have reviewed this Plan of Care and certify that the skilled therapy services above are required to meet the patient?s needs. Physician Signature Date Printed Name and Credentials Clinical Instructor Signature Printed Name and Credentials
--- NOTE | 2023-06-14 15:57 | PT.OPPN ---
Current Diagnoses Difficulty in walking, not elsewhere classified (06/13/23) Other abnormalities of gait and mobility (06/13/23) Repeated falls (06/13/23) Other malaise (06/13/23) Physical Therapy Progress Note PT-OP-A Visit Information Start: 04/20/23 17:58 Freq: Status: Active Protocol: Document 06/13/23 11:19 SAK (Rec: 06/13/23 12:11 SAK [id number]) Out-Patient Physical Therapy Visit Information Visit Information Visit Type Treatment Note Visit Start Time 11:15 Visit Stop Time 11:55 Visit Number 9 Evaluation Information Evaluation Date 04/21/23 Precautions Precautions DM, peripheral neuropathy, hyperlipidemia, hypertension, anxiety and depression, blind in left eye (since 2 y/o) PT-OP-B Current Condition Start: 04/20/23 17:58 Freq: Status: Active Protocol: Document 06/13/23 11:19 SAK (Rec: 06/13/23 12:11 SAK [id number]) Current Condition History of Current Condition Onset Date 9 months Current Complaints falls History of Current Condition HIstory of falls; has fallen when stepping off curb, stubbing toe, fell [place] and doesn't know what happened . Gets dizzy at times when bends over. No giving way of legs. Denies N/T LE's. Reports hurting her right leg, and got a black eye once, has fallen all directions. Doesn 't use assistive device. Prior Treatments and Tests balance exercises in past but has stopped doing because I'm tired., not sure if helpful. PT-OP-C Subjective Start: 04/20/23 17:58 Freq: Status: Active Protocol: Document 06/13/23 11:19 SAK (Rec: 06/13/23 12:11 SAK [id number]) OP-PT Subjective Patient Comments Patient Comments Harder time doing HEP this week, reports tired, legs feel tired. PT-OP-D Balance Start: 04/20/23 17:58 Freq: Status: Active Protocol: Document 06/07/23 10:46 AB (Rec: 06/07/23 14:11 AB [id number]) Briseno Balance Assessment Total Score Briseno Impairment Rating 1 to 19% Impaired (Score 45-55 ) PT-OP-E Functional Tests Start: 04/20/23 17:58 Freq: Status: Active Protocol: Document 04/21/23 10:26 SAK (Rec: 04/21/23 11:43 [facility] [id number]) Functional Tests Dynamic Gait Index (DGI) Score 02/18 PT-OP-G Mobility & Gait Start: 04/20/23 17:58 Freq: Status: Active Protocol: Document 04/21/23 10:26 SAK (Rec: 04/21/23 11:43 [facility] [id number]) OP Gait Assessment Gait Gait Assistance Required: Independent Assistive Devices Assistive Device None Gait Deviations General Gait Pattern Decreased Stride Length, Decreased Feet Clearance Factors Limiting Gait Function Factors Limiting Gait Function Poor Balance Stair Climbing Evaluation Evaluation Level of Assist On Stairs Standby Assistance Devices Stair Climbing Assistive Devices Left Railing,Right Railing Technique/Endurance Stair Climbing Technique Step Over Step Comments Stair Climbing Comments hesitates, slow PT-OP-H Neuro Start: 04/20/23 17:58 Freq: Status: Active Protocol: Document 04/21/23 10:26 SAK (Rec: 04/21/23 11:43 [facility] [id number]) Sensation Evaluation Gross Sensation Gross Sensation Left LE Impaired,Right LE Impaired Comments Summary Comments denies N/T but dec LT and proprio noted bob LE's Vital Signs Blood Pressure Sitting Blood Pressure (90/60-120/80 mmHg) 142/87 H Blood Pressure Source Manual Cuff,Left Upper Extremity PT-OP-K Range of Motion Start: 04/20/23 17:58 Freq: Status: Active Protocol: Document 04/21/23 10:26 SAK (Rec: 04/21/23 11:43 [facility] [id number]) Hip Goniometric Range of Motion Hip Measured in Degrees bob Hip ROM WFL Yes Knee Goniometric Range of Motion Knee Measured in Degrees bob Knee ROM WFL Yes Ankle and Foot Goniometric Range of Motion Ankle and Foot Measured in Degrees bob Ankle/Foot ROM WFL No Dorsiflexion with Knee Flexed 5 Dorsiflexion with Knee Extended 0 Plantarflexion 50 PT-OP-M Strength Start: 04/20/23 17:58 Freq: Status: Active Protocol: Document 04/21/23 10:26 SAK (Rec: 04/21/23 11:43 [facility] [id number]) Hip Strength Hip Manual Muscle Testing bob Flexion (L2) 4 Good Extension (S1) 4 Good Abduction 4 Good Adduction 4 Good External Rotation 4- Good- Internal Rotation 4+ Good+ Knee Strength Knee Manual Muscle Testing bob Flexion (S2) 4+ Good+ Extension (L3) 4+ Good+ Ankle/Foot Strength Ankle and Foot Manual Muscle Testing bob Dorsiflexion (L4) 4 Good Plantarflexion (S1) 4 Good Inversion 4 Good Eversion (S1) 4 Good PT-OP-T Assessment and Plan Start: 04/20/23 17:58 Freq: Status: Active Protocol: Document 06/13/23 11:19 [facility] (Rec: 06/13/23 12:11 [facility] [id number]) Physical Therapy Assessment Goals Four Impairment unsafe gait outdoors or on uneven surfaces Impairment no use of assistive device Short Term Goal (STG) instruct patient in safe use of cane 06/02/23: goal met STG Duration goal met Custodial Goal (LTG) Patient to consistently and safely use cane outdoors and on uneven ground for gait safety LTG Duration 06/20/23 Three Impairment no current exercise program Impairment dec balance and LE strength especially ankles Short Term Goal (STG) Instruct patient in HEP for purposes of strengthening and balance 06/02/23: goal met, continued progression STG Duration goal met Custodial Goal (LTG) Patient to be independent and compliant with HEP and demonstrate at least 1/2 grade improvement in LE strength LTG Duration 06/20/23 Two Impairment fear of falling and history of falls Impairment Falls efficacy scale 33/64 Short Term Goal (STG) Improve falls efficacy scale to no greater than 23/64 as measure of patient's improved balance confidence 06/02/23: goal progress STG Duration 06/06/23 Custodial Goal (LTG) No falls over at least 1 month period and improve falls efficacy scale to no greater than 15/64 as measure of patient's improved balance confidence. LTG Duration 06/20/23 One Impairment balance impairment Impairment Briseno balance score: 35/56 Dynamic gait index 02/18: both indicating high fall risk Short Term Goal (STG) IMprove Briseno to at least 42/ 56 and DGI to at least 15/24 as measure of improved balance and safety 06/02/23: goal progress 06/07/23 Briseno 45/56 this session. STG Duration 05/22/23 Custodial Goal (LTG) Improve Briseno to at least 48/56 and DGI to at least 20/24 as measure of improved balance and safety LTG Duration 06/20/23 Assessment Summary Assessment DGI: BP 146/83. Patient c/o feeling fatigue, legs feeling tired, decreased balance today with inc need for physical assistance or use of parallel bars Hasn't done HEP past week due to feeling tired. Physical Therapy Plan Frequency and Duration Frequency of Treatment 2x/Week Duration of treatment (weeks) 8 Plan of Care Start Date 04/21/23 Plan of Care End Date 06/20/23 Therapeutic Interventions Therapeutic Interventions Balance Training,Gait Training ,Home Exercise Program, Neuromuscular Re-education, Patient/Caregiver Education, Self-Care/Home Management, Therapeutic Activities, Therapeutic Exercises Next Visit Focus/Plan Next Note Type Re-Evaluation Next Visit Plan Discuss POC, consider scheduling further visits to continue to work on high level balance and sfaety.
--- NOTE | 2023-06-15 14:08 | PT.OPPN ---
Current Diagnoses Difficulty in walking, not elsewhere classified (06/13/23) Other abnormalities of gait and mobility (06/13/23) Repeated falls (06/13/23) Other malaise (06/13/23) Physical Therapy Progress Note PT-OP-A Visit Information Start: 04/20/23 17:58 Freq: Status: Active Protocol: Document 06/13/23 11:19 SAK (Rec: 06/13/23 12:11 SAK [id number]) Out-Patient Physical Therapy Visit Information Visit Information Visit Type Treatment Note Visit Start Time 11:15 Visit Stop Time 11:55 Visit Number 9 Evaluation Information Evaluation Date 04/21/23 Precautions Precautions DM, peripheral neuropathy, hyperlipidemia, hypertension, anxiety and depression, blind in left eye (since 2 y/o) PT-OP-B Current Condition Start: 04/20/23 17:58 Freq: Status: Active Protocol: Document 06/13/23 11:19 SAK (Rec: 06/13/23 12:11 SAK [id number]) Current Condition History of Current Condition Onset Date 9 months Current Complaints falls History of Current Condition HIstory of falls; has fallen when stepping off curb, stubbing toe, fell [place] and doesn't know what happened . Gets dizzy at times when bends over. No giving way of legs. Denies N/T LE's. Reports hurting her right leg, and got a black eye once, has fallen all directions. Doesn 't use assistive device. Prior Treatments and Tests balance exercises in past but has stopped doing because I'm tired., not sure if helpful. PT-OP-C Subjective Start: 04/20/23 17:58 Freq: Status: Active Protocol: Document 06/13/23 11:19 SAK (Rec: 06/13/23 12:11 SAK [id number]) OP-PT Subjective Patient Comments Patient Comments Harder time doing HEP this week, reports tired, legs feel tired. PT-OP-D Balance Start: 04/20/23 17:58 Freq: Status: Active Protocol: Document 06/07/23 10:46 AB (Rec: 06/07/23 14:11 AB [id number]) Briseno Balance Assessment Total Score Briseno Impairment Rating 1 to 19% Impaired (Score 45-55 ) PT-OP-E Functional Tests Start: 04/20/23 17:58 Freq: Status: Active Protocol: Document 04/21/23 10:26 SAK (Rec: 04/21/23 11:43 [facility] [id number]) Functional Tests Dynamic Gait Index (DGI) Score 02/18 PT-OP-G Mobility & Gait Start: 04/20/23 17:58 Freq: Status: Active Protocol: Document 04/21/23 10:26 SAK (Rec: 04/21/23 11:43 [facility] [id number]) OP Gait Assessment Gait Gait Assistance Required: Independent Assistive Devices Assistive Device None Gait Deviations General Gait Pattern Decreased Stride Length, Decreased Feet Clearance Factors Limiting Gait Function Factors Limiting Gait Function Poor Balance Stair Climbing Evaluation Evaluation Level of Assist On Stairs Standby Assistance Devices Stair Climbing Assistive Devices Left Railing,Right Railing Technique/Endurance Stair Climbing Technique Step Over Step Comments Stair Climbing Comments hesitates, slow PT-OP-H Neuro Start: 04/20/23 17:58 Freq: Status: Active Protocol: Document 04/21/23 10:26 SAK (Rec: 04/21/23 11:43 [facility] [id number]) Sensation Evaluation Gross Sensation Gross Sensation Left LE Impaired,Right LE Impaired Comments Summary Comments denies N/T but dec LT and proprio noted bob LE's Vital Signs Blood Pressure Sitting Blood Pressure (90/60-120/80 mmHg) 142/87 H Blood Pressure Source Manual Cuff,Left Upper Extremity PT-OP-K Range of Motion Start: 04/20/23 17:58 Freq: Status: Active Protocol: Document 04/21/23 10:26 SAK (Rec: 04/21/23 11:43 [facility] [id number]) Hip Goniometric Range of Motion Hip Measured in Degrees bob Hip ROM WFL Yes Knee Goniometric Range of Motion Knee Measured in Degrees bob Knee ROM WFL Yes Ankle and Foot Goniometric Range of Motion Ankle and Foot Measured in Degrees bob Ankle/Foot ROM WFL No Dorsiflexion with Knee Flexed 5 Dorsiflexion with Knee Extended 0 Plantarflexion 50 PT-OP-M Strength Start: 04/20/23 17:58 Freq: Status: Active Protocol: Document 04/21/23 10:26 SAK (Rec: 04/21/23 11:43 [facility] [id number]) Hip Strength Hip Manual Muscle Testing bob Flexion (L2) 4 Good Extension (S1) 4 Good Abduction 4 Good Adduction 4 Good External Rotation 4- Good- Internal Rotation 4+ Good+ Knee Strength Knee Manual Muscle Testing bob Flexion (S2) 4+ Good+ Extension (L3) 4+ Good+ Ankle/Foot Strength Ankle and Foot Manual Muscle Testing bob Dorsiflexion (L4) 4 Good Plantarflexion (S1) 4 Good Inversion 4 Good Eversion (S1) 4 Good PT-OP-T Assessment and Plan Start: 04/20/23 17:58 Freq: Status: Active Protocol: Document 06/13/23 11:19 [facility] (Rec: 06/13/23 12:11 [facility] [id number]) Physical Therapy Assessment Goals Four Impairment unsafe gait outdoors or on uneven surfaces Impairment no use of assistive device Short Term Goal (STG) instruct patient in safe use of cane 06/02/23: goal met STG Duration goal met [facility] Goal (LTG) Patient to consistently and safely use cane outdoors and on uneven ground for gait safety LTG Duration 06/20/23 Three Impairment no current exercise program Impairment dec balance and LE strength especially ankles Short Term Goal (STG) Instruct patient in HEP for purposes of strengthening and balance 06/02/23: goal met, continued progression STG Duration goal met [facility] Goal (LTG) Patient to be independent and compliant with HEP and demonstrate at least 1/2 grade improvement in LE strength LTG Duration 06/20/23 Two Impairment fear of falling and history of falls Impairment Falls efficacy scale 33/64 Short Term Goal (STG) Improve falls efficacy scale to no greater than 23/64 as measure of patient's improved balance confidence 06/02/23: goal progress STG Duration 06/06/23 [facility] Goal (LTG) No falls over at least 1 month period and improve falls efficacy scale to no greater than 15/64 as measure of patient's improved balance confidence. LTG Duration 06/20/23 One Impairment balance impairment Impairment Briseno balance score: 35/56 Dynamic gait index 02/18: both indicating high fall risk Short Term Goal (STG) IMprove Briseno to at least 42/ 56 and DGI to at least 15/24 as measure of improved balance and safety 06/02/23: goal progress 06/07/23 Briseno 45/56 this session. STG Duration 05/22/23 [facility] Goal (LTG) Improve Briseno to at least 48/56 and DGI to at least 20/24 as measure of improved balance and safety LTG Duration 06/20/23 Assessment Summary Assessment DGI: BP 146/83. Patient c/o feeling fatigue, legs feeling tired, decreased balance today with inc need for physical assistance or use of parallel bars Hasn't done HEP past week due to feeling tired. Physical Therapy Plan Frequency and Duration Frequency of Treatment 2x/Week Duration of treatment (weeks) 8 Plan of Care Start Date 04/21/23 Plan of Care End Date 06/20/23 Therapeutic Interventions Therapeutic Interventions Balance Training,Gait Training ,Home Exercise Program, Neuromuscular Re-education, Patient/Caregiver Education, Self-Care/Home Management, Therapeutic Activities, Therapeutic Exercises Next Visit Focus/Plan Next Note Type Re-Evaluation Next Visit Plan Discuss POC, consider scheduling further visits to continue to work on high level balance and sfaety.
--- NOTE | 2023-06-16 15:15 | PT.OTN ---
Current Diagnoses Difficulty in walking, not elsewhere classified (06/16/23) Other abnormalities of gait and mobility (06/16/23) Repeated falls (06/16/23) Other malaise (06/16/23) Physical Therapy Treatment Note PT-OP-A Visit Information Start: 04/20/23 17:58 Freq: Status: Active Protocol: Document 06/16/23 14:35 SP (Rec: 06/16/23 15:45 SP [id number]) Out-Patient Physical Therapy Visit Information Visit Information Visit Type Treatment Note Visit Start Time 14:35 Visit Stop Time 15:15 Visit Number 10 Number of ALARM TECHNICIAN Visits 1 Evaluation Information Evaluation Date 04/21/23 Precautions Precautions DM, peripheral neuropathy, hyperlipidemia, hypertension, anxiety and depression, blind in left eye (since 2 y/o) PT-OP-B Current Condition Start: 04/20/23 17:58 Freq: Status: Active Protocol: Document 06/13/23 11:19 SAK (Rec: 06/13/23 12:11 SAK [id number]) Current Condition History of Current Condition Onset Date 9 months Current Complaints falls History of Current Condition HIstory of falls; has fallen when stepping off curb, stubbing toe, fell on beach and doesn't know what happened . Gets dizzy at times when bends over. No giving way of legs. Denies N/T LE's. Reports hurting her right leg, and got a black eye once, has fallen all directions. Doesn 't use assistive device. Prior Treatments and Tests balance exercises in past but has stopped doing because I'm tired., not sure if helpful. PT-OP-C Subjective Start: 04/20/23 17:58 Freq: Status: Active Protocol: Document 06/16/23 14:35 SP (Rec: 06/16/23 15:45 SP [id number]) OP-PT Subjective Patient Comments Patient Comments Pt reports just little tired after last tx. PT-OP-D Balance Start: 04/20/23 17:58 Freq: Status: Active Protocol: Document 06/07/23 10:46 AB (Rec: 06/07/23 14:11 AB [id number]) Briseno Balance Assessment Total Score Briseno Impairment Rating 1 to 19% Impaired (Score 45-55 ) PT-OP-E Functional Tests Start: 04/20/23 17:58 Freq: Status: Active Protocol: Document 04/21/23 10:26 SAK (Rec: 04/21/23 11:43 [facility] [id number]) Functional Tests Dynamic Gait Index (DGI) Score 02/18 PT-OP-G Mobility & Gait Start: 04/20/23 17:58 Freq: Status: Active Protocol: Document 04/21/23 10:26 SAK (Rec: 04/21/23 11:43 [facility] [id number]) OP Gait Assessment Gait Gait Assistance Required: Independent Assistive Devices Assistive Device None Gait Deviations General Gait Pattern Decreased Stride Length, Decreased Feet Clearance Factors Limiting Gait Function Factors Limiting Gait Function Poor Balance Stair Climbing Evaluation Evaluation Level of Assist On Stairs Standby Assistance Devices Stair Climbing Assistive Devices Left Railing,Right Railing Technique/Endurance Stair Climbing Technique Step Over Step Comments Stair Climbing Comments hesitates, slow PT-OP-H Neuro Start: 04/20/23 17:58 Freq: Status: Active Protocol: Document 04/21/23 10:26 [facility] (Rec: 04/21/23 11:43 [facility] [id number]) Sensation Evaluation Gross Sensation Gross Sensation Left LE Impaired,Right LE Impaired Comments Summary Comments denies N/T but dec LT and proprio noted bob LE's Vital Signs Blood Pressure Sitting Blood Pressure (90/60-120/80 mmHg) 142/87 H Blood Pressure Source Manual Cuff,Left Upper Extremity PT-OP-K Range of Motion Start: 04/20/23 17:58 Freq: Status: Active Protocol: Document 04/21/23 10:26 [facility] (Rec: 04/21/23 11:43 [facility] [id number]) Hip Goniometric Range of Motion Hip bob Hip ROM WFL Yes Knee Goniometric Range of Motion Knee bob Knee ROM WFL Yes Ankle and Foot Goniometric Range of Motion Ankle and Foot bob Ankle/Foot ROM WFL No Dorsiflexion with Knee Flexed 5 Dorsiflexion with Knee Extended 0 Plantarflexion 50 PT-OP-M Strength Start: 04/20/23 17:58 Freq: Status: Active Protocol: Document 04/21/23 10:26 SAK (Rec: 04/21/23 11:43 [facility] [id number]) Hip Strength Hip Manual Muscle Testing bob Flexion (L2) 4 Good Extension (S1) 4 Good Abduction 4 Good Adduction 4 Good External Rotation 4- Good- Internal Rotation 4+ Good+ Knee Strength Knee Manual Muscle Testing bob Flexion (S2) 4+ Good+ Extension (L3) 4+ Good+ Ankle/Foot Strength Ankle and Foot Manual Muscle Testing bob Dorsiflexion (L4) 4 Good Plantarflexion (S1) 4 Good Inversion 4 Good Eversion (S1) 4 Good PT-OP-Q Treatments Start: 04/20/23 17:58 Freq: Status: Active Protocol: Document 06/16/23 14:35 SP (Rec: 06/16/23 15:45 SP [id number]) Cardio Equipment Recumbent Stepper (Sci-Fit) Duration (Minutes) 10 Resistance 2 Seat Position 9 Other cues for RPM >40 Gym Equipment Shuttle Balance stagger stance Details stagger: EO Comments CG-20%A cues for trunk directioning for corrections Shuttle on 4's Comments not feeling up to it today. chains red Details 1. weight shift fwd/bck, stagger stance Comments CGA/ min 1. wt shifts 2. HTs only 4s (WBOS) Therapeutic Exercises Standing Exercises hip ab Standing Exercise Name intitiated in PT 06/15 Side bilateral Resistance 4# leg wt Equipment Used BUE //bar support Reps/Minutes 2x10 Comments good form, tiring heel raise Standing Exercise Name on step with UE support Side bilateral Resistance 4# leg wt Reps/Minutes 2X10 Comments improved slowly lower heels to floor Gait Training Gait Activity no device Device Used none Level of Assistance CGA Surface firm Distance/Duration between machines Treatment Focus centering stability, increase JOSHUA, foot clearance Comments cued increase stride and foot clearance. cane Level of Assistance SBa, CUES Surface FIRM Distance/Duration 80 ft waiting room<> gym, 50 ft 1 laps hallway Treatment Focus sequencing with cane in RUE/ LLE, midline stability Comments ed not lean into SPC (in RUE) but use more for stabillity, min cues for sequencing with RLE 2 pt gait, maintains 50% time. Neuro Re-Education Treatment Balance Activities step up taps Equipment 6 inch step, 4# leg wt, //bars PRN Reps/Duration 2X10 each LE Comments CGA-5%A contact rail x1 light recovery from over wt shift R. hurdles Details 1. fwd &Lateral step to 2. step over step fwd Reps/Duration 10 feetX 3 laps each Comments CGA to 10% assist *cued soft /slower stepping, increase JOSHUA (decrease scissor stepping), taller but looking at hurdles. Ed be sure have balance before advance next LE . PT-OP-T Assessment and Plan Start: 04/20/23 17:58 Freq: Status: Active Protocol: Document 06/16/23 14:35 SP (Rec: 06/16/23 15:45 SP [id number]) Physical Therapy Assessment Goals Four Impairment unsafe gait outdoors or on uneven surfaces Impairment no use of assistive device Short Term Goal (STG) instruct patient in safe use of cane 06/02/23: goal met STG Duration goal met Hand Engraver Goal (LTG) Patient to consistently and safely use cane outdoors and on uneven ground for gait safety LTG Duration 07/31/23 Three Impairment no current exercise program Impairment dec balance and LE strength especially ankles Short Term Goal (STG) Instruct patient in HEP for purposes of strengthening and balance 06/02/23: goal met, continued progression STG Duration goal met Intermediate Goal (LTG) Patient to be independent and compliant with HEP and demonstrate at least 1/2 grade improvement in LE strength LTG Duration 07/31/23 Two Impairment fear of falling and history of falls Impairment Falls efficacy scale 33/64 Short Term Goal (STG) Improve falls efficacy scale to no greater than 23/64 as measure of patient's improved balance confidence 06/02/23: goal progress STG Duration 07/10/23 Hand Engraver Goal (LTG) No falls over at least 1 month period and improve falls efficacy scale to no greater than 15/64 as measure of patient's improved balance confidence. LTG Duration 07/31/23 One Impairment balance impairment Impairment Briseno balance score: 35/56 Dynamic gait index 02/18: both indicating high fall risk Short Term Goal (STG) IMprove Briseno to at least 42/ 56 and DGI to at least 15/24 as measure of improved balance and safety 06/02/23: goal progress 06/07/23 Briseno 45/56 this session. STG Duration 07/10/23 Intermediate Goal (LTG) Improve Briseno to at least 48/56 and DGI to at least 20/24 as measure of improved balance and safety LTG Duration 07/31/23 Assessment Summary Assessment Pt improved slower pacing wt shifting over stance LE during step taps and chaitanya stepping step to patterning, challenged receiprocal stepping without max cuing pause balance before advance 2nd LE. Pt more challenged SPC advancement, consistantly approx 50%, 2 instances RLE almost connected with SPC, ed placement little more out to side. LOB to R but self recovery /c SPC due to R foot didn't clear floor. Discussed need be consistant advancement with LLE. Physical Therapy Plan Frequency and Duration Frequency of Treatment 2x/Week Duration of treatment (weeks) 6 Plan of Care Start Date 06/13/23 Plan of Care End Date 07/31/23 Therapeutic Interventions Therapeutic Interventions Balance Training,Gait Training ,Home Exercise Program, Neuromuscular Re-education, Patient/Caregiver Education, Self-Care/Home Management, Therapeutic Activities, Therapeutic Exercises Next Visit Focus/Plan Next Note Type Treatment Note Next Visit Plan *Pt prefers 1x/wk. Check scheduled further visits to continue to work on high level balance and safety.
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
== END 2023-07-28 12:49 | disposition home or self-care (01) ==
LOC: PHYS 10:30
PROVIDERS: Family Provider Family Medicine; PCP Family Medicine; Referring Provider Family Medicine; Visit Provider Family Medicine
DX: R53.81 Other malaise (principal); R26.89 Other abnormalities of gait and mobility; R29.6 Repeated falls
CPT/HCPCS: 97110; 97112; 97116; 97140; 97162; 97530; 97535

== ENCOUNTER → 2023-12-19 12:39 | Outpatient (CLI) | payer MEDICARE, MEDICAID, SELFPAY ==
[2021-09-10 16:24] VITALS: BMI 27.4
[2023-12-19 15:08] LABS: Add Manual Diff / Slide Review NO; Basophils Absolute Auto 100 /uL (0-100); Basophils Percent Auto 1.1 % (0-2); Eosinophils Absolute Auto 500 /uL (0-450); Eosinophils Percent Auto 5.7 % (2-4); Hematocrit 37.2 % (36-46); Hemoglobin 12.9 g/dL (12.0-16.0); Lymphocytes Absolute Auto 1200 /uL (1100-4500); Lymphocytes Percent Auto 13.2 % (25-40); Mean Corpuscular HGB Conc 34.8 % (30-36); Mean Corpuscular Hemoglobin 31.5 PG (26-34); Mean Corpuscular Volume 90.6 fL (80-100); Monocytes Absolute Auto 600 /uL (0-900); Monocytes Percent Auto 6.6 % (3-14); Neutrophils Absolute Auto 6500 /uL (1500-7000); Neutrophils Percent Auto 73.4 % (50-75); Platelet Count 174 X10^3/uL (150-400); Red Blood Cell Count 4.11 X10^6/uL (4.0-5.2); Red Cell Distribution Width 13.1 % (11.6-14.8); White Blood Cell Count 8.8 X10^3/uL (4.5-11.0)
[2023-12-19 15:13] LABS: Hemoglobin A1C% w Est Avg Glu 6.7 % (4.0-6.0)
[2023-12-19 16:41] LABS: Alanine Aminotransferase 18 IU/L (<35); Albumin Globulin Ratio 1.5 (1.0-2.8); Alkaline Phosphatase 50 U/L (38-126); Aspartate Aminotransferase 19 IU/L (14-36); BUN Creatinine Ratio 17.4 (6-22); Bilirubin Total 1.1 mg/dL (0.2-1.3); Blood Urea Nitrogen 16 mg/dL (7-17); Calcium 10.8 mg/dL (8.4-10.2); Carbon Dioxide 29 mmol/L (22-32); Chloride 99 mmol/L (98-107); Cholesterol 121 mg/dL (140-199); Estimated Glomerular Filt Rate > 60 mL/min (>60); Globulin 2.6 g/dL (1.7-4.1); Glucose 205 mg/dL (80-110); HDL Cholesterol 26 mg/dL (40-60); HEMOLYSIS < 15 (0-50); LDL Cholesterol Calculated 53 mg/dL (<100); Potassium 3.2 mmol/L (3.4-5.1); Sodium 137 mmol/L (137-145); Total Protein 6.6 g/dL (6.3-8.2); Triglycerides 209 mg/dL (35-150)
[2023-12-19 16:50] LABS: Creatinine Urine Random 107.99 mg/dL
[2023-12-19 16:51] LABS: Microalbumin Urine Random 2.5 mg/dL (0-1.6)
== END ==
LOC: LAB 12:40
PROVIDERS: Family Provider Family Medicine; PCP Family Medicine; Referring Provider Family Medicine; Visit Provider Family Medicine
DX: E78.5 Hyperlipidemia, unspecified (principal); E11.21 Type 2 diabetes mellitus with diabetic nephropathy; I10 Essential (primary) hypertension
CPT/HCPCS: 36415; 80053; 80061; 82043; 82570; 83036; 85025

== ENCOUNTER → 2024-06-18 09:00 | Outpatient (CLI) | payer MEDICARE, MEDICAID, SELFPAY ==
[2021-09-10 16:24] VITALS: BMI 27.4
[2024-06-18 09:35] LABS: Add Manual Diff / Slide Review NO; Basophils Absolute Auto 100 /uL (0-100); Eosinophils Absolute Auto 300 /uL (0-450); Eosinophils Percent Auto 3.6 % (2-4); Hematocrit 39.7 % (36-46); Hemoglobin 13.6 g/dL (12.0-16.0); Lymphocytes Absolute Auto 1200 /uL (1100-4500); Lymphocytes Percent Auto 16.4 % (25-40); Mean Corpuscular HGB Conc 34.3 % (30-36); Mean Corpuscular Hemoglobin 30.8 PG (26-34); Mean Corpuscular Volume 89.9 fL (80-100); Monocytes Absolute Auto 600 /uL (0-900); Monocytes Percent Auto 8.5 % (3-14); Neutrophils Absolute Auto 5300 /uL (1500-7000); Neutrophils Percent Auto 70.5 % (50-75); Platelet Count 160 X10^3/uL (150-400); Red Blood Cell Count 4.42 X10^6/uL (4.0-5.2); Red Cell Distribution Width 12.6 % (11.6-14.8); White Blood Cell Count 7.6 X10^3/uL (4.5-11.0)
[2024-06-18 09:52] LABS: Alanine Aminotransferase 23 IU/L (<35); Albumin 4.5 g/dL (3.5-5.0); Albumin Globulin Ratio 2.1 (1.0-2.8); Alkaline Phosphatase 53 U/L (38-126); Aspartate Aminotransferase 23 IU/L (14-36); BUN Creatinine Ratio 18.2 (6-22); Blood Urea Nitrogen 20 mg/dL (7-17); Calcium 10.6 mg/dL (8.4-10.2); Carbon Dioxide 25 mmol/L (22-32); Chloride 103 mmol/L (98-107); Cholesterol 144 mg/dL (140-199); Estimated Glomerular Filt Rate 51 mL/min (>60); Globulin 2.1 g/dL (1.7-4.1); Glucose 177 mg/dL (80-110); HDL Cholesterol 27 mg/dL (40-60); HEMOLYSIS < 15 (0-50); LDL Cholesterol Calculated 72 mg/dL (<100); Potassium 3.6 mmol/L (3.4-5.1); Sodium 140 mmol/L (137-145); Total Protein 6.6 g/dL (6.3-8.2); Triglycerides 223 mg/dL (35-150)
[2024-06-18 10:01] LABS: Microalbumin Urine Random 9.2 mg/dL (0-1.6)
[2024-06-18 10:08] LABS: Creatinine Urine Random 475.11 mg/dL
== END ==
PROVIDERS: Family Provider Family Medicine; PCP Family Medicine; Referring Provider Family Medicine; Visit Provider Family Medicine
DX: I10 Essential (primary) hypertension (principal); E78.5 Hyperlipidemia, unspecified; E11.21 Type 2 diabetes mellitus with diabetic nephropathy; C50.919 Malignant neoplasm of unspecified site of unspecified female breast; C78.00 Secondary malignant neoplasm of unspecified lung
CPT/HCPCS: 36415; 80053; 80061; 82043; 82570; 85025

== ENCOUNTER → 2024-08-14 15:12 | Outpatient (CLI) | payer MEDICARE, MEDICAID, SELFPAY ==
[2021-09-10 16:24] VITALS: BMI 27.4
--- NOTE | 2024-08-14 15:12 | DI.MG.S_ITS ---
MM screening mammo unilat LT: 08/14/2024. BI-RADS: 1 CLINICAL: 79-year old female for left screening mammogram. No Tyrer-Cuzick risk score calculation due to the patient's personal history of breast cancer. Patient reports a history of right breast carcinoma diagnosed at age 78. Status-post right mastectomy with hormonal therapy. Current reported family history of breast cancer: mother. Patient was diagnosed within the last 5 years. The patient had a prior right breast biopsy. PRIOR EXAMS 07/01/2023, 06/16/2022, 04/14/2022, 06/29/2021, 06/15/2021. MAMMOGRAPHY TECHNIQUE: 2D and 3D (tomosynthesis) digital mammographic views obtained, with additional images as needed for full coverage. Current study was also evaluated with a Computer Aided Detection (CAD) system. DENSITY Left: B. There are scattered areas of fibroglandular density. MAMMOGRAPHY FINDINGS Left: No suspicious mass, asymmetry, microcalcification, or other abnormality seen. IMPRESSION: Left * No evidence of malignancy. RECOMMENDATIONS Left * Annual screening mammography. OVERALL ASSESSMENT CATEGORY BI-RADS-1: Negative. The [employer] recommends annual screening mammography beginning at age 40 for women with average risk of breast cancer. ELECTRONICALLY SIGNED: Suzi Sanford M.D. on 08/15/2024 at 07:50:10 AM PT Interpreting Station ID: [id number]
== END ==
LOC: MAMMO 15:12
PROVIDERS: Family Provider Family Medicine; PCP Family Medicine; Referring Provider Family Medicine; Visit Provider Family Medicine
DX: Z12.31 Encounter for screening mammogram for malignant neoplasm of breast (principal); Z85.3 Personal history of malignant neoplasm of breast; Z80.3 Family history of malignant neoplasm of breast
CPT/HCPCS: 77063; 77067

== ENCOUNTER → 2024-08-18 15:18 | Outpatient (CLI) | payer MEDICARE, MEDICAID, SELFPAY ==
[2021-09-10 16:24] VITALS: BMI 27.4
== END ==
PROVIDERS: Family Provider Family Medicine; PCP Family Medicine; Visit Provider Registered Nurse
DX: M54.50 Low back pain, unspecified (principal)
CPT/HCPCS: 87077; 87086; 87186

== ENCOUNTER 2024-08-26 11:37 | Emergency (ER) | payer MEDICARE, MEDICAID, SELFPAY ==
[2021-09-10 16:24] VITALS: BMI 27.4
[2024-08-26 11:47] VITALS: BP 136/74; PULSE 58; RESP 17; TEMP 36.2; O2SAT 97; BMI 26.2
--- NOTE | 2024-08-26 12:02 | ED_ITS ---
HPI - Fall General Chief Complaint: Fall Stated Complaint: GLF t-2, R Side Chest Pain Time Seen by Provider: 08/26/24 11:53 Source: patient Mode of arrival: Ambulatory History of Present Illness HPI Narrative: Pt is an 79 y/o f w history of mild cognitive impairment, recurrent falls, DM, HTN, p/w fall. Patient states that she had a fall 2 days prior to presentation. She was chasing her dog and she tripped on an uneven piece of cement causing her to fall. Had HS without LOC. Was doing well following this fall, however noticed right chest wall pain that has since persisted. She states that this pain has made it difficult to take a deep breath. Pt otherwise without new headaches, no nausea, vomiting, vision changes. Denies sustaining additional injuries and has been ambulatory since the time of injury. She has had no increased cough or fever. Related Data Home Medications Medication Instructions Recorded Confirmed [calcium ] 1,200 mg PO QDAY ##0 03/09/17 07/26/24 omega 6-oud-dbm-fish oil 1,200 mg 1 cap PO DAILY 11/23/19 07/26/24 (144 mg-216 mg) capsule (Fish Oil) vit C 250 mg-vit E 90 mg-zinc 40 1 tab PO QAM AND QHS 07/27/21 07/26/24 mg-copper 1 [id number] capsule (PreserVision AREDS-2) cholecalciferol (vitamin D3) 50 50 mcg PO DAILY 10/26/21 07/26/24 mcg (2,000 unit) capsule (Vitamin D3) letrozole 2.5 mg tablet 2.5 mg PO DAILY 06/26/24 07/26/24 timolol maleate 0.5 % eye drops drp EYE-BOTH 08/18/24 Previous Rx's Medication Instructions Recorded acetaminophen 325 mg capsule 650 mg (2 x 325 mg) PO QID PRN 07/22/21 (Tylenol) pain #60 caps chlorthalidone 25 mg tablet 25 mg PO DAILY #90 tabs 10/10/23 letrozole 2.5 mg tablet 2.5 mg PO DAILY #90 tabs 10/10/23 Disabled Parking Permit #1 ea 12/20/23 atorvastatin 10 mg tablet 5 mg (1/2 x 10 mg) PO DAILY #45 06/08/24 tabs duloxetine 20 mg capsule,delayed 20 mg PO BID #180 caps 06/08/24 release losartan 100 mg tablet 100 mg PO DAILY #90 tabs 06/08/24 metformin 500 mg tablet,extended 500 mg PO BID #180 tabs 06/08/24 release 24 hr glipizide 5 mg tablet 5 mg PO DAILY #90 tabs 07/09/24 tizanidine 4 mg tablet 4 mg PO ONCE PM #90 tabs 07/09/24 blood sugar diagnostic (OneTouch #100 strips 07/26/24 Verio test strips) propranolol 40 mg tablet 40 mg PO BID #180 tabs 08/08/24 Allergies Allergy/AdvReac Type Severity Reaction Status Date / Time Horse/Equine Containing Allergy Unknown Patient Verified 08/26/24 11:47 Products can't remember I was 1 or 2 when that happened. lisinopril [LISINOPRIL] AdvReac Severe Cough, Verified 08/26/24 11:47 tremors codeine [CODEINE] AdvReac Intermediate itching Verified 08/26/24 11:47 and rash Review of Systems Review of Systems ROS Unobtainable: All systems reviewed & are unremarkable except as noted in HPI and below Constitutional Constitutional: Reports as per HPI, Denies fever(s) and Reports frequent falls Eyes Eyes: Denies blurry vision and Denies diplopia ENT Ears, Nose, Mouth, and Throat: Denies dizziness Cardiovascular Cardiovascular: Reports chest pain, Denies syncope, Denies lightheadedness and Denies dyspnea Respiratory Respiratory: Denies cough, Reports pain on inspiration and Denies dyspnea Neurologic Neurologic: Denies dizziness, Denies syncope and Reports frequent falls Patient History Medical History Essential tremor Frequent urinary tract infections Breast cancer metastasized to lung Itching Lung mass Insomnia Frequent falls Dry cough Traumatic ecchymosis of face Fall Elevated BUN Physical deconditioning Balance problem Medication adverse effect Mild cognitive impairment with memory loss Invasive ductal carcinoma of breast Masses of both breasts 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, left shoulder Low HDL (under 40) Tension headache Memory loss History of head injury Lower extremity edema Hx of drug overdose (Unknown) Anxiety (Unknown) Diabetes (Unknown) Hyperlipemia (Unknown) Hypertension (Unknown) GERD (gastroesophageal reflux disease) (Unknown) CKD (chronic kidney disease) (Unknown) Obstructive sleep apnea (Unknown) Depression (1965) Chronic back pain (1998) Chickenpox (1956) Measles (1948) Mumps (1949) Hearing loss (2014) Blindness (1950) Urinary incontinence (2010) Diabetes insipidus (2000) GI bleed (2016) Breast CA (1998) Surgical History History of hernia repair History of bladder suspension procedure History of total abdominal hysterectomy (1998) S/P breast lumpectomy (~1999) Family History Father Diabetes mellitus Liver cancer Mother Hypertension Breast cancer Social History household members: other Smoking Status: Never smoker second hand exposure: Yes (I was when I was young.) alcohol intake: former substance use type: does not use Smoking Status: Never smoker Exam Narrative Exam Narrative: Right-sided chest wall pain without crepitus, no significant ecchymosis Ecchymoses over the right upper eye, extraocular movements intact Initial Vital Signs Initial Vital Signs: Vital Signs Temperature 97.1 F L 08/26/24 11:47 Pulse Rate 58 L 08/26/24 11:47 Respiratory Rate 17 08/26/24 11:47 Blood Pressure 136/74 08/26/24 11:47 Pulse Oximetry 97 08/26/24 11:47 Oxygen Delivery Method Room Air 08/26/24 11:47 Const General: cooperative and No acute distress [facility] Head: normocephalic Eyes Periorbital: periorbital findings abnormal (ecchymosis) right Neck Neck: full ROM Chest Chest: No crepitus and tenderness Resp Effort & Inspection: decreased respiratory effort, no respiratory distress and not tachypneic Auscultation: clear to auscultation bilaterally Cardio Rate: regular rate Rhythm: regular rhythm GI Palpation: soft and No tender Neuro Cognition: normal cognition Speech: speech normal Psych Mental Status: mental status grossly normal Speech and Movement: speech and movement normal Course Orders Ordered: Discontinued Medications Lidocaine (Lidocaine 5% Patch) 1 each TOP NOW ONE Stop: 08/26/24 13:26 Last Admin: 08/26/24 13:46 Dose: 1 each Documented By: LIANNA Vital Signs Vital signs: Vital Signs - 8 hr 08/26/24 11:47 08/26/24 12:23 08/26/24 12:23 Temperature 97.1 F L Pulse Rate 58 L 67 Respiratory Rate 17 Blood Pressure 136/74 176/84 H Pulse Oximetry 97 92 Oxygen Delivery Method Room Air MDM - Fall Differential Diagnosis Differential diagnosis: Likely concussion without loss of consciousness and other (rib fracture, pleural effusion, pneumothorax) Medical Records Attestation: I reviewed the patient's medical records. Imaging Data CT chest abdomen pelvis: Attestation: I personally reviewed and interpreted this imaging study as follows: My Impression: Without evidence of acute traumatic injury on independent review Radiologist's Impression: [address] [address] [address] Scan Report Signed Patient: Pau Rivera MR#: [id number] : 1945 Acct:[id number] Age/Sex: 79 / F Date of Service: 08/26/24 Loc: ED Accession Number: [id number] Procedure: CT Trauma Chest Abdomen Pelvis Ordering Provider: Anu Urrutia MD PROCEDURE: CT TRAUMA CHEST ABDOMEN PELVIS INDICATIONS: right sided rib pain post fall today TECHNIQUE: After the administration of intravenous contrast, 5 mm thick sections acquired from the lung apices to the symphysis. 2.5 mm thick coronal and sagittal reformats were acquired. Additional 7 mm thick coronal maximum intensity projection (MIP) reformats acquired through the lungs. Optional 10-minute delayed imaging may be performed from the kidneys to the bladder. For radiation dose reduction, the following was used: automated exposure control, adjustment of mA and/or kV according to patient size. COMPARISON: [facility], CT, CT CHEST WITHOUT CONTRAST, 06/17/2023, 13:40. FINDINGS: Image quality: Diagnostic. CHEST: Lower Neck: No enlarged lymph nodes. Thyroid: Enlarged thyroid gland with heterogeneous contrast enhancement. Axillae: No enlarged lymph nodes. Chest Wall: No subcutaneous gas. Lungs and Pleura: No pulmonary contusions or lacerations. Scattered scarring/atelectasis are noted in periphery of bilateral mid to lower lung zone. Patient's known right middle and lower lobe solid-appearing pulmonary nodules are not significantly changed in overall size and appearance compared to 2023 study. No new suspicious pulmonary nodule is seen. No pleural effusion or pneumothorax. Mediastinum: No mediastinal hematomas. Heart size is enlarged. No pericardial effusion. Thoracic aorta is normal in size. Enlarged main pulmonary artery which can be seen associated with pulmonary vascular hypertension. No mediastinal or hilar adenopathy. Esophagus is normal in caliber. Small hiatal hernia. ABDOMEN: Liver: No lacerations. Moderate hepatic steatosis. No gross solid appearing hepatic lesion. Gallbladder: No radiopaque gallstones or wall thickening. Biliary ducts: No biliary dilation. Pancreas: Homogenous enhancement. Spleen: Homogenous enhancement without laceration or hematoma. Adrenal Glands: Symmetric enhancement. Kidneys and Ureters: Symmetric enhancement. No hydronephrosis. No solid mass. No complex renal cystic lesion which requires follow up. Stomach and Bowel: Normal colonic caliber, without significant wall thickening. Significant fecal stasis in the colon is seen extending to distal sigmoid colon and rectum. No abscess collection. Peritoneum: No abnormal intraperitoneal fluid. No free air. Ventral Wall small ventral hernia is seen containing fat only. Abdominal Nodes: No retroperitoneal or mesenteric adenopathy by size criteria. Vessels: Aorta and inferior vena cava are normal in size. PELVIS: Pelvic Organs: Unremarkable. Bladder: Normal thickness. Pelvic Nodes: No enlarged lymph nodes. Miscellaneous: No inguinal hernias are seen. Bones: No acute vertebral body compression fractures. No acute IMPRESSION: 1. No evidence of traumatic injury to the chest, abdomen or pelvis. 2. Moderate to severe constipation and fecal impaction. No abscess collection. No free fluid or free air. 3. Other chronic findings as described above, not significantly changed from prior studies. Dictated by: Jerardo Bolton M.D. on 08/26/2024 at 12:57 Approved by: Jerardo Bolton M.D. on 08/26/2024 at 13:05 [facility] Narrative Medical decision making narrative: History and exam as above. PResenting with glf and right sided chest wall/RUQ pain. Differential for presentation includes rib fracture, contusion, pleural effusion, pneumothorax, zoster, liver injury, diaphragmatic injury Patient well appearing and in no acute distress, no evidence to suggest nonmechanical etiology for fall. Will defer lab work at this time given patient has been stable for 2 days at home prior to presentation and exam is overall reassuring. Will also plan for CT imaging to evaluate for rib fractures and patient to be provided with IS to minimize splinting and possible complication following decrease respiratory effor secondary to pain. CT without evidence of acute traumatic injury or other findings. Patient counseled regarding use of IS and follow up plan with PCP. discussed pain management. Discharged in stable condition. Discharge Plan Departure Patient Disposition: Home Clinical Impression: Chest wall pain Fall Qualifiers: Encounter type: initial encounter Qualified Code(s): W19.XXXA - Unspecified fall, initial encounter Activity Restrictions/Additional Instructions: You were seen in the emergency department for evaluation following your fall. Evaluation here including examination and imaging was overall reassuring and did not demonstrate any evidence of an injury that would require intervention or admission to the hospital. Your chest pain is likely secondary to soft tissue injury from the fall. There is no evidence of rib fractures, or large contusion or hematoma. We recommend using Tylenol, lidocaine patches, and rest in order to help these injuries heal. We are also recommending incentive spirometer to keep your lungs open and clear while you heal. Please follow-up with your primary care provider in approximately 5-7 days for close re-evaluation and further management. Prescriptions: No Action timolol maleate 0.5 % drops EYE-BOTH [calcium ] 1,200 mg PO QDAY Qty: 0 letrozole 2.5 mg tablet 2.5 mg PO DAILY Qty: 90 3RF chlorthalidone 25 mg tablet 25 mg PO DAILY Qty: 90 3RF metformin 500 mg tablet extended release 24 hr 500 mg PO BID Qty: 180 0RF duloxetine 20 mg capsule,delayed release(DR/EC) 20 mg PO BID Qty: 180 0RF losartan 100 mg tablet 100 mg PO DAILY Qty: 90 0RF atorvastatin 10 mg tablet 5 mg PO DAILY Qty: 45 0RF tizanidine 4 mg tablet 4 mg PO ONCE PM Qty: 90 0RF glipizide 5 mg tablet 5 mg PO DAILY Qty: 90 0RF (DME) OneTouch Verio test strips Strip See Rx Instructions .ROUTE .COMPLEX Qty: 100 3RF Dose Instruction: use TEST BLOOD SUGAR once daily Rx Instructions: use TEST BLOOD SUGAR once daily propranolol 40 mg tablet 40 mg PO BID Qty: 180 0RF omega 5-luu-els-fish oil [Fish Oil] 1,200 (144-216) mg capsule 1 cap PO DAILY (DME) Disabled Parking Permit Qty: 1 0RF Dose Instruction: As directed Rx Instructions: I certify that patient qualifies for the disabled parking privileges. letrozole 2.5 mg tablet 2.5 mg PO DAILY PreserVision AREDS-2 250-90-40-1 mg Capsule 1 tab PO QAM AND QHS cholecalciferol (vitamin D3) [Vitamin D3] 50 mcg (2,000 unit) Capsule 50 mcg PO DAILY acetaminophen [Tylenol] 325 mg capsule 650 mg PO QID PRN (Reason: pain) Qty: 60 0RF Referrals: Anish Pham DO [Primary Care Provider] - Stand Alone Forms: Patient Portal/API/Survey
--- NOTE | 2024-08-26 12:06 | DI.CT.S_ITS ---
PROCEDURE: CT TRAUMA CHEST ABDOMEN PELVIS INDICATIONS: right sided rib pain post fall today TECHNIQUE: After the administration of intravenous contrast, 5 mm thick sections acquired from the lung apices to the symphysis. 2.5 mm thick coronal and sagittal reformats were acquired. Additional 7 mm thick coronal maximum intensity projection (MIP) reformats acquired through the lungs. Optional 10-minute delayed imaging may be performed from the kidneys to the bladder. For radiation dose reduction, the following was used: automated exposure control, adjustment of mA and/or kV according to patient size. COMPARISON: [facility], CT, CT CHEST WITHOUT CONTRAST, 06/17/2023, 13:40. FINDINGS: Image quality: Diagnostic. CHEST: Lower Neck: No enlarged lymph nodes. Thyroid: Enlarged thyroid gland with heterogeneous contrast enhancement. Axillae: No enlarged lymph nodes. Chest Wall: No subcutaneous gas. Lungs and Pleura: No pulmonary contusions or lacerations. Scattered scarring/atelectasis are noted in periphery of bilateral mid to lower lung zone. Patient's known right middle and lower lobe solid-appearing pulmonary nodules are not significantly changed in overall size and appearance compared to 2023 study. No new suspicious pulmonary nodule is seen. No pleural effusion or pneumothorax. Mediastinum: No mediastinal hematomas. Heart size is enlarged. No pericardial effusion. Thoracic aorta is normal in size. Enlarged main pulmonary artery which can be seen associated with pulmonary vascular hypertension. No mediastinal or hilar adenopathy. Esophagus is normal in caliber. Small hiatal hernia. ABDOMEN: Liver: No lacerations. Moderate hepatic steatosis. No gross solid appearing hepatic lesion. Gallbladder: No radiopaque gallstones or wall thickening. Biliary ducts: No biliary dilation. Pancreas: Homogenous enhancement. Spleen: Homogenous enhancement without laceration or hematoma. Adrenal Glands: Symmetric enhancement. Kidneys and Ureters: Symmetric enhancement. No hydronephrosis. No solid mass. No complex renal cystic lesion which requires follow up. Stomach and Bowel: Normal colonic caliber, without significant wall thickening. Significant fecal stasis in the colon is seen extending to distal sigmoid colon and rectum. No abscess collection. Peritoneum: No abnormal intraperitoneal fluid. No free air. Ventral Wall small ventral hernia is seen containing fat only. Abdominal Nodes: No retroperitoneal or mesenteric adenopathy by size criteria. Vessels: Aorta and inferior vena cava are normal in size. PELVIS: Pelvic Organs: Unremarkable. Bladder: Normal thickness. Pelvic Nodes: No enlarged lymph nodes. Miscellaneous: No inguinal hernias are seen. Bones: No acute vertebral body compression fractures. No acute IMPRESSION: 1. No evidence of traumatic injury to the chest, abdomen or pelvis. 2. Moderate to severe constipation and fecal impaction. No abscess collection. No free fluid or free air. 3. Other chronic findings as described above, not significantly changed from prior studies. Dictated by: Jerardo Bolton M.D. on 08/26/2024 at 12:57 Approved by: Jerardo Bolton M.D. on 08/26/2024 at 13:05
[2024-08-26 12:23] VITALS: BP 176/84; PULSE 67; O2SAT 92
[2024-08-26] MEDS: LIDOCAINE 5% PATCH 1 EACH TOP (13:46)
== END 2024-08-26 13:54 | disposition home or self-care (01) ==
PROVIDERS: Emergency Provider Student in an Organized Health Care Education/Training Program; Family Provider Family Medicine; PCP Family Medicine
DX: R07.89 Other chest pain (principal); W01.0XXA Fall on same level from slipping, tripping and stumbling without subsequent striking against object, initial encounter; R10.11 Right upper quadrant pain
CPT/HCPCS: 71275; 74177; 99282; 99284; Q9967

== ENCOUNTER → 2025-01-01 08:47 | Outpatient (CLI) | payer MEDICARE, MEDICAID, SELFPAY ==
[2021-09-10 16:24] VITALS: BMI 27.4
[2025-01-01 10:06] LABS: Add Manual Diff / Slide Review NO; Hematocrit 39.3 % (36-46); Hemoglobin 13.4 g/dL (12.0-16.0); Lymphocytes Absolute Auto 1400 /uL (1100-4500); Mean Corpuscular HGB Conc 34.2 % (30-36); Mean Corpuscular Hemoglobin 30.7 PG (26-34); Mean Corpuscular Volume 89.8 fL (80-100); Platelet Count 158 X10^3/uL (150-400)
[2025-01-01 10:32] LABS: Alanine Aminotransferase 16 IU/L (<35); Albumin 4.1 g/dL (3.5-5.0); Albumin Globulin Ratio 1.8 (1.0-2.8); Alkaline Phosphatase 60 U/L (38-126); Blood Urea Nitrogen 20 mg/dL (7-17); Calcium 10.4 mg/dL (8.4-10.2); Carbon Dioxide 27 mmol/L (22-32); Chloride 105 mmol/L (98-107); Cholesterol 128 mg/dL (140-199); Estimated Glomerular Filt Rate 49 mL/min (>60); Globulin 2.3 g/dL (1.7-4.1); Glucose 126 mg/dL (70-99); HDL Cholesterol 27 mg/dL (40-60); HEMOLYSIS < 15 (0-50); Hemoglobin A1C% w Est Avg Glu 6.9 % (4.0-6.0); Potassium 3.5 mmol/L (3.4-5.1); Sodium 141 mmol/L (137-145); Total Protein 6.4 g/dL (6.3-8.2); Triglycerides 153 mg/dL (35-150)
[2025-01-01 10:47] LABS: Microalbumi Creatinin Ratio Ur 35.0 ug/mg CR (<30)
== END ==
PROVIDERS: Family Provider Family Medicine; PCP Family Medicine; Referring Provider Family Medicine; Visit Provider Family Medicine
DX: E11.21 Type 2 diabetes mellitus with diabetic nephropathy (principal); I10 Essential (primary) hypertension
CPT/HCPCS: 36415; 80053; 80061; 82043; 82570; 83036; 85025